=== PATIENT | female | born 1995 | race Caucasian/White ===

== ENCOUNTER 2024-12-02 12:46 | Emergency (ER) | payer OTHER, SELFPAY ==
[2024-12-02 12:47] VITALS: BP 113/76; PULSE 104; RESP 16; TEMP 36.8; O2SAT 100
--- NOTE | 2024-12-02 13:30 | ED.VIS.DYS ---
HPI History of Present Illness Chief Complaint: Cold Sx PFSH [facility] Home Medications ?Medication ?Instructions ?Recorded ?Last Taken ?Type docusate sodium 100 mg capsule 200 mg PO BID PRN PRN Constipation 05/13/17 Unknown Rx (DOK) ##60 lorazepam 0.5 mg tablet 0.5 mg PO Q8H PRN PRN Anxiety #10 05/13/17 Unknown Rx tabs nicotine 21 mg/24 hr daily 21 mg TRANSDERM. DAILY #20 patches 05/13/17 Unknown Rx transdermal patch oxycodone 5 mg tablet 5 - 10 mg (1 - 2 x 5 mg) PO Q4H 05/13/17 Unknown Rx PRN PRN moderate to severe pain #30 tabs sertraline 50 mg tablet 50 mg PO DAILY #30 tabs 05/13/17 Unknown Rx sulfamethoxazole 800 1 tab PO BID 14 days 05/13/17 Unknown Rx mg-trimethoprim 160 mg tablet Allergy/AdvReac Type Severity Reaction Status Date / Time lactose Allergy Abd Verified 12/02/24 12:47 cramps/diarrhea egg AdvReac Hives Verified 12/02/24 12:47 Social History Smoking Status: Former smoker EXAM Physical Exam Const Vital Signs: 12/02/24 12:47 12/02/24 14:16 12/02/24 14:51 Temperature 98.3 F Temperature Source Oral Pulse Rate 104 H 92 Respiratory Rate 16 16 16 Respiratory Pattern Normal Blood Pressure 113/76 Blood Pressure Mean 88 Pulse Ox 100 100 Oxygen Delivery Method Room Air 12/02/24 16:00 Temperature Temperature Source Pulse Rate 68 Respiratory Rate 18 Respiratory Pattern Blood Pressure Blood Pressure Mean Pulse Ox Oxygen Delivery Method [facility] MDM MDM Narrative Medical decision making narrative: HISTORY OF PRESENT ILLNESS: 29-year-old female presents concern for cold symptoms. No she is feeling dizzy. She notes pressure in her abdomen. Denies vaginal bleeding, vaginal discharge, passage of any tissue, leakage of any fluid. REVIEW OF SYSTEMS: Pertinent positives: Cough, cold symptoms Pertinent negatives: Chest pain, shortness of breath PHYSICAL EXAM: Nursing triage notes reviewed, Vital signs reviewed Constitutional: please see mdm HENT: MMM Eyes: Pupils equal round and reactive to light, Extraocular muscles intact Neck: No stridor, no JVD, full neck ROM Lungs: Coarse breath sounds, slight expiratory wheezing noted initially. No increased work of breathing, no conversational dyspnea, no accessory muscle use, no nasal flaring. No respiratory distress noted Heart: Regular rate and rhythm, No murmurs, No rubs and No gallops, 2+ distal pulses (radial, femoral, posterior tibial) in all extremities Abdomen: Soft, there is no tenderness, rigidity, rebound or guarding, no obvious peritoneal signs, no palpable pulsatile abdominal masses, no auscultated abdominal bruit : No CVAT Extremities: No edema Neuro: No new focal neurological deficits, cranial nerves II through XII intact, 5/5 strength in all present extremities. Intact sensation to light touch in all present extremities, 2+ reflexes bilateral patella tendons. Skin: No rash or lesions noted MEDICAL DECISION MAKING: Chief Complaint: Cough, cold symptoms Social determinants of health: Currently MDM Narrative: Patient was initially hemodynamically stable, afebrile and nontoxic-appearing. Exam without focal cardiopulmonary normalities. Abdomen soft. I considered the following differential diagnosis: COVID/flu/RSV, pneumonia ALL IMAGES (IF OBTAINED) HAVE BEEN PERSONALLY REVIEWED AND INTERPRETED BY MYSELF. I have personally reviewed the patient's chest x-ray. Chest x-ray is unremarkable for pulmonary edema, pneumothorax, pneumonia or focal cardiopulmonary abnormality. COVID/flu/RSV test pending Patient abdominal exam is reassuring. heart tones reassuring. On reevaluation wheezing has completely resolved. She has no abdominal pain. Repeat abdominal exam remained benign. Viral swab showed RSV positive. This likely etiology of the patient's complaints. The patient does not display any signs of hypoxia or increased work of breathing or need for submental oxygen or invasive ventilation. She was instructed on Tylenol and ibuprofen. Strict return precautions were discussed. Instructed the patient to call her OB and follow-up (patient notes she has an appointment tomorrow). No indication for emergent OB evaluation at this time. Gave strict return precautions and follow-up instructions. The patient and/or family, caregivers express understanding. The patient and/or family, caregivers agrees with the plan. Shared decision making: I will have a discussion with the patient and or visitors regarding risk/benefits of further testing or admission. They will be made aware of of the risk/benefits inherent in this decision they will be given the opportunity to voice understanding. Total critical care time today provided was at least 0 minutes. This excludes separately billable procedures. Critical care time (if documented) is secondary to the patient having high probability of clinically significant/life threatening deterioration in the patient's condition which required my urgent intervention. Impression: 1. Viral URI 2. RSV Dispo: Discharge home This note was generated with [employer]ok[employer] dictation software. It may contain incorrect words, spelling, and punctuation that were not noted in review of the chart prior to signing. Radiography Diagnostic Testing: Clinical Impression(s) from Imaging Studies Chest X-Ray 12/02/24 14:15 IMPRESSION: NEGATIVE CHEST Reading Location[facility] Discharge Plan Triage Chief Complaint: Cold Sx ED Provider: Cuauhtemoc Molina Dx/Rx/DC Orders Instructions: ED RSV Bronchiolitis Prescriptions: No Action lorazepam 0.5 MG tablet 0.5 mg PO Q8H PRN PRN (Reason: Anxiety) Qty: 10 0RF nicotine 21 MG patch 21 mg TRANSDERM. DAILY Qty: 20 0RF Rx Instructions: May transition to 14 mg and then 7 mg patch as taper for tobacco cessation. Obtain Rx per your primary care physician. docusate sodium [DOK] 100 MG capsule 200 mg PO BID PRN PRN (Reason: Constipation ) Qty: 60 0RF sertraline 50 MG tablet 50 mg PO DAILY Qty: 30 0RF Rx Instructions: Continue 50 mg daily x 1 week and then may increase to 100 mg daily. Following will need further adjustment upward to achieve symptom control which will need performed per your primary care physician. oxycodone 5 MG tablet 5 - 10 mg PO Q4H PRN PRN (Reason: moderate to severe pain) Qty: 30 0RF sulfamethoxazole-trimethoprim 1 TABLET tablet 1 tab PO BID 14 Days 0RF Stand Alone Forms: ED Work / School Excuse Primary Care Provider: Lupe Michelle Referrals: [facility] Doctor,Out of [Non-Staff] - Activity Restrictions/Additional Instructions: Thank you for trusting us with your care today! Your viral swab was positive for RSV. Is likely cause of your symptoms. Please take Tylenol (2 pills, 650 mg), every 6 hours as needed for pain and fever control. Please return to the emergency department if your symptoms change or worsen. Please follow with your primary care physician for further outpatient evaluation and management. Print Language: Nepali Disposition Disposition: Home, Self Care Discharge Date/Time: 12/02/24 16:43
--- NOTE | 2024-12-02 14:15 | RAD_ITS ---
PROCEDURE: CHEST PA AND LATERAL REASON FOR EXAM: Cough TECHNIQUE: Frontal and lateral views of the chest. COMPARISON: None. FINDINGS: The heart size is normal. The mediastinal contour is unremarkable. The lungs are clear. The bones are unremarkable. RAD/Chest PA and Lateral IMPRESSION: NEGATIVE CHEST Reading Location: [facility]
[2024-12-02 14:16] VITALS: PULSE 92; RESP 16
[2024-12-02] MEDS: Ipratropium/Albuterol Sulfate 3 ML AMPUL.NEB INHALATION (14:18)
[2024-12-02 14:51] VITALS: RESP 16; O2SAT 100
[2024-12-02 16:00] VITALS: PULSE 68; RESP 18
== END 2024-12-02 16:43 | disposition home or self-care (01) ==
PROVIDERS: Emergency Provider Emergency Medicine; PCP Family Medicine; Visit Provider Emergency Medicine
DX: O99.519 Diseases of the respiratory system complicating pregnancy, unspecified trimester (principal); B97.4 Respiratory syncytial virus as the cause of diseases classified elsewhere; J06.9 Acute upper respiratory infection, unspecified; Z3A.00 Weeks of gestation of pregnancy not specified; Z87.891 Personal history of nicotine dependence
CPT/HCPCS: 71046; 87631; 94640; 99282

== ENCOUNTER 2024-12-03 06:58 | Outpatient (CLI) | payer OTHER, SELFPAY ==
[2024-12-03] VITALS (13 sets, daily range): BP systolic 115–121; BP diastolic 58; PULSE 85–100; RESP 22; O2SAT 95–98; BMI 34.2
--- NOTE | 2024-12-03 07:39 | OB.TRI.NOTE ---
HPI - General HPI Narrative TRICIA MCNULTY, is a 29 F 33 week gestation who presents to triage with pelvic pressure and possible leaking of fluid. She was seen in ED yesterday and +RSV. PFSH PFSH Home Medications ?Medication ?Instructions ?Recorded ?Last Taken ?Type docusate sodium 100 mg capsule 200 mg PO BID PRN PRN Constipation 05/13/17 Unknown Rx (DOK) ##60 lorazepam 0.5 mg tablet 0.5 mg PO Q8H PRN PRN Anxiety #10 05/13/17 Unknown Rx tabs nicotine 21 mg/24 hr daily 21 mg TRANSDERM. DAILY #20 patches 05/13/17 Unknown Rx transdermal patch oxycodone 5 mg tablet 5 - 10 mg (1 - 2 x 5 mg) PO Q4H 05/13/17 Unknown Rx PRN PRN moderate to severe pain #30 tabs sertraline 50 mg tablet 50 mg PO DAILY #30 tabs 05/13/17 Unknown Rx sulfamethoxazole 800 1 tab PO BID 14 days 05/13/17 Unknown Rx mg-trimethoprim 160 mg tablet Allergy/AdvReac Type Severity Reaction Status Date / Time lactose Allergy Abd Verified 12/02/24 12:47 cramps/diarrhea egg AdvReac Hives Verified 12/02/24 12:47 Social History Smoking Status: Former smoker ROS Eyes Eyes: Denies blurry vision Cardiovascular Cardiovascular: Reports none; Denies chest pain at rest, chest pain with activity or dizziness Respiratory/Chest Respiratory/Chest: Denies cough or dyspnea Gastrointestinal Gastrointestinal: Reports none and other; Denies diarrhea or vomiting Genitourinary Genitourinary: Denies dysuria Musculoskeletal Musculoskeletal: Reports none Integumentary Integumentary: Reports none; Denies rash Neurologic Neurologic: Denies dizziness, headache(s) or other visual disturbances Psychiatric Psychiatric: Reports none Physical Exam Const alert and no apparent distress General Appearance: cooperative Orientation / Consciousness: awake Exam Limitations: no limitations HEENT normocephalic Eyes General Eye: normal appearance of both eyes Neck full ROM Chest inspection of chest normal Resp normal respiratory effort and normal air movement Cardio regular rate GI soft to palpation, non-tender and non-distended Inspection: and other Back/Spine normal ROM Extremity full ROM, normal capillary refill and no calf tenderness Skin no rashes or lesions noted Neuro oriented x3 and CN's II-XII intact bilaterally Psych mental status grossly normal NST FHR Rate Baby A Baseline: 125 Variability:: Moderate Accelerations:: 15 x 15 Decelerations:: None NST Reactive:: Yes FHR Category:: Category I Uterine Activity:: IRRITABILITY Assessment & Plan (1) 33 weeks gestation of : (2) Lower abdominal tenderness: (3) No leakage of amniotic fluid into vagina: (4) RSV (respiratory syncytial virus infection): PLAN: Plan ROM plus - negative Start IV and run fluids per orders Labs collected UA collected Palpated maternal abdomen, mild tenderness in lower right quadrant Dr. Hinton updated and will be assuming managment of patient
[2024-12-03 08:19] LABS: Protein:Creat Ratio 237 mg/g CRE (0-200)
[2024-12-03 08:26] LABS: ROM Internal Control Test YES-OK TO RESULT pt. (Internal QC); ROM Patient Test Negative (Negative); Record Kit Lot#, ROM+ K2871
[2024-12-03 08:58] LABS: Absolute Lymphocyte Count 1.71 X10^3/uL (0.83-4.51); Absolute Neutrophil Count 12.1 X10^3/uL (2.0-7.7); Basophil# 0.07 X10^3/uL; Basophil% 0.5 % (0-1); Eosinophil# 0.21 X10^3/uL; Eosinophils% 1.4 % (0-5); Hematocrit 36.1 % (37-47); Hemoglobin 12.2 g/dL (12.0-15.0); Lymphocyte # 1.71 X10^3/ul (0.83-4.51); Lymphocyte % 11.3 % (19-41); Mean Corp Hgb Conc 33.8 g/dL (32-36); Mean Corpuscular Hgb 29.3 pg (27.0-32.0); Mean Corpuscular Volume 86.6 fL (81-99); Mean Platelet Vol. 9.4 fl (6.2-12.0); Monocyte# 0.92 X10^3/uL; Monocyte% 6.1 % (0-10); NRBC Flagged by Analyzer 0 % (0-5); Neutrophil # 12.06 X10^3/uL (2.7-7.7); Neutrophil % 79.8 % (47-70); Platelet Count 256 K/mm3 (150-450); RBC Distribution Width CV 13.3 % (11.6-14.6); RBC Distribution Width SD 42.2 fl (35.1-43.9); Red Blood Count 4.17 M/mm3 (4.2-5.4); White Blood Count 15.1 K/mm3 (4.4-11.0)
[2024-12-03 09:12] LABS: AST(SGOT) 18 U/L (15-37); Alanine Aminotransfer ALT/SGPT 17 U/L (13-56); Creatinine, Serum 0.38 mg/dL (0.55-1.02); EST Glomerular Filtration Rate 209 mL/min (>60); Est Glom Filt Rate - Afr Amer 253 mL/min (>60)
[2024-12-03 09:21] LABS: Anion Gap 9 (5-15); BUN 6 mg/dL (7-18); Calcium,Total 8.6 mg/dL (8.5-10.1); Chloride 107 mmol/L (98-107); Creatinine, Serum 0.37 mg/dL (0.55-1.02); EST Glomerular Filtration Rate 213 mL/min (>60); Est Glom Filt Rate - Afr Amer 258 mL/min (>60); Estimated Creatinine Clearance 216.09 ml/min; Glucose 99 mg/dL (74-106); Potassium 3.4 mmol/L (3.5-5.1); Sodium Level 138 mmol/L (136-145)
[2024-12-03 09:54] LABS: Syphilis Antibodies Non-reactive
[2024-12-03] MEDS: Ipratropium/Albuterol Sulfate 3 ML AMPUL.NEB INHALATION (12:28)
== END 2024-12-03 13:48 | disposition home or self-care (01) ==
LOC: WPOUT 07:04 → WP 07:04
PROVIDERS: PCP Family Medicine; Referring Provider Advanced Practice Midwife; Visit Provider Advanced Practice Midwife
DX: O99.891 Other specified diseases and conditions complicating pregnancy (principal); R10.31 Right lower quadrant pain; O98.513 Other viral diseases complicating pregnancy, third trimester; B97.4 Respiratory syncytial virus as the cause of diseases classified elsewhere; Z3A.33 33 weeks gestation of pregnancy; Z87.891 Personal history of nicotine dependence
CPT/HCPCS: 36415; 59025; 59050; 80048; 82565; 82570; 84112; 84156; 84450; 84460; 84550; 85025; 86780; 87086; 87088; 94640; 99221; G0378

== ENCOUNTER 2024-12-19 19:05 | Outpatient (CLI) | payer OTHER, SELFPAY ==
[2024-12-19 19:38] VITALS: PULSE 90; O2SAT 98
[2024-12-19 19:41] VITALS: BP 115/68; PULSE 87
[2024-12-19 19:49] VITALS: BMI 35.1
[2024-12-19 19:52] VITALS: RESP 20; TEMP 36.7
[2024-12-19 20:13] LABS: Color, Urine Yellow (Yellow); Glucose, Dipstick Normal (Normal); Ketone-Dipstick Negative (Negative); Leukocyte Esterase-Dipstick Negative /ul (Negative); Nitrite-Dipstick Negative (Negative); Occult Blood-Urine Negative /ul (Negative); Protein-Dipstick 15 mg/dl (Negative); Specific Gravity, Urine 1.015 (1.002-1.030); Urine Bilirubin Dipstick Negative (Negative); Urine Clarity Clear (Clear); Urine Urobilinogen Normal (Normal)
--- NOTE | 2024-12-19 21:22 | OB.TRI.NOTE ---
HPI - General HPI Narrative TRICIA MCNULTY, is a 29 F at 35.4 weeks gestation who presents with lower vaginal pressure. Patient denies any loss of fluid, or vaginal bleeding. She denies any dysuria or hematuria. Maternal Data Information SASCHA Calculator Estimated Delivery Date Method Current WG Current Estimate 01/19/25 Manual 35w 4d PFSH PFSH Home Medications ?Medication ?Instructions ?Recorded ?Last Taken ?Type buspirone PO BID 12/19/24 12/19/24 18:50 History lamotrigine 100 mg tablet 100 mg PO DAILY 12/19/24 12/18/24 20:00 History (Lamictal) nystatin .ROUTE .qid 12/19/24 12/19/24 13:00 History vit no.95-ferrous 1 tab PO DAILY 12/19/24 12/18/24 20:00 History fumarate 28 mg-folic acid 800 mcg tablet () Allergy/AdvReac Type Severity Reaction Status Date / Time bupropion (From Wellbutrin) Allergy Severe Other Verified 12/19/24 19:44 pollen extracts (pollens) Allergy Mild Other Verified 12/19/24 19:44 lactose Allergy Abd Verified 12/19/24 19:44 cramps/diarrhea egg AdvReac Hives Verified 12/19/24 19:44 Social History Smoking Status: Former smoker ROS Eyes Eyes: Denies blurry vision Cardiovascular Cardiovascular: Reports none; Denies chest pain at rest, chest pain with activity or dizziness Respiratory/Chest Respiratory/Chest: Denies cough or dyspnea Gastrointestinal Gastrointestinal: Reports none and other; Denies diarrhea or vomiting Genitourinary Genitourinary: Denies dysuria Musculoskeletal Musculoskeletal: Reports none Integumentary Integumentary: Reports none; Denies rash Neurologic Neurologic: Denies dizziness, headache(s) or other visual disturbances Psychiatric Psychiatric: Reports none Physical Exam Const alert and no apparent distress General Appearance: cooperative Orientation / Consciousness: awake Exam Limitations: no limitations HEENT normocephalic Eyes General Eye: normal appearance of both eyes Neck full ROM Chest inspection of chest normal Resp normal respiratory effort and normal air movement Effort and Inspection: symmetric chest movement Auscultation: clear to auscultation bilaterally Cardio regular rate GI soft to palpation, non-tender and non-distended Inspection: and other Back/Spine normal ROM Extremity full ROM, normal capillary refill and no calf tenderness Skin no rashes or lesions noted Neuro oriented x3 and CN's II-XII intact bilaterally Psych mental status grossly normal NST FHR Rate Baby A Baseline: 120 Variability:: Moderate Accelerations:: 15 x 15 Decelerations:: None NST Reactive:: Yes FHR Category:: Category I Uterine Activity:: Occasional Assessment & Plan (1) 35 weeks gestation of : (2) Pelvic pressure in : (3) Lower abdominal tenderness: PLAN: Plan CE FT/ Thick/ High UA - negative Patient reports feeling no pain since arrival Taking oral PO Requesting discharge home Follow up in office
== END 2024-12-19 21:24 | disposition home or self-care (01) ==
LOC: WPOUT 19:10 → WP 19:10
PROVIDERS: PCP Family Medicine; Referring Provider Advanced Practice Midwife; Visit Provider Advanced Practice Midwife
DX: O99.891 Other specified diseases and conditions complicating pregnancy (principal); R10.2 Pelvic and perineal pain; Z3A.35 35 weeks gestation of pregnancy; Z87.891 Personal history of nicotine dependence
CPT/HCPCS: 59025; 59050; 81002; 99221; G0378

== ENCOUNTER 2024-12-25 17:25 | Outpatient (CLI) | payer OTHER, SELFPAY ==
[2024-12-25 17:38] VITALS: BP 115/76; PULSE 95; RESP 16; TEMP 36.8; O2SAT 97
[2024-12-25 17:41] VITALS: BP 115/76; PULSE 94
[2024-12-25 17:57] VITALS: BP 105/66; PULSE 90; BMI 35.7
[2024-12-25 18:13] VITALS: BP 111/66; PULSE 90
--- NOTE | 2024-12-25 19:53 | OB.TRI.NOTE ---
HPI - General HPI Narrative TRICIA MCNULTY, is a 29 F who presents for evaluation. Per RN she coughed and saw stars for 10 seconds. She denied further concerns to RN. Maternal Data Information SASCHA Calculator Estimated Delivery Date Method Current WG Current Estimate 01/19/25 Manual 36w 3d PFSH PFSH Home Medications ?Medication ?Instructions ?Recorded ?Last Taken ?Type buspirone 10 mg PO BID 12/19/24 12/25/24 10:00 History lamotrigine 100 mg tablet 100 mg PO DAILY 12/19/24 12/25/24 10:00 History (Lamictal) vit no.95-ferrous 1 tab PO DAILY 12/19/24 12/24/24 22:00 History fumarate 28 mg-folic acid 800 mcg tablet () aspirin 81 mg chewable tablet 1 tab PO DAILY 12/25/24 12/24/24 22:00 History (Aspirin Childrens) Allergy/AdvReac Type Severity Reaction Status Date / Time bupropion (From Wellbutrin) Allergy Severe Other Verified 12/25/24 18:01 pollen extracts (pollens) Allergy Mild Other Verified 12/25/24 18:01 lactose Allergy Abd Verified 12/19/24 19:44 cramps/diarrhea egg AdvReac Hives Verified 12/25/24 18:01 Social History Smoking Status: Former smoker NST FHR Rate Baby A Baseline: 125 Variability:: Moderate Accelerations:: 15 x 15 Decelerations:: None Uterine Activity:: rare Assessment & Plan (1) Vision changes: PLAN: Plan Reactive NST
== END 2024-12-25 18:29 | disposition home or self-care (01) ==
LOC: WPOUT 17:30 → WP 17:31
PROVIDERS: PCP Family Medicine; Referring Provider Obstetrics & Gynecology; Visit Provider Obstetrics & Gynecology
DX: O99.891 Other specified diseases and conditions complicating pregnancy (principal); H53.9 Unspecified visual disturbance; Z3A.36 36 weeks gestation of pregnancy; Z87.891 Personal history of nicotine dependence; Z79.82 Long term (current) use of aspirin
CPT/HCPCS: 59025; 59050; 99221; G0378

== ENCOUNTER 2025-01-13 16:12 | Inpatient (IN) | payer OTHER, SELFPAY ==
[2025-01-13] VITALS (9 sets, daily range): BP systolic 118–131; BP diastolic 70–79; PULSE 79–92; RESP 16–18; TEMP 36.3–37.3; O2SAT 93–97; BMI 35.5
[2025-01-13 16:52] LABS: Absolute Lymphocyte Count 2.47 X10^3/uL (0.83-4.51); Absolute Neutrophil Count 9.7 X10^3/uL (2.0-7.7); Basophil# 0.04 X10^3/uL; Basophil% 0.3 % (0-1); Eosinophil# 0.11 X10^3/uL; Eosinophils% 0.8 % (0-5); Hematocrit 36.5 % (37-47); Hemoglobin 12.4 g/dL (12.0-15.0); Lymphocyte # 2.47 X10^3/ul (0.83-4.51); Lymphocyte % 18.6 % (19-41); Mean Corpuscular Hgb 29.5 pg (27.0-32.0); Mean Corpuscular Volume 86.7 fL (81-99); Mean Platelet Vol. 9.3 fl (6.2-12.0); Monocyte# 0.87 X10^3/uL; Monocyte% 6.6 % (0-10); NRBC Flagged by Analyzer 0 % (0-5); Neutrophil % 73.2 % (47-70); Platelet Count 304 K/mm3 (150-450); RBC Distribution Width CV 13.4 % (11.6-14.6); RBC Distribution Width SD 42.1 fl (35.1-43.9); Red Blood Count 4.21 M/mm3 (4.2-5.4); White Blood Count 13.3 K/mm3 (4.4-11.0)
[2025-01-13] MEDS: Lactated Ringers 1,000 ML 50 ML IV (17:05)
--- NOTE | 2025-01-13 17:13 | PCM.HP.OB ---
HPI - General General Date of Admission: 01/13/25 Date of Service: 01/13/25 HPI Narrative TRICIA MCNULTY, is a 29 F who presents for elective IOL. Screen positive for XXY. Accessory love on placenta Maternal Data Information SASCHA Calculator Estimated Delivery Date Method Current WG Current Estimate 01/19/25 Manual 39w 1d Final SASCHA: 01/19/25 Gestational age: 39+1 PFSH PFSH Medical History Right ankle injury depression Psychiatric disorder Home Medications ?Medication ?Instructions ?Recorded ?Last Taken ?Type buspirone 10 mg PO BID Anxiety 12/19/24 01/13/25 History lamotrigine 100 mg tablet 200 mg PO DAILY Bi-Polar 12/19/24 01/13/25 History (Lamictal) vit no.95-ferrous 1 tab PO DAILY 12/19/24 01/13/25 History fumarate 28 mg-folic acid 800 mcg tablet () aspirin 81 mg chewable tablet 1 tab PO DAILY 12/25/24 12/24/24 22:00 History (Aspirin Childrens) nystatin 100,000 unit/mL oral 5 ml PO 4X/DAY Thrush 01/13/25 01/13/25 History suspension Allergy/AdvReac Type Severity Reaction Status Date / Time bupropion (From Wellbutrin) Allergy Severe Other Verified 01/13/25 16:35 pollen extracts (pollens) Allergy Mild Other Verified 01/13/25 16:35 lactose Allergy Abd Verified 01/13/25 16:35 cramps/diarrhea egg AdvReac Hives Verified 01/13/25 16:35 Social History Smoking Status: Current every day smoker tobacco type: e-cigarettes History Elective abortions Hx Para 1 Spontaneous abortions Hx # Term Pregnancies Ectopic pregnancies Hx # Pregnancies Multiple births # of living children NST FHR Rate Baby A Baseline: 140 Variability:: Moderate Accelerations:: 15 x 15 Decelerations:: None NST Reactive:: Yes FHR Category:: Category I ROS Constitutional Constitutional: Denies fatigue, fever(s) or malaise Eyes Eyes: Denies change in vision ENT HEENT: Denies dizziness or headache(s) Cardiovascular Cardiovascular: Denies chest pain, dyspnea or lightheadedness Respiratory/Chest Respiratory/Chest: Denies cough or dyspnea Gastrointestinal Gastrointestinal: Denies change in bowel habits Genitourinary Genitourinary: Denies burning urination or genital lesions Integumentary Integumentary: Denies rash Neurologic Neurologic: Denies confusion, dizziness, headache(s), numbness or weakness Vital Signs Vital Signs Vital Signs: Weight Weight: 88.088 kg Body Mass Index (BMI) 35.5 Physical Exam Const alert and no apparent distress General Appearance: cooperative HEENT normocephalic Resp normal respiratory effort Cardio regular rate GI soft to palpation GI Narrative: gravid, nontender, appropriate for gestational age Extremity no calf tenderness General Extremity: edema Skin no wounds Rashes: No rashes noted Psych activity/motor behavior normal Labs Labs Labs: Blood Type Pending Antibody Screen Pending Hct 36.5 % (37-47) L Hgb 12.4 g/dL (12.0-15.0) Syphilis Total Ab Non-reactive Assessment & Plan (1) 39 weeks gestation of : (2) Elective induction of labor planned: PLAN: Plan resendez, cytotec, pitocin Epidural prn
--- NOTE | 2025-01-13 17:14 | PCM.PN.OB ---
Subjective Subjective Byers placed without difficulty. 1.5/60/-3. medium. Cytotec x 1 then plan Pitocin Objective Data Objective Data Vital Signs: Weight: 88.088 kg Body Mass Index (BMI) 35.5 Lab / Micro Data 01/13/25 16:37 Labs: Laboratory Results - last 24 hr 01/13/25 16:37: WBC 13.3 H, RBC 4.21, Hgb 12.4, Hct 36.5 L, MCV 86.7, MCH 29.5, MCHC 34.0, RDW Std Deviation 42.1, RDW Coeff of Marie 13.4, Plt Count 304, MPV 9.3, Immature Gran % (Auto) 0.500, Neut % (Auto) 73.2 H, Lymph % (Auto) 18.6 L, [place] % (Auto) 6.6, Eos % (Auto) 0.8, Baso % (Auto) 0.3, Absolute Neuts (auto) 9.7 H, Absolute Lymphs (auto) 2.47, Nucleated RBC % 0 Assessment & Plan (1) Elective induction of labor planned: (2) 39 weeks gestation of :
[2025-01-13] MEDS: 0.9% Normal Saline Single 100 ML IV.SOLN. INTRA-UTER (17:25)
[2025-01-13] MEDS: 0.9% Saline Lock 10 ML Syringe IV (17:25)
[2025-01-13 17:34] LABS: Syphilis Antibodies Nonreactive (Nonreactive)
[2025-01-13] MEDS: miSOPROStol 25 MCG TABLET PO (17:39)
[2025-01-13] MEDS: Oxytocin 15 Units/NS 250ml 15 UNITS/250 ML IV.SOLN 2 UNITS IV (21:52)
[2025-01-13] MEDS: Lactated Ringers 1,000 ML 999 ML IV (23:03)
[2025-01-14] VITALS (74 sets, daily range): BP systolic 97–173; BP diastolic 52–122; PULSE 74–130; RESP 16–18; TEMP 36.1–37.2; O2SAT 88–100
[2025-01-14] MEDS: fentaNYL-bupivacaine (epidural) 100 ML BAG EPIDURAL (00:36)
[2025-01-14] MEDS: 0.9% Saline Lock 10 ML Syringe IV ×2 (01:04→09:44)
[2025-01-14] MEDS: Ondansetron 4 MG/2 ML Vial IV (01:04)
--- NOTE | 2025-01-14 02:23 | PCM.PN.OB ---
Subjective Subjective AROM for clear fluid. 3-/-2. Pitocin at 10. Epidural in and working well. CAT I tracing Objective Data Objective Data Vital Signs: Vital Signs Temp Pulse Resp BP Pulse Ox 97.7 F L 85 18 97/52 L 98 01/14/25 01:54 01/14/25 01:55 01/14/25 01:54 01/14/25 01:55 01/14/25 00:57 Weight: 88.088 kg Body Mass Index (BMI) 35.5 Intake & Output: Intake and Output for Last 24 Hours 01/12/25 01/13/25 01/14/25 23:59 23:59 23:59 Intake Total 78.21 / 78.21 1015.37 / 1015.37 Balance 78.21 / 78.21 1015.37 / 1015.37 Lab / Micro Data 01/13/25 16:37 Labs: Laboratory Results - last 24 hr 01/13/25 16:37: WBC 13.3 H, RBC 4.21, Hgb 12.4, Hct 36.5 L, MCV 86.7, MCH 29.5, MCHC 34.0, RDW Std Deviation 42.1, RDW Coeff of Marie 13.4, Plt Count 304, MPV 9.3, Immature Gran % (Auto) 0.500, Neut % (Auto) 73.2 H, Lymph % (Auto) 18.6 L, [place] % (Auto) 6.6, Eos % (Auto) 0.8, Baso % (Auto) 0.3, Absolute Neuts (auto) 9.7 H, Absolute Lymphs (auto) 2.47, Nucleated RBC % 0, Syphilis Total Ab Nonreactive, Blood Type O POSITIVE, Antibody Screen NEGATIVE Assessment & Plan (1) Elective induction of labor planned: (2) 39 weeks gestation of :
[2025-01-14] MEDS: DiphenhydrAMINE 25 MG Capsule PO (02:29)
[2025-01-14] MEDS: Lactated Ringers 1,000 ML 999 ML IV (03:28)
--- NOTE | 2025-01-14 05:56 | PLAC_PTH ---
PATIENT: TRICIA MCNULTY LOC: [facility] U#:[id number] AGE/SX: 29/F ROOM: WP014 RE01/13/[address]: Dr. Rani Parkinson MD : 1995 BED: 1 DIS: 01/15/2025 SPEC #: [id number] RECD: 01/14/25 13:02 STATUS: LAVINIA FREEMAN #: [id number] CHEYANNE: 01/14/25 05:[address]: Rani Parkinson DEPT: SURGICAL PATHOLOGY RECD BY: Ashu Gutierrez ENTERED: 01/14/25 13:02 SP TYPE: PLACENTA OTHR DR: Dr. Lupe Michelle, DO Tissues: A - Placenta, NOS Procedures: Surgery Specimen Level V HEADER OPERATION: Delivery PRE-OP DIAGNOSIS: Abnormal placenta TISSUE SUBMITTED: A- Placenta MICROSCOPIC DIAGNOSIS A. PLACENTA: * Mature third trimester placenta (486 grams, formalin fixed weight) with accessory lobe and focal microcalcifications * Three vessel umbilical cord with velamentous insertion * membranes with pigment laden macrophages and without active inflammation MICROSCOPIC DESCRIPTION Slides are reviewed. GROSS DESCRIPTION SPECIMEN: PLACENTA / CLINICAL INFORMATION: A. Weight: 3.24 g B. Gestational Age: 39weeks and 1 day C. Sex: Male PLACENTAL WEIGHT (POST FIXATION): 486 gm PLACENTAL DIMENSIONS: 23.8 x 17.1 x 2.4 cm PLACENTAL SHAPE: Bi-lobed PLACENTAL WEIGHT FOR GESTATIONAL AGE: Within 10-99th percentile (over/under percentile) MEMBRANES - Present A. Insertion: Marginal B. Site of rupture from edge: 8.0 cm from edge of placental disc C. Color of membrane: Santacruz-carroll D. Abnormalities: None UMBILICAL CORD - Present A. Color: Santacruz-carroll B. Insertion: Velamentous, 0.6 cm from edge of placental disc C. Length: 35.8 cm D. Diameter: 1.8 cm E. Number of vessels: Three F. Abnormalities: Vessels focally filled with minimal clot. Insertion on membranes between two lobes PLACENTAL DISC - Present A. Color of surface: Santacruz-carroll B. surface abnormalities: None C. Maternal cotyledons: Intact with minimal tears D. Attached retro placental clot: No clot E. Cut surface: Dark red and spongy F. Lesions: None- two lobes of disc joined by membranes and possible thin bridge of parenchyma G. Separate clot: Absent SECTIONS SUBMITTED: A1-membane roll and two umbilical cord cross sections A2-section showing two lobes and bridge of membranes and possible parenchyma A3-A4-two sections of larger lobe of disc A5-one section of smaller lobe of disc JK 01/14/2025 CPT: 31172
--- NOTE | 2025-01-14 06:00 | EX.PCM.OBVAG ---
Assessment & Plan (1) (spontaneous vaginal delivery): (2) Depression: (3) Anxiety: Maternal Data Information SASCHA Calculator Estimated Delivery Date Method Current WG Current Estimate 01/19/25 Manual 39w 2d Final SASCHA: 01/19/25 Gestational age: 39+2 Vaginal Delivery Maternal Presentation Maternal Presentation: Elective Induction Maternal Presentation: Elective induction of labor. screen positive for XXY Type of Induction: Pitocin, Byers Bulb, Amniotomy and Cytotec Vaginal Delivery Information Procedure Performed: Spontaneous Vaginal Delivery Surgeon/Practitioner: Rani Parkinson Date of Procedure: 01/14/25 Pre-Procedure Diagnosis: Term Post-Procedure Diagnosis: Type of anesthesia: Epidural Estimated Blood Loss: 150 cc Time of Delivery: 05:42 Findings Description of procedure: Induction of labor with Cytotec, Byers and Pitocin. AROM at 3-4 cm. Rapidly progressed to completed and pushed for 45 minutes over an intact perineum. Delivered CARLOS. The shoulders delivered with gentle traction. The rest of the body delivered without difficulty. The infant was dried and stimulated. The cord was clamped and cut at 60 secs. Cord blood was collected for a karyotype. The placenta delivered with gentle traction. There was a known accessory lobe that was actually a bilobed placenta. Both lobes were present on inspection. There were no lacerations. All sponge, needle and instrument counts were correct. Procedure findings: Bilobed placenta Presentation: Vertex and CARLOS Amniotic Membrane Rupture Type: Artificial Amniotic Fluid Description: Clear and Other (terminal mec) Placental Delivery Description: Spontaneous Placenta Disposition: [facility] Specimen collected: Yes Description of specimen(s) removed: cord blood and placenta Cord Vessel Description: 3 Vessels Cord Entanglement: None A Gender: Male (1 minute): 8 (5 minute): 9 Delayed Cord Clamping: Yes Global Technical Writer termite control representative: No Post Vaginal Deli Medications given after delivery: IV Pitocin Episiotomy Description: None Laceration: None Complication Complications: No
[2025-01-14] MEDS: Oxytocin 15 Units/NS 250ml 15 UNITS/250 ML IV.SOLN 83 UNITS IV (06:25)
[2025-01-14 09:04] LABS: Pathology Specimen OB SEE PATHOLOGY REPORT
[2025-01-14] MEDS: busPIRone 5 MG Tablet 10 MG PO ×2 (09:44→20:45)
[2025-01-14] MEDS: lamoTRIgine 100 MG Tablet 200 MG PO (09:44)
[2025-01-14] MEDS: NYSTATIN 500,000 UNIT/5 ML UDC 500000 UNIT PO ×3 (14:32→20:46)
[2025-01-14] MEDS: Ibuprofen 600 MG Tablet PO ×2 (17:10→23:43)
[2025-01-14] MEDS: Acetaminophen 500 MG Tablet 1000 MG PO (19:42)
--- NOTE | 2025-01-14 21:22 | CASEMGMT ---
Assessment for the [place] Social Work Assessment Labor and Delivery Unit Date of Referral: 01/14/2025 Time of Referral:? 12:54pm Referred By: Finn Date of Intervention: ?01/14/2025 Time of Intervention:? 1:30pm Reason for Referral:? Substance use,? PHQ9 score 11 IMELDA completed chart review and acknowledges social work consult due to substance use and scoring an 11 on PHQ 9.? IMELDA presented to bedside and introduced self to mother of baby (MILO- Navya).? IMELDA completed psychosocial assessment.? History obtained from: medical records, MOB Household composition:? MILO has moved in with a family friend, Ese and Eses and their 11 year old daughter. ?Ese and have also taken in MOB mother and MOB other daughter who is 11.? Patient's parent/guardian status:? ?MILO states that she has broken off the relationship with KERA this past Tuesday night. MILO states that KERA is still acting as if they are together and she is not sure he knows she is serious.? MILO states that she stopped the relationship because KERA has mental health disorders that include anxiety and depression, that he does not take medication or try to work on his issues, and she knows that she cannot focus on herself and her kids if she also has to take care of him.? MILO reports that KERA does work but he does not get paid well, drives a distance to work which takes money for gas, and has two other children he pays child support for.? MILO states that he is not able to help her financially either.?? MILO states she is unsure if he will be involved with baby, she is receptive if he is willing, but she is prepared to be a single mother and states she has support.? MILO reports no concerns with physical or emotional abuse.? Medical History:? MILO is a 29 year old female who is 2, para 1 now 2 following labor and delivery. MILO received routine care through [facility].? MILO presented to the hospital for labor and delivery.? MILO delivered baby on 01/14/2025 at 39 weeks 1 day gestation.? Baby boy, Ayo, was born weighing 7 lbs, 2 oz with Apgars of 8 and 9 at one and five minutes of life respectfully.?? Baby had suspected diagnosis of Klinefelter syndrome.?? Educational Status:? MILO graduated from high school and completed certification for [employer]. Financial Status: MILO states she is able to support herself and plans to take 6 weeks off work with baby.?? Supplies:?? MOB reports to having all necessary baby supplies, including car seat, safe sleep space, clothes, diapers and wipes.? Childcare/Caregiver(s):? MILO will be primary childcare aide for baby.? MOB friend Ese will be helping MILO for first several months.? When MILO returns to work, MOB reports having another friend who is a stay at home mom who has volunteered to provide day care.? Transportation:?? MILO drives and reports to having reliable transportation and just took her car into get serviced.? Programs/Agencies Involved: ???MOB reports to having applied for WIC.?? Children Services/Legal Issues:??? MOB reports to having CSB involved when her daughter was [age], which was 8 years ago. MOB denies any current legal issues.? MOB reports that the father of her 11 year old daughter has legal custody, but she is the primary day care home provider.? Behavioral Health Issues: ??Mental Health History:? MOB reports to diagnosis of depression, anxiety and Bipolar 2, ?is currently prescribed Lamictal and Buspirone. ?MOB follows psych rn and counseling through [facility], however states she would like to change counselors as hers is hard to get appointments with. 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 Patient admits to a self-interrupted suicide attempt after the delivery of her first child, reports to placing a gun in her mouth.? MOB states that this is the only time she attempted suicide. MOB also admits to a history of cutting, stating the last time she cut was over 8 years ago.? MOB scored an 11 on PHQ-9, however when asked about the responses patient stated she misunderstood the time frame and was answering based off her 9 month not the last two weeks. A [place] SSRS was completed.? ?Patient admits to having suicidal ideations periodically, states that thoughts are fleeting, and easy to control.? Patient does state she has thought of a method and location but no plan.? MOB states that the last time she had a suicidal thought was over 3 months ago.? MILO states that when she feels like she is spiraling in her thought process, she calls Crisis, reporting she had done this three times during her .? She reports this being helpful.? MILO was able to contract for safety, agreeing to alert staff if she should have suicidal ideations while at [facility].? ??MOB ?states that she plans to call her psych rn today to discuss medications and ensure she is on an appropriate dose. 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 Maternal and Drug Screens: Not indicated. Family/Social Stressors:? MOB reports to being day care home provider to her mother whose care needs can fluctuate.? Support Systems: ??MOB reports to having numerous friends who are supportive and who have offered to help.? MOB reports her biggest support is her friend Ese and [place] whom MOB, baby, MOB 11 year old daughter, and MOB mother have temporarily moved in with.? Ese was present during last part of assessment and states she is more of a mother figure and plans to ensure patient is safe during her first few months after delivery.? Depression and Anxiety/Shaken Baby/Safe Sleeping:? IMELDA educated MOB on signs and symptoms of baby blues and mood and anxiety disorders to be mindful of during this period.? IMELDA provided literature for MOB to review regarding these topics.? MOB was receptive to information provided.? MOB reports that she is contacting her sales agent pest control service to discuss medications.?? IMELDA educated MOB on shaken baby prevention and ABCs of safe sleep.? ASSESSMENT:? MOB and baby admitted following labor and delivery. Upon entering room, baby was in bassinet next to MOB bed.? MOB attended to baby every time baby made a noise, MOB was smiling and discussing the love she felt for her son.? MOB was insightful of her past struggle with and her mental health, understood her resources and when to contact crisis.? MOB was given additional resources such as [facility] maternal mental health programming, [facility] helpline, and online resources for mood and anxiety disorders.? MOB receptive and grateful for additional support..? PLAN: ??MOB and baby to be discharged when medically ready.? MOB was provided with literature regarding Help me Grow, safe sleep shaken baby prevention, and education regarding mood and anxiety disorders to be aware of.? No other services requested or indicated. Fatemeh Sherman, MANAGER CONSTRUCTION, TRANSITION ASSISTANT
[2025-01-15] MEDS: Acetaminophen 500 MG Tablet 1000 MG PO (04:33)
[2025-01-15 04:35] VITALS: BP 132/85; PULSE 70; RESP 16; TEMP 36.6
[2025-01-15 04:36] VITALS: BP 132/85; PULSE 70
--- NOTE | 2025-01-15 06:28 | PCM.PN.BLA ---
Progress Note pain well controlled, average lochia. Denies JANSEN or visual changes Physical Exam Const alert and no apparent distress Narrative: Fundus firm, below umbilicus. Assessment & Plan Assessment/Plan (1) (spontaneous vaginal delivery): PLAN: Plan PPD#1 routine care ok for d/c later today if ok w/ rest of care team
[2025-01-15 08:56] VITALS: BP 124/76; PULSE 89
[2025-01-15 10:00] VITALS: BP 124/76; PULSE 89; RESP 18; TEMP 36.7
[2025-01-15] MEDS: Ibuprofen 600 MG Tablet PO (10:09)
[2025-01-15] MEDS: lamoTRIgine 100 MG Tablet 200 MG PO (10:09)
[2025-01-15] MEDS: busPIRone 5 MG Tablet 10 MG PO (10:09)
--- NOTE | 2025-01-15 11:30 | CASEMGMT ---
Social work This SW received handoff from [facility] after Fatemeh completed initial assessment on patient/MOB yesterday 01/14/25. MOB reportedly scored an 11 on the PHQ-9 and has significant mental health history. MOB reportedly also has history of a suicide attempt during MOB's last period. Per handoff from Fatemeh, MOB would benefit from being checked on again from prior to being cleared for discharge. This SW spoke with WP telemetry technician Viviana prior to entering MOB's room. Viviana RN stated MOB had been observed doing well overnight and had been observed bonding well with baby, Ayo Quarles. This SW entered MOB's room, introducing self and role at [facility]. MOB was laying in bed and MOB's support person, Ese Pérez (ph: [phone]), was sitting on the couch with Ayo Quarles laying asleep next to Ese. Ese was observed bracing Ray's body appropriately. MOB granted SW permission to speak freely in front of Ese. Ese shared that MOB and Ray would be living with Ese for at least 2 months for safety reasons due to MOB's struggles during MOB's last period. MOB stated knowing MOB would need support and MOB expressed confidence in Ese helping to provide support and hold MOB accountable. MOB stated knowing MOB's warning signs for suicidal thoughts as feeling overwhelmed and like I cannot slow down. MOB stated having Crisis' number and feeling able to call them when MOB needs it. Ese verbalized knowing what to look for and intending to hold MOB accountable with taking care of self and of Ray. Ese stated willingness to help care for MOB and Ray for as long as it takes. MOB stated calling Keisha Tirado, national stormwater leader at [facility], where MOB is active. MOB states Keisha decreased MOB's mood stabilizer during , but reportedly stated being able to increase it again once Ray was born. While SW was present in MOB's room, Keisha called MOB back stating ability to increase MOB's medication now due to MOB bottle feeding Ray and MOB reported having an appointment with Keisha scheduled for February 04. MOB also reported asking [facility] for a new counselor referral as MOB reported the previous counselor to be difficult to get into see when needed. MOB stated multiple times that MOB was feeling good and MOB stated feeling better knowing Keisha increased MOB's medication as previously stated. SW clarified MOB received written resources from Fatemeh [facility] yesterday. Ray sleeping throughout SW time spent in room; Ese changed Ray's clothing at one point during conversation. MOB accepted SW making referrals for both [facility] and [facility] programming. Ese requested to receive a couple of bottles to get MOB through until Ese could stop at a store; this request was passed on to MOB's RN. Plan: MOB and Ray to discharge when medically cleared; MOB reminded to call Crisis if suicidal thoughts increase. Gretta Salgado, SHAKE SAWYER, ANNEALING TORCH OPERATOR
== END 2025-01-15 12:05 | disposition home or self-care (01) | DRG 807 ==
PROVIDERS: Admitting Provider Obstetrics & Gynecology; PCP Family Medicine; Visit Provider Obstetrics & Gynecology
DX: O99.344 Other mental disorders complicating childbirth (principal); Z37.0 Single live birth; F17.290 Nicotine dependence, other tobacco product, uncomplicated; F32.A Depression, unspecified; O43.193 Other malformation of placenta, third trimester; O99.334 Smoking (tobacco) complicating childbirth; Z79.82 Long term (current) use of aspirin; Z3A.39 39 weeks gestation of pregnancy
CPT/HCPCS: 59025; 59050; 85025; 86780; 86850; 86900; 86901; 88307; 99221; A4216; G0378; J2405

== ENCOUNTER 2025-02-12 11:41 | Emergency (ER) | payer OTHER, SELFPAY ==
[2025-02-12 11:47] VITALS: BP 112/78; PULSE 73; RESP 18; TEMP 36.6; O2SAT 99; BMI 33.1
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
[2025-02-12 12:37] LABS: Absolute Lymphocyte Count 3.43 X10^3/uL (0.83-4.51); Absolute Neutrophil Count 5.7 X10^3/uL (2.0-7.7); Eosinophils% 3.9 % (0-5); Hematocrit 42.3 % (37-47); Lymphocyte # 3.43 X10^3/ul (0.83-4.51); Lymphocyte % 33.3 % (19-41); Mean Corp Hgb Conc 33.1 g/dL (32-36); Mean Corpuscular Hgb 28.7 pg (27.0-32.0); Mean Corpuscular Volume 86.9 fL (81-99); Mean Platelet Vol. 8.8 fl (6.2-12.0); Monocyte# 0.69 X10^3/uL; Monocyte% 6.7 % (0-10); NRBC Flagged by Analyzer 0.2 % (0-5); Neutrophil # 5.66 X10^3/uL (2.7-7.7); Neutrophil % 54.8 % (47-70); Platelet Count 376 K/mm3 (150-450); RBC Distribution Width CV 12.4 % (11.6-14.6); RBC Distribution Width SD 39.1 fl (35.1-43.9); Red Blood Count 4.87 M/mm3 (4.2-5.4); White Blood Count 10.3 K/mm3 (4.4-11.0)
[2025-02-12 12:52] LABS: Amphetamine Urine NEGATIVE (<1000 ng/mL); Barbiturate Urine NEGATIVE (< 200 ng/mL); Benzodiazepine Urine NEGATIVE (< 200 ng/mL); Buprenorphine Urine NEGATIVE (< 200 ng/mL); Cocaine Urine NEGATIVE (< 300 ng/mL); Fentanyl, Urine NEGATIVE; Methadone Urine NEGATIVE (< 300 ng/mL); Opiates Urine NEGATIVE (< 300 ng/mL); Oxycodone, Urine NEGATIVE (< 100 ng/mL); PCP Urine NEGATIVE (< 25 ng/mL); THC Urine NEGATIVE (< 50 ng/mL)
[2025-02-12 12:54] VITALS: BP 115/78; PULSE 65; RESP 18; O2SAT 99
[2025-02-12 13:02] LABS: Alcohol, Blood (Medical)-Serum < 10.1 mg/dL (<=10.0)
[2025-02-12 13:03] LABS: Anion Gap 11 (5-15); BUN 13 mg/dL (4-19); BUN/Creat Ratio 17.2 RATIO (10-20); Carbon Dioxide 23.5 mmol/L (21.0-32.0); Chloride 104 mmol/L (98-108); Creatinine, Serum 0.76 mg/dL (0.70-1.20); EST Glomerular Filtration Rate 107 (>60); Estimated Creatinine Clearance 106.53 ml/min (50-250); Glucose 82 mg/dL (70-99); Potassium 4.1 mmol/L (3.3-5.1); Sodium Level 139 mmol/L (133-145)
[2025-02-12 14:53] LABS: Internal QC Validated? YES +Cl - CLEAR BKGD; Pregnancy, Serum, hCG Quali. NEGATIVE Negative
--- NOTE | 2025-02-12 15:04 | PCA ---
CRISIS CALLED AT 1500 SENT REFERRAL TO [facility]. THEY REVIEW ALL HER INFO
--- NOTE | 2025-02-12 15:12 | CM.ED ---
Social work Crisis assessed in the community and sent patient in for medical clearance. 1320: Clemencia from Crisis called (ph: [phone]) and asked this SW to fax medical clearance labs when available, stating the plan was to refer patient first to [facility]. 1400: this SW called Eri at Crisis to state reason for delay in faxing labs was due to still waiting on patient's screening to come back. 1425: faxed over to [facility] (f: ) all labwork while was still pending; ED Stage Rigger John stated patient's lab had gotten mixed in with other patient's in the lab and staff were just now running it. 1510: faxed to Crisis all labwork and called Jeni at Crisis to clarify. No other needs identified at this time. Gretta Salgado, COMPUTER NETWORKING INSTRUCTOR ADJUNCT, [employer]
--- NOTE | 2025-02-12 16:49 | PCA ---
PATIENT ACCEPTED AT [facility].UNIT C- 5020. PHYSICIANS WILL BE HERE @ 6115.
[2025-02-12] MEDS: hydrOXYzine PAM 25 MG Capsule 50 MG PO (17:24)
--- NOTE | 2025-02-12 18:11 | ED.RN ---
Report called to SHAKIR Villagran, given to Daisha THOMAS.
[2025-02-12 19:01] VITALS: BP 115/78; PULSE 65; RESP 18; TEMP 36.6; O2SAT 99
== END 2025-02-12 19:29 ==
PROVIDERS: Emergency Provider Emergency Medicine; PCP Family Medicine; Visit Provider Emergency Medicine
DX: O99.345 Other mental disorders complicating the puerperium (principal); F31.9 Bipolar disorder, unspecified; O99.893 Other specified diseases and conditions complicating puerperium; F53.0 Postpartum depression; R45.851 Suicidal ideations; O99.335 Smoking (tobacco) complicating the puerperium; F17.290 Nicotine dependence, other tobacco product, uncomplicated; Z79.899 Other long term (current) drug therapy
CPT/HCPCS: 80048; 80307; 82077; 84703; 85025; 99284

== ENCOUNTER 2025-08-31 17:38 | Emergency (ER) | payer OTHER, SELFPAY ==
[2025-08-31 17:40] VITALS: BP 120/81; PULSE 80; RESP 18; TEMP 36.6; O2SAT 100
--- NOTE | 2025-08-31 18:36 | EX.ED.VIS.PS ---
HPI HPI - Psych History of Present Illness Chief Complaint: Mental Health Narrative Narrative: Chief complaint and HPI: 30-year-old female with past medical history of bipolar disorder, depression, anxiety presents for evaluation of auditory hallucinations. Patient states for the past 8 years she has been having auditory hallucinations. States she follows with a psychiatrist in which she was placed on Abilify and hallucinations stopped. Patient states she was taken off of Abilify for . States she has been off of it almost 2 years. States shortly after being taken off of the Abilify the auditory hallucinations started. States they are becoming more noticeable and noticed the angry voice is becoming more dominant. She saw her psychiatrist approximately 1-1/2 months ago and did not tell her of the voices at that time. States she did not want to get placed back on Abilify originally as it makes her sleepy and she was worried she would not be able to take care of her infant. She does have a history of depression with her first . She denies any suicidal ideations. Denies any homicidal ideations. Has been eating and drinking well and taking care of herself. Review of systems: See HPI Medications: As listed on the chart Allergies: As listed on the chart PFSH: Per chart Vital signs: As listed on the chart. Reviewed. Physical exam: Gen: A&O x3, NAD Head: Normocephalic, atraumatic Eyes: No sclera icterus, conjunctiva clear, pupils equal bilaterally ENT: Moist mucous membranes CV: RRR, no murmurs Resp: Lungs CTA BL, no w/r/c Musc: Moves all extremities Skin: Warm, dry Psych: Cooperative, appropriate mood and affect, insightful PFS PFS Medical History Right ankle injury depression Psychiatric disorder Home Medications ?Medication ?Instructions ?Recorded ?Last Taken ?Type lamotrigine 100 mg tablet 200 mg PO Q12H Bi-Polar 12/19/24 01/13/25 History (Lamictal) acetaminophen 500 mg tablet 1,000 mg (2 x 500 mg) PO Q6H PRN 01/15/25 Unknown Rx (Acetaminophen Extra Strength) fever or pain 20 days #60 tabs ibuprofen 600 mg tablet 600 mg PO Q6H PRN PRN fever or 01/15/25 Unknown Rx pain 20 days #60 TABLETS benztropine 0.5 mg tablet 0.5 mg PO DAILY 08/31/25 Unknown History lithium carbonate 300 mg capsule 300 mg PO BID 08/31/25 Unknown History lurasidone 40 mg tablet 40 mg PO QPM 08/31/25 Unknown History Allergy/AdvReac Type Severity Reaction Status Date / Time bupropion (From Wellbutrin) Allergy Severe Other Verified 08/31/25 17:42 pollen extracts (pollens) Allergy Mild Other Verified 08/31/25 17:42 lactose Allergy Abd Verified 08/31/25 17:42 cramps/diarrhea egg AdvReac Hives Verified 08/31/25 17:42 Family History no significant family his Social History Smoking Status: Current every day smoker tobacco type: e-cigarettes EXAM Physical Exam Const Vital Signs: 08/31/25 17:40 08/31/25 18:39 08/31/25 19:00 Temperature 97.8 F Temperature Source Temporal Pulse Rate 80 82 Respiratory Rate 18 16 Blood Pressure 120/81 H 144/94 H 144/94 H Blood Pressure Mean 94 110 110 Pulse Ox 100 99 Oxygen Delivery Method Room Air Room Air 08/31/25 20:00 08/31/25 21:53 Temperature Temperature Source Pulse Rate 97 88 Respiratory Rate 16 16 Blood Pressure 96/77 120/77 Blood Pressure Mean 83 91 Pulse Ox 98 98 Oxygen Delivery Method Room Air Room Air MDM MDM MDM Narrative Medical decision making narrative: 30-year-old female with past medical history of bipolar disorder, depression, anxiety presents for evaluation of auditory hallucinations. Patient states for the past 8 years she has been having auditory hallucinations. States she follows with a psychiatrist in which she was placed on Abilify and hallucinations stopped. Patient states she was taken off of Abilify for . States she has been off of it almost 2 years. States shortly after being taken off of the Abilify the auditory hallucinations started. States they are becoming more noticeable and noticed the angry voice is becoming more dominant. She saw her psychiatrist approximately 1-1/2 months ago and did not tell her of the voices at that time. States she did not want to get placed back on Abilify originally as it makes her sleepy and she was worried she would not be able to take care of her . She denies any suicidal ideations. Denies any homicidal ideations. Patient states she did try to contact her psychiatrist over the past week or 2 to be placed back on a medication. She called crisis and was sent to the emergency department. I do not think patient meets pink slip criteria. She does not warrant inpatient psychiatric placement. Social work consulted. Social work evaluated the patient. Concern is for depression given that voices became more prominent after delivery. Recommends inpatient psychiatric placement and pink slip. Patient was updated of the recommendations and confirmed understand the plan. Patient was pink slipped. Laboratory workup ordered for placement. CBC shows mild leukocytosis of 12.1. No anemia. BMP unremarkable. Serum negative. Urine drug screen positive for possible PCP. Patient is on lamotrigine which can cause PCP to be positive in urine. Alcohol level unremarkable. Patient is cleared for inpatient psychiatric placement. Patient will be monitored until placed. Impression: 1. Chronic auditory hallucination 2. History of bipolar 3. Concern for depression Lab Data Labs: Laboratory Results - last 24 hr 08/31/25 08/31/25 20:43 20:56 WBC 12.1 H RBC 5.16 Hgb 14.3 Hct 44.1 MCV 85.5 MCH 27.7 MCHC 32.4 RDW Std Deviation 42.0 RDW Coeff of Marie 13.3 Plt Count 389 MPV 8.4 Immature Gran % (Auto) 0.200 Neut % (Auto) 65.6 Lymph % (Auto) 24.8 [place] % (Auto) 6.9 Eos % (Auto) 1.6 Baso % (Auto) 0.9 Absolute Neuts (auto) 7.9 H Absolute Lymphs (auto) 3.00 Nucleated RBC % 0 Sodium 140 Potassium 4.0 Chloride 102 Carbon Dioxide 28.3 Anion Gap 10 BUN 21 H Creatinine 0.78 Estim Creat Clear Calc 112.89 Est GFR (MDRD) Non-Af 103 BUN/Creatinine Ratio 27.1 H Glucose 91 Calcium 9.6 Serum , Qual NEGATIVE Urine Opiates Screen NEGATIVE U Buprenorphine Qual NEGATIVE Ur Oxycodone Screen NEGATIVE Urine Methadone Screen NEGATIVE Urine Fentanyl Screen NEGATIVE Ur Barbiturates Screen NEGATIVE Ur Phencyclidine Scrn PRESUMPTIVE POSITIVE Ur Amphetamines Screen NEGATIVE U Benzodiazepines Scrn NEGATIVE Urine Cocaine Screen NEGATIVE U Cannabinoids Screen NEGATIVE Ethyl Alcohol < 10.1 Discharge Plan Triage Chief Complaint: Mental Health ED Provider: Rashaun Mcdowell Dx/Rx/DC Orders Prescriptions: No Action lamotrigine [Lamictal] 100 mg tablet 200 mg PO Q12H lithium carbonate 300 mg capsule 300 mg PO BID benztropine 0.5 mg tablet 0.5 mg PO DAILY lurasidone 40 mg tablet 40 mg PO QPM acetaminophen [Acetaminophen Extra Strength] 500 mg tablet 1,000 mg PO Q6H PRN (Reason: fever or pain) 20 Days Qty: 60 0RF ibuprofen 600 mg tablet 600 mg PO Q6H PRN PRN (Reason: fever or pain) 20 Days Qty: 60 1RF Primary Care Provider: Lupe Michelle Referrals: Lupe Michelle DO [Primary Care Provider, Family Practice] Print Language: German
[2025-08-31 18:39] VITALS: BP 144/94; PULSE 82; O2SAT 99
--- OUTSIDE RECORDS SUMMARY | 2025-08-31 18:40 | XMS RPT_ITS | CCD ---
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 Ashu Shore Attending Liliana george Pending, Provider Primary Care Unavailable Lupe Gao DO Primary Care Provider LUPE GAO Primary Care Unavailable JAMARCUS YAO Attending Unavailable Unavailable Primary Care Provider UnavailLupe Perry DO Primary Care Provider Unavailable Primary Care Provider Unavailsierra e Dr. Cuauhtemoc Molina DO Attending Provider Dr. Cuauhtemoc Molina DO Emergency Provider Dr. Lupe Gao DO Primary Care Provider Vandana Edwards CNM Attending Provider Vandana Edwards CNM Referring Provider Dr. Karen Hendrix MD Attending Provider Dr. Karen Hendrix MD Referring Provider Dr. Rani Parkinson MD Admit Provider Dr. Rani Parkinson MD Attending Provider Dr. Markel Albert DO Emergency Provider No, Physician Primary Care Provider Unavailabl e BEL HAYES Consulting Unavailable NO, PHYSICIAN Primary Care Unavailable GEHLOT, UPENDER Attending Unavailable GEHLOT, UPENDER Admitting Unavailable Sheets DOLupe Primary Care Pro vider FRANCINE MORAN Attending Unavailable SHEETS, LUPE SANTOS Primary Care Nataly GURU Castro Attending Unavailable BRISENOSANDRA Referring Unavailable SHEETS, LUPE C Primary Care Unavailable SHEETS, LUPE C Primary Care Unavailable IGYGRANI STERN Attending Unavailable IGGY, RANI Attending Unavailable SHEETS, LUPE C Primary Care Unavailable BRISENOSANDRA Referring Unavailable SHEETS, LUPE C Primary Care Unavailable SHEETS, LUPE C Primary Care Unavailable KIKE BRANNON Attending Unavailable SHEETS, LUPE C Primary Care Unavailable SALUDKIKE Attending Unavailable SHEETS, LUPE C Primary Care Unavailable ALISHA COX Attending Unavail able SHEETS, LUPE C Primary Care Unavailable HAURYGIOVANNI Attending Unavailable WISWELLSARAH Referring Unavailable HAURY, GIOVANNI Attending Unavailable SHEETS, LUPE C Primary Care Unavailable SHEETS, LUPE C Primary Care Unavailable RANI PARKINSON Attending Unavailable SHEETS, LUPE C Primary Care Unavailable ALISHA COX Attending Unavail able ANNITA PRICE Attending Unavailable SHEETS, LUPE C Primary Care Unavailable SHEETS, LUPE C Primary Care Unavailable WISWELLSARAH Attending Unavailable SHEETS, LUPE C Primary Care Unavailable HAURYGIOVANNI Referring Unavailable SHEETS, LUPE C Primary Care Unavailable VANDANA EDWARDS Attending Unavailable IGGY, RANI Referring Unavailable IGGY, RANI Referring Unavailable SHEETS, LUPE C Primary Care Unavailable SHEETS, LUPE C Primary Care Unavailable VANDANA EDWARDS Attending Unavailable SHEETS, LUPE C Primary Care Unavailable IGGY, RANI Referring Unavailable SHEETS, LUPE C Primary Care Unavailable WISWELL, SARAH Attending Unavailable SELF Referring Unavailable SHEETS, LUPE C Primary Care Unavailable PLOTVANDANA SNYDER Attending Unavailable SHEETS, LUPE C Primary Care Unavailable IGGY, RANI Referring Unavailable SHEETS, LUPE C Primary Care Unavailable HAURY, GIOVANNI Attending Unavailable Sheets, Lupe Primary Care Unavailable Plotts, Vandana Referring Unavailable Plotts, Vandana Attending Unavailable Sheets, [place] Primary Care Unavailable Rani Parkinson Attending Unavailable Rani Parkinson Admitting Unavailable Sheets, [place] Primary Care Unavailable Markel Albert Attending Unavailable Sheets, [place] Primary Care Unavailable Cuauhtemoc Molina Attending Unavailable Sheets, [place] Primary Care Unavailable Plotts, Vandana Referring Unavailable Plotts, Vandana Attending Unavailable Sheets, [place] Primary Care Unavailable Karen Hendrix Referring Unavailable Karen Hendrix Attending Unavailable JIN HERNANDES Attending Unavailable SHEETS, [facility] Primary Care Unavailable SHEETS, [place] C Primary Care Unavailable Allergies Allergy Classification Reported Allergen(s) Allergy Type Date of Onset Reaction(s) Facility (20 sources) buPROPion; 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: [BUPROPION HCL] Drug Allergy 9 Intolerance, Other [facility] Work Phone: (20 sources) egg extract; 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: [EGG] Drug Allergy 7 Hives, Swelling [facility] Comment on above: raw eggs only (20 sources) Pollen; 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: [POLLEN] Propensity to adverse reactions 9 [facility] Work Phone: (20 sources) Lactose; 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: [LACTOSE] Drug Allergy 7 Diarrhea, GI Intolerance, Other [facility] (4 sources) buPROPion; 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: [BUPROPION] Drug Allergy 9 GI Intolerance, Other (See Comments) [facility] Comment on above: suicidal ideation (4 sources) Pollen; 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: [POLLEN EXTRACTS] Allergy to substance 9 Other (See Comments) [facility] Comment on above: stuffy and runny no se and groggy and miserable per pt (1 source) buPROPion Drug Allergy 5 [facility] Repository (1 source) egg extract Drug Allergy 5 [facility] Repository (1 source) Lactose Drug Allergy 5 [facility] Repository (1 source) Pollen Drug allergy (disorder) 5 [facility] Repository Medications Current Medications Medication Drug Class(es) Dates Sig (Normalized) Sig (Original) acetaminophen 500 mg oral tablet (2 sources) Start: 01-15-2025 take 2 tablets by mouth every six hours as needed for pain Acetaminophen (Acetaminophen Extra Strength) 500 mg tablet Active 1000 mg PO EVERY 6 HOURS as needed for fever or pain 60 20 January 15, 2025 12:00am amoxicillin 500 mg oral capsule (6 sources) Penicillin-class Antibacterial Start: 12-31-2024 End: 01-10-2025 take 1 capsule by mouth every eight hours amoxicillin (AMOXIL) 500 mg capsule Take 1 capsule by mouth every 8 hours for 10 days. 30 capsule 12/31/2024 01/10/2025 Active azithromycin 250 mg oral tablet (2 sources) Macrolide Antimicrobial Start: 12-07-2024 azithromycin (Zithromax Z-Te) 250 mg tablet Indications: Acute bronchitis, unspecified organism Take 2 tablets by mouth at once on day 1, then 1 tablet once a day on days 2-5. Take with a meal. 6 tablet 12/07/2024 Active busPIRone hydrochloride 10 mg oral tablet (19 sources) Start: 12-19-2024 End: 03-06-2025 take 10 mg by mouth twice daily buspirone Active 10 mg PO TWICE A DAY December 19, 2024 1:00am Start: 11-19-2024 take 1 tablet by mingo th every twelve hours busPIRone (Buspar) 10 mg tablet Take 1 tablet (10 mg) by mouth every 12 hours. 11/19/2024 Active cefuroxime 250 mg oral tablet (1 source) Cephalosporin Antibacterial Start: 01-14-2024 End: 01-21-2024 take 1 tablet by mouth twice daily cefuroxime (Ceftin) 250 mg tablet Indications: Acute cystitis with hematuria Take 1 tablet (250 mg) by mouth 2 times a day for 7 days. 14 tablet 0 01/14/2024 01/21/2024 Active doxycycline monohydrate 100 mg oral capsule (1 source) Tetracycline-class Drug Start: 07-04-2025 End: 07-09-2025 take 1 capsule by mouth twice daily doxycycline monohydrate (MONODOX) 100 mg capsule Indications: Lower respiratory tract infection Take 1 capsule by mouth two times a day for 5 days. 10 capsule 07/04/2025 07/09/2025 Active hydrOXYzine hydrochloride 50 mg oral tablet (16 sources) Antihistamine Start: 02-12-2025 End: 02-15-2025 take 1 tablet by mouth every six hours as needed hydrOXYzine HCl (ATARAX) 50 mg tablet Take 50 mg by mouth every 6 hours as needed. 02/15/2025 Active End: 02-15-2025 take 1 tablet by mouth three times daily as needed for anxiety hydrOXYzine (ATARAX) 50 MG tablet Take 1 (one) tablet (50 mg total) by mouth 3 (three) times a day as needed for anxiety . 02/15/2025 Discontinued (Stop Taking at Discharge) End: 06-27-2024 take 1 tablet by mouth every eight hours as needed hydrOXYzine HCl (ATARAX) 25 mg tablet Take 25 mg by mouth three times daily as needed. 06/27/2024 Discontinued (Course of therapy completed) Comment on above: Take 25 mg by mouth three times daily as needed. Lactase (20 sources) LACTASE (LACTAID ORAL) Take by mouth w MEALS. Active LACTASE (LACTAID ORAL) Take by mouth w MEALS. 0 Active Comment on above: Take by mouth w MEAL S. levonorgestrel 0.859665 mg/hr intrauterine system (7 sources) Progestin, Progestin-containing Intrauterine Device Start: 03-06-2025 End: 03-04-2033 levonorgestrel (MIRENA) 21 mcg/24hr (up to 8 yrs) 52 mg IUD 1 each by INTRAUTERINE route as directed. 1 each 03/06/2025 03/04/2033 Active Start: 03-06-2025 End: 03-06-2025 1 each, INTRAUTERINE, ONCE ( UP TO 30 DAYS AMB), 1 dose, On Tue03/06/25 at 0900, Hazardous Potential Reproductive Risk Drug: Use appropriate PPE. lithium carbonate 300 mg oral capsule (1 source) Start: 07-01-2025 take 1 capsule by mouth every twelve hours lithium carbonate (ESKALITH) 300 mg capsule Take 1 capsule by mouth every 12 hours. 07/01/2025 Active lurasidone hydrochloride 60 mg oral tablet (10 sources) Atypical Antipsychotic Start: 02-15-2025 take 1 tablet by mouth once daily lurasidone (LATUDA) 60 mg tablet Take 60 mg by mouth once daily. 02/15/2025 Active Start: 02-13-2025 End: 02-15-2025 40 mg, Oral, Daily with dinn er, First dose on Tue02/13/25 at 1700, Take with food. Administer with a meal containing at least 350 calories. metroNIDAZOLE 500 mg oral tablet (1 source) Nitroimidazole Antimicrobial Start: 07-28-2023 End: 08-04-2023 take 1 tablet by mouth twice daily metroNIDAZOLE (FLAGYL) 500 mg tablet Indications: BV (bacterial vaginosis) Take 1 tablet by mouth two times a day for 7 days. 14 tablet 0 07/28/2023 08/04/2023 Active Comment on above: Take 1 tablet by mingo th two times a day for 7 days. moxifloxacin 5 mg/ml ophthalmic solution (1 source) Quinolone Antimicrobial Start: 04-02-2025 End: 04-09-2025 take 1 drop(s) into the eye(s) three times daily moxifloxacin (Vigamox) 0.5 % ophthalmic solution Indications: Bacterial conjunctivitis Administer 1 drop into the right eye 3 times a day for 7 days. 3 mL 04/02/2025 04/09/2025 Active 24 hr nicotine 0.875 mg/hr transdermal system (5 sources) Cholinergic Nicotinic Agonist Start: 02-13-2025 End: 03-18-2025 apply 1 dose transdermal route once daily nicotine (NICODERM CQ) 21 mg/[address] 1 (one) patch on the skin daily Start: 02/16/25. 28 patch 02/16/2025 03/18/2025 Active Start: 05-13-2017 End: 12-19-2024 apply 14 mg transdermal route once daily, then apply 7 mg transdermal route once Nicotine 21 MG patch Discontinued 21 mg TRANSDERM. DAILY May 13, 2017 12:00am December 19, 2024 8:48pm May transition to 14 mg and then 7 mg patch as taper for tobacco cessation. Obtain Rx per your primary care physician. nystatin 158656 unt/ml oral suspension (14 sources) Polyene Antifungal Start: 12-31-2024 End: 01-30-2025 take 1 mL by mouth four times daily Nystatin 100,000 unit/mL suspension Active 5 mL PO 4 TIMES DAILY January 13, 2025 12:00am Start: 12-19-2024 End: 12-25-2024 nystatin Discontinued .ROUTE .qid December 19, 2024 1:00am December 25, 2024 7:02pm Start: 12-07-2024 take 4-6 mL by mouth four times daily nystatin (Mycostatin) 100,000 unit/mL suspension Indications: Oral thrush 4-6 milliliter(s) orally 4 times a day (after eating) x7-14 days. swish in the mouth and retain for as long as possible (several minutes) before swallowing. 336 mL 12/07/2024 Active ondansetron 4 mg disintegrating oral tablet (12 sources) Serotonin-3 Receptor Antagonist Start: 06-27-2024 End: 09-25-2024 take 1 tablet by mouth every eight hours as needed ondansetron orally disintegrating (ZOFRAN ODT) 4 mg disintegrating tablet Take 1 tablet by mouth every 8 hours as needed for nausea/vomiting. 30 tablet 2 06/27/2024 09/25/2024 Active OXcarbazepine 300 mg oral tablet (13 sources) Anti-epileptic Agent Start: 02-13-2025 End: 03-17-2025 take 1 tablet by mouth once daily OXcarbazepine (TRILEPTAL) 300 mg tablet Take 300 mg by mouth once daily. 02/15/2025 03/17/2025 Active Start: 09-03-2019 End: 06-27-2024 OXcarbazepine (TRILEPTAL) 15 0 mg tablet Take 900 mg by mouth once daily. 09/03/2019 06/27/2024 Discontinued (Course of therapy completed) take 1 tablet by mingo twice daily OXcarbazepine (Trileptal) 150 mg tablet Take 1 tablet (150 mg) by mouth 2 times a day. Active Comment on above: Take 900 mg by mouth once daily. Pnv Cmb#95-Ferrous Fumarate-Fa () 28 mg iron- 800 mcg tablet (2 sources) Start: 12-19-2024 Pnv Cmb#95-Ferrous Fumarate-Fa () 28 mg iron- 800 mcg tablet Active 1 {tbl} PO DAILY December 19, 2024 1:00am predniSONE 50 mg oral tablet (1 source) Start: 07-04-2025 End: 07-09-2025 take 1 tablet by mouth once daily predniSONE (DELTASONE) 50 mg Indications: Lower respiratory tract infection Take 1 tablet by mouth once daily for 5 days. 5 tablet 07/04/2025 07/09/2025 Active VITAFUSION GUMMY TChS (20 sources) VITAFUSION PRENA NIKKI GUMMY TChS Take 1 Piece by mouth once daily. Active Completed/Discontinued Medications Medication Drug Class(es) Dates Sig (Normalized) Sig (Original) [id number] 200 actuat albuterol 0.09 mg/actuat metered dose inhaler (3 sources) beta2-Adrenergic Agonist Start: 11-11-2023 End: 06-27-2024 take 2 puff(s) by inhalation every four hours as needed for wheezing albuterol HFA (PROVENTIL HFA, VENTOLIN HFA) 90 mcg/actuation inhaler Indications: Mild intermittent asthma without complication , Lower respiratory infection Inhale 2 Puffs as instructed every 4 hours as needed for wheezing/shortness of breath. 1 Each 1 11/11/2023 06/27/2024 Discontinued (Course of therapy completed) aluminum hydroxide 40 mg/ml / magnesium hydroxide 40 mg/ml / simethicone 4 mg/ml oral suspension (1 source) Start: 02-12-2025 End: 02-15-2025 take 30 mL by mouth every four hours as needed 30 mL, Oral, Every 4 hours PRN, indigestion, Starting on Tue02/12/25 at 2200 ARIPiprazole 20 mg oral tablet (6 sources) Atypical Antipsychotic End: 06-27-2024 take 1 tablet by mouth once daily ARIPiprazole (ABILIFY) 20 mg tablet Take 20 mg by mouth once daily. 06/27/2024 Discontinued (Course of therapy completed) Comment on above: Take 20 mg by mouth once daily. aspirin 81 mg chewable tablet (20 sources) Platelet Aggregation Inhibitor, Nonsteroidal Anti-inflammatory Drug Start: 12-25-2024 End: 01-15-2025 take 1 tablet by mouth once daily Aspirin (Aspirin Childrens) 81 mg tablet,chewable Discontinued 1 {tbl} PO DAILY December 25, 2024 1:00am January 15, 2025 6:29am Start: 06-27-2024 take 1 tablet by mingo th once daily aspirin 81 mg EC tablet Take 1 tablet (81 mg) by mouth once daily. 06/27/2024 Active 2 ml benztropine mesylate 1 mg/ml injection (1 source) Anticholinergic, Antihistamine Start: 02-12-2025 End: 02-15-2025 inject 2 mg by intramuscular injection every twenty-four hours as needed cetirizine hydrochloride 10 mg oral capsule (6 sources) Histamine-1 Receptor Antagonist End: 06-27-2024 Cetirizine (ZYRTEC) 10 mg cap Take by mouth. 06/27/2024 Discontinued (Course of therapy completed) Comment on above: Take by mouth. clonazePAM 0.5 mg oral tablet (1 source) Benzodiazepine Start: 02-13-2025 End: 02-13-2025 take 1 mg by mouth once daily 1 mg, Oral, Once, On Tue02/13/25 at 1545, For 1 dose, CATEGORY D HAZARDOUS DRUG use safe handling precautions. Use reference link to view PPE guidelines. Minimize crushing/splitti ng only to situations where clinically necessary. Start: 02-13-2025 End: 02-13-2025 take 1 mg by mouth once daily 1 mg, Oral, Once, On Tue02/13/25 at 1545, For 1 dose, CATEGORY D HAZARDOUS DRUG use safe handling precautions. Use reference link to view PPE guidelines. Minimize crushing/splitting only to situations where clinically necessary. Desogestrel / Ethinyl Estradiol (3 sources) Progestin, Estrogen Start: 2024 End: 06-27-2024 take 1 tablet by mouth once daily, then take 0.15 tablet by mouth once Desogestrel-Ethinyl Estradiol (APRI) 0.15-0.03 mg per tablet Indications: Premenstrual syndrome Take 1 tablet by mouth once daily. 84 tablet 2024 06/27/2024 Discontinued (Course of therapy completed) Start: 2024 End: 07-12-2024 take 1 tablet by mouth once daily, then take 0.15 tablet by mouth once Desogestrel-Ethinyl Estradiol (APRI) 0.15-0.03 mg per tablet Indications: Premenstrual syndrome Take 1 tablet by mouth once daily. 84 tablet 0 2024 07/12/2024 Active diphenhydrAMINE hydrochloride 50 mg oral capsule (20 sources) Histamine-1 Receptor Antagonist End: 01-02-2025 take 1 capsule by mouth once daily at bedtime diphenhydrAMINE (UNISOM SLEEPGELS) 50 mg capsule Take 50 mg by mouth daily at bedtime. 01/02/2025 Discontinued docusate sodium 100 mg oral capsule (2 sources) Start: 05-13-2017 End: 12-19-2024 take 2 capsules by mouth twice daily as needed for constipation Docusate Sodium (Dok) 100 MG capsule Discontinued 200 mg PO TWICE DAILY NEEDED as needed for Constipation 60 May 13, 2017 12:00am December 19, 2024 8:48pm Haloperidol (1 source) Typical Antipsychotic Start: 02-12-2025 End: 02-15-2025 take 1 tablet by mouth every four hours as needed haloperidoL (HALDOL) tablet 5 mg ibuprofen 600 mg oral tablet (3 sources) Nonsteroidal Anti-inflammatory Drug Start: 01-15-2025 End: 02-15-2025 take 1 tablet by mouth every six hours as needed for pain lamoTRIgine 100 mg oral tablet (20 sources) Mood Stabilizer, Anti-epileptic Agent Start: 02-13-2025 End: 02-15-2025 take 200 mg by mouth once daily 200 mg, Oral, Daily, First dose on Tue02/13/25 at 1545 Start: 01-25-2025 take 1 tablet by mnigo twice daily LAMICTAL 200 mg tablet Take 200 mg by mouth two times a day. 01/25/2025 Active Start: 12-19-2024 End: 03-17-2025 take 1 tablet by mouth once daily LAMICTAL 200 mg tablet Take 200 mg by mouth once daily. 01/25/2025 Active Start: 12-19-2024 take 2 tablets by mo [facility] once daily Lamotrigine (Lamictal) 100 mg tablet Active 200 mg PO DAILY December 19, 2024 1:00am Start: 09-03-2024 End: 12-11-2024 take 1 tablet by mouth once daily at bedtime lamoTRIgine (LAMICTAL) 200 mg tablet TAKE 1 & 1/2 (ONE & ONE-HALF) TABLETS BY MOUTH ONCE DAILY AT BEDTIME 09/03/2024 12/11/2024 Discontinued Start: 07-06-2024 take 1 tablet by mingo once daily lamoTRIgine (LaMICtal) 100 mg tablet Take 1 tablet (100 mg) by mouth once daily. 07/06/2024 Active End: 12-11-2024 lamoTRIgine (LAMICTAL) 25 mg tablet Take 300 mg by mouth once daily. 12/11/2024 Discontinued lamoTRIgine (AGUAYO ICTAL) 25 mg tablet Take 200 mg by mouth once daily. Active take 4 tablets by [facility] once daily lamoTRIgine (LAMICTAL) 25 mg tablet Take 100 mg by mouth once daily. Active take 2 tablets by [facility] once daily lamoTRIgine (LAMICTAL) 25 mg tablet Take 50 mg by mouth once daily. Active 1 ml LORazepam 2 mg/ml injection (3 sources) Benzodiazepine Start: 02-12-2025 End: 02-15-2025 inject 2 mg by intramuscular injection every four hours as needed Start: 05-13-2017 End: 12-19-2024 take 1 tablet by mouth every eight hours as needed for anxiety Lorazepam 0.5 MG tablet Discontinued 0.5 mg PO EVERY 8 HOURS NEEDED as needed for Anxiety May 13, 2017 12:00am December 19, 2024 8:48pm magnesium hydroxide 80 mg/ml oral suspension (1 source) Start: 02-12-2025 End: 02-15-2025 Drug Treatment Unknown - unknown (1 source) No information available. oxyCODONE hydrochloride 5 mg oral tablet (2 sources) Opioid Agonist Start: 05-13-2017 End: 12-19-2024 take 5-10 mg by mouth every four hours as needed for pain Oxycodone 5 MG tablet Discontinued 5 - 10 mg PO EVERY 4 HOURS NEEDED as needed for moderate to severe pain May 13, 2017 12:00am December 19, 2024 8:49pm pantoprazole 20 mg delayed release oral tablet (3 sources) Proton Pump Inhibitor Start: 2024 End: 06-27-2024 take 1 tablet by mouth twice daily pantoprazole DR (PROTONIX) 20 mg tablet Indications: Abdominal discomfort , Heartburn Take 1 tablet by mouth two times a day. 60 tablet 1 2024 06/27/2024 Discontinued (Course of therapy completed) QUEtiapine 25 mg oral tablet (1 source) Atypical Antipsychotic Start: 02-13-2025 End: 02-12-2025 take 50 mg by mouth once 50 mg, Oral, Once, On Tue02/13/25 at 0015, For 1 dose, May cause QT interval prolongation. Start: 02-13-2025 End: 02-12-2025 take 50 mg by mouth once 50 mg, Oral, Once, On Tue at 0015, For 1 dose, May cause QT interval prolongation. sertraline 50 mg oral tablet (2 sources) Serotonin Reuptake Inhibitor Start: 05-13-2017 End: 12-19-2024 take 1 tablet by mouth once daily, then take 2 tablets by mouth once daily Sertraline 50 MG tablet Discontinued 50 mg PO DAILY May 13, 2017 12:00am December 19, 2024 8:49pm Continue 50 mg daily x 1 week and then may increase to 100 mg daily. Following will need further adjustment upward to achieve symptom control which will need performed per your primary care physician. sulfamethoxazole 800 mg / trimethoprim 160 mg oral tablet (2 sources) Dihydrofolate Reductase Inhibitor Antibacterial, Sulfonamide Antimicrobial Start: 05-13-2017 End: 12-19-2024 Sulfamethoxazole- Trimethoprim 1 TABLET tablet Discontinued 1 {tbl} PO TWICE A DAY May 13, 2017 12:00am December 19, 2024 8:49pm traZODone hydrochloride 50 mg oral tablet (1 source) Serotonin Reuptake Inhibitor Start: 02-12-2025 End: 02-15-2025 50 mg, Oral, Nightly PRN, sleep, Starting on Tue02/12/25 at 2323, May repeat in 30 minutes once if not sleeping. Problems Active Problems Problem Classification Problem Date Documented Date Episodic/Chronic Alcohol-related disorders (20 sources) Alcohol dependence; 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: [Alcohol dependence, in remission] Onset: 01-17-2018 Resolved: 02-12-2025 05-20-2019 Chronic Anxiety disorders (20 sources) Mixed anxiety and depressive disorder; 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: [Anxiety disorder, unspecified] Onset: 12-22-2011 Resolved: 05-19-2019 06-18-2019 Chronic Asthma (20 sources) Mild intermittent asthma; 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: [Mild intermittent asthma, uncomplicated] Onset: 12-22-2011 Resolved: 05-19-2019 06-18-2019 Chronic Contraceptive and procreative management (15 sources) Patient encounter status; 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: [Encounter for other general counseling and advice on contraception] Onset: 02-28-2025 2024 Episodic Genitourinary symptoms and ill-defined conditions (2 sources) Dysuria; 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: [Dysuria] 07-25-2023 Episodic Headache; including migraine (1 source) Headache; including migraine; 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: [Headache, unspecified] Onset: 10-06-2022 Inflammation; infection of eye (except that caused by tuberculosis or sexually transmitteddisease) (3 sources) Bacterial conjunctivitis; 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: [Unspecified conjunctivitis] Onset: 04-02-2025 04-02-2025 Episodic Inflammatory diseases of female pelvic organs (1 source) Bacterial vaginosis; 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: [Acute vaginitis] 07-28-2023 Episodic Malaise and fatigue (2 sources) Other malaise; 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: [Other malaise] Onset: 10-06-2022 Episodic Menstrual disorders (20 sources) Oligomenorrhea; 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: [Oligomenorrhea, unspecified] Onset: 03-23-2012 Resolved: 03-01-2019 03-01-2019 Chronic Miscellaneous mental health disorders (3 sources) depression; 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: [ depression] Onset: 02-12-2025 02-12-2025 Episodic Mood disorders (20 sources) Bipolar II disorder; 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: [Bipolar II disorder] Onset: 06-27-2024 Resolved: 02-12-2025 06-27-2024 Chronic Nonspecific chest pain (1 source) Chest pain, unspecified; 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: [Chest pain, unspecified type] Onset: 06-08-2023 Episodic Other aftercare (1 source) 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; 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: [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] Onset: 07-18-2025 Episodic Other complications of (2 sources) Placenta succenturiata; 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, second trimester] 10-05-2024 Episodic Other complications of (1 source) Vaginal discharge; 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: [Other specified related conditions, third trimester] 01-09-2025 Episodic Other complications of (4 sources) Pain in female pelvis; 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: [Other specified related conditions, unspecified trimester] 12-19-2024 Episodic Other connective tissue disease (1 source) Myalgia, unspecified site; 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: [Myalgia, unspecified site] Onset: 10-06-2022 Episodic Other connective tissue disease (2 sources) Infection of olecranon bursa of left elbow; 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: [Other infective bursitis, left elbow] 05-12-2017 Episodic Other female genital disorders (2 sources) Premenstrual tension syndrome; 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: [Premenstrual tension syndrome] 2024 Chronic Other female genital disorders (1 source) Vaginal odor; 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: [Other specified noninflammatory disorders of vagina] 07-25-2023 Episodic Other female genital disorders (1 source) Pruritus of vagina; 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: [Other specified noninflammatory disorders of vagina] 07-25-2023 Episodic Other lower respiratory disease (1 source) Wheezing; 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: [Wheezing] Onset: 10-06-2022 Episodic Other lower respiratory disease (1 source) Lower respiratory tract infection; 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: [Unspecified acute lower respiratory infection] 07-04-2025 Episodic Other lower respiratory disease (1 source) Unspecified acute lower respiratory infection; 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: [Lower respiratory tract infection] Onset: 07-04-2025 Episodic Other nervous system disorders (1 source) Anesthesia of skin; 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: [Numbness] Onset: 06-08-2023 Episodic Other nutritional; endocrine; and metabolic disorders (20 sources) Obese class I; 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: [Obesity, unspecified] Onset: 05-28-2019 05-28-2019 Chronic Other screening for suspected conditions (not mental disorders or infectious disease) (7 sources) Cancer cervix screening status; 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: [Encounter for screening for malignant neoplasm of cervix] Onset: 09-07-2024 06-27-2024 Episodic Residual codes; unclassified (2 sources) Gestation period, 12 weeks; 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: [12 weeks gestation of ] 07-11-2024 Episodic Residual codes; unclassified (1 source) Gestation period, 16 weeks; 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: [16 weeks gestation of ] 08-10-2024 Episodic Residual codes; unclassified (2 sources) Gestation period, 20 weeks; 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: [20 weeks gestation of ] 09-07-2024 Episodic Residual codes; unclassified (1 source) Gestation period, 24 weeks; 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: [24 weeks gestation of ] 10-05-2024 Episodic Residual codes; unclassified (1 source) Gestation period, 28 weeks; 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: [28 weeks gestation of ] 11-02-2024 Episodic Residual codes; unclassified (1 source) Gestation period, 31 weeks; 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: [31 weeks gestation of ] 11-19-2024 Episodic Residual codes; unclassified (1 source) Gestation period, 34 weeks; 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: [34 weeks gestation of ] 12-11-2024 Episodic Residual codes; unclassified (1 source) Gestation period, 36 weeks; 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: [36 weeks gestation of ] 12-28-2024 Episodic Residual codes; unclassified (1 source) Gestation period, 37 weeks; 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: [37 weeks gestation of ] 01-02-2025 Episodic Residual codes; unclassified (2 sources) Gestation period, 38 weeks; 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: [38 weeks gestation of ] 01-08-2025 Episodic Residual codes; unclassified (4 sources) Gestation period, 33 weeks; 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: [33 weeks gestation of ] 12-03-2024 Episodic Residual codes; unclassified (4 sources) Gestation period, 35 weeks; 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: [35 weeks gestation of ] 12-19-2024 Episodic Residual codes; unclassified (4 sources) Gestation period, 39 weeks; 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: [39 weeks gestation of ] 01-13-2025 Episodic Substance-related disorders (20 sources) Nicotine dependence, unspecified, uncomplicated; 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: [Smoker] Onset: 12-22-2011 Resolved: 06-27-2024 05-28-2019 Chronic Suicide and intentional self-inflicted injury (2 sources) Planning suicide; 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: [Suicidal ideations] Onset: 07-09-2025 02-12-2025 Episodic Unclassified (1 source) No current problems or disability 05-18-2017 Unclassified (1 source) Contact with and (suspected) exposure to COVID-19; 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: [Contact with and (suspected) exposure to COVID-19] Onset: 10-06-2022 Unclassified (2 sources) Cough, unspecified; 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: [Cough, unspecified] Onset: 10-06-2022 Unclassified (20 sources) [facility] Education - COMMON Onset: 06-27-2024 06-27-2024 Unclassified (20 sources) Education - [place] Onset: 06-27-2024 06-27-2024 Unclassified (4 sources) Planned procedure 01-13-2025 Unclassified (1 source) Other specified diseases and conditions complicating ; 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: [Other specified diseases and conditions complicating ] Onset: 01-01-2025 Urinary tract infections (1 source) Acute cystitis; 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: [Acute cystitis with hematuria] 01-14-2024 Episodic Viral infection (4 sources) Respiratory syncytial virus infection; 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: [Other specified viral diseases] 12-03-2024 Episodic Past or Other Problems Problem Classification Problem Date Documented Da te Episodic/Chronic Abdominal pain (11 sources) Abdominal discomfort; 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: [Unspecified abdominal pain] Onset: 12-20-2024 2024 Episodic Acute bronchitis (3 sources) Acute bronchitis; 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: [Acute bronchitis, unspecified] Onset: 12-07-2024 12-07-2024 Episodic Bacterial infection; unspecified site (20 sources) History of methicillin resistant Staphylococcus aureus infection; 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: [Personal history of Methicillin resistant Staphylococcus aureus infection] Onset: 05-23-2017 05-20-2019 Episodic Blindness and vision defects (5 sources) Eye / vision finding; 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: [Unspecified visual disturbance] Onset: 12-26-2024 12-25-2024 Episodic Disorders of teeth and jaw (4 sources) Dental abscess; 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: [Periapical abscess without sinus] Onset: 12-31-2024 12-31-2024 Episodic Fluid and electrolyte disorders (20 sources) Hyponatremia; 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: [Hypo-osmolality and hyponatremia] Onset: 05-18-2019 Resolved: 05-19-2019 05-19-2019 Episodic Immunizations and screening for infectious disease (2 sources) Vaccination needed; 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: [Encounter for immunization] Onset: 03-06-2025 11-02-2024 Episodic Mood disorders (2 sources) Mood disorders Onset: 02-13-2025 02-13-2025 Mycoses (20 sources) Candidiasis of mouth; 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: [Candidal stomatitis] Onset: 05-18-2019 Resolved: 05-19-2019 05-19-2019 Episodic Other complications of (20 sources) High risk ; 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: [Supervision of other high risk pregnancies, first trimester] Onset: 06-27-2024 06-27-2024 Episodic Other complications of (20 sources) Vomiting of , unspecified; 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: [Unspecified vomiting of , unspecified as to episode of care or not applicable] Onset: 06-27-2024 06-27-2024 Episodic Other complications of (20 sources) Abnormal findings on screening of mother; 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: [Abnormal chromosomal and genetic finding on screening of mother] Onset: 11-19-2024 Resolved: 03-06-2025 11-19-2024 Episodic Other complications of (1 source) Supervision of high risk , unspecified, third trimester; 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: [Supervision of high risk in third trimester] Onset: 11-19-2024 Episodic Other complications of (1 source) Abnormal chromosomal and genetic finding on screening of mother; 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: [Abnormal genetic test during ] Onset: 11-19-2024 Episodic Other complications of (1 source) Supervision of high risk , unspecified, second trimester; 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: [Supervision of high risk in second trimester] Onset: 11-02-2024 Episodic Other complications of (1 source) Other malformation of placenta, second trimester; 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: [Accessory placenta, second trimester] Onset: 10-05-2024 Episodic Other complications of (1 source) Supervision of other high risk pregnancies, first trimester; 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: [Supervision of other high risk pregnancies, first trimester] Onset: 06-27-2024 Episodic Other connective tissue disease (1 source) Muscle pain; 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: [Myalgia, unspecified site] Onset: 10-06-2022 Resolved: 02-12-2025 02-12-2025 Episodic Other endocrine disorders (20 sources) Hyperprolactinemia; 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: [Hyperprolactinemia] Onset: 03-23-2012 Resolved: 05-19-2019 05-19-2019 Chronic Other gastrointestinal disorders (1 source) Heartburn; 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: [Heartburn] 2024 Episodic Other infections; including parasitic (20 sources) Infection by Trichomonas; 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: [Trichomoniasis, unspecified] Onset: 03-06-2019 Resolved: 05-19-2019 05-19-2019 Episodic Other nutritional; endocrine; and metabolic disorders (20 sources) Body mass index 30+ - obesity; 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: [Body mass index (BMI) 33.0-33.9, adult] Onset: 12-04-2021 Resolved: 06-27-2024 12-04-2021 Chronic Other and delivery including normal (11 sources) with uncertain dates; 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: [Encounter for supervision of normal , unspecified, first trimester] Onset: 07-11-2024 06-27-2024 Episodic Other upper respiratory infections (3 sources) Acute upper respiratory infection, unspecified; 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: [Upper respiratory infection] Onset: 10-06-2022 12-31-2024 Episodic Polyhydramnios and other problems of amniotic cavity (20 sources) premature rupture of membranes with onset of labor within 24 hours of rupture; 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: [ premature rupture of membranes, onset of labor within 24 hours of rupture, unspecified trimester] Onset: 05-04-2014 Resolved: 03-01-2019 03-01-2019 Episodic Residual codes; unclassified (20 sources) Postoperative state; 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: [Other specified postprocedural states] Onset: 09-13-2019 Resolved: 06-27-2024 09-13-2019 Episodic Residual codes; unclassified (20 sources) Finding of menstrual bleeding; 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: [Other specified health status] Onset: 06-27-2024 06-27-2024 Episodic Residual codes; unclassified (1 source) 24 weeks gestation of ; 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: [24 weeks gestation of ] Onset: 11-02-2024 Episodic Skin and subcutaneous tissue infections (20 sources) Cellulitis and abscess of toe; 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: [Cellulitis of unspecified toe] Onset: 06-01-2010 Resolved: 05-19-2019 05-19-2019 Episodic Unclassified (20 sources) Labor finding; 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: [Active labor] Onset: 05-04-2014 Resolved: 03-01-2019 03-01-2019 Unclassified (2 sources) Patient encounter status 03-01-2025 Results Test Name Value Interpretation Reference Range Facility Comprehensive metabolic 2000 panelon 07-18-2025 Albumin [Mass/Vol] 4.2 g/dL Normal 3.9-4.9 [facility] Comment on above: Order Comment: Speci men Type: BLOOD SPECIMEN Ordering Facility: [facility] Address: [address] [place] [address] Performed By: #### [facility], 87726-8 #### [facility] CLIA [id number] [address] [place] [address] [place] ALP [Catalytic activity/Vol] 91 U/L Normal 34-123 [facility] Comment on above: Order Comment: Speci men Type: BLOOD SPECIMEN Ordering Facility: [facility] Address: [address] [place] [address] Performed By: #### [facility], 79469-3 #### [facility] CLIA [id number] [address] [facility] [place] [address] [place] ALT With P-5'-P [Catalytic activity/Vol] 11 U/L Normal 7-38 [facility] Comment on above: Order Comment: Speci men Type: BLOOD SPECIMEN Ordering Facility: [facility] Address: [address] [place] [address] Performed By: #### [facility], #### [facility] CLIA [id number] [address] [facility] [place] [address] [place] Anion gap [Moles/Vol] 12 mmol/L Normal 8-15 [facility] Comment on above: Order Comment: Speci men Type: BLOOD SPECIMEN Ordering Facility: [facility] Address: [address] [place] [address] Performed By: #### [facility], 54095-5 #### [facility] CLIA [id number] [address] [facility] [place] [address] [place] AST With P-5'-P [Catalytic activity/Vol] 15 U/L Normal 13-35 [facility] Comment on above: Order Comment: Speci men Type: BLOOD SPECIMEN Ordering Facility: [facility] Address: [address] [place] [address] Performed By: #### [facility], 55178-4 #### [facility] CLIA [id number] [address] [facility] [place] [address] [place] Bilirubin [Mass/Vol] 0.5 mg/dL Normal 0.2-1.3 [facility] Comment on above: Order Comment: Speci men Type: BLOOD SPECIMEN Ordering Facility: [facility] Address: [address] [place] [address] Performed By: #### T RAKEL, 13538-9 #### [facility] CLIA [id number] [address] [facility] [place] [address] [place] Calcium [Mass/Vol] 9.1 mg/dL Normal 8.5-10.2 [facility] Comment on above: Order Comment: Speci men Type: BLOOD SPECIMEN [facility] Facility: [facility] Address: [address] [place] [address] Performed By: #### T RAKEL, 09377-9 #### [facility] CLIA [id number] [address] [facility] [place] [address] [place] Chloride [Moles/Vol] 104 mmol/L Normal 98-107 [facility] Comment on above: Order Comment: Speci men Type: BLOOD SPECIMEN Ordering Facility: [facility] Address: [address] [place] [address] Performed By: #### [facility], 72867-5 #### [facility] CLIA [id number] [address] [facility] [place] [address] [place] CO2 [Moles/Vol] 23 mmol/L Normal 22-30 [facility] Comment on above: Order Comment: Speci men Type: BLOOD SPECIMEN Ordering Facility: [facility] Address: [address] [place] [address] Performed By: #### T RAKEL, 57137-0 #### [facility] CLIA [id number] [address] [facility] [place] [address] [place] Creatinine [Mass/Vol] 0.82 mg/dL Normal 0.58-0.96 [facility] Comment on above: Order Comment: Speci men Type: BLOOD SPECIMEN Ordering Facility: [facility] Address: [address] [place] [address] Performed By: #### T RAKEL, 10085-1 #### [facility] CLIA [id number] [address] [place] [address] [place] eGFRcr SerPlBld CKD-EPI 2020 98 mL/min/1.73m??? Normal >=60 [facility] Comment on above: Order Comment: Kwan rajan Type: BLOOD SPECIMEN Ordering Facility: [facility] Address: [address] [place] [address] Result Comment: Maggie mated Glomerular Filtration Rate (eGFR) is calculated using the 2020 CKD-EPI creatinine equation. This equation utilizes serum creatinine, sex, and age as parameters. The creatinine assay has traceable calibration to isotope dilution-mass spectrometry. Refer to KDIGO guidelines for clinical interpretation. In patients with unstable renal function, e.g. those with acute kidney injury, the eGFR may not accurately reflect actual GFR. Performed By: #### [facility], 76233-2 #### [facility] CLIA [id number] [address] [place] [address] [place] Glucose [Mass/Vol] 94 mg/dL Normal 74-99 [facility] Comment on above: Order Comment: Specmone raajn Type: BLOOD SPECIMEN Ordering Facility: [facility] Address: [address] [place] [address] Result Comment: The [place] Diabetes Association (ADA) provides guidance for cutoff values for fasting glucose and random glucose. The ADA defines fasting as no caloric intake for at least 8 hours. Fasting plasma glucose results between 100 to 125 mg/dL indicate increased risk for diabetes (prediabetes). Fasting plasma glucose results greater than or equal to 126 mg/dL meet the criteria for diagnosis of diabetes. In the absence of unequivocal hyperglycemia, results should be confirmed by repeat testing. In a patient with classic symptoms of hyperglycemia or hyperglycemic crisis, random plasma glucose results greater than or equal to 200 mg/dL meet the criteria for diagnosis of diabetes. Reference: Standards of Medical Care in Diabetes 2016, [place] [employer] Association. Diabetes Care. 2016.39(Suppl 1). Performed By: #### [facility], 19053-7 #### [facility] CLIA [id number] [address] [place] [address] [place] Potassium [Moles/Vol] 4.1 mmol/L Normal 3.7-5.1 [facility] Comment on above: Order Comment: Speci men Type: BLOOD SPECIMEN Ordering Facility: [facility] Address: [address] [place] [address] Performed By: #### T RAKEL, 08529-0 #### [facility] CLIA [id number] [address] [facility] [place] [address] [place] Protein [Mass/Vol] 7.3 g/dL Normal 6.3-8.0 [facility] Comment on above: Order Comment: Speci men Type: BLOOD SPECIMEN Ordering Facility: [facility] Address: [address] [place] [address] Performed By: #### [facility], 08275-5 #### [facility] CLIA [id number] [address] [place] [address] [place] Sodium [Moles/Vol] 139 mmol/L Normal 136-144 [facility] Comment on above: Order Comment: Speci men Type: BLOOD SPECIMEN Ordering Facility: [facility] Address: [address] [place] [address] Performed By: #### [facility], 79837-0 #### [facility] CLIA [id number] [address] [place] [address] [place] Urea nitrogen [Mass/Vol] 15 mg/dL Normal 7-21 [facility] Comment on above: Order Comment: Speci men Type: BLOOD SPECIMEN Ordering Facility: [facility] Address: [address] [place] [address] Performed By: #### [facility], 55623-7 #### [facility] CLIA [id number] [address] [place] [address] [place] Tancred, Bld SerPl-sCncon Tancred [Moles/Vol] 0.3 mmol/L Low 0.6-1.2 [facility] Comment on above: Order Comment: Speci men Type: BLOOD SPECIMEN Ordering Facility: [facility] Address: [address] [place], [place] [id number] Result Comment: Refe rence ranges and high/low indicator flags are provided as general guidelines only. The treating physician must determine appropriate target levels/dosing based on the specific clinical situation. Performed By: #### 1 [id number] #### [facility] CLIA [id number] [address] [place] TSH W/REFLEX FT4on 5 TSH Qn 1.660 m[IU]/L Normal 0.270-4.200 [facility] Comment on above: Order Comment: Speci men Type: BLOOD SPECIMEN Ordering Facility: [facility] Address: [address] [place], [place] [id number] Result Comment: If t he patient is , TSH reference range varies by gestational period: First Trimester (weeks 9-12): 0.180-2.990 mIU/L Second Trimester: 0.110-3.980 mIU/L Third Trimester: 0.480-4.710 mIU/L Selwyn Bradford et al. A Practical Approach for the Verifications and Determination of Site- and Trimester-Specific Reference Intervals for Thyroid Function tests in . Thyroid, 2019:29:3:412-420. Morgan Zheng, et al. 2017 Guidelines of the [place] Thyroid Association for the Diagnosis and Management of Thyroid Disease during and the . Thyroid, 2017:27:3:315-389. Performed By: #### [facility], 49593-5 #### [facility] CLIA [id number] [address] [place], [place] [id number] [place] CNOVon 07-04-2025 CNOV Office Visit ([facility]) NAVYA MCNULTY ([id number]) 1995 F Date Time Provider Department 9/11/25 6:15 PM ANNITA PRICE During your visit today, we recorded the following information about you: Temperature Pulse Respiration Blood pressure 99 degrees 90/minute 18/minute 98/60 Weight Last Period 92.6 kg 06/03/25 Annita Price APRN.CNP 07/04/2025 6:25 PM Signed [facility] Jennifer Mcnulty is a 30 year old female. Patient presents with: Cough: Raspy, productive cough, mucus x 1 week HPI Patient presents today complaining of 1 week of increasing raspy cough with sputum production. Denies any specific fevers but notes symptoms do not seem to be improving. Review of Systems As above Objective BP 98/60 Pulse 90 Temp 37.2 ?C (99 ?F) Resp 18 Wt 92.6 kg (204 lb 2.3 oz) LMP 06/03/2025 SpO2 98% No BMI 36.72 kg/m? Physical Exam Vitals and nursing note reviewed. Constitutional: General: She is not in acute distress. Appearance: Normal appearance. She is not ill-appearing. HENT: Head: Normocephalic. Mouth/Throat: Mouth: Mucous membranes are moist. Eyes: Conjunctiva/sclera: Conjunctivae normal. Cardiovascular: Rate and Rhythm: Normal rate and regular rhythm. Pulmonary: Effort: Pulmonary effort is normal. Breath sounds: Wheezing and rhonchi present. Musculoskeletal: General: Normal range of motion. Cervical back: Normal range of motion. Skin: General: Skin is warm and dry. Neurological: General: No focal deficit present. Mental Status: She is alert. Psychiatric: Mood and Affect: Mood normal. Behavior: Behavior normal. {ASSESSMENT/PLAN: 1. Lower respiratory tract infection - ICD9: 519.8, ICD10: J22 -On evaluation patient had coarse lung sounds throughout. Patient notes worsening of symptoms over the last week. She does have a young infant but states that she is bottlefeeding and denies any chance of . She does have an albuterol inhaler which she can use as needed at home. Patient given prescriptions as noted below as my suspicion for lower respiratory tract infection is high. She will otherwise follow-up with her PCP to ensure resolution of symptoms - DOXYCYCLINE MONOHYDRATE 100 MG CAPSULE - PREDNISONE 50 MG TABLET Annita Price APRN.[employer]ICE FOOD SERVICE ATTENDANT Disposition The patient was discharged. Procedures Allergies As of Date: 07/04/2025 Noted Allergy Reaction EGG 06/01/2019 4 - Hives 7 - Swelling Comments: Raw eggs only LACTOSE 12/02/2024 6 - Diarrhea POLLEN 10/31/2008 WELLBUTRIN (BUPROPION HCL) 06/28/2019 5 - Intolerance Date Reviewed: 07/04/2025 Reviewed by: Annita Price APRN.ROOM SERVICE FOOD SERVICE ATTENDANT - Fully Assessed Reason for Visit: Cough [28] Cmt: Raspy, productive cough, mucus x 1 week Primary Visit Diagnosis:Lower respiratory tract infection [J22] Order(s):doxycycline monohydrate (MONODOX) 100 mg capsuleTake 1 capsule by mouth two times a day for 5 days.Disp: 10 capsuleRfl: 0 predniSONE (DELTASONE) 50 mgTake 1 tablet by mouth once daily for 5 days.Disp: 5 tabletRfl: 0 Prescriptions as of 07/04/2025 - lithium carbonate (ESKALITH) 300 mg capsule Take 1 capsule by mouth every 12 hours. - doxycycline monohydrate (MONODOX) 100 mg capsule Take 1 capsule by mouth two times a day for 5 days. - predniSONE (DELTASONE) 50 mg Take 1 tablet by mouth once daily for 5 days. - levonorgestrel (MIRENA) 21 mcg/24hr (up to 8 yrs) 52 mg IUD 1 each by INTRAUTERINE route as directed. - lurasidone (LATUDA) 60 mg tablet Take 60 mg by mouth once daily. - hydrOXYzine HCl (ATARAX) 50 mg tablet Take 50 mg by mouth every 6 hours as needed. - LAMICTAL 200 mg tablet Take 200 mg by mouth once daily. - LACTASE (LACTAID ORAL) Take by mouth w MEALS. Meds Comments as of 06/13/2013: pt not taking her medication how she is supposed to Problem List As Of Date 07/04/2025 Noted Resolved Cellulitis and abscess of toe, unspecified [L03*06/01/2010 05/19/2019 Smoker [F17.200] 12/22/2011 06/27/2024 Anxiety and depression [F41.9, F32.A] 12/22/2011 Asthma [J45.909] 12/22/2011 05/19/2019 Oligomenorrhea [N91.5] 03/23/2012 03/01/2019 Hyperprolactinemia (HCC) [E22.1] 03/23/2012 05/19/2019 PROM with onset of labor within 24 hour*05/04/2014 03/01/2019 Active labor [SVX8952] 05/04/2014 03/01/2019 Anxiety [F41.9] 05/23/2017 05/19/2019 History of methicillin resistant Staphylococcus*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 Normal [facility] BACTERIAL VAGINOSIS NAATon 0 04-10-2025 Lactobacillus crispatus+gasseri+sundeep enii + Gardnerella vaginalis + Atopobium vaginae rRNA JALEN+probe Ql (Vag fld) Not detected Normal Not detected [facility] Comment on above: Order Comment: Speci men Type: BLOOD SPECIMEN Ordering Facility: [facility] Address: [address] [place] [address] Performed By: #### 3 1201-7, 5195-3, 73599-6 #### [facility] CLIA [id number] [address] [place] [address] [place] [address] [place] MAGGI/TRICHOMONAS NAATon 0 04-10-2025 C. glabrata RNA JALEN+probe Ql (Vag fld) Not detected Normal Not detected [facility] Comment on above: Order Comment: Speci men Type: BLOOD SPECIMEN Ordering Facility: [facility] Address: [address] [place] [address] Performed By: #### 3 1201-7, 5195-3, 62329-2 #### [facility] CLIA [id number] [address] [place] [address] [place] Maggi sp DNA JALEN+probe Ql (Vag fld) Not detected Normal Not detected [facility] Comment on above: Order Comment: Speci men Type: BLOOD SPECIMEN Ordering Facility: [facility] Address: [address] [place] [address] Result Comment: The Maggi species group target includes C. albicans, C. tropicalis, C. parapsilosis, and C. dubliniensis. Performed By: #### 3 1201-7, 5195-3, 76723-9 #### [facility] CLIA [id number] [address] [place] [address] [place] T. vaginalis DNA JALEN+probe Ql (Unsp spec) Not detected Normal Not detected [facility] Comment on above: Order Comment: Speci men Type: BLOOD SPECIMEN Ordering Facility: [facility] Address: [address] [place] [address] Performed By: #### 3 1201-7, 5195-3, 15857-7 #### [facility] CLIA [id number] [address] [place] [address] OF DEE DEE CNOVon 04-10-2025 CNOV Office Visit (OBGYWM ) NAVYA MCNULTY ([id number]) 1995 F Date Time Provider Department 04/10/25 8:15 AM GIOVANNI KHAN During your visit today, we recorded the following information about you: Blood pressure Weight 114/68 88.5 kg Giovanni Khan APRN.ROOM SERVICE FOOD SERVICE ATTENDANT 04/10/2025 8:34 AM Signed Banjo Repair Person offered: Patient declines. Navya Mcnulty is a 29 year old female who presents for IUD follow-up. HPI: Mirena IUD placed 03/06/2025. She has been having spotting since placement. Notes some left sided pelvic pain as well. Partner can feel IUD strings with intercourse. OB History Gravida2 Para2 Term2 Preterm0 AB0 Living2 SAB0 IAB0 Ectopic0 Multiple0 Live Births2 Academic Affairs Assistant History LMP: 05/07/2024, Recent Age at Menarche: Age at First : Age at Menopause: Academic Affairs Assistant History Comments: Sexual Activity: Yes; Male Contraception: Not used PAST MEDICAL HISTORY Diagnosis Date Abnormal genetic test during 11/19/2024 November 30, 2024 Anticipated Elton Complication WS approved by Dr. 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, Meth Hyperprolactinemia (HCC) 03/23/2012 MRSA cellulitis 2016 PMH - PAST MEDICAL HISTORY OF 01/02/2010 normal color vision Trichomoniasis 03/06/2019 Unspecified asthma(493.90) PAST SURGICAL HISTORY Procedure Laterality Date INSERTION OF IUD 03/06/2025 Mirena PAST SURGICAL HISTORY OF Left 04/2017 Elbow Surgery PAST SURGICAL HISTORY OF removal of abcess on right knee FAMILY HISTORY Problem Relation Age of Onset Psychiatry Mother depression other ([place]el [place]unnel) Mother Alcohol abuse Mother Recovering Diabetes Father Heart Father bypass Hypertension Father Heart Attack Father No Known Problems Brother Osteoporosis Maternal Grandmother other (Breast Cancer age 40s) Maternal Grandmother Cancer Maternal Grandfather of liver cancer Diabetes Paternal Grandmother Dementia Paternal Grandmother Diabetes Paternal Grandfather Heart Paternal Grandfather from [place] Social History Tobacco Use Smoking status: Former Current packs/day: 1.00 Average packs/day: 1 pack/day for 10.0 years (10.0 ttl pk-yrs) Types: Cigarettes Smokeless tobacco: Never Vaping Use Vaping status: current everyday user Substances: Nicotine Devices: Disposable Substance Use Topics Alcohol use: Not Currently Comment: [facility] Drug use: Not Currently Comment: 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 lurasidone (LATUDA) 60 mg tablet Take 60 mg by mouth once daily. hydrOXYzine HCl (ATARAX) 50 mg tablet Take 50 mg by mouth every 6 hours as needed. LAMICTAL 200 mg tablet Take 200 mg by mouth once daily. (Patient taking differently: Take 180 mg by mouth two times a day.) LACTASE (LACTAID ORAL) Take by mouth w MEALS. No current facility-administered medications for this visit. 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 As applicable, any other physician, advance practice provider, medical student, or other health professional student that will be observing or involved in the sensitive examination for educational or training purposes was discussed with the Patient or Authorized Dynamometer Tuner. The Patient or Authorized Dynamometer Tuner has agreed to proceed with the sensitive examination. (Sensitive examination includes inspection and/or palpation of the breasts, pelvis, prostate and anorectal regions). EXAM: BP 114/68 Wt 195 lb (88.5kg) LMP 05/07/2024 GENERAL: pleasant, female in no apparent distress CHEST: Normal inspiratory effort PELVIC: external genitalia normal, normal Bartholin's glands, urethra, Moreland's glands, no vulvar lesions, no cervical lesions, good vaginal support, physiologic discharge present, normal appearing perineal body and perianal region, IUD strings visible BIMANUAL: uterus normal size, shape and consistency, no adnexal masses, and non-tender NEURO: alert and oriented x3,exam grossly non-focal EXTR (more content not included)... Normal [facility] C. trachomatis+N. gonorrhoea e DNA JAELN+probe Ql (Unsp spec)on 03-06-2025 C. trachomatis rRNA JALEN+probe Ql (Unsp spec) Not detected Normal Not detected [facility] Comment on above: Order Comment: Speci men Type: SWABOrdering Facility: [facility] Address: [address] [place] [address] Performed By: #### 3 6902-5, TRVAMP ####[facility] [id number] [address] OF DEE DEE N. gonorrhoeae rRNA JALEN+probe Ql (Unsp spec) Not detected Normal Not detected [facility] Comment on above: Order Comment: Speci men Type: SWABOrdering Facility: [facility] Address: [address] [place] [address] Performed By: #### 3 6902-5, TRVAMP ####[facility] [id number] [address] STATES OF DEE DEE CNOVon 03-06-2025 CNOV Office Visit (OBGYWM ) NAVYA MCNULTY ([id number]) 1995 F Date Time Provider Department 03/06/25 8:15 AM GIOVANNI KHAN OBMATHEW During your visit today, we recorded the following information about you: Blood pressure Weight 120/70 84.4 kg Giovanni Khan APRN.ROOM SERVICE FOOD SERVICE ATTENDANT 03/06/2025 8:38 AM Signed Banjo Repair Person offered: Yolanda Mendosa presents today for IUD insertion for contraception. Patient's last menstrual period was 05/07/2024. GC/chlamydia: Collected today test: negative Side effects including irregular bleeding were discussed with the patient. The patient understands that it should be removed in 8 years or sooner if the patient desires a . IUD source: office provided IUD lot #: [id number] Exp date: 03/23/2027 [facility] [id number] UNIVERSAL PROTOCOL / SAFETY CHECKLIST Procedure to be Performed: Intrauterine Device (IUD) insertion Mirena Sign In: A Moment of CARE was completed. Appropriate PPE (Personal Protective Equipment) worn by all providers involved with the procedure. Special equipment not required. Patient/Surrogate Stated/Verified: Patient name, Date of , Relevant allergies, and The intended procedure Time Out: Relevant labs, photos, and/or imaging studies are not applicable. Intended patient and procedure match the source document(s) (e.g. consent, HANDP, associated studies [imaging, pathology]) match the intended patient and procedure. Consent obtained and matches the intended procedure. Yes. Correct side/site has been marked and visible. Medications required for this procedure are not applicable. Fire risk assessed and is not applicable. Implants: are not applicable. Sign Out: Specimens are all correctly labeled and sent. All instruments, equipment, possible retained foreign bodies are accounted for. Yes. The post-procedure plan of care has been communicated to the patient or surrogate. The cervix was prepped with betadine. The uterus sounded to 8 cm and the uterus is Midposition.. Using sterile technique, the Mirena IUD was inserted without difficulty, but immediately expelled. IUD insertion was attempted again with new IUD. Inserted successfully and string was cut to 3 cm from the external os of the cervix. Patient tolerated procedure well. PLAN: Patient was advised to observe for signs and symptoms of infection including but not limited to fever, malodorous vaginal discharge and/or pain. The patient was told to check the string monthly for accurate placement. Bleeding expectations were reviewed. Follow up in one month. Reports mental health has improved with medication adjustments. Following with psych. Giovanni Khan APRN.Silvina Rose MA 03/06/2025 8:09 AM Signed POST IUD INSTRUCTIONS You may have irregular bleeding during the first 3 months of use. You may have mild-severe cramping for the next 48 hours. You may use over the counter medication (Motrin, Tylenol) as needed. Your IUD must be removed or replaced based on the following table: IUD Type Removed or replaced within: Madina 3 years Kyleena 5 years Mirena 8 years Liletta 8 years Paragard 10 years Call the office for signs/symptoms of infection such as severe cramping, fever, or unusual bleeding. Check for string placement as instructed by your doctor. If you have any additional questions, please contact the office. Referring Provider: SARAH HINTON [[id number]] Allergies As of Date: 03/06/2025 Noted Allergy Reaction EGG 06/01/2019 4 - Hives 7 - Swelling Comments: Raw eggs only LACTOSE 12/02/2024 6 - Diarrhea POLLEN 10/31/2008 WELLBUTRIN (BUPROPION HCL) 06/28/2019 5 - Intolerance Date Reviewed: 03/06/2025 Reviewed by: Giovanni Khan APRN.ROOM SERVICE FOOD SERVICE ATTENDANT - Fully Assessed Reason for Visit: Insertion Of IUD [291] Primary Visit Diagnosis:Encounter for IUD insertion [Z30.430] Other Visit Diagnosis:Screen for STD (sexually transmitted disease) [Z11.3] Order(s):INSERT INTRAUTERINE DEVICE [[id number]] Order #: [id number] [] levonorgestrel 21 mcg/24hr (up to 8 yrs) 52 mg 1 each intrauterine device (MIRENA)Disp: Rfl: levonorgestrel (MIRENA) 21 mcg/24hr (up to 8 yrs) 52 mg IUD1 each by INTRAUTERINE route as directed.Disp: 1 eachRfl: 0 UA DIP,URINE HCG (POC) [[id number]] Order #: [id number]. #:[id number] GONORRHEA/CHLAMYDIA NAAT [SQGCCT] Order #: [id number] TRICHOMONAS VAGINALIS NAAT [SQTRVAMP] Order #: [id number] Prescriptions as of 03/06/2025 - levonorgestrel (MIRENA) 21 mcg/24hr (up to 8 yrs) 52 mg IUD 1 each by INTRAUTERINE route as directed. - lurasidone (LATUDA) 60 mg tablet Take 60 mg by mouth once daily. - OXcarbazepine (TRILEPTAL) 300 mg tablet Take 300 mg by mouth once daily. - hydrOXYzine HCl (ATARAX) 50 mg tablet Take 50 mg by mouth every 6 hours as needed. - LAMICTAL 200 mg tablet Take 200 mg by mouth once daily. (more content not included)... Normal [facility] TRICHOMONAS VAGINALIS NAATon 03-06-2025 T. vaginalis DNA JALEN+probe Ql (Unsp spec) Not detected Normal Not detected [facility] Comment on above: Order Comment: Speci men Type: SWABOrdering Facility: [facility] Address: [address] [place] [address] Performed By: #### 3 6902-5, TRVAMP ####[facility] [id number] [place] [address] [place] UA DIP,URINE HCG (POC)on Beta HCG ( test) Ql (U) Negative Negative [facility] Comment on above: Location:[facility], [address] [place], [address] Violin Restorer (POCT) Internal QC [facility] Location:[facility], [address] [place], [address] [facility] POINT OF CARE [facility] CBC Auto Differentialon 01-23 Basophils (Bld) [#/Vol] 0.08 10*3/uL [facility] Basophils/100 WBC (Bld) 1.1 % [facility] Eosinophils (Bld) [#/Vol] 0.52 10*3/uL High [facility] Eosinophils/100 WBC (Bld) 7.3 % [facility] Erythrocyte distribution width (RBC) [Entitic vol] 12.5 % 11.6 - 14.8 % [facility] Hematocrit (Bld) [Volume fraction] 40.9 % 36.0 - 46.0 % [facility] Hemoglobin (Bld) [Mass/Vol] 12.8 g/dL 12.0 - 16.0 g/dL [facility] Immature granulocytes (Bld) [#/Vol] 0.02 10*3/uL [facility] Immature granulocytes/100 WBC (Bld) 0.3 % [facility] Comment on above: The IG parameter is the percentage of metamyelocytes, myelocytes and promyelocytes. An immature granulocyte count (IG) of 1% or more suggests the possibility of infection, an IG count of 3% is very likely related to an infection. Interpretation and review of laboratory results Abnormal [facility] Lymphocytes (Bld) [#/Vol] 2.97 10*3/uL [facility] Lymphocytes/100 WBC (Bld) 41.9 % [facility] MCH (RBC) [Entitic mass] 27.9 pg 26.0 - 34.0 pg [facility] MCHC (RBC) [Mass/Vol] 31.3 g/dL 31.0 - 37.0 g/dL [facility] MCV (RBC) [Entitic vol] 89.3 fL 80.0 - 100.0 fL [facility] Monocytes (Bld) [#/Vol] 0.64 10*3/uL [facility] Monocytes/100 WBC (Bld) 9 % [facility] Neutrophils (Bld) [#/Vol] 2.86 10*3/uL [facility] Neutrophils/100 WBC (Bld) 40.4 % [facility] Nucleated RBC (Bld) [#/Vol] 0 10*3/uL [facility] Nucleated RBC/100 WBC (Bld) [Ratio] 0 % [facility] Platelet mean volume (Bld) [Entitic vol] 8.5 fL Low 9.4 - 12.4 fL [facility] Platelets (Bld) [#/Vol] 332 10*3/uL [facility] RBC (Bld) [#/Vol] 4.58 10*6/uL [facility] WBC (Bld) [#/Vol] 7.09 10*3/uL [facility] CBC WITH AUTO DIFFERENTIALon 02-13-2025 AUTO NRBC 0.0 % Normal [facility] Comment on above: Performed By: #### L [id number] #### [facility] [address] [place], [place] [address] Estuardo Chapin M.D. [id number] AUTO NRBC ABS COUNT 0.00 K/mcL Normal 0.00-0.00 [facility] Comment on above: Performed By: #### L [id number] #### [facility] [address] [place], [place] [address] Estuardo Chapin M.D. [id number] BASOPHILS ABSOLUTE COUNT 0.08 K/mcL Normal 0.00-0.30 [facility] Comment on above: Performed By: #### L [id number] #### LAB [address] [place] [address] Estuardo Chapin M.D. [id number] Basophils/100 WBC (Bld) 1.1 % Normal [facility] Comment on above: Performed By: #### L [id number] #### LAB [address] [place] [address] Estuardo Chapin M.D. [id number] Eosinophils (Bld) [#/Vol] 0.52 10*3/uL High 0.00-0.50 [facility] Comment on above: Performed By: #### L [id number] #### LAB [address] [place] [address] Estuardo Chapin M.D. [id number] Eosinophils/100 WBC (Bld) 7.3 % Normal [facility] Comment on above: Performed By: #### L [id number] #### LAB [address] [place] [address] Estuardo Chapin M.D. [id number] Erythrocyte distribution width (RBC) [Ratio] 12.5 % Normal 11.6-14.8 [facility] Comment on above: Performed By: #### L [id number] #### LAB [address] [place] [address] Estuardo Chapin M.D. [id number] Hematocrit (Bld) [Volume fraction] 40.9 % Normal 36.0-46.0 [facility] Comment on above: Performed By: #### L [id number] #### LAB [address] [place] [address] Estuardo Chapin M.D. [id number] Hemoglobin (Bld) [Mass/Vol] 12.8 g/dL Normal 12.0-16.0 [facility] Comment on above: Performed By: #### L [id number] #### LAB [address] [place] [address] Estuardo Chapin M.D. [id number] IG ABSOLUTE 0.02 K/mcL Normal 0.00-0.30 [facility] Comment on above: Performed By: #### L [id number] #### LAB [address] [place] [address] Estuardo Chapin M.D. [id number] IG PERCENT 0.30 % Normal [facility] Comment on above: Result Comment: The IG parameter is the percentage of metamyelocytes, myelocytes and promyelocytes. An immature granulocyte count (IG) of 1% or more suggests the possibility of infection, an IG count of 3% is very likely related to an infection. Performed By: #### L [id number] #### LAB [address] [place] [address] Estuardo Chapin M.D. [id number] Lymphocytes (Bld) [#/Vol] 2.97 10*3/uL Normal 0.90-4.00 [facility] Comment on above: Performed By: #### L [id number] #### LAB [address] [place] [address] Estuardo Chapin M.D. [id number] Lymphocytes/100 WBC (Bld) 41.9 % Normal [facility] Comment on above: Performed By: #### L [id number] #### LAB [address] [place] [address] Estuardo Chapin M.D. [id number] MCH (RBC) [Entitic mass] 27.9 pg Normal 26.0-34.0 [facility] Comment on above: Performed By: #### L [id number] #### LAB [address] [place] [address] Estuardo Chapin M.D. [id number] MCV (RBC) [Entitic vol] 89.3 fL Normal 80.0-100.0 [facility] Comment on above: Performed By: #### L [id number] #### LAB [address] [place] [address] Estuardo Chapin M.D. [id number] MEAN CORPUSCULAR HEMOGLOBIN CONC 31.3 g/dL Normal 31.0-37.0 [facility] Comment on above: Performed By: #### L [id number] #### LAB [address] [place] [address] Estuardo Chapin M.D. [id number] Monocytes (Bld) [#/Vol] 0.64 10*3/uL Normal 0.30-0.90 [facility] Comment on above: Performed By: #### L [id number] #### LAB [address] [place] [address] Estuardo Chapin M.D. [id number] Monocytes/100 WBC (Bld) 9.0 % Normal [facility] Comment on above: Performed By: #### L [id number] #### [facility] [address] [place] [address] Estuardo Chapin M.D. [id number] NEUTROPHILS ABSOLUTE COUNT 2.86 K/mcL Normal 1.70-7.00 [facility] Comment on above: Performed By: #### L [id number] #### LAB [address] [place] [address] Estuardo Chapin M.D. [id number] Neutrophils/100 WBC (Bld) 40.4 % Normal [facility] Comment on above: Performed By: #### L [id number] #### LAB [address] [place] [address] Estuardo Chapin M.D. [id number] Platelet mean volume (Bld) [Entitic vol] 8.5 fL Low 9.4-12.4 [facility] Comment on above: Performed By: #### L [id number] #### LAB [address] [place] [address] Estuardo Chapin M.D. [id number] Platelets (Bld) [#/Vol] 332 10*3/uL Normal 150-400 [facility] Comment on above: Performed By: #### L [id number] #### LAB [address] [place] [address] Estuardo Chapin M.D. [id number] RBC (Bld) [#/Vol] 4.58 10*6/uL Normal 4.00-5.20 [facility] Comment on above: Performed By: #### L [id number] #### [facility] [address] [place], [place] [address] Estuardo Chapin M.D. [id number] WBC (Bld) [#/Vol] 7.09 10*3/uL Normal 4.50-11.00 [facility] Comment on above: Performed By: #### L [id number] #### LAB [address] [place], [place] [address] Estuardo Chapin M.D. [id number] COMPREHENSIVE METABOLIC PANE Lizandro 02-13-2025 Albumin [Mass/Vol] 3.5 g/dL Normal 3.2-5.2 [facility] Comment on above: Order Comment: [facility] has implemented the eGFR calculation approach that does not have a coefficient for race that conforms to the NKF-ASN Task Force Recommendations. Performed By: #### 4 6126 #### LAB [address] [place] [id number] Estuardo Chapin M.D. [id number] ALP [Catalytic activity/Vol] 95 U/L Normal 40-140 [facility] Comment on above: Order Comment: [facility] has implemented the eGFR calculation approach that does not have a coefficient for race that conforms to the NKF-ASN Task Force Recommendations. Performed By: #### 4 6126 #### LAB [address] [place], [place] [address] Estuardo Chapin M.D. [id number] ALT [Catalytic activity/Vol] 10 U/L Normal 0-35 U/L [facility] Comment on above: Order Comment: [facility] has implemented the eGFR calculation approach that does not have a coefficient for race that conforms to the NKF-ASN Task Force Recommendations. Performed By: #### 4 6126 #### LAB [address] [place] [id number] Estuardo Chapin M.D. [id number] Anion gap [Moles/Vol] 13 mmol/L Normal 10-20 [facility] Comment on above: Order Comment: [facility] has implemented the eGFR calculation approach that does not have a coefficient for race that conforms to the NKF-ASN Task Force Recommendations. Performed By: #### 4 6126 #### LAB [address] [place] [address] Estuardo Chapin M.D. [id number] AST [Catalytic activity/Vol] 16 U/L Normal 0-35 U/L [facility] Comment on above: Order Comment: [facility] has implemented the eGFR calculation approach that does not have a coefficient for race that conforms to the NKF-ASN Task Force Recommendations. Performed By: #### 4 6126 #### LAB [address] [place] [address] Estuardo Chapin M.D. [id number] BILIRUBIN TOTAL < Normal 0.0-1.3 [facility] Comment on above: Order Comment: [facility] has implemented the eGFR calculation approach that does not have a coefficient for race that conforms to the NKF-ASN Task Force Recommendations. Performed By: #### 4 6126 #### LAB [address] [place] [address] Estuardo Chapin M.D. [id number] Calcium [Mass/Vol] 8.8 mg/dL Normal 8.4-10.2 [facility] Comment on above: Order Comment: [facility] has implemented the eGFR calculation approach that does not have a coefficient for race that conforms to the NKF-ASN Task Force Recommendations. Performed By: #### 4 6126 #### LAB [address] [place] [address] Estuardo Chapin M.D. [id number] Chloride [Moles/Vol] 104 mmol/L Normal 98-108 [facility] Comment on above: Order Comment: [facility] has implemented the eGFR calculation approach that does not have a coefficient for race that conforms to the NKF-ASN Task Force Recommendations. Performed By: #### 4 6126 #### LAB [address] [address] Estuardo Chapin M.D. [id number] Creatinine [Mass/Vol] 0.89 mg/dL Normal 0.40-1.10 [facility] Comment on above: Order Comment: [facility] has implemented the eGFR calculation approach that does not have a coefficient for race that conforms to the NKF-ASN Task Force Recommendations. Performed By: #### 4 6126 #### LAB [address] [address] Estuardo Chapin M.D. [id number] EGFR 89 mL/min/1.73 m2 Normal >=60 [facility] Comment on above: Order Comment: [facility] has implemented the eGFR calculation approach that does not have a coefficient for race that conforms to the NKF-ASN Task Force Recommendations. Result Comment: Maggie mated GFR was calculated using the 2020 CKD-EPI creatinine equation. Performed By: #### 4 6141 #### [facility] [address] [address] Estuardo Chapin M.D. [id number] Glucose [Mass/Vol] 92 mg/dL Normal 65-99 [facility] Comment on above: Order Comment: [facility] has implemented the eGFR calculation approach that does not have a coefficient for race that conforms to the NKF-ASN Task Force Recommendations. Performed By: #### 4 6126 #### LAB [address] [address] Estuardo Chapin M.D. [id number] HCO3 (Bld) [Moles/Vol] 26 mmol/L Normal 21-32 [facility] Comment on above: Order Comment: [facility] has implemented the eGFR calculation approach that does not have a coefficient for race that conforms to the NKF-ASN Task Force Recommendations. Performed By: #### 4 6126 #### LAB [address] [address] Estuardo Chapin M.D. [id number] Potassium [Moles/Vol] 4.5 mmol/L Normal 3.5-5.1 [facility] Comment on above: Order Comment: [facility] has implemented the eGFR calculation approach that does not have a coefficient for race that conforms to the NKF-ASN Task Force Recommendations. Performed By: #### 4 6126 #### LAB [address] [place], [place] [address] Estuardo Chapin M.D. [id number] Protein [Mass/Vol] 5.9 g/dL Low 6.0-8.0 [facility] Comment on above: Order Comment: [facility] has implemented the eGFR calculation approach that does not have a coefficient for race that conforms to the NKF-ASN Task Force Recommendations. Performed By: #### 4 6126 #### LAB [address] [address] Estuardo Chapin M.D. [id number] Sodium [Moles/Vol] 138 mmol/L Normal 135-145 [facility] Comment on above: Order Comment: [facility] has implemented the eGFR calculation approach that does not have a coefficient for race that conforms to the NKF-ASN Task Force Recommendations. Performed By: #### 4 6126 #### LAB [address] [address] Estuardo Chapin M.D. [id number] Urea nitrogen [Mass/Vol] 17 mg/dL Normal 8-25 [facility] Comment on above: Order Comment: [facility] has implemented the eGFR calculation approach that does not have a coefficient for race that conforms to the NKF-ASN Task Force Recommendations. Performed By: #### 4 6126 #### LAB [address] [address] Estuardo hCapin M.D. [id number] Urea nitrogen/Creatinine [Mass ratio] 19.1 mg/mg Normal 10.0-20.0 [facility] Comment on above: Order Comment: [facility] has implemented the eGFR calculation approach that does not have a coefficient for race that conforms to the NKF-ASN Task Force Recommendations. Performed By: #### 4 6126 #### LAB [address] [id number] Estuardo Chapin M.D. [id number] Comprehensive metabolic 2000 panelon 02-13-2025 Albumin [Mass/Vol] 3.5 g/dL 3.2 - 5.2 g/dL [facility] ALP [Catalytic activity/Vol] 95 U/L 40 - 140 U/L [facility] ALT [Catalytic activity/Vol] 10 U/L 0 - 35 U/L [facility] Anion gap [Moles/Vol] 13 mmol/L 10 - 20 mmol/L [facility] AST [Catalytic activity/Vol] 16 U/L 0 - 35 U/L [facility] Bilirubin [Mass/Vol] mg/dL 0.0 - 1 .3 mg/dL [facility] Calcium [Mass/Vol] 8.8 mg/dL 8.4 - 10. 2 mg/dL [facility] Chloride [Moles/Vol] 104 mmol/L 98 - 10 8 mmol/L [facility] Creatinine [Mass/Vol] 0.89 mg/dL 0.40 - 1.10 mg/dL [facility] GFR/1.73 sq M.predicted CKD-EPI (S/P/Bld) [Vol rate/Area] 89 - PINF [facility] Comment on above: Estimated GFR was ca lculated using the 2020 CKD-EPI creatinine equation. Glucose [Mass/Vol] 92 mg/dL 65 - 99 mg/dL [facility] HCO3 [Moles/Vol] 26 mmol/L 21 - 32 mmol/L [facility] Interpretation and review of laboratory results Abnormal [facility] Potassium [Moles/Vol] 4.5 mmol/L 3.5 - 5.1 mmol/L [facility] Protein [Mass/Vol] 5.9 g/dL Low 6.0 - 8.0 g/dL [facility] Sodium [Moles/Vol] 138 mmol/L 135 - 145 mmol/L [facility] Urea nitrogen [Mass/Vol] 17 mg/dL 8 - 25 mg/dL [facility] Urea nitrogen/Creatinine [Mass ratio] 19.1 mg/mg 10.0 - 20.[address] [facility] has implemented the eGFR calculation approach that does not have a coefficient for race that conforms to the NKF-ASN Task Force Recommendations. [facility] LIPID PANELon 02-13-2025 Cholesterol [Mass/Vol] 171 mg/dL Normal 100-199 [facility] Comment on above: Performed By: #### 4 6087 #### [facility] [address] [place], [place] [address] Estuardo Chapin M.D. [id number] Cholesterol in HDL [Mass/Vol] 54 mg/dL Normal 40-59 [facility] Comment on above: Performed By: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 Gastrointestinal Gastrointestinal: Denies abdominal pain, diarrhea, nausea or vomiting Genitourinary Genitourinary ED: Denies dysuria, hematuria or urinary frequency Musculoskeletal Musculoskeletal: Denies back pain, extremity pain or neck pain Integumentary Denies rash or wounds Neurologic Neurologic: Denies headache(s), paresthesias or weakness Psychiatric Psychiatric: Reports depression, suicidal ideation and suicidal thoughts EXAM Physical Exam Const Vital Signs: 02/12/25 11:47 02/12/25 12:54 Temperature 97.8 F Temperature Source Oral Pulse Rate 73 65 Respiratory Rate 18 18 Blood Pressure 112/78 115/78 Blood Pressure Mean 89 90 Pulse Ox 99 99 Oxygen Delivery Method Room Air Room Air Positive well nourished and well developed General Appearance ED: well developed and NAD HEENT Reports moist mucous membranes normocephalic and atraumatic Eyes General Eye ED: Yes normal appearance of both eyes Neck full ROM Chest Wall Chest: Negative for tenderness Resp normal respiratory effort and normal air movement Effort and Inspection: symmetric chest movement; Negative for respiratory distress Cardio regular rate, regular rhythm and no murmurs Peripheral Pulses: pulses 2+ throughout GI normal to inspection, nondistended, normoactive bowel sounds and non-tender Palpation: Negative for guarding or rebound tenderness present Extremity normal to inspection General Extremety ED: Negative for edema or tenderness General Extremity: Negative for edema (more content not included)... Normal [facility] Eosinophil percentageOrdered By: Markel Albert on 02-12-2025 Eosinophils/100 WBC (Bld) 3.9 % 0-5 [facility] Erythrocyte distribution wid th (RBC) [Ratio]Ordered By: Markel Albert on 02-12-2025 Erythrocyte distribution width (RBC) [Entitic vol] 39.1 fL 35.1-43.9 [facility] Erythrocyte distribution wid th ratioOrdered By: Markel Albert on 02-12-2025 Erythrocyte distribution width (RBC) [Ratio] 12.4 % 11.6-14.6 [facility] Estimation of creatinine jo aranceOrdered By: Markel Albert on 02-12-2025 Estimated Creatinine Clearance Calc 106.53 ml/min 50-250 [facility] Ethanol [Mass/Vol]Ordered By : Markel Albert on 02-12-2025 Ethyl Alcohol Level < 10.1 mg/dL <10.1 [facility] Comment on above: This test is for med ical purposes only. The legal definition of intoxication varies according to local law. GFR/1.73 sq M.predicted annabel g non-blacks MDRD (S/P/Bld) [Vol rate/Area]Ordered By: Markel Albert on 02-12-2025 Estimated GFR (MDRD) Non-Af Amer 107 >60 [facility] Comment on above: mL/min/1.73m2 CKD-EP I Creatinine Equation (2020) Hematocrit Auto (Bld) [Volum e fraction]Ordered By: Markel Albert on 02-12-2025 Hematocrit (Bld) [Volume fraction] 42.3 % 37-47 [facility] Hemoglobin measurementOrdere d By: Markel Albert on 02-12-2025 Hemoglobin (Bld) [Mass/Vol] 14.0 g/dL 12.0-15.0 [facility] Immature granulocytes/100 WB C Auto (Bld)Ordered By: Markel Albert on 02-12-2025 Immature granulocytes/100 WBC (Bld) 0.300 % 0.0-0.9 [facility] Comment on above: IG% - Immature Granu locytes (promyelocytes, myelocytes and metamyelocytes) > 1% indicates that a LEFT SHIFT is Present. Lymphocytes Auto (Unsp spec) [#/Vol]Ordered By: Markel Albert on 02-12-2025 Lymphocytes (Bld) [#/Vol] 3.43 10*3/uL 0.83-4.51 [facility] Lymphocytes/100 WBC Auto (Un sp spec)Ordered By: Markel Albert on 02-12-2025 Lymphocytes/100 WBC (Bld) 33.3 % 19-41 [facility] MCV (mean corpuscular volume ) determinationOrdered By: Markel Albert on 02-12-2025 MCV (RBC) [Entitic vol] 86.9 fL 81-99 [facility] Mean corpuscular hemoglobin (MCH) determinationOrdered By: Markel Albert on 02-12-2025 MCH (RBC) [Entitic mass] 28.7 pg 27.0-32.0 [facility] Mean corpuscular hemoglobin concentration (MCHC) determinationOrdered By: Markel Albert on 02-12-2025 MCHC (RBC) [Mass/Vol] 33.1 g/dL 32-36 [facility] Mean platelet volume determi nationOrdered By: Markel Albert on 02-12-2025 Platelet mean volume (Bld) [Entitic vol] 8.8 fL 6.2-12.0 [facility] Methadone, urineOrdered By: Markel Albert on 02-12-2025 Urine Methadone Screen Negative < 300 ng/mL [facility] Monocyte percentageOrdered B y: Markel Albert on 02-12-2025 Monocytes/100 WBC (Bld) 6.7 % 0-10 [facility] Neutrophil percentageOrdered By: Markel Albert on 04-22-2025 Neutrophils/100 WBC (Bld) 54.8 % 47-70 [facility] No Panel InformationOrdered By: Markel Albert on 02-12-2025 Urine Buprenorphine Qualitative Negative < 200 ng/mL [facility] Urine Oxycodone Screen Negative < 100 ng/mL [facility] Nucleated red blood cell per centageOrdered By: Markel Albert on 02-12-2025 Nucleated RBC/100 WBC (Bld) [Ratio] 0.2 % 0-5 [facility] Platelet countOrdered By: Deric Albert on 02-12-2025 Platelets (Bld) [#/Vol] 376 10*3/uL 150-450 [facility] Potassium (Unsp spec) [Mass/ Vol]Ordered By: Markel Albert on 02-12-2025 Potassium [Moles/Vol] 4.1 mmol/L 3.3-5.1 [facility] ,Serum,hCG Quali.on 02-12-2025 HCG, SERUM QUAL Negative Normal [facility] Comment on above: Performed By: #### L 501.4100, L501.4405, L501.0900, L501.1105, L501.1400 #### [facility] [address] [place] [address], [address] Quantitative urine opiates m easurementOrdered By: Markel Albert on 02-12-2025 Opiates Ql (U) Negative < 300 ng/mL [facility] RBC Auto (Bld) [#/Vol]Ordere d By: Markel Albert on 02-12-2025 RBC (Bld) [#/Vol] 4.87 10*6/uL 4.2-5.[address] [facility] Serum creatinine measurement (mass/volume)Ordered By: Markel Albert on 02-12-2025 Creatinine [Mass/Vol] 0.76 mg/dL 0.70-1.20 [facility] Serum glucose measurement (m ass/volume)Ordered By: Markel Albert on 02-12-2025 Glucose [Mass/Vol] 82 mg/dL 70-[address] [facility] Serum or plasma calcium cy urement (mass/volume)Ordered By: Markel Albert on 02-12-2025 Calcium [Mass/Vol] 9.0 mg/dL 7.6-11.[address] [facility] Serum or plasma urea nitroge n measurement (mass/volume)Ordered By: Markel Albert on 02-12-2025 Urea nitrogen [Mass/Vol] 13 mg/dL 4-19 [facility] Sodium levelOrdered By: Markel Albert on 02-12-2025 Sodium [Moles/Vol] 139 mmol/L 133-[address] [facility] Urine Drug Screen (VISTA)on 02-12-2025 AMPHETAMINES Negative Normal <1000 ng/mL [facility] Comment on above: Performed By: #### L 501.4100, L501.4405, L501.0900, L501.1105, L501.1400 #### [facility] [address] [place], [place], [facility] BARBITIURATES Negative Normal < 200 ng/mL [facility] Comment on above: Performed By: #### L 501.4100, L501.4405, L501.0900, L501.1105, L501.1400 #### [facility] [address] [place], [place], [facility] BENZODIAZIPINE Negative Normal < 200 ng/mL [facility] Comment on above: Performed By: #### L 501.4100, L501.4405, L501.0900, L501.1105, L501.1400 #### [facility] [address] [place], [place], [facility] BUP Ur Drug Scr Negative Normal < 200 ng/mL [facility] Comment on above: Performed By: #### L 501.4100, L501.4405, L501.0900, L501.1105, L501.1400 #### [facility] [address] [place], [address] COCAINE Negative Normal < 300 ng/mL [facility] Comment on above: Performed By: #### L 501.4100, L501.4405, L501.0900, L501.1105, L501.1400 #### [facility] [address] [place], [address] Fentanyl Negative Normal [facility] Comment on above: Performed By: #### L 501.4100, L501.4405, L501.0900, L501.1105, L501.1400 #### [facility] [address] [place], [address] METHADONE Negative Normal < 300 ng/mL [facility] Comment on above: Performed By: #### L 501.4100, L501.4405, L501.0900, L501.1105, L501.1400 #### [facility] [address] [place], [address] OPIATES Negative Normal < 300 ng/mL [facility] Comment on above: Performed By: #### L 501.4100, L501.4405, L501.0900, L501.1105, L501.1400 #### [facility] [address] [place], [address] OXYCODONE Negative Normal < 100 ng/mL [facility] Comment on above: Performed By: #### L 501.4100, L501.4405, L501.0900, L501.1105, L501.1400 #### [facility] [address] [place], [address] PCP Negative Normal < 25 ng/mL [facility] Comment on above: Performed By: #### L 501.4100, L501.4405, L501.0900, L501.1105, L501.1400 #### [facility] [address] [place], [address] THC Negative Normal < 50 ng/mL [facility] Comment on above: Performed By: #### L 501.4100, L501.4405, L501.0900, L501.1105, L501.1400 #### [facility] [address] [place], [address] Urine benzodiazepine levelOr dered By: Markel Albert on 02-12-2025 Benzodiazepines Ql (U) Negative < 200 ng/mL [facility] Urine cocaine levelOrdered B y: Markel Albert on 02-12-2025 Cocaine Ql (U) Negative < 300 ng/mL [facility] Urine [id number] abinol (THC) measurementOrdered By: Markel Albert on 02-12-2025 Cannabinoids Screen Ql (U) Negative < 50 ng/mL [facility] Urine phencyclidine (PCP) de tectionOrdered By: Markel Albert on 02-12-2025 Phencyclidine Ql (U) Negative < 25 ng/mL [facility] White blood cell (WBC) count Ordered By: Markel Albert on 02-12-2025 WBC (Bld) [#/Vol] 10.3 10*3/uL 4.4-11.[address] [facility] fentaNYL Screen Ql (U)Ordere d By: Markel Albert on 02-12-2025 Urine Fentanyl Screen Negative [facility] MR/OB.VAGDELIon 01-14-2025 MR/OB.VAGDELI [facility] Medical Records Department [address] [place] [address] OB Vaginal Delivery 01/14/25 0600 MR#: [id number] Acct: [id number] Name: NAVYA MCNULTY Rep #: [id number] : 1995 29 From: Rani Parkinson MD PCP: Dr. Lupe Gao, DO Status:ADM IN Location: [id number] Assessment Plan (1) (spontaneous vaginal delivery): (2) Depression: (3) Anxiety: Maternal Data Information SASCHA Calculator Estimated Delivery Date Method Current WG Current Estimate 01/19/25 Manual 39w 2d Final SASCHA: 01/19/25 Gestational age: 39+2 Vaginal Delivery Maternal Presentation Maternal Presentation: Elective Induction Maternal Presentation: Elective induction of labor. screen positive for XXY Type of Induction: Pitocin, Byers Bulb, Amniotomy and Cytotec Vaginal Delivery Information Procedure Performed: Spontaneous Vaginal Delivery Surgeon/Practitioner: Rani Parkinson Date of Procedure: 01/14/25 Pre-Procedure Diagnosis: Term Post-Procedure Diagnosis: Type of anesthesia: Epidural Estimated Blood Loss: 150 cc Time of Delivery: 05:42 Findings Description of procedure: Induction of labor with Cytotec, Byers and Pitocin. AROM at 3-4 cm. Rapidly progressed to completed and pushed for 45 minutes over an intact perineum. Delivered CARLOS. The shoulders delivered with gentle traction. The rest of the body delivered without difficulty. The was dried and stimulated. The cord was clamped and cut at 60 secs. Cord blood was collected for a karyotype. The placenta delivered with gentle traction. There was a known accessory lobe that was actually a bilobed placenta. Both lobes were present on inspection. There were no lacerations. All sponge, needle and instrument counts were correct. 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 Rani Parkinson MD; Dr. Lupe Gao DO Signed Normal [facility] Pathology Specimen OBon 12-23 PATH. Spec OB SEE PATHOLOGY REPORT Normal [facility] Comment on above: Order Comment: Send Specimen For (Specify): Studies @ [facility] Lab:RoutineTime of Procedure: 541Date of Procedure: 01/14/25Reason specimen being sent to pathology (Hx/complications):ABNORMAL PLACENTAType of specimen: PlacentaType of procedure performed: Other Result Comment: Spec imen submitted to Anatomical Pathology Department for testing. Performed By: #### L 501.4100, L501.4405, L501.0900, L501.1105, L501.1400 #### [facility] [place], [address] Surgery Specimen Level Von 0 01-14-2025 Surgery Specimen Level V -------- Patient Age/Sex Location Account Attending Physician -------- NAVYA MCNULTY [id number] Dr. Rani Parkinson MD -------- Specimen: [id number] Received: 01/14/25 Status: LAVINIA Crowe Num: [id number] Spec Type: PLACENTA Subm Dr: Dr. Rani Parkinson MD HEADER OPERATION: Delivery PRE-OP DIAGNOSIS: Abnormal placenta TISSUE SUBMITTED: A- Placenta -------- MICROSCOPIC DIAGNOSIS A. PLACENTA: * Mature third trimester placenta (486 grams, formalin fixed weight) with accessory lobe and focal microcalcifications * Three vessel umbilical cord with velamentous insertion * membranes with pigment laden macrophages and without active inflammation MICROSCOPIC DESCRIPTION Slides are reviewed. GROSS DESCRIPTION SPECIMEN: PLACENTA / CLINICAL INFORMATION: A. Weight: 3.24 g B. Gestational Age: 39weeks and 1 day C. Sex: Male PLACENTAL WEIGHT (POST FIXATION): 486 gm PLACENTAL DIMENSIONS: 23.8 x 17.1 x 2.4 cm PLACENTAL SHAPE: Bi-lobed PLACENTAL WEIGHT FOR GESTATIONAL AGE: Within 10-99th percentile (over/under percentile) MEMBRANES - Present A. Insertion: Marginal B. Site of rupture from edge: 8.0 cm from edge of placental disc C. Color of membrane: Santacruz-carroll D. Abnormalities: None UMBILICAL CORD - Present A. Color: Santacruz-carroll B. Insertion: Velamentous, 0.6 cm from edge of placental disc C. Length: 35.8 cm D. Diameter: 1.8 cm E. Number of vessels: Three F. Abnormalities: Vessels focally filled with minimal clot. Insertion on membranes between two lobes -------- Patient Age/Sex Location Account Attending Physician -------- NAVYA MCNULTY 29/ WP [id number] Dr. Rani Parkinson MD -------- PLACENTAL DISC - Present A. Color of surface: Santacruz-carroll B. surface abnormalities: None C. Maternal cotyledons: Intact with minimal tears D. Attached retro placental clot: No clot E. Cut surface: Dark red and spongy F. Lesions: None- two lobes of disc joined by membranes and possible thin bridge of parenchyma G. Separate clot: Absent SECTIONS SUBMITTED: A1-membane roll and two umbilical cord cross sections A2-section showing two lobes and bridge of membranes and possible parenchyma A3-A4-two sections of larger lobe of disc A5-one section of smaller lobe of disc Emiliano 01/14/2025 CPT: 25260 -------- Patient Age/Sex Location Account Attending Physician -------- NAVYA MCNULTY [id number] Dr. Rani Parkinson MD -------- Signed (signature on file) Dr. Carly Vick, 02/01/25 1555 -------- Normal [facility] Comment on above: Performed By: #### L 501.4100, L501.4405, L501.0900, L501.1105, L501.1400 #### [facility] [address] [place], [address] Absolute neutrophil countOrd ered By: Rani Parkinson on 01-13-2025 Neutrophils (Bld) [#/Vol] 9.7 10*3/uL High 2.0-7.7 [facility] Basophil percentageOrdered B y: Rani Parkinson on 01-13-2025 Basophils/100 WBC (Bld) 0.3 % 0-1 [facility] CBC W/Diff, Automatedon 12-23 Absolute Lymph 2.47 X10 3/uL Normal 0.83-4.51 [facility] Comment on above: Performed By: #### L 501.4100, L501.4405, L501.0900, L501.1105, L501.1400 #### [facility] [address] [place], [address] Absolute Neut 9.7 X10 3/uL High 2.0-7.7 [facility] Comment on above: Performed By: #### L 501.4100, L501.4405, L501.0900, L501.1105, L501.1400 #### [facility] [address] [place], [address] Basophils/100 WBC (Bld) 0.3 % Normal 0-1 [facility] Comment on above: Performed By: #### L 501.4100, L501.4405, L501.0900, L501.1105, L501.1400 #### [facility] [address] [place], [address] Eosinophils/100 WBC (Bld) 0.8 % Normal 0-5 [facility] Comment on above: Performed By: #### L 501.4100, L501.4405, L501.0900, L501.1105, L501.1400 #### [facility] [address] [place], [address] Erythrocyte distribution width (RBC) [Ratio] 13.4 % Normal 11.6-14.6 [facility] Comment on above: Performed By: #### L 501.4100, L501.4405, L501.0900, L501.1105, L501.1400 #### [facility] [address] [place], [address] Hematocrit (Bld) [Volume fraction] 36.5 % Low 37-47 [facility] Comment on above: Performed By: #### L 501.4100, L501.4405, L501.0900, L501.1105, L501.1400 #### [facility] [address] [place], [address] Hemoglobin (Bld) [Mass/Vol] 12.4 g/dL Normal 12.0-15.0 [facility] Comment on above: Performed By: #### L 501.4100, L501.4405, L501.0900, L501.1105, L501.1400 #### [facility] [address] [place], [address] IG% 0.500 Normal 0.0-0.9 [facility] Comment on above: Result Comment: IG% - Immature Granulocytes (promyelocytes, myelocytes and metamyelocytes) > 1% indicates that a LEFT SHIFT is Present. Performed By: #### L 501.4100, L501.4405, L501.0900, L501.1105, L501.1400 #### [facility] [address] [place], [address] Lymphocytes/100 WBC (Bld) 18.6 % Low 19-41 [facility] Comment on above: Performed By: #### L 501.4100, L501.4405, L501.0900, L501.1105, L501.1400 #### [facility] [address] [place], [address] MCH (RBC) [Entitic mass] 29.5 pg Normal 27.0-32.0 [facility] Comment on above: Performed By: #### L 501.4100, L501.4405, L501.0900, L501.1105, L501.1400 #### [facility] [address] [place], [address] MCHC (RBC) [Mass/Vol] 34.0 g/dL Normal 32-36 [facility] Comment on above: Performed By: #### L 501.4100, L501.4405, L501.0900, L501.1105, L501.1400 #### [facility] [address] [place], [address] MCV (RBC) [Entitic vol] 86.7 fL Normal 81-99 [facility] Comment on above: Performed By: #### L 501.4100, L501.4405, L501.0900, L501.1105, L501.1400 #### [facility] [address] [place], [address] Monocytes/100 WBC (Bld) 6.6 % Normal 0-10 [facility] Comment on above: Performed By: #### L 501.4100, L501.4405, L501.0900, L501.1105, L501.1400 #### [facility] [address] [place], [address] Neutrophils/100 WBC (Bld) 73.2 % High 47-70 [facility] Comment on above: Performed By: #### L 501.4100, L501.4405, L501.0900, L501.1105, L501.1400 #### [facility] [address] [place], [address] Nucleated RBC (Bld) [#/Vol] 0 10*3/uL Normal 0-5 [facility] Comment on above: Performed By: #### L 501.4100, L501.4405, L501.0900, L501.1105, L501.1400 #### [facility] [address] [place], [address] Platelet mean volume (Bld) [Entitic vol] 9.3 fL Normal 6.2-12.0 [facility] Comment on above: Performed By: #### L 501.4100, L501.4405, L501.0900, L501.1105, L501.1400 #### [facility] [address] [place], [address] Platelets (Bld) [#/Vol] 304 10*3/uL Normal 150-450 [facility] Comment on above: Performed By: #### L 501.4100, L501.4405, L501.0900, L501.1105, L501.1400 #### [facility] [address] [place], [address] RBC (Bld) [#/Vol] 4.21 10*6/uL Normal 4.2-5.[address] [facility] Comment on above: Performed By: #### L 501.4100, L501.4405, L501.0900, L501.1105, L501.1400 #### [facility] [address] [place], [address] RDW SD 42.1 fl Normal 35.1-43.9 [facility] Comment on above: Performed By: #### L 501.4100, L501.4405, L501.0900, L501.1105, L501.1400 #### [facility] [address] [place], [address] WBC (Bld) [#/Vol] 13.3 10*3/uL High 4.4-11.[address] [facility] Comment on above: Performed By: #### L 501.4100, L501.4405, L501.0900, L501.1105, L501.1400 #### [facility] [address] [place], [address] Eosinophil percentageOrdered By: Rani Parkinson on 01-13-2025 Eosinophils/100 WBC (Bld) 0.8 % 0-5 [facility] Erythrocyte distribution wid th ratioOrdered By: Rani Parkinson on 01-13-2025 Erythrocyte distribution width (RBC) [Ratio] 13.4 % 11.6-14.6 [facility] Erythrocyte distribution wid th standard deviationOrdered By: Raniprashant Parkinson on 01-13-2025 Erythrocyte distribution width (RBC) [Entitic vol] 42.1 fL 35.1-43.9 [facility] H AND P Exam - OB/GYNon 12-23 H&P Exam - DIRECTOR OF DANCE [facility] Medical Records Department [address] [place] [address] H P Exam - DIRECTOR OF DANCE 01/13/25 1713 MR#: [id number] Acct: [id number] Name: JOSE CARLOS MCNULTYAN BURKE Rep #: [id number] : 1995 29 From: Rani Parkinson MD PCP: Dr. Lupe Gao, DO Status:ADM IN Location: [id number] HPI - General General Date of Admission: 01/13/25 Date of Service: 01/13/25 HPI Narrative NAVYA MCNULTY, is a 29 F who presents for elective IOL. Screen positive for XXY. Accessory love on placenta Maternal Data Information SASCHA Calculator Estimated Delivery Date Method Current WG Current Estimate 01/19/25 Manual 39w 1d Final SASCHA: 01/19/25 Gestational age: 39+1 PFSH PFSH Medical History Right ankle injury depression Psychiatric disorder Home Medications ???Medication ???Instructions ???Recorded ???Last Taken ???Type buspirone 10 mg PO BID Anxiety 12/19/24/01/15 History lamotrigine 100 mg tablet 200 mg PO DAILY Bi-Polar 12/19/24 01/13/25 History (Lamictal) vit no.95-ferrous 1 tab PO DAILY 12/19/24 01/13/25 History fumarate 28 mg-folic acid 800 mcg tablet () aspirin 81 mg chewable tablet 1 tab PO DAILY 12/25/24 12/24/24 22:00 History (Aspirin Childrens) nystatin 100,000 unit/mL oral 5 ml PO 4X/DAY Thrush 01/13/25 History suspension Allergy/AdvReac Type Severity Reaction Status Date / Time bupropion (From Wellbutrin) Allergy Severe Other Verified 01/13/25 16:35 pollen extracts (pollens) Allergy Mild Other Verified 01/13/25 16:35 lactose Allergy Abd Verified 01/13/25 16:35 cramps/diarrhea egg AdvReac Hives Verified 01/13/25 16:35 Social History Smoking Status: Current every day smoker tobacco type: e-cigarettes History Elective abortions Hx Para 1 Spontaneous abortions Hx # Term Pregnancies Ectopic pregnancies Hx # Pregnancies Multiple births # of living children NST FHR Rate Baby A Baseline: 140 Variability:: Moderate Accelerations:: 15 x 15 Decelerations:: None NST Reactive:: Yes FHR Category:: Category I ROS Constitutional Constitutional: Denies fatigue, fever(s) or malaise Eyes Eyes: Denies change in vision ENT HEENT: Denies dizziness or headache(s) Cardiovascular Cardiovascular: Denies chest pain, dyspnea or lightheadedness Respiratory/Chest Respiratory/Chest: Denies cough or dyspnea Gastrointestinal Gastrointestinal: Denies change in bowel habits Genitourinary Genitourinary: Denies burning urination or genital lesions Integumentary Integumentary: Denies rash Neurologic Neurologic: Denies confusion, dizziness, headache(s), numbness or weakness Vital Signs Vital Signs Vital Signs: Weight Weight: 88.088 kg Body Mass Index (BMI) 35.5 Physical Exam Const alert and no apparent distress General Appearance: cooperative HEENT normocephalic Resp normal respiratory effort Cardio regular rate GI soft to palpation GI Narrative: gravid, nontender, appropriate for gestational age Extremity no calf tenderness General Extremity: edema Skin no wounds Rashes: No rashes noted Psych activity/motor behavior normal Labs Labs Labs: Blood Type Pending Antibody Screen Pending Hct 36.5 % (37-47) L Hgb 12.4 g/dL (12.0-15.0) Syphilis Total Ab Non-reactive Assessment Plan (1) 39 weeks gestation of : (2) Elective induction of labor planned: PLAN: Plan byers, cytotec, pitocin Epidural prn 01/13/25 1726 Cosigner Signature (if applicable): CC: Dr. Rani Parkinson MD; Dr. Lupe Gao DO Signed Normal [facility] Hematocrit Auto (Bld) [Volum e fraction]Ordered By: Rani Parkinson on 01-13-2025 Hematocrit (Bld) [Volume fraction] 36.5 % Low 37-47 [facility] Hemoglobin measurementOrdere d By: Rani Parkinson on 01-13-2025 Hemoglobin (Bld) [Mass/Vol] 12.4 g/dL 12.0-15.0 [facility] Immature granulocytes/100 WB C Auto (Bld)Ordered By: Rani Parkinson on 01-13-2025 Immature granulocytes/100 WBC (Bld) 0.500 % 0.0-0.9 [facility] Comment on above: IG% - Immature Granu locytes (promyelocytes, myelocytes and metamyelocytes) > 1% indicates that a LEFT SHIFT is Present. [id number] 01-13-2025 Syphilis Abs Non-Reactive Normal Nonreactive [facility] Comment on above: Performed By: #### L 501.4100, L501.4405, L501.0900, L501.1105, L501.1400 #### [facility] [place], [address] Lymphocytes Auto (Unsp spec) [#/Vol]Ordered By: Rani Parkinson on 01-13-2025 Lymphocytes (Bld) [#/Vol] 2.47 10*3/uL 0.83-4.51 [facility] Lymphocytes/100 WBC Auto (Un sp spec)Ordered By: Rani Parkinson on 01-13-2025 Lymphocytes/100 WBC (Bld) 18.6 % Low 19-41 [facility] MCV (mean corpuscular volume ) determinationOrdered By: Rani Parkinson on 01-13-2025 MCV (RBC) [Entitic vol] 86.7 fL 81-99 [facility] Mean corpuscular hemoglobin (MCH) determinationOrdered By: Rani Parkinson on 01-13-2025 MCH (RBC) [Entitic mass] 29.5 pg 27.0-32.0 [facility] Mean corpuscular hemoglobin concentration (MCHC) determinationOrdered By: Rani Parkinson on 01-13-2025 MCHC (RBC) [Mass/Vol] 34.0 g/dL 32-36 [facility] Mean platelet volume determi nationOrdered By: Rani Parkinson on 01-13-2025 Platelet mean volume (Bld) [Entitic vol] 9.3 fL 6.2-12.0 [facility] Monocyte percentageOrdered B y: Rani Parkinson on 01-13-2025 Monocytes/100 WBC (Bld) 6.6 % 0-10 [facility] Neutrophil percentageOrdered By: Rani Parkinson on 01-13-2025 Neutrophils/100 WBC (Bld) 73.2 % High 47-70 [facility] Nucleated red blood cell per centageOrdered By: Rani Parkinson on 01-13-2025 Nucleated RBC/100 WBC (Bld) [Ratio] 0 % 0-5 [facility] Platelet countOrdered By: Raman Parkinson on 03-23-2025 Platelets (Bld) [#/Vol] 304 10*3/uL 150-450 [facility] RBC Auto (Bld) [#/Vol]Ordere d By: Raniprashant Parkinson on 01-13-2025 RBC (Bld) [#/Vol] 4.21 10*6/uL 4.2-5.[address] [facility] T. pallidum abOrdered By: Ramna salomecarmela Childerswin on 01-13-2025 Syphilis Total Antibody Non-Reactive Nonreactive [facility] Type AND Screenon 01-13-2025 Ab SCREEN GEL Negative Normal [facility] Comment on above: Order Comment: Labor Performed By: #### L 501.4100, L501.4405, L501.0900, L501.1105, L501.1400 #### [facility] [address] [place], [place], [id number] ABO and Rh group Nom (Bld) Blood group O Rh(D) positive Normal [facility] Comment on above: Order Comment: Labor Performed By: #### L 501.4100, L501.4405, L501.0900, L501.1105, L501.1400 #### [facility] [address] [place], [place], [id number] White blood cell (WBC) count Ordered By: Rani Parkinson on 01-13-2025 WBC (Bld) [#/Vol] 13.3 10*3/uL High 4.4-11.[address] [facility] CNPNon 01-09-2025 CNPN Telephone (OBGYWM) NAVYA MCNULTY ([id number]) 1995 F Date Time Provider Department 01/09/25 KIKE BRANNON OBMATHEW During your visit today, we recorded the following information about you: Concepcóin Beavers RN 01/09/2025 1:48 PM Signed 38w4d Seen in office. 1cm dilated. Stripped membranes. Lost mucous plug around 5am this morning. States ever since left office has had bloody discharge. Pt states she's not currently wearing underwear, wearing scrub pants, c/o intermittent contractions. Pt states she feels intermittent trickling of fluid. Advised Pt that it is hard to tell without her being assessed in office. Appt made with RR at 2:30pm. Concepción Beavers RN Allergies As of Date: 01/09/2025 Noted Allergy Reaction EGG 06/01/2019 4 - Hives 7 - Swelling Comments: Raw eggs only LACTOSE 12/02/2024 6 - Diarrhea POLLEN 10/31/2008 WELLBUTRIN (BUPROPION HCL) 06/28/2019 5 - Intolerance Date Reviewed: 01/08/2025 Reviewed by: Kike Brannon MD - Fully Assessed Prescriptions as of 01/09/2025 - nystatin (MYCOSTATIN) 100,000 unit/mL suspension Take 5 mL by mouth four times daily. Swish and swallow. - amoxicillin (AMOXIL) 500 mg capsule Take 1 capsule by mouth every 8 hours for 10 days. - busPIRone (BUSPAR) 10 mg tablet Take 10 mg by mouth two times a day as needed. - lamoTRIgine (LAMICTAL) 100 mg tablet Take 1 tablet by mouth every afternoon. - aspirin, enteric coated (ECOTRIN LOW STRENGTH) 81 mg EC tablet Take 1 tablet by mouth once daily. - VITAFUSION GUMMY TChS Take 1 Piece by mouth once daily. - LACTASE (LACTAID ORAL) Take by mouth w MEALS. Meds Comments as of 06/13/2013: pt not taking her medication how she is supposed to Problem List As Of Date 01/09/2025 Noted Resolved Cellulitis and abscess of toe, unspecified [L03*06/01/2010 05/19/2019 Smoker [F17.200] 12/22/2011 06/27/2024 Anxiety and depression [F41.9, F32.A] 12/22/2011 Asthma [J45.909] 12/22/2011 05/19/2019 Oligomenorrhea [N91.5] 03/23/2012 03/01/2019 Hyperprolactinemia (HCC) [E22.1] 03/23/2012 05/19/2019 PROM with onset of labor within 24 hour*05/04/2014 03/01/2019 Active labor [AOR5003] 05/04/2014 03/01/2019 Anxiety [F41.9] 05/23/2017 05/19/2019 History of methicillin resistant Staphylococcus*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] 01/17/2018 Trichomoniasis [A59.9] 03/06/2019 05/19/2019 Cellulitis of right knee [L03.115] 05/18/2019 05/19/2019 Oral thrush [B37.0] 05/18/2019 05/19/2019 Hyponatremia [E87.1] 05/18/2019 05/19/2019 Obesity, Class I, BMI 30-34.9 [E66.811] 05/28/2019 Mild intermittent asthma without complication [*06/18/2019 History of abuse of recreational drug (HCC) [F1*06/18/2019 Post-operative state [Z98.890] 09/13/2019 06/27/2024 BMI 33.0-33.9,adult [Z68.33] 12/04/2021 06/27/2024 Supervision of high risk in third tri*06/27/2024 Date of last menstrual period (LMP) unknown [Z7*06/27/2024 Vaping nicotine dependence, tobacco product [F1*06/27/2024 Bipolar 2 disorder (HCC) [F31.81] 06/27/2024 Nausea and vomiting during [O21.9] 06/27/2024 Abnormal genetic test during [O28.5] 11/19/2024 Encounter Status:Closed by CONCEPCIÓN BEAVERS on 01/09/25 Normal [facility] URINE OB DIP B/Oon 5 Glucose Ql (U) Negative Neg mg/dL [facility] Interpretation and review of laboratory results Normal [facility] Protein.monoclonal (U) [Mass/Vol] Negative Neg mg/dL [facility] URINE OB DIP B/Oon 5 Glucose Ql (U) Negative Neg mg/dL [facility] Interpretation and review of laboratory results Normal [facility] Protein.monoclonal (U) [Mass/Vol] Negative Neg mg/dL [facility] COVID & INFLUENZA A/B & RSV PCR, ROUTINEon 01-01-2025 FLUAV RNA JALEN+probe Ql (Unsp spec) Not detected Not Detected [facility] FLUBV RNA JALEN+probe Ql (Unsp spec) Not detected Not Detected [facility] Interpretation and review of laboratory results Normal [facility] RSV A RNA JALEN+probe Ql (Unsp spec) Not detected Not Detected [facility] SARS-CoV-2 (COVID-19) RNA JALEN+probe Ql (Unsp spec) Not detected See comment [facility] Reference Range (the expected result in uninfected individuals): Not detected [facility] CNOVon 12-31-2024 CNOV Office Visit (AGFAMPLE) NAVYA MCNULTY ([id number]) 1995 F Date Time Provider Department 12/31/24 10:00 AM JIN HERNANDES During your visit today, we recorded the following information about you: Temperature Pulse Blood pressure Weight 98.1 degrees 76/minute 110/72 87.1 kg Height 1.588 m Jin Hernandes, [employer] 01/06/2025 11:00 PM Signed Subjective Navya Prince Pricila is a 29 year old female here today for sick visit. I reviewed past medical, surgical, social, and family histories today and updated chart. Allergies, chronic medications, and supplements were also reviewed. HPI Broken tooth left back molar, abscessed tooth - very painful No drainage from the gums The gums are swollen Sinus symptoms - thought it was allergies, started about 2 days ago Runny nose, nasal congestion Cough - feels dry No chills, body aches, or fever Sore throat Had flu/pneumonia 1.5 months ago She is currently - Due date is 01/19/25 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, Meth Hyperprolactinemia (HCC) 03/23/2012 MRSA cellulitis 2016 PMH - PAST MEDICAL HISTORY OF 01/02/10 normal color vision Trichomoniasis 03/06/2019 Unspecified asthma(493.90) PAST SURGICAL HISTORY Procedure Laterality Date PAST SURGICAL HISTORY OF Left 04/2017 Elbow Surgery PAST SURGICAL HISTORY OF removal of abcess on right knee ALLERGIES Egg, Pollen, and Wellbutrin [Bupropion Hcl] MEDICATIONS busPIRone (BUSPAR) 10 mg tablet Take 10 mg by mouth two times a day as needed. lamoTRIgine (LAMICTAL) 100 mg tablet Take 1 tablet by mouth every afternoon. aspirin, enteric coated (ECOTRIN LOW STRENGTH) 81 mg EC tablet Take 1 tablet by mouth once daily. VITAFUSION GUMMY TChS Take 1 Piece by mouth once daily. LACTASE (LACTAID ORAL) Take by mouth w MEALS. diphenhydrAMINE (UNISOM SLEEPGELS) 50 mg capsule Take 50 mg by mouth daily at bedtime. (Patient not taking: Reported on 12/31/2024) FAMILY HISTORY Problem Relation Age of Onset Psychiatry Mother depression other ([place]) Mother Alcohol abuse Mother Recovering Diabetes Father Heart Father bypass Hypertension Father Heart Attack Father No Known Problems Brother Osteoporosis Maternal Grandmother other (Breast Cancer age 40s) Maternal Grandmother Cancer Maternal Grandfather of liver cancer Diabetes Paternal Grandmother Dementia Paternal Grandmother Diabetes Paternal Grandfather Heart Paternal Grandfather from [place] Social History Tobacco Use Smoking status: Former Current packs/day: 1.00 Average packs/day: 1 pack/day for 10.0 years (10.0 ttl pk-yrs) Types: Cigarettes Smokeless tobacco: Never Vaping Use Vaping status: current everyday user Substances: Nicotine Devices: Disposable Substance Use Topics Alcohol use: Not Currently Comment: occ Drug use: Not Currently Comment: 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 Negative for appetite change, chills, fever and unexpected weight change. HENT: Positive for congestion, ear pain (on and off - left ear), rhinorrhea, sinus pressure, sinus pain and sore throat. Eyes: Positive for pain. Negative for discharge, itching and visual disturbance. Respiratory: Positive for cough. Negative for shortness of breath and wheezing. Cardiovascular: Negative for chest pain, palpitations and leg swelling. Gastrointestinal: Negative for abdominal pain, constipation, diarrhea, nausea and vomiting. Genitourinary: Negative for difficulty urinating. Skin: Negative for rash. Neurological: Positive for headaches. Negative for dizziness, tremors and weakness. Psychiatric/Behaviora l: Negative for dysphoric mood and sleep disturbance. The patient is not nervous/anxious. Objective BP 110/72 Pulse 76 Temp 98.1 Ht 5' 2.52 (1.59m) Wt 192 lb (87.1kg) SpO2 99% LMP 05/07/2024 BMI 34.54 kg/(m2). Physical Exam Constitutional: General: She is not in acute distress. Appearance: She is well-developed. She is ill-appearing. She is not toxic-appearing. HENT: Head: Normocephalic and atraumatic. Right Ear: Hearing, tympanic membrane, ear canal and external ear normal. No drainage. Tympanic membrane is not injected or bulging. Left Ear: Hearing, tympanic membrane, ear canal and external ear normal. No drainage. Tympanic membrane is not injected or bulging. Nose: Nose normal. No mucosal edema or rhinorrhea. Mouth/Throat: Lips: [place]. Mouth: Mucous membranes are moist. Oral lesions present. Dentition: Abnormal dentition. Gingival swelling present. Pharynx: Oropharynx is clear. Uvula midline. No oropharyngeal exud (more content not included)... Normal [facility] NAVYA MCNULTY ([id number]) 1995 F Date Time Provider Department 12/31/24 ALISHA COX [employer] During your visit today, we recorded the following information about you: Ashu Summers MA 12/31/2024 9:17 AM Signed FMLA paperwork received. LESVIA Parham [place], [place] 01/02/2025 4:28 PM Signed FMLA paperwork on providers desk for signature. LESVIA Parham [place], [place] 01/03/2025 2:58 PM Signed FMLA paperwork completed and faxed back to employer. Patient notified via [employer]. Ashu Summers MA Allergies As of Date: 12/31/2024 Noted Allergy Reaction EGG 06/01/2019 4 - Hives 7 - Swelling Comments: Raw eggs only POLLEN 10/31/2008 WELLBUTRIN (BUPROPION HCL) 06/28/2019 5 - Intolerance Date Reviewed: 12/31/2024 Reviewed by: Blair Noel MA - Fully Assessed Prescriptions as of 01/03/2025 - nystatin (MYCOSTATIN) 100,000 unit/mL suspension Take 5 mL by mouth four times daily. Swish and swallow. - amoxicillin (AMOXIL) 500 mg capsule Take 1 capsule by mouth every 8 hours for 10 days. - busPIRone (BUSPAR) 10 mg tablet Take 10 mg by mouth two times a day as needed. - lamoTRIgine (LAMICTAL) 100 mg tablet Take 1 tablet by mouth every afternoon. - aspirin, enteric coated (ECOTRIN LOW STRENGTH) 81 mg EC tablet Take 1 tablet by mouth once daily. - VITAFUSION GUMMY TChS Take 1 Piece by mouth once daily. - LACTASE (LACTAID ORAL) Take by mouth w MEALS. Meds Comments as of 06/13/2013: pt not taking her medication how she is supposed to Problem List As Of Date 12/31/2024 Noted Resolved Cellulitis and abscess of toe, unspecified [L03*06/01/2010 05/19/2019 Smoker [F17.200] 12/22/2011 06/27/2024 Anxiety and depression [F41.9, F32.A] 12/22/2011 Asthma [J45.909] 12/22/2011 05/19/2019 Oligomenorrhea [N91.5] 03/23/2012 03/01/2019 Hyperprolactinemia (HCC) [E22.1] 03/23/2012 05/19/2019 PROM with onset of labor within 24 hour*05/04/2014 03/01/2019 Active labor [FDH2109] 05/04/2014 03/01/2019 Anxiety [F41.9] 05/23/2017 05/19/2019 History of methicillin resistant Staphylococcus*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] 01/17/2018 Trichomoniasis [A59.9] 03/06/2019 05/19/2019 Cellulitis of right knee [L03.115] 05/18/2019 05/19/2019 Oral thrush [B37.0] 05/18/2019 05/19/2019 Hyponatremia [E87.1] 05/18/2019 05/19/2019 Obesity, Class I, BMI 30-34.9 [E66.811] 05/28/2019 Mild intermittent asthma without complication [*06/18/2019 History of abuse of recreational drug (HCC) [F1*06/18/2019 Post-operative state [Z98.890] 09/13/2019 06/27/2024 BMI 33.0-33.9,adult [Z68.33] 12/04/2021 06/27/2024 Supervision of high risk in third tri*06/27/2024 Date of last menstrual period (LMP) unknown [Z7*06/27/2024 Vaping nicotine dependence, tobacco product [F1*06/27/2024 Bipolar 2 disorder (HCC) [F31.81] 06/27/2024 Nausea and vomiting during [O21.9] 06/27/2024 Abnormal genetic test during [O28.5] 11/19/2024 Encounter Status:Closed by ASHU SUMMERS on 01/03/25 Normal [facility] GROUP B STREPTOCOCCUS BY PCR , ROUTINE SCREENINGon 12-28-2024 GROUP B STREPTOCOCCUS BY PCR, ROUTINE SCREENING GROUP B STREP PCR: Negative for Group B Streptococcus by PCR. Normal [facility] Comment on above: Performed By: #### 3 1201-7, 5195-3, 16792-0 #### [facility] CLIA [id number] [address] [place] [address] [place] URINE OB DIP B/Oon Glucose Ql (U) Negative Neg mg/dL [facility] Protein.monoclonal (U) [Mass/Vol] Negative Neg mg/dL [facility] CNPNon 12-25-2024 CNPN Telephone (OBGYWM) NAVYA MCNULTY ([id number]) 1995 F Date Time Provider Department 12/25/24 KAREN HENDRIX OBMATHEW During your visit today, we recorded the following information about you: Karin Flanagan RN 12/25/2024 4:48 PM Signed 36w3d Called into office c/o intermittent spots in her vision. No RUQ pain or headache. Having irregular contractions. Advised to LANDD to be evaluated. LANDD notified. Karin Flanagan RN Allergies As of Date: 12/25/2024 Noted Allergy Reaction EGG 06/01/2019 4 - Hives 7 - Swelling Comments: Raw eggs only POLLEN 10/31/2008 WELLBUTRIN (BUPROPION HCL) 06/28/2019 5 - Intolerance Date Reviewed: 12/11/2024 Reviewed by: Rani Parkinson MD - Fully Assessed Reason for Visit: Patient Update [1234] Prescriptions as of 12/25/2024 - lamoTRIgine (LAMICTAL) 100 mg tablet Take 1 tablet by mouth every afternoon. - aspirin, enteric coated (ECOTRIN LOW STRENGTH) 81 mg EC tablet Take 1 tablet by mouth once daily. - VITAFUSION GUMMY TChS Take 1 Piece by mouth once daily. - diphenhydrAMINE (UNISOM SLEEPGELS) 50 mg capsule Take 50 mg by mouth daily at bedtime. - LACTASE (LACTAID ORAL) Take by mouth w MEALS. Meds Comments as of 06/13/2013: pt not taking her medication how she is supposed to Problem List As Of Date 12/25/2024 Noted Resolved Cellulitis and abscess of toe, unspecified [L03*06/01/2010 05/19/2019 Smoker [F17.200] 12/22/2011 06/27/2024 Anxiety and depression [F41.9, F32.A] 12/22/2011 Asthma [J45.909] 12/22/2011 05/19/2019 Oligomenorrhea [N91.5] 03/23/2012 03/01/2019 Hyperprolactinemia (HCC) [E22.1] 03/23/2012 05/19/2019 PROM with onset of labor within 24 hour*05/04/2014 03/01/2019 Active labor [SGH7777] 05/04/2014 03/01/2019 Anxiety [F41.9] 05/23/2017 05/19/2019 History of methicillin resistant Staphylococcus*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] 01/17/2018 Trichomoniasis [A59.9] 03/06/2019 05/19/2019 Cellulitis of right knee [L03.115] 05/18/2019 05/19/2019 Oral thrush [B37.0] 05/18/2019 05/19/2019 Hyponatremia [E87.1] 05/18/2019 05/19/2019 Obesity, Class I, BMI 30-34.9 [E66.811] 05/28/2019 Mild intermittent asthma without complication [*06/18/2019 History of abuse of recreational drug (HCC) [F1*06/18/2019 Post-operative state [Z98.890] 09/13/2019 06/27/2024 BMI 33.0-33.9,adult [Z68.33] 12/04/2021 06/27/2024 Supervision of high risk in third tri*06/27/2024 Date of last menstrual period (LMP) unknown [Z7*06/27/2024 Vaping nicotine dependence, tobacco product [F1*06/27/2024 Bipolar 2 disorder (HCC) [F31.81] 06/27/2024 Nausea and vomiting during [O21.9] 06/27/2024 Abnormal genetic test during [O28.5] 11/19/2024 Encounter Status:Closed by KARIN FLANAGAN on 12/25/24 Normal [facility] OB Triage Physician Noteon 0 12-25-2024 OB Triage Physician Note [facility] [address] [place] [address] OB Triage Physician Note 12/25/241952 MR#: [id number] Acct: [id number] Name: NAVYA MCNULTY Rep #: [id number] : 1995 29 From: Karen Hendrix MD PCP: Dr. Lupe Gao, DO Status:DEP CLI Y Location: [facility] HPI - General HPI Narrative NAVYA MCNULTY, is a 29 F who presents for evaluation. Per RN she coughed and saw stars for 10 seconds. She denied further concerns to RN. Maternal Data Information SASCHA Calculator Estimated Delivery Date Method Current WG Current Estimate 01/19/25 Manual 36w 3d PFSH PFSH Home Medications ???Medication ???Instructions ???Recorded ???Last Taken ???Type buspirone 10 mg PO BID 12/19/24 12/25/24 10: 00 History lamotrigine 100 mg tablet 100 mg PO DAILY 12/19/24 12/25/24 10:00 History (Lamictal) vit no.95-ferrous 1 tab PO DAILY 12/19/24 12/24/24 22:00 History fumarate 28 mg-folic acid 800 mcg tablet () aspirin 81 mg chewable tablet 1 tab PO DAILY 12/25/24 12/24/24 2 2:00 History (Aspirin Childrens) Allergy/AdvReac Type Severity Reaction Status Date / Time bupropion (From Wellbutrin) Allergy Severe Other Verified 12/25/24 18:01 pollen extracts (pollens) Allergy Mild Other Verified 12/25/24 18:01 lactose Allergy Abd Verified 12/19/24 19:44 cramps/diarrhea egg AdvReac Hives Verified 12/25/24 18:01 Social History Smoking Status: Former smoker NST FHR Rate Baby A Baseline: 125 Variability:: Moderate Accelerations:: 15 x 15 Decelerations:: None Uterine Activity:: rare Assessment Plan (1) Vision changes: PLAN: Plan Reactive NST 12/25/241953 Date Karen Hendrix MD Cosigner Signature (if applicable): Date CC: Dr. Karen Hendrix MD; Dr. Lupe Gao DO Signed Normal [facility] 12-24-2024 CNPN Telephone (OBGYWM) NAVYA MCNULTY ([id number]) 1995 F Date Time Provider Department 12/24/24 SANDRA BRISENO During your visit today, we recorded the following information about you: Rani Scott RN 12/24/2024 10:53 AM Signed 36w2d Patient was having some rodger collins today, but have since subsided. Asking if it's normal to feel like the inside of her vagina in swollen. Labia are not swollen. No recent intercourse. Denies LOF, VB, abnormal discharge or odor. Good FM. Next OB visit is Tuesday. MARTHA Fuentes Jessica, APRN.CNM 12/24/2024 1:06 PM Signed This can be normal. As long as no regular contractions every 10 minutes or less, vaginal bleeding, or fluid leakage ok to monitor. DEEPTHI Ko Trisha, RN 12/24/2024 1:47 PM Signed Patient notified. Karin Flanagan RN Allergies As of Date: 12/24/2024 Noted Allergy Reaction EGG 06/01/2019 4 - Hives 7 - Swelling Comments: Raw eggs only POLLEN 10/31/2008 WELLBUTRIN (BUPROPION HCL) 06/28/2019 5 - Intolerance Date Reviewed: 12/11/2024 Reviewed by: Rani Parkinson MD - Fully Assessed Reason for Visit: Question (OB Question) [3122] Prescriptions as of 12/24/2024 - lamoTRIgine (LAMICTAL) 100 mg tablet Take 1 tablet by mouth every afternoon. - aspirin, enteric coated (ECOTRIN LOW STRENGTH) 81 mg EC tablet Take 1 tablet by mouth once daily. - VITAFUSION GUMMY TChS Take 1 Piece by mouth once daily. - diphenhydrAMINE (UNISOM SLEEPGELS) 50 mg capsule Take 50 mg by mouth daily at bedtime. - LACTASE (LACTAID ORAL) Take by mouth w MEALS. Meds Comments as of 06/13/2013: pt not taking her medication how she is supposed to Problem List As Of Date 12/24/2024 Noted Resolved Cellulitis and abscess of toe, unspecified [L03*06/01/2010 05/19/2019 Smoker [F17.200] 12/22/2011 06/27/2024 Anxiety and depression [F41.9, F32.A] 12/22/2011 Asthma [J45.909] 12/22/2011 05/19/2019 Oligomenorrhea [N91.5] 03/23/2012 03/01/2019 Hyperprolactinemia (HCC) [E22.1] 03/23/2012 05/19/2019 PROM with onset of labor within 24 hour*05/04/2014 03/01/2019 Active labor [CJD1295] 05/04/2014 03/01/2019 Anxiety [F41.9] 05/23/2017 05/19/2019 History of methicillin resistant Staphylococcus*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] 01/17/2018 Trichomoniasis [A59.9] 03/06/2019 05/19/2019 Cellulitis of right knee [L03.115] 05/18/2019 05/19/2019 Oral thrush [B37.0] 05/18/2019 05/19/2019 Hyponatremia [E87.1] 05/18/2019 05/19/2019 Obesity, Class I, BMI 30-34.9 [E66.811] 05/28/2019 Mild intermittent asthma without complication [*06/18/2019 History of abuse of recreational drug (HCC) [F1*06/18/2019 Post-operative state [Z98.890] 09/13/2019 06/27/2024 BMI 33.0-33.9,adult [Z68.33] 12/04/2021 06/27/2024 Supervision of high risk in third tri*06/27/2024 Date of last menstrual period (LMP) unknown [Z7*06/27/2024 Vaping nicotine dependence, tobacco product [F1*06/27/2024 Bipolar 2 disorder (HCC) [F31.81] 06/27/2024 Nausea and vomiting during [O21.9] 06/27/2024 Abnormal genetic test during [O28.5] 11/19/2024 Encounter Status:Closed by KARIN FLANAGAN on 12/24/24 Normal [facility] Bilirubin Test strip Ql (U)O rdered By: Vandana Edwards on 12-19-2024 Bilirubin Ql (U) Negative Negative [facility] Glucose Ql (U)Ordered By: Murphy Edwards on 12-19-2024 Urine Glucose (UA) Normal mg/dl Normal [facility] Ketones Test strip Ql (U)Ord ered By: Vandana Edwards on 12-19-2024 Ketones Ql (U) Negative Negative [facility] Nitrite Test strip Ql (U)Ord ered By: Vandana Edwards on 12-19-2024 Nitrite Ql (U) Negative Negative [facility] OB Triage Physician Noteon 0 12-19-2024 OB Triage Physician Note [facility] [address] [place] [address] OB Triage Physician Note 12/19/242121 MR#: [id number] Acct: [id number] Name: NAVYA MCNULTY Rep #: [id number] : 1995 29 From: Vandana Edwards CNM PCP: Dr. Lupe Gao, DO Status:DEP CLI Y Location: [facility] HPI - General HPI Narrative NAVYA MCNULTY, is a 29 F at 35.4 weeks gestation who presents with lower vaginal pressure. Patient denies any loss of fluid, or vaginal bleeding. She denies any dysuria or hematuria. Maternal Data Information SASCHA Calculator Estimated Delivery Date Method Current WG Current Estimate 01/19/25 Manual 35w 4d PFSH PFSH Home Medications ???Medication ???Instructions ???Recorded ???Last Taken ???Type buspirone PO BID 12/19/24 12/19/24 18:50 His tory lamotrigine 100 mg tablet 100 mg PO DAILY 12/19/24 12/18/24 20:00 History (Lamictal) nystatin .ROUTE .qid 12/19/24 12/19/24 13:0 0 History vit no.95-ferrous 1 tab PO DAILY 12/19/24 12/18/24 20:00 History fumarate 28 mg-folic acid 800 mcg tablet () Allergy/AdvReac Type Severity Reaction Status Date / Time bupropion (From Wellbutrin) Allergy Severe Other Verified 12/19/24 19:44 pollen extracts (pollens) Allergy Mild Other Verified 12/19/24 19:44 lactose Allergy Abd Verified 12/19/24 19:44 cramps/diarrhea egg AdvReac Hives Verified 12/19/24 19:44 Social History Smoking Status: Former smoker ROS Eyes Eyes: Denies blurry vision Cardiovascular Cardiovascular: Reports none; Denies chest pain at rest, chest pain with activity or dizziness Respiratory/Chest Respiratory/Chest: Denies cough or dyspnea Gastrointestinal Gastrointestinal: Reports none and other; Denies diarrhea or vomiting Genitourinary Genitourinary: Denies dysuria Musculoskeletal Musculoskeletal: Reports none Integumentary Integumentary: Reports none; Denies rash Neurologic Neurologic: Denies dizziness, headache(s) or other visual disturbances Psychiatric Psychiatric: Reports none Physical Exam Const alert and no apparent distress General Appearance: cooperative Orientation / Consciousness: awake Exam Limitations: no limitations HEENT normocephalic Eyes General Eye: normal appearance of both eyes Neck full ROM Chest inspection of chest normal Resp normal respiratory effort and normal air movement Effort and Inspection: symmetric chest movement Auscultation: clear to auscultation bilaterally Cardio regular rate GI soft to palpation, non-tender and non-distended Inspection: and other Back/Spine normal ROM Extremity full ROM, normal capillary refill and no calf tenderness Skin no rashes or lesions noted Neuro oriented x3 and CN's II-XII intact bilaterally Psych mental status grossly normal NST FHR Rate Baby A Baseline: 120 Variability:: Moderate Accelerations:: 15 x 15 Decelerations:: None NST Reactive:: Yes FHR Category:: Category I Uterine Activity:: Occasional Assessment Plan (1) 35 weeks gestation of : (2) Pelvic pressure in : (3) Lower abdominal tenderness: PLAN: Plan CE FT/ Thick/ High UA - negative Patient reports feeling no pain since arrival Taking oral PO Requesting discharge home Follow up in office 12/19/242201 Date Vandana Edwards CN Cosigner Signature (if applicable): CC: TAHIR Edwards; Dr. Lupe Gao, DO Signed Normal [facility] Protein Test strip Ql (U)Ord ered By: Vandana Edwards on 12-19-2024 Protein Ql (U) 15 mg/dl High Negative [facility] Urinalysis, Routine (Dipstic k)on 12-19-2024 BILIRUBIN URINE Negative Normal Negative [facility] Comment on above: Order Comment: CLEAN CATCH Performed By: #### L 400.2010 #### [facility] [address] [place], [place], [id number] Clarity (U) Clear Normal Clear [facility] Comment on above: Order Comment: CLEAN CATCH Performed By: #### L 400.2010 #### [facility] [address] [place], [place], [id number] Color (U) Yellow Normal Yellow [facility] Comment on above: Order Comment: CLEAN CATCH Performed By: #### L 400.2010 #### [facility] [address] [place], [place], [address] [phone] GLUCOSE, UR Normal Normal Normal [facility] Comment on above: Order Comment: CLEAN CATCH Performed By: #### L 400.2010 #### [facility] [address] [place], [address] KETONE UR Negative Normal Negative [facility] Comment on above: Order Comment: CLEAN CATCH Performed By: #### L 400.2010 #### [facility] [address] [place], [address] LEUK ESTERASE Negative Normal Negative [facility] Comment on above: Order Comment: CLEAN CATCH Performed By: #### L 400.2010 #### [facility] [address] [place], [address] Nitrite Ql (U) Negative Normal Negative [facility] Comment on above: Order Comment: CLEAN CATCH Performed By: #### L 400 #### [facility] [address] [place], [address] OCCULT BLOOD-UR Negative Normal Negative [facility] Comment on above: Order Comment: CLEAN CATCH Performed By: #### L 400.2010 #### [facility] [address] [place], [address] pH UR 7.0 Normal 5.0 - 8.0 [facility] Comment on above: Order Comment: CLEAN CATCH Performed By: #### L 400 #### [facility] [address] [place], [address] PROT DIPSTX 15 mg/dl Abnormal Negative [facility] Comment on above: Order Comment: CLEAN CATCH Performed By: #### L 400 #### [facility] [address] [place], [address] SP.GR. DIPSTX 1.015 Normal 1.002-1.030 [facility] Comment on above: Order Comment: CLEAN CATCH Performed By: #### L 400 #### [facility] [address] [place], [address] UROBILI Normal Normal Normal [facility] Comment on above: Order Comment: CLEAN CATCH Performed By: #### L 400.2010 #### [facility] [address] [place], [address] Urine blood detectionOrdered By: Vandana Edwards on 12-19-2024 Urine Occult Blood Negative Negative [facility] Urine clarityOrdered By: Steven Edwards on 12-19-2024 Clarity (U) Clear Clear [facility] Urine color determinationOrd ered By: Vandana Edwards on 12-19-2024 Color (U) Yellow Yellow [facility] Urine leukocyte esterase det ection by dipstickOrdered By: Vandana Edwards on 12-19-2024 Leukocyte esterase Test strip Ql (U) Negative Negative [facility] Urine pHOrdered By: Vandana Edwards on 12-19-2024 pH (U) 7.0 [pH] 5.0 - 8.0 [facility] Urine specific gravity measu rementOrdered By: Vandana Edwards on 12-19-2024 Specific gravity (U) [Rel density] 1.015 1.002-1.030 [facility] Urobilinogen Ql (U)Ordered B y: Vandana Edwards on 12-19-2024 Urine Urobilinogen Normal mg/dl Normal [facility] URINE OB DIP B/Oon Glucose Ql (U) Negative Neg mg/dL [facility] Interpretation and review of laboratory results Normal [facility] Protein.monoclonal (U) [Mass/Vol] Negative Neg mg/dL [facility] Urine Cultureon 12-05-2024 URC Mixed Gram Positive Organisms [place] Count 11,000-25,000 MIXC Mixed contaminants. Submit a new specimen if indicated. Normal [facility] Comment on above: Performed By: #### L 501.4100, L501.4405, L501.0900, L501.1105, L501.1400 #### [facility] [address] [place], [address] (ROM) Rupture Of Membraneson 12-03-2024 ROM Negative Normal Negative [facility] Comment on above: Result Comment: Amni otic fluid not present indicates No Rupture of Membranes at time of specimen collection. Performed By: #### L 205.1000 #### [facility] [address] [place], [address] AST(SGOT)on 12-03-2024 AST [Catalytic activity/Vol] 18 U/L Normal 15-37 [facility] Comment on above: Performed By: #### L 501.4100, L501.4405, L501.0900, L501.1105, L501.1400 #### [facility] [address] [place], [address] Absolute neutrophil countOrd ered By: Vandana Edwards on 12-03-2024 Neutrophils (Bld) [#/Vol] 12.1 10*3/uL High 2.0-7.7 [facility] Alanine Aminotransferas (SGP T)on 12-03-2024 ALT [Catalytic activity/Vol] 17 U/L Normal 13-56 [facility] Comment on above: Performed By: #### L 501.4100, L501.4405, L501.0900, L501.1105, L501.1400 #### [facility] [address] [place], [address] Basic Metabolic Profile (BMP )on 12-03-2024 BUN/CRE 16.0 RATIO Normal 10-20 [facility] Comment on above: Performed By: #### L 500.2500 #### [facility] [address] [place], [address] CA,Total 8.6 mg/dL Normal 8.5-10.1 [facility] Comment on above: Performed By: #### L 500.2500 #### [facility] [address] [place], [address] Chloride [Moles/Vol] 107 mmol/L Normal 98-107 [facility] Comment on above: Performed By: #### L 500.2500 #### [facility] [address] [place], [address] CO2 [Moles/Vol] 22.0 mmol/L Normal 21.0-32.0 [facility] Comment on above: Performed By: #### L 500.2500 #### [facility] [address] [place], [address] Creatinine [Mass/Vol] 0.37 mg/dL Low 0.55-1.02 [facility] Comment on above: Result Comment: The validity of the calculated GFR GFRAA in patients over 70 years has not been determined. Clinical correlation is essential. Performed By: #### L 500.2500 #### [facility] [address] [place], [address] ECRCL 216.09 ml/min Normal [facility] Comment on above: Performed By: #### L 500.2500 #### [facility] [address] [place], [address] EST GFR - AA 258 mL/min Normal >60 [facility] Comment on above: Result Comment: Afri can [place] GFR Calc Performed By: #### L 500.2500 #### [facility] [address] [place], [address] GAP 9 Normal 5-15 [facility] Comment on above: Performed By: #### L 500.2500 #### [facility] [address] [place], [address] GFR/1.73 sq M.predicted among non-blacks MDRD (S/P/Bld) [Vol rate/Area] 213 mL/min/{1.73_m2} Normal >60 [facility] Comment on above: Result Comment: Non- GFR Calc Performed By: #### L 500.2500 #### [facility] [address] [place], [address] Glucose [Mass/Vol] 99 mg/dL Normal 74-[address] [facility] Comment on above: Performed By: #### L 500.2500 #### [facility] [address] [place], [address] Potassium [Moles/Vol] 3.4 mmol/L Low 3.5-5.1 [facility] Comment on above: Performed By: #### L 500.2500 #### [facility] [address] [place], [address] Sodium [Moles/Vol] 138 mmol/L Normal 136-[address] [facility] Comment on above: Performed By: #### L 500.2500 #### [facility] [address] [place], [address] Urea nitrogen [Mass/Vol] 6 mg/dL Low 7-18 [facility] Comment on above: Performed By: #### L 500.2500 #### [facility] [address] [place], [address] Basophil percentageOrdered B y: Vandana Edwards on 12-03-2024 Basophils/100 WBC (Bld) 0.5 % 0-1 [facility] Blood urea nitrogen (BUN)/cr eatinine ratioOrdered By: Vandana Edwards on 12-03-2024 Urea nitrogen/Creatinine [Mass ratio] 16.0 mg/mg 10-20 [facility] CBC W/Diff, Automatedon 11-24 Absolute Lymph 1.71 X10 3/uL Normal 0.83-4.51 [facility] Comment on above: Performed By: #### L 501.4100, L501.4405, L501.0900, L501.1105, L501.1400 #### [facility] [address] [place], [address] Absolute Neut 12.1 X10 3/uL High 2.0-7.7 [facility] Comment on above: Performed By: #### L 501.4100, L501.4405, L501.0900, L501.1105, L501.1400 #### [facility] [address] [place], [address] Basophils/100 WBC (Bld) 0.5 % Normal 0-1 [facility] Comment on above: Performed By: #### L 501.4100, L501.4405, L501.0900, L501.1105, L501.1400 #### [facility] [address] [place], [address] Eosinophils/100 WBC (Bld) 1.4 % Normal 0-5 [facility] Comment on above: Performed By: #### L 501.4100, L501.4405, L501.0900, L501.1105, L501.1400 #### [facility] [address] [place], [address] Erythrocyte distribution width (RBC) [Ratio] 13.3 % Normal 11.6-14.6 [facility] Comment on above: Performed By: #### L 501.4100, L501.4405, L501.0900, L501.1105, L501.1400 #### [facility] [address] [place], [address] Hematocrit (Bld) [Volume fraction] 36.1 % Low 37-47 [facility] Comment on above: Performed By: #### L 501.4100, L501.4405, L501.0900, L501.1105, L501.1400 #### [facility] [address] [place], [address] Hemoglobin (Bld) [Mass/Vol] 12.2 g/dL Normal 12.0-15.0 [facility] Comment on above: Performed By: #### L 501.4100, L501.4405, L501.0900, L501.1105, L501.1400 #### [facility] [address] [place], [address] IG% 0.900 Normal 0.0-0.9 [facility] Comment on above: Result Comment: IG% - Immature Granulocytes (promyelocytes, myelocytes and metamyelocytes) > 1% indicates that a LEFT SHIFT is Present. Performed By: #### L 501.4100, L501.4405, L501.0900, L501.1105, L501.1400 #### [facility] [address] [place], [address] Lymphocytes/100 WBC (Bld) 11.3 % Low 19-41 [facility] Comment on above: Performed By: #### L 501.4100, L501.4405, L501.0900, L501.1105, L501.1400 #### [facility] [address] [place], [address] MCH (RBC) [Entitic mass] 29.3 pg Normal 27.0-32.0 [facility] Comment on above: Performed By: #### L 501.4100, L501.4405, L501.0900, L501.1105, L501.1400 #### [facility] [address] [place], [address] MCHC (RBC) [Mass/Vol] 33.8 g/dL Normal 32-36 [facility] Comment on above: Performed By: #### L 501.4100, L501.4405, L501.0900, L501.1105, L501.1400 #### [facility] [address] [place], [address] MCV (RBC) [Entitic vol] 86.6 fL Normal 81-99 [facility] Comment on above: Performed By: #### L 501.4100, L501.4405, L501.0900, L501.1105, L501.1400 #### [facility] [address] [place], [address] Monocytes/100 WBC (Bld) 6.1 % Normal 0-10 [facility] Comment on above: Performed By: #### L 501.4100, L501.4405, L501.0900, L501.1105, L501.1400 #### [facility] [address] [place], [address] Neutrophils/100 WBC (Bld) 79.8 % High 47-70 [facility] Comment on above: Performed By: #### L 501.4100, L501.4405, L501.0900, L501.1105, L501.1400 #### [facility] [address] [place], [address] Nucleated RBC (Bld) [#/Vol] 0 10*3/uL Normal 0-5 [facility] Comment on above: Performed By: #### L 501.4100, L501.4405, L501.0900, L501.1105, L501.1400 #### [facility] [address] [place], [address] Platelet mean volume (Bld) [Entitic vol] 9.4 fL Normal 6.2-12.0 [facility] Comment on above: Performed By: #### L 501.4100, L501.4405, L501.0900, L501.1105, L501.1400 #### [facility] [address] [place], [address] Platelets (Bld) [#/Vol] 256 10*3/uL Normal 150-450 [facility] Comment on above: Performed By: #### L 501.4100, L501.4405, L501.0900, L501.1105, L501.1400 #### [facility] [address] [place], [address] RBC (Bld) [#/Vol] 4.17 10*6/uL Low 4.2-5.[address] [facility] Comment on above: Performed By: #### L 501.4100, L501.4405, L501.0900, L501.1105, L501.1400 #### [facility] [address] [place], [address] RDW SD 42.2 fl Normal 35.1-43.9 [facility] Comment on above: Performed By: #### L 501.4100, L501.4405, L501.0900, L501.1105, L501.1400 #### [facility] [address] [place], [address] WBC (Bld) [#/Vol] 15.1 10*3/uL High 4.4-11.[address] [facility] Comment on above: Performed By: #### L 501.4100, L501.4405, L501.0900, L501.1105, L501.1400 #### [facility] [address] [place], [address] [facility] CNPN Telephone (OBGYWM) NAVYA MCNULTY ([id number]) 1995 F Date Time Provider Department 12/03/24 SARAH HINTON During your visit today, we recorded the following information about you: Rani Scott RN 12/03/2024 2:25 PM Signed 33w2d Patient called the office from the hospital parking lot after being discharged asking when does she need to f/u in the office. +RSV. Patient was on the schedule today originally. MARTHA Fuentes Sara, MD 12/03/2024 4:32 PM Signed This week or next. Recommend waiting to come in until fever free for 24 hours and symptoms improving. If she comes in this week recommend wearing a mask and having visit at end of day if possible Rani Scott RN 12/03/2024 4:40 PM Signed Patient notified. Appointment given. Rani Scott RN Allergies As of Date: 12/03/2024 Noted Allergy Reaction EGG 06/01/2019 4 - Hives 7 - Swelling Comments: Raw eggs only POLLEN 10/31/2008 WELLBUTRIN (BUPROPION HCL) 06/28/2019 5 - Intolerance Date Reviewed: 11/19/2024 Reviewed by: Giovanni Khan APRN.ROOM SERVICE FOOD SERVICE ATTENDANT - Fully Assessed Reason for Visit: Question (OB Question) [2042] Prescriptions as of 12/03/2024 - lamoTRIgine (LAMICTAL) 100 mg tablet Take 1 tablet by mouth every afternoon. - lamoTRIgine (LAMICTAL) 200 mg tablet TAKE 1 AND 1/2 (ONE AND ONE-HALF) TABLETS BY MOUTH ONCE DAILY AT BEDTIME - aspirin, enteric coated (ECOTRIN LOW STRENGTH) 81 mg EC tablet Take 1 tablet by mouth once daily. - VITAFUSION GUMMY TChS Take 1 Piece by mouth once daily. - lamoTRIgine (LAMICTAL) 25 mg tablet Take 300 mg by mouth once daily. - diphenhydrAMINE (UNISOM SLEEPGELS) 50 mg capsule Take 50 mg by mouth daily at bedtime. - LACTASE (LACTAID ORAL) Take by mouth w MEALS. Meds Comments as of 06/13/2013: pt not taking her medication how she is supposed to Problem List As Of Date 12/03/2024 Noted Resolved Cellulitis and abscess of toe, unspecified [L03*06/01/2010 05/19/2019 Smoker [F17.200] 12/22/2011 06/27/2024 Anxiety and depression [F41.9, F32.A] 12/22/2011 Asthma [J45.909] 12/22/2011 05/19/2019 Oligomenorrhea [N91.5] 03/23/2012 03/01/2019 Hyperprolactinemia (HCC) [E22.1] 03/23/2012 05/19/2019 PROM with onset of labor within 24 hour*05/04/2014 03/01/2019 Active labor [PZA8276] 05/04/2014 03/01/2019 Anxiety [F41.9] 05/23/2017 05/19/2019 History of methicillin resistant Staphylococcus*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] 01/17/2018 Trichomoniasis [A59.9] 03/06/2019 05/19/2019 Cellulitis of right knee [L03.115] 05/18/2019 05/19/2019 Oral thrush [B37.0] 05/18/2019 05/19/2019 Hyponatremia [E87.1] 05/18/2019 05/19/2019 Obesity, Class I, BMI 30-34.9 [E66.811] 05/28/2019 Mild intermittent asthma without complication [*06/18/2019 History of abuse of recreational drug (HCC) [F1*06/18/2019 Post-operative state [Z98.890] 09/13/2019 06/27/2024 BMI 33.0-33.9,adult [Z68.33] 12/04/2021 06/27/2024 Supervision of high risk in third tri*06/27/2024 Date of last menstrual period (LMP) unknown [Z7*06/27/2024 Vaping nicotine dependence, tobacco product [F1*06/27/2024 Bipolar 2 disorder (HCC) [F31.81] 06/27/2024 Nausea and vomiting during [O21.9] 06/27/2024 Abnormal genetic test during [O28.5] 11/19/2024 Encounter Status:Closed by RANI SCOTT on 12/03/24 [facility] Carbon dioxide measurementOr dered By: Vandana Edwards on 12-03-2024 CO2 [Moles/Vol] 22.0 mmol/L 21.0-32.0 [facility] Chloride measurementOrdered By: Vandana Edwards on 12-03-2024 Chloride [Moles/Vol] 107 mmol/L 98-107 [facility] Eosinophil percentageOrdered By: Vandana Edwards on 12-03-2024 Eosinophils/100 WBC (Bld) 1.4 % 0-5 [facility] Erythrocyte distribution wid th ratioOrdered By: Vandana Edwards on 12-03-2024 Erythrocyte distribution width (RBC) [Ratio] 13.3 % 11.6-14.6 [facility] Erythrocyte distribution wid th standard deviationOrdered By: Vandana Edwards on 12-03-2024 Erythrocyte distribution width (RBC) [Entitic vol] 42.2 fL 35.1-43.9 [facility] Estimated glomerular filtrat ion rate (GFR) AmericanOrdered By: Vandana Edwards on 12-03-2024 Estimated GFR (MDRD) Amer 258 mL/min >60 [facility] Comment on above: GFR Calc Estimation of creatinine jo aranceOrdered By: Vandana Edwards on 12-03-2024 Estimated Creatinine Clearance Calc 216.09 ml/min [facility] Glomerular filtration rate ( GFR) estimationOrdered By: Vandana Edwards on 12-03-2024 Estimated GFR (MDRD) Non-Af Amer 213 mL/min >60 [facility] Comment on above: Non- GFR Calc Glucose measurementOrdered B y: Vandana Edwards on 12-03-2024 Glucose [Mass/Vol] 99 mg/dL 74-[address] [facility] Hematocrit Auto (Bld) [Volum e fraction]Ordered By: Vandana Edwards on 12-03-2024 Hematocrit (Bld) [Volume fraction] 36.1 % Low 37-47 [facility] Hemoglobin measurementOrdere d By: Vandana Edwards on 12-03-2024 Hemoglobin (Bld) [Mass/Vol] 12.2 g/dL 12.0-15.0 [facility] Immature granulocytes/100 WB C Auto (Bld)Ordered By: Vandana Edwards on 12-03-2024 Immature granulocytes/100 WBC (Bld) 0.900 % 0.0-0.9 [facility] Comment on above: IG% - Immature Granu locytes (promyelocytes, myelocytes and metamyelocytes) > 1% indicates that a LEFT SHIFT is Present. L509.8000on 12-03-2024 Syphilis Abs Non-Reactive Normal [facility] Comment on above: Performed By: #### L 509.8000 #### [facility] [address] [place], [place], [id number] Laboratory - Chemistry and C hemistry - challengeOrdered By: Vandana Edwards on 12-03-2024 AST [Catalytic activity/Vol] 18 U/L 15-37 [facility] Lymphocytes Auto (Unsp spec) [#/Vol]Ordered By: Vandana Edwards on 12-03-2024 Lymphocytes (Bld) [#/Vol] 1.71 10*3/uL 0.83-4.51 [facility] Lymphocytes/100 WBC Auto (Un sp spec)Ordered By: Vandana Edwards on 12-03-2024 Lymphocytes/100 WBC (Bld) 11.3 % Low 19-41 [facility] MCV (mean corpuscular volume ) determinationOrdered By: Vandana Edwards on 12-03-2024 MCV (RBC) [Entitic vol] 86.6 fL 81-99 [facility] Mean corpuscular hemoglobin (MCH) determinationOrdered By: Vandana Edwards on 12-03-2024 MCH (RBC) [Entitic mass] 29.3 pg 27.0-32.0 [facility] Mean corpuscular hemoglobin concentration (MCHC) determinationOrdered By: Vandana Edwards on 12-03-2024 MCHC (RBC) [Mass/Vol] 33.8 g/dL 32-36 [facility] Mean platelet volume determi nationOrdered By: Vandana Edwards on 12-03-2024 Platelet mean volume (Bld) [Entitic vol] 9.4 fL 6.2-12.0 [facility] Monocyte percentageOrdered B y: Vandana Edwards on 12-03-2024 Monocytes/100 WBC (Bld) 6.1 % 0-10 [facility] Neutrophil percentageOrdered By: Vandana Edwards on 12-03-2024 Neutrophils/100 WBC (Bld) 79.8 % High 47-70 [facility] Nucleated red blood cell per centageOrdered By: Vandana Edwards on 12-03-2024 Nucleated RBC/100 WBC (Bld) [Ratio] 0 % 0-5 [facility] OB Triage Physician Noteon 0 12-03-2024 OB Triage Physician Note [facility] [address] [place] [address] OB Triage Physician Note 12/03/24 0739 MR#: [id number] Acct: [id number] Name: PRICILANAVYA TURK Rep #: [id number] : 1995 29 From: Vandana Edwards CNM PCP: Dr. Lupe Gao, DO Status:DEP CLI Y Location: [facility] HPI - General HPI Narrative NAVYA MCNULTY, is a 29 F 33 week gestation who presents to triage with pelvic pressure and possible leaking of fluid. She was seen in ED yesterday and +RSV. PFSH PFSH Home Medications ???Medication ???Instructions ???Recorded ???Last Taken ???Type docusate sodium 100 mg capsule 200 mg PO BID PRN PRN Constipation 05/13/17 Unknown Rx (DOK) ##60 lorazepam 0.5 mg tablet 0.5 mg PO Q8H PRN PRN Anxiety #10 05/13/17 Unknown Rx tabs nicotine 21 mg/24 hr daily 21 mg TRANSDERM. DAILY #20 patches 05/13/17 Unknown Rx transdermal patch oxycodone 5 mg tablet 5 - 10 mg (1 - 2 x 5 mg) PO Q4H Unknown Rx PRN PRN moderate to severe pain #30 tabs sertraline 50 mg tablet 50 mg PO DAILY #30 tabs 05/13/17 U nknown Rx sulfamethoxazole 800 1 tab PO BID 14 days 05/13/17 Unkn own Rx mg-trimethoprim 160 mg tablet Allergy/AdvReac Type Severity Reaction Status Date / Time lactose Allergy Abd Verified 12/02/24 12:47 cramps/diarrhea egg AdvReac Hives Verified 12/02/24 12:47 Social History Smoking Status: Former smoker ROS Eyes Eyes: Denies blurry vision Cardiovascular Cardiovascular: Reports none; Denies chest pain at rest, chest pain with activity or dizziness Respiratory/Chest Respiratory/Chest: Denies cough or dyspnea Gastrointestinal Gastrointestinal: Reports none and other; Denies diarrhea or vomiting Genitourinary Genitourinary: Denies dysuria Musculoskeletal Musculoskeletal: Reports none Integumentary Integumentary: Reports none; Denies rash Neurologic Neurologic: Denies dizziness, headache(s) or other visual disturbances Psychiatric Psychiatric: Reports none Physical Exam Const alert and no apparent distress General Appearance: cooperative Orientation / Consciousness: awake Exam Limitations: no limitations HEENT normocephalic Eyes General Eye: normal appearance of both eyes Neck full ROM Chest inspection of chest normal Resp normal respiratory effort and normal air movement Cardio regular rate GI soft to palpation, non-tender and non-distended Inspection: and other Back/Spine normal ROM Extremity full ROM, normal capillary refill and no calf tenderness Skin no rashes or lesions noted Neuro oriented x3 and CN's II-XII intact bilaterally Psych mental status grossly normal NST FHR Rate Baby A Baseline: 125 Variability:: Moderate Accelerations:: 15 x 15 Decelerations:: None NST Reactive:: Yes FHR Category:: Category I Uterine Activity:: IRRITABILITY Assessment Plan (1) 33 weeks gestation of : (2) Lower abdominal tenderness: (3) No leakage of amniotic fluid into vagina: (4) RSV (respiratory syncytial virus infection): PLAN: Plan ROM plus - negative Start IV and run fluids per orders Labs collected UA collected Palpated maternal abdomen, mild tenderness in lower right quadrant Dr. Hinton updated and will be assuming managment of patient 12/12/24 0744 Date Vandana Edwards CNM Cosigner Signature (if applicable): Date CC: TAHIR Edwards; Dr. Lupe Gao, DO Signed Normal [facility] Platelet countOrdered By: Murphy Edwards on 12-03-2024 Platelets (Bld) [#/Vol] 256 10*3/uL 150-450 [facility] Potassium measurementOrdered By: Vandana Edwards on 12-03-2024 Potassium [Moles/Vol] 3.4 mmol/L Low 3.5-5.1 [facility] Protein+Creatinine Ratio,Uri neon 12-03-2024 PROT:CRE RATIO 237 mg/g CRE High 0-200 [facility] Comment on above: Performed By: #### L 501.0900 #### [facility] [address] [place] [address] [place], [address] Protein (U) [Mass/Vol] 22.0 mg/dL High <11.9 [facility] Comment on above: Performed By: #### L 501.0900 #### [facility] [address] [place], [address] UR CREAT 93.00 mg/dL Normal NO RANGE EST. [facility] Comment on above: Performed By: #### L 501.0900 #### [facility] [address] [place], [address] PROT:CRE RATIO Normal 0-200 [facility] Comment on above: Result Comment: [place] [address]/03/24 Performed By: #### L 501.4100, L501.4405, L501.0900, L501.1105, L501.1400 #### [facility] [address] [place], [address] PROTEIN,UR.RAN. Normal <11.9 [facility] Comment on above: Result Comment: [place] [address]/03/24 Performed By: #### L 501.4100, L501.4405, L501.0900, L501.1105, L501.1400 #### [facility] [address] [place], [address] UR CREAT Normal NO RANGE EST. [facility] Comment on above: Result Comment: [place] [address]/03/24 Performed By: #### L 501.4100, L501.4405, L501.0900, L501.1105, L501.1400 #### [facility] [address] [place], [address] Protein/Creatinine (U) [Mass ratio]Ordered By: Vandana Edwards on 12-03-2024 Urine Protein/Creatinine Ratio 237 mg/g CRE High 0-200 [facility] RBC Auto (Bld) [#/Vol]Ordere d By: Vandana Edwards on 12-03-2024 RBC (Bld) [#/Vol] 4.17 10*6/uL Low 4.2-5.[address] [facility] Random urine protein measure mentOrdered By: Vandana Edwards on 12-03-2024 Protein (U) [Mass/Vol] 22.0 mg/dL High 0.0-11.8 [facility] Serum Creatinine AND GFRon 0 12-03-2024 Creatinine [Mass/Vol] 0.38 mg/dL Low 0.55-1.02 [facility] Comment on above: Result Comment: The validity of the calculated GFR GFRAA in patients over 70 years has not been determined. Clinical correlation is essential. Performed By: #### L 501.4100, L501.4405, L501.0900, L501.1105, L501.1400 #### [facility] [address] [place], [address] ECRCL 210.40 ml/min Normal [facility] Comment on above: Performed By: #### L 501.4100, L501.4405, L501.0900, L501.1105, L501.1400 #### [facility] [address] [place], [address] EST GFR - AA 253 mL/min Normal >60 [facility] Comment on above: Result Comment: Afri can Bruneian GFR Calc Performed By: #### L 501.4100, L501.4405, L501.0900, L501.1105, L501.1400 #### [facility] [address] [place], [address] GFR/1.73 sq M.predicted among non-blacks MDRD (S/P/Bld) [Vol rate/Area] 209 mL/min/{1.73_m2} Normal >60 [facility] Comment on above: Result Comment: Non- GFR Calc Performed By: #### L 501.4100, L501.4405, L501.0900, L501.1105, L501.1400 #### [facility] [address] [place], [address] Serum anion gap measurementO rdered By: Vandana Edwards on 12-03-2024 Anion gap [Moles/Vol] 9 mmol/L 5-15 [facility] Serum or plasma alanine su otransferase (ALT) measurementOrdered By: Vandana Edwards on 12-03-2024 ALT [Catalytic activity/Vol] 17 U/L 13-56 [facility] Serum or plasma calcium cy urement (mass/volume)Ordered By: Vandana Edwards on 12-03-2024 Calcium [Mass/Vol] 8.6 mg/dL 8.5-10.[address] [facility] Serum or plasma creatinine m easurement (mass/volume)Ordered By: Vandana Edwards on 12-03-2024 Creatinine [Mass/Vol] 0.37 mg/dL Low 0.55-1.02 [facility] Comment on above: The validity of the calculated GFR & GFRAA in patients over 70 years has not been determined. Clinical correlation is essential. Serum or plasma urea nitroge n measurement (mass/volume)Ordered By: Vandana Edwards on 12-03-2024 Urea nitrogen [Mass/Vol] 6 mg/dL Low 7-18 [facility] Serum or plasma uric acid me asurement (mass/volume)Ordered By: Vandana Edwards on 12-03-2024 Urate [Mass/Vol] 3.0 mg/dL 2.6-6.0 [facility] Comment on above: The drugs N-Acetylcy steine and Metamizole may falsely depress this assay. Sodium levelOrdered By: David Edwards on 12-03-2024 Sodium [Moles/Vol] 138 mmol/L 136-[address] [facility] Testing for ruptured membran esOrdered By: Vandana Edwards on 12-03-2024 Vaginal Amniotic Fluid Detection Negative Negative [facility] Comment on above: Amniotic fluid not p resent indicates No Rupture of FetalMembranes at time of specimen collection. Treponema sp Ab Ql (S)Ordere d By: Vandana Edwards on 12-03-2024 Syphilis Total Antibody Non-Reactive [facility] Uric Acidon 12-03-2024 URIC 3.0 mg/dL Normal 2.6-6.0 [facility] Comment on above: Result Comment: The drugs N-Acetylcysteine and Metamizole may falsely depress this assay. Performed By: #### L 501.4100, L501.4405, L501.0900, L501.1105, L501.1400 #### [facility] [address] [place], [place], [address] Urine creatinine measurement (mass/volume)Ordered By: Vandana Edwards on 12-03-2024 Creatinine (U) [Mass/Vol] 93.00 mg/dL NO RANGE EST. [facility] Urine cultureOrdered By: Steven Edwards on 12-03-2024 Bacteria identified Cx Nom (U) Positive Abnormal [facility] White blood cell (WBC) count Ordered By: Vandana Burtfadia on 12-03-2024 WBC (Bld) [#/Vol] 15.1 10*3/uL High 4.4-11.[address] [facility] Chest PA and Lateralon 12-02 Chest PA and Lateral [facility] [address] [place], [place] [address] Chest PA and Lateral MR#: [id number] Acct: [id number] Name: NAVYA MCNULTY Rep #: [id number] : 1995 F 29 From: Florin Casanova MD PCP: Dr. Lupe Gao DO Status: [facility] ER Study: Chest PA and Lateral Date of Exam: 12/02/24 Exam# [id number] Ordering Dr: Cuauhtemoc Molina DO PROCEDURE: CHEST PA AND LATERAL REASON FOR EXAM: Cough TECHNIQUE: Frontal and lateral views of the chest. COMPARISON: None. FINDINGS: The heart size is normal. The mediastinal contour is unremarkable. The lungs are clear. The bones are unremarkable. RAD/Chest PA and Lateral IMPRESSION: NEGATIVE CHEST [facility] CC: Dr. Lupe Gao DO; Dr. Cuauhtemoc Molina DO Development Representative: Signed Normal [facility] Emergency Department Summary on 12-02-2024 Emergency Department Summary [facility] Medical Records Department [address] [place] [address] Emergency Department Summary 12/02/24 MR#: [id number] Acct: [id number] Name: NAVYA MCNULTY Rep #: [id number] : 1995 29 From: Cuauhtmeoc Molina DO PCP: Dr. Lupe Gao, DO Status:DEP ER Location: ED HPI History of Present Illness Chief Complaint: Cold Sx PFSH PFSH Home Medications ???Medication ???Instructions ???Recorded ???Last Taken ???Type docusate sodium 100 mg capsule 200 mg PO BID PRN PRN Constipation 05/13/17 Unknown Rx (DOK) ##60 lorazepam 0.5 mg tablet 0.5 mg PO Q8H PRN PRN Anxiety #10 05/13/17 Unknown Rx tabs nicotine 21 mg/24 hr daily 21 mg TRANSDERM. DAILY #20 patches 05/13/17 Unknown Rx transdermal patch oxycodone 5 mg tablet 5 - 10 mg (1 - 2 x 5 mg) PO Q4H Unknown Rx PRN PRN moderate to severe pain #30 tabs sertraline 50 mg tablet 50 mg PO DAILY #30 tabs 05/13/17 U nknown Rx sulfamethoxazole 800 1 tab PO BID 14 days 05/13/17 Unkn own Rx mg-trimethoprim 160 mg tablet Allergy/AdvReac Type Severity Reaction Status Date / Time lactose Allergy Abd Verified 12/02/24 12:47 cramps/diarrhea egg AdvReac Hives Verified 12/02/24 12:47 Social History Smoking Status: Former smoker EXAM Physical Exam Const Vital Signs: 12/02/24 12:47 12/02/24 14:16 12/02/24 14:51 Temperature 98.3 F Temperature Source Oral Pulse Rate 104 H 92 Respiratory Rate 16 16 16 Respiratory Pattern Normal Blood Pressure 113/76 Blood Pressure Mean 88 Pulse Ox 100 100 Oxygen Delivery Method Room Air 12/02/24 16:00 Temperature Temperature Source Pulse Rate 68 Respiratory Rate 18 Respiratory Pattern Blood Pressure Blood Pressure Mean Pulse Ox Oxygen Delivery Method MDM MDM MDM Narrative Medical decision making narrative: HISTORY OF PRESENT ILLNESS: 29-year-old female presents concern for cold symptoms. No she is feeling dizzy. She notes pressure in her abdomen. Denies vaginal bleeding, vaginal discharge, passage of any tissue, leakage of any fluid. REVIEW OF SYSTEMS: Pertinent positives: Cough, cold symptoms Pertinent negatives: Chest pain, shortness of breath PHYSICAL EXAM: Nursing triage notes reviewed, Vital signs reviewed Constitutional: please see mdm HENT: MMM Eyes: Pupils equal round and reactive to light, Extraocular muscles intact Neck: No stridor, no JVD, full neck ROM Lungs: Coarse breath sounds, slight expiratory wheezing noted initially. No increased work of breathing, no conversational dyspnea, no accessory muscle use, no nasal flaring. No respiratory distress noted Heart: Regular rate and rhythm, No murmurs, No rubs and No gallops, 2+ distal pulses (radial, femoral, posterior tibial) in all extremities Abdomen: Soft, there is no tenderness, rigidity, rebound or guarding, no obvious peritoneal signs, no palpable pulsatile abdominal masses, no auscultated abdominal bruit : No CVAT Extremities: No edema Neuro: No new focal neurological deficits, cranial nerves II through XII intact, 5/5 strength in all present extremities. Intact sensation to light touch in all present extremities, 2+ reflexes bilateral patella tendons. Skin: No rash or lesions noted MEDICAL DECISION MAKING: Chief Complaint: Cough, cold symptoms Social determinants of health: Currently [facility] Narrative: Patient was initially hemodynamically stable, afebrile and nontoxic-appearing. Exam without focal cardiopulmonary normalities. Abdomen soft. I considered the following differential diagnosis: COVID/flu/RSV, pneumonia ALL IMAGES (IF OBTAINED) HAVE BEEN PERSONALLY REVIEWED AND INTERPRETED BY MYSELF. I have personally reviewed the patient's chest x-ray. Chest x-ray is unremarkable for pulmonary edema, pneumothorax, pneumonia or focal cardiopulmonary abnormality. COVID/flu/RSV test pending Patient abdominal exam is reassuring. heart tones reassuring. On reevaluation wheezing has completely resolved. She has no abdominal pain. Repeat abdominal exam remained benign. Viral swab showed RSV positive. This likely etiology of the patient's complaints. The patient does not display any signs of hypoxia or increased work of breathing or need for submental oxygen or invasive ventilation. She was instructed on Tylenol and ibuprofen. Strict return precautions were discussed. Instructed the patient to call her OB and follow-up (patient notes she has an appointment tomorrow). No indication for emergent OB evaluation at this time. Gave strict return precautions and follow- up instructions. The patient and/or family, caregivers express understanding. The patient and/or family, caregivers agrees with the plan. Shared decis (more content not included)... Normal [facility] Influenza virus A and B and SARS-CoV-2 (COVID-19) and Respiratory syncytial virus RNAOrdered By: Cuauhtemoc Molina on 12-02-2024 SARS-CoV-2 (COVID-19) RNA JALEN+probe Ql (Unsp spec) RSV Abnormal [facility] M100.678on 12-02-2024 M100.678 SARS-CoV-2 (COVID 19 ) Negative INFLUENZA A Negative INFLUENZA B Negative RSV PCR A Positive A RSV Normal [facility] Comment on above: Performed By: #### L 501.4100, L501.4405, L501.0900, L501.1105, L501.1400 #### [facility] [address] [place], [address] [facility] 11-12-2024 [facility] NAVYA MCNULTY ([id number]) 1995 F Date Time Provider Department 11/12/24 SARAH HINTON OBMATHEW During your visit today, we recorded the following information about you: Rani Scott RN 11/12/2024 8:26 AM Signed ----- Message from Rani Parkinson MD sent at 11/09/2024 5:21 PM EST ----- Abnormal [id number]. I'm not sure how this was ordered and collected at 29 weeks but patient has no scheduled appointments. She needs to be seen to discuss theses results Rani Scott RN 11/12/2024 8:28 AM Signed Please review. Would you like patient seen in office today to discuss or would you like to call her? RaniMARTHA Peck Trisha, RN 11/12/2024 11:25 AM Signed Patient called into office tearful on the phone because she saw NIPT result on mychart. Advised genetic counselor will be in contact with her regarding results. Were you planning to contact her too? I'm not sure how long it takes genetics to reach out typically. MARTHA Fofana Sara, MD 11/12/2024 2:36 PM Signed Sorry I am just seeing this and it looks like genetics talked to patient on phone already about results and plan of care thanks Allergies As of Date: 11/12/2024 Noted Allergy Reaction EGG 06/01/2019 4 - Hives 7 - Swelling Comments: Raw eggs only POLLEN 10/31/2008 WELLBUTRIN (BUPROPION HCL) 06/28/2019 5 - Intolerance Date Reviewed: 11/02/2024 Reviewed by: Linda Varner MA - Fully Assessed Prescriptions as of 11/12/2024 - lamoTRIgine (LAMICTAL) 100 mg tablet Take 1 tablet by mouth every afternoon. - lamoTRIgine (LAMICTAL) 200 mg tablet TAKE 1 AND 1/2 (ONE AND ONE-HALF) TABLETS BY MOUTH ONCE DAILY AT BEDTIME - aspirin, enteric coated (ECOTRIN LOW STRENGTH) 81 mg EC tablet Take 1 tablet by mouth once daily. - VITAFUSION GUMMY TChS Take 1 Piece by mouth once daily. - lamoTRIgine (LAMICTAL) 25 mg tablet Take 300 mg by mouth once daily. - diphenhydrAMINE (UNISOM SLEEPGELS) 50 mg capsule Take 50 mg by mouth daily at bedtime. - LACTASE (LACTAID ORAL) Take by mouth w MEALS. Meds Comments as of 06/13/2013: pt not taking her medication how she is supposed to Problem List As Of Date 11/12/2024 Noted Resolved Cellulitis and abscess of toe, unspecified [L03*06/01/2010 05/19/2019 Smoker [F17.200] 12/22/2011 06/27/2024 Anxiety and depression [F41.9, F32.A] 12/22/2011 Asthma [J45.909] 12/22/2011 05/19/2019 Oligomenorrhea [N91.5] 03/23/2012 03/01/2019 Hyperprolactinemia (HCC) [E22.1] 03/23/2012 05/19/2019 PROM with onset of labor within 24 hour*05/04/2014 03/01/2019 Active labor [ZRX1697] 05/04/2014 03/01/2019 Anxiety [F41.9] 05/23/2017 05/19/2019 History of methicillin resistant Staphylococcus*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] 01/17/2018 Trichomoniasis [A59.9] 03/06/2019 05/19/2019 Cellulitis of right knee [L03.115] 05/18/2019 05/19/2019 Oral thrush [B37.0] 05/18/2019 05/19/2019 Hyponatremia [E87.1] 05/18/2019 05/19/2019 Obesity, Class I, BMI 30-34.9 [E66.811] 05/28/2019 Mild intermittent asthma without complication [*06/18/2019 History of abuse of recreational drug (HCC) [F1*06/18/2019 Post-operative state [Z98.890] 09/13/2019 06/27/2024 BMI 33.0-33.9,adult [Z68.33] 12/04/2021 06/27/2024 Supervision of other high risk pregnancies, fir*06/27/2024 Date of last menstrual period (LMP) unknown [Z7*06/27/2024 Vaping nicotine dependence, tobacco product [F1*06/27/2024 Bipolar 2 disorder (HCC) [F31.81] 06/27/2024 Nausea and vomiting during [O21.9] 06/27/2024 Encounter Status:Closed by CONCEPCIÓN BEAVERS on 11/12/[address] [facility] Telephone ([facility]) NAVYA MCNULTY ([id number]) 1995 F Date Time Provider Department 11/12/24 JESSICA AZAEL Maty [facility] During your visit today, we recorded the following information about you: Jessica AzaelSIERRA Elmore 11/12/2024 1:11 PM Signed Called Navya Mcnulty and we reviewed her SCREEN POSITIVE CFDNA SCREEN FOR KLINEFELTER SYNDROME XXY. Reviewed the clinical features of this condition and the screening nature of cfDNA. Reviewed that the remainder of her cfDNA screen is low risk. Ms. Mcnulty was quite upset when we were talking. She calmed down as we discussed. Offered diagnosis via amniocentesis versus cord blood karyotype. Reviewed recommendation for diagnostic testing. She wishes for the latter after discussion of risks, benefits, limitations and timing. Also recommended a genetic counseling consultation. Ms. Mcnulty wishes to hold off on this for now. Offered to send her some follow-up information via [employer]. She will respond to my [employer] message if she wishes to schedule. Plan agreed upon. Azael Rutledge SIERRA Lopez Allergies As of Date: 11/12/2024 Noted Allergy Reaction EGG 06/01/2019 4 - Hives 7 - Swelling Comments: Raw eggs only POLLEN 10/31/2008 WELLBUTRIN (BUPROPION HCL) 06/28/2019 5 - Intolerance Date Reviewed: 11/02/2024 Reviewed by: Linda Varner MA - Fully Assessed Reason for Visit: NIPT results: Abnormal [Other] Prescriptions as of 11/12/2024 - lamoTRIgine (LAMICTAL) 100 mg tablet Take 1 tablet by mouth every afternoon. - lamoTRIgine (LAMICTAL) 200 mg tablet TAKE 1 AND 1/2 (ONE AND ONE-HALF) TABLETS BY MOUTH ONCE DAILY AT BEDTIME - aspirin, enteric coated (ECOTRIN LOW STRENGTH) 81 mg EC tablet Take 1 tablet by mouth once daily. - VITAFUSION GUMMY TChS Take 1 Piece by mouth once daily. - lamoTRIgine (LAMICTAL) 25 mg tablet Take 300 mg by mouth once daily. - diphenhydrAMINE (UNISOM SLEEPGELS) 50 mg capsule Take 50 mg by mouth daily at bedtime. - LACTASE (LACTAID ORAL) Take by mouth w MEALS. Meds Comments as of 06/13/2013: pt not taking her medication how she is supposed to Problem List As Of Date 11/12/2024 Noted Resolved Cellulitis and abscess of toe, unspecified [L03*06/01/2010 05/19/2019 Smoker [F17.200] 12/22/2011 06/27/2024 Anxiety and depression [F41.9, F32.A] 12/22/2011 Asthma [J45.909] 12/22/2011 05/19/2019 Oligomenorrhea [N91.5] 03/23/2012 03/01/2019 Hyperprolactinemia (HCC) [E22.1] 03/23/2012 05/19/2019 PROM with onset of labor within 24 hour*05/04/2014 03/01/2019 Active labor [BBF5046] 05/04/2014 03/01/2019 Anxiety [F41.9] 05/23/2017 05/19/2019 History of methicillin resistant Staphylococcus*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] 01/17/2018 Trichomoniasis [A59.9] 03/06/2019 05/19/2019 Cellulitis of right knee [L03.115] 05/18/2019 05/19/2019 Oral thrush [B37.0] 05/18/2019 05/19/2019 Hyponatremia [E87.1] 05/18/2019 05/19/2019 Obesity, Class I, BMI 30-34.9 [E66.811] 05/28/2019 Mild intermittent asthma without complication [*06/18/2019 History of abuse of recreational drug (HCC) [F1*06/18/2019 Post-operative state [Z98.890] 09/13/2019 06/27/2024 BMI 33.0-33.9,adult [Z68.33] 12/04/2021 06/27/2024 Supervision of other high risk pregnancies, fir*06/27/2024 Date of last menstrual period (LMP) unknown [Z7*06/27/2024 Vaping nicotine dependence, tobacco product [F1*06/27/2024 Bipolar 2 disorder (HCC) [F31.81] 06/27/2024 Nausea and vomiting during [O21.9] 06/27/2024 Encounter Status:Closed by AZAEL LOPEZ on 11/12/24 Normal [facility] CBC W Auto Differential pane l (Bld)on 11-02-2024 Basophils (Bld) [#/Vol] 0.06 10*3/uL Normal <0.11 [facility] Comment on above: Order Comment: Speci men Type: BLOOD SPECIMEN Ordering Facility: [facility] Address: [address] [place] [address] Performed By: #### 3 1201-7, 5195-3, 77999-3 #### [facility] CLIA [id number] [address] [place] [address] [place] Basophils/100 WBC (Bld) 0.5 % Normal [facility] Comment on above: Order Comment: Speci men Type: BLOOD SPECIMEN Ordering Facility: [facility] Address: [address] [place] [address] Performed By: #### 3 1201-7, 5195-3, 15157-9 #### [facility] CLIA [id number] [address] [place] [address] [place] Differential cell count method Nom (Bld) Auto Normal [facility] Comment on above: Order Comment: Speci men Type: BLOOD SPECIMEN Ordering Facility: [facility] Address: [address] [place] [address] Performed By: #### 3 1201-7, 5195-3, 74618-9 #### [facility] CLIA [id number] [address] [place] [address] [place] Eosinophils (Bld) [#/Vol] 0.16 10*3/uL Normal <0.46 [facility] Comment on above: Order Comment: Speci men Type: BLOOD SPECIMEN Ordering Facility: [facility] Address: [address] [place] [address] Performed By: #### 3 1201-7, 5195-3, 09065-3 #### [facility] CLIA [id number] [address] [place] [address] [place] Eosinophils/100 WBC (Bld) 1.3 % Normal [facility] Comment on above: Order Comment: Speci men Type: BLOOD SPECIMEN Ordering Facility: [facility] Address: [address] [place] [address] Performed By: #### 3 1201-7, 5195-3, 63115-9 #### [facility] CLIA [id number] [address] [place] [address] [place] Erythrocyte distribution width (RBC) [Ratio] 13.4 % Normal 11.5-15.0 [facility] Comment on above: Order Comment: Speci men Type: BLOOD SPECIMEN Ordering Facility: [facility] Address: [address] [place] [address] Performed By: #### 3 1201-7, 5195-3, 83576-4 #### [facility] CLIA [id number] [address] [place] [address] [place] Hematocrit (Bld) [Volume fraction] 37.8 % Normal 36.0-46.0 [facility] Comment on above: Order Comment: Speci men Type: BLOOD SPECIMEN Ordering Facility: [facility] Address: [address] [place] [address] Performed By: #### 3 1201-7, 5195-3, 04093-7 #### [facility] CLIA [id number] [address] [place] [address] [place] Hemoglobin (Bld) [Mass/Vol] 12.8 g/dL Normal 11.5-15.5 [facility] Comment on above: Order Comment: Speci men Type: BLOOD SPECIMEN Ordering Facility: [facility] Address: [address] [place] [address] Performed By: #### 3 1201-7, 5195-3, 81993-3 #### [facility] CLIA [id number] [address] [id number] [address] [place] Immature granulocytes (Bld) [#/Vol] 0.16 10*3/uL High <0.10 [facility] Comment on above: Order Comment: Speci men Type: BLOOD SPECIMEN Ordering Facility: [facility] Address: [address] [place] [address] Performed By: #### 3 1201-7, 5195-3, 12856-8 #### [facility] CLIA [id number] [address] [place] [address] [place] Immature granulocytes/100 WBC (Bld) 1.3 % Normal [facility] Comment on above: Order Comment: Speci men Type: BLOOD SPECIMEN Ordering Facility: [facility] Address: [address] [place] [address] Performed By: #### 3 1201-7, 5195-3, 51892-0 #### [facility] CLIA [id number] [address] [place] [address] [place] Lymphocytes (Bld) [#/Vol] 2.34 10*3/uL Normal 1.00-4.00 [facility] Comment on above: Order Comment: Speci men Type: BLOOD SPECIMEN Ordering Facility: [facility] Address: [address] [place] [address] Performed By: #### 3 1201-7, 5195-3, 06004-5 #### [facility] CLIA [id number] [address] [place] [address] [place] Lymphocytes/100 WBC (Bld) 18.8 % Normal [facility] Comment on above: Order Comment: Speci men Type: BLOOD SPECIMEN Ordering Facility: [facility] Address: [address] [place] [address] Performed By: #### 3 1201-7, 5195-3, 94411-0 #### [facility] CLIA [id number] [address] [place] [address] [place] MCH (RBC) [Entitic mass] 29.2 pg Normal 26.0-34.0 [facility] Comment on above: Order Comment: Speci men Type: BLOOD SPECIMEN Ordering Facility: [facility] Address: [address] [place] [address] Performed By: #### 3 1201-7, 5195-3, 71210-8 #### [facility] CLIA [id number] [address] [place] [address] [place] MCHC (RBC) [Mass/Vol] 33.9 g/dL Normal 30.5-36.0 [facility] Comment on above: Order Comment: Speci men Type: BLOOD SPECIMEN Ordering Facility: [facility] Address: [address] [place] [address] Performed By: #### 3 1201-7, 5195-3, 00670-6 #### [facility] CLIA [id number] [address] [place] [address] [place] MCV (RBC) [Entitic vol] 86.3 fL Normal 80.0-100.0 [facility] Comment on above: Order Comment: Speci men Type: BLOOD SPECIMEN Ordering Facility: [facility] Address: [address] [place] [address] Performed By: #### 3 1201-7, 5195-3, 60167-9 #### [facility] CLIA [id number] [address] [place] [address] [place] Monocytes (Bld) [#/Vol] 0.52 10*3/uL Normal <0.87 [facility] Comment on above: Order Comment: Speci men Type: BLOOD SPECIMEN Ordering Facility: [facility] Address: [address] [place] [address] Performed By: #### 3 1201-7, 5195-3, 22881-2 #### [facility] CLIA [id number] [address] [place] [address] [place] Monocytes/100 WBC (Bld) 4.2 % Normal [facility] Comment on above: Order Comment: Speci men Type: BLOOD SPECIMEN Ordering Facility: [facility] Address: [address] [place] [address] Performed By: #### 3 1201-7, 5195-3, 73627-1 #### [facility] CLIA [id number] [address] [place] [address] [place] Neutrophils (Bld) [#/Vol] 9.24 10*3/uL High 1.45-7.50 [facility] Comment on above: Order Comment: Speci men Type: BLOOD SPECIMEN Ordering Facility: [facility] Address: [address] [place] [address] Performed By: #### 3 1201-7, 5195-3, 86173-7 #### [facility] CLIA [id number] [address] [place] [address] [place] Neutrophils/100 WBC (Bld) 73.9 % Normal [facility] Comment on above: Order Comment: Speci men Type: BLOOD SPECIMEN Ordering Facility: [facility] Address: [address] [place] [address] Performed By: #### 3 1201-7, 5195-3, 80086-9 #### [facility] CLIA [id number] [address] [place] [address] [place] Nucleated RBC (Bld) [#/Vol] 10*3/uL Normal <0.01 [facility] Comment on above: Order Comment: Speci men Type: BLOOD SPECIMEN Ordering Facility: [facility] Address: [address] [place] [address] Performed By: #### 3 1201-7, 5195-3, 96555-0 #### [facility] CLIA [id number] [address] [place] [address] [place] Nucleated RBC/100 WBC (Bld) [Ratio] 0.0 /100 WBC Normal [facility] Comment on above: Order Comment: Speci men Type: BLOOD SPECIMEN Ordering Facility: [facility] Address: [address] [place] [address] Performed By: #### 3 1201-7, 5195-3, 11340-9 #### [facility] CLIA [id number] [address] [place] [address] [place] Platelet mean volume (Bld) [Entitic vol] 8.8 fL Low 9.0-12.7 [facility] Comment on above: Order Comment: Speci men Type: BLOOD SPECIMEN Ordering Facility: [facility] Address: [address] [place] [address] Performed By: #### 3 1201-7, 5195-3, 29560-2 #### [facility] CLIA [id number] [address] [place] [address] [place] Platelets (Bld) [#/Vol] 293 10*3/uL Normal 150-400 [facility] Comment on above: Order Comment: Speci men Type: BLOOD SPECIMEN Ordering Facility: [facility] Address: [address] [place] [address] Performed By: #### 3 1201-7, 5195-3, 92317-3 #### [facility] CLIA [id number] [address] [place] [address] [place] RBC (Bld) [#/Vol] 4.38 10*6/uL Normal 3.90-5.20 [facility] Comment on above: Order Comment: Speci men Type: BLOOD SPECIMEN Ordering Facility: [facility] Address: [address] [place] [address] Performed By: #### 3 1201-7, 5195-3, 64790-3 #### [facility] CLIA [id number] [address] [place] [address] [place] WBC (Bld) [#/Vol] 12.48 10*3/uL High 3.70-11.00 [facility] Comment on above: Order Comment: Speci men Type: BLOOD SPECIMEN Ordering Facility: [facility] Address: [address] [place] [address] Performed By: #### 3 1201-7, 5195-3, 87248-6 #### [facility] CLIA [id number] [address] [place] [address] [place] GESTATIONAL GLUCOSE SCREEN, 1-HOUR, 50 GRAM, NON-FASTINGon 11-02-2024 Glucose [Mass/Vol] 126 mg/dL Normal 74-134 [facility] Comment on above: Order Comment: Speci men Type: BLOOD SPECIMEN Ordering Facility: [facility] Address: [address] [place] [address] Result Comment: [facility] Congress of Obstetricians and Gynecologists (Marilia/Rashida) guidelines state a gestational diabetes mellitus positive screen is made, in women not previously diagnosed with overt diabetes, when the 1 hr plasma glucose level is equal to or above 140 mg/dL. The [facility] [employer] [facility] [place] recommends a 135 mg/dL cutoff. Performed By: #### 3 1201-7, 5195-3, 38772-9 #### [facility] CLIA [id number] [address] [place] [address] [place] [id number] PLUSon 11-02-2024 Cell-free DNA./Cell-free DNA.total Dosage of chromosome-specific cfDNA (cfDNA) [Molar fraction] 22% Normal [facility] Comment on above: Order Comment: Speci men Type: BLOOD SPECIMEN Ordering Facility: [facility] Address: [address] [place] [address] Performed By: #### 3 1201-7, 5195-3, 08425-2 #### [facility] CLIA [id number] [address] [place] [address] [place] Chr 13+18+21+X+Y aneuploidy Dosage of chromosome-specific cfDNA Ql (cfDNA) See below: Abnormal [facility] Comment on above: Order Comment: Speci men Type: BLOOD SPECIMEN Ordering Facility: [facility] Address: [address] [place] [address] Result Comment: Luis Manuel tional Finding Detected XXY Performed By: #### 3 1201-7, 5195-3, 87084-7 #### [facility] CLIA [id number] [address] [place] [address] [place] Chr 21 trisomy Dosage of chromosome-specific cfDNA Ql (cfDNA) Negative Normal [facility] Comment on above: Order Comment: Speci men Type: BLOOD SPECIMEN Ordering Facility: [facility] Address: [address] [place] [address] Performed By: #### 3 1201-7, 5195-3, 10521-4 #### [facility] CLIA [id number] [address] [place] [address] [place] Chr X and Y aneuploidy risk Sequencing Ql (cfDNA) [Interp] Not detected Normal [facility] Comment on above: Order Comment: Speci men Type: BLOOD SPECIMEN Ordering Facility: [facility] Address: [address] [place] [address] Result Comment: Dete cted Not Detected Performed By: #### 3 1201-7, 5195-3, 45690-2 #### [facility] CLIA [id number] [address] [place] [address] [place] Citation José (Reference lab test) Comment Normal [facility] Comment on above: Order Comment: Speci men Type: BLOOD SPECIMEN Ordering Facility: [facility] Address: [address] [place] [address] Result Comment: 1. P ellen OROURKE, et al. Carie Med. 2012;14(3):296-305. 2. Lester GANT et al. Prenat Diag. 2013;33(6):591-597. 3. Weston Ladd et al. Clin Chem. 2015 Apr;61(4):608-616. 4. Sunday OROURKE, et al. Carie Med. 2011;13(11):913-920. 5. ACOG/SMFM Practice Bulletin No. 226, Jul 2020. Performed By: #### 3 1201-7, 5-3, 56917-6 #### [facility] CLIA [id number] [address] [place] [address] [place] Gestational age Estimated from conception date Banegas Normal [facility] Comment on above: Order Comment: Speci men Type: BLOOD SPECIMEN Ordering Facility: [facility] Address: [address] [place] [address] Performed By: #### 3 1201-7, 5-3, 62323-4 #### [facility] CLIA [id number] [address] [place] [address] [place] GESTATIONALAGE AGE > OR = 9W Yes Normal [facility] Comment on above: Order Comment: Speci men Type: BLOOD SPECIMEN Ordering Facility: [facility] Address: [address] [place] [address] Performed By: #### 3 1201-7, 5-3, 86567-2 #### [facility] CLIA [id number] [address] [place] [address] [place] Laboratory comment José (Report) Comment Normal [facility] Comment on above: Order Comment: Speci men Type: BLOOD SPECIMEN Ordering Facility: [facility] Address: [address] [place] [address] Result Comment: The MaterniT(R) 21 PLUS laboratory-developed test (LDT) analyzes circulating cell-free DNA from a maternal blood sample. This test is used for screening purposes and not diagnostic. Clinical correlation is recommended. Validation data on twin pregnancies is limited and the ability of this test to detect aneuploidy in higher multiple gestations has not yet been validated. 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 Genetic counseling, diagnostic confirmatory testing, and clinical correlation are recommended. Comment Alicia Guzman MD, Director, [employer] Performed By: #### 3 1201-7, 5195-3, 96099-7 #### [facility] CLIA [id number] [address] [place] [address] OF [facility] LIMITATIONS OF THE TEST Comment Normal [facility] Comment on above: Order Comment: Kwan rajan Type: BLOOD SPECIMEN Ordering Facility: [facility] Address: [address] [place] [address] Result Comment: Whnicholas zheng the results of these tests are highly reliable, discordant results, including inaccurate sex prediction, may occur due to placental, maternal, or mosaicism or neoplasm; vanishing twin; prior maternal organ transplant; or other causes. These tests are screening tests and not diagnostic; they do not replace the accuracy and precision of diagnosis with CVS or amniocentesis. A patient with a positive test result should be referred for genetic counseling and offered invasive diagnosis for confirmation of test results.[5] The results of this testing, including the benefits and limitations, should be discussed with a qualified healthcare provider. management decisions, including termination of the , should not be based on the results of these tests alone. The healthcare provider is responsible for the use of this information in the management of their patient. Sex chromosomal aneuploidies are not reportable for known multiple gestations. A negative result does not ensure an unaffected nor does it exclude the possibility of other chromosomal abnormalities or defects which are not a part of these tests. An uninformative result may be reported, the causes of which may include, but are not limited to, insufficient sequencing coverage, noise or artifacts in the region, amplification or sequencing bias, or insufficient fraction. These tests are not intended to identify pregnancies at risk for neural tube defects or ventral wall defects. Testing for whole chromosome abnormalities (including sex chromosomes) and for subchromosomal abnormalities could lead to the potential discovery of both and maternal genomic abnormalities that could have major, minor, or no, clinical significance. Evaluating the significance of a positive or a non-reportable result may involve both invasive testing and additional studies on the mother. Such investigations may lead to a diagnosis of maternal chromosomal or subchromosomal abnormalities, which on occasion may be associated with benign or malignant maternal neoplasms. These tests may not accurately identify triploidy, balanced rearrangements, or the precise location of subchromosomal duplications or deletions; these may be detected by diagnosis with CVS or amniocentesis. The ability to report results may be impacted by maternal BMI, maternal weight, maternal systemic lupus erythematosus (SLE) and/or by certain pharmaceutical agents such as low molecular weight heparin (for example: Lovenox(R), Xaparin(R), Clexane(R) and Fragmin(R)). Performed By: #### 3 1201-7, 5195-3, 14438-7 #### [facility] CLIA [id number] [address] [place] [address] [place] Monosomy X risk Dosage of chromosome-specific cfDNA Ql (Plasma cell-free+WBC DNA) [Interp] Not detected Normal [facility] Comment on above: Order Comment: Speci men Type: BLOOD SPECIMEN Ordering Facility: [facility] Address: [address] [place] [address] Performed By: #### 3 1201-7, 5195-3, 19812-8 #### [facility] CLIA [id number] [address] [place] [address] [place] NEGATIVE PREDICTIVE VALUE Note Normal [facility] Comment on above: Order Comment: Speci men Type: BLOOD SPECIMEN Ordering Facility: [facility] Address: [address] [place] [address] Result Comment: The Negative Predictive Value (NPV) for trisomy 21, 18, and 13 is greater than 99%. The NPV for SCA and ESS cannot be calculated as SCA and ESS are only reported when an abnormality is detected. Performed By: #### 3 1201-7, 5195-3, 45715-9 #### [facility] CLIA [id number] [address] [place] [address] NOTE Comment Normal [facility] Comment on above: Order Comment: Kwan rajan Type: BLOOD SPECIMEN Ordering Facility: [facility] Address: [address] [place] [address] Result Comment: See Notes [employer] is a subsidiary of [employer] using the brand [employer]. This test was developed and its performance characteristics determined by [employer]. It has not been cleared or approved by the Food and Drug Administration. This laboratory is certified under the Clinical Laboratory Improvement Amendments (CLIA) as qualified to perform high complexity clinical laboratory testing and accredited by the [employer] (CAP). Performed By: #### 3 1201-7, 5195-3, 90831-9 #### [facility] CLIA [id number] [address] [place] [address] PERFORMANCE CHARACTERISTICS Note Normal [facility] Comment on above: Order Comment: Kwan rajan Type: BLOOD SPECIMEN Ordering Facility: [facility] Address: [address] [place] [address] [place] [address] Result Comment: ! Sex ! Accuracy: 99.4% ! ! ! ! Region (associated syndrome) ! Est. Sens# ! Est. Spec ! ! ! ! Trisomy 21 (Down Syndrome) ! 99.1% ! 99.9% ! ! ! ! Trisomy 18 (Kline Syndrome) ! >99.9% ! 99.6% ! ! ! ! Trisomy 13 (Patau Syndrome) ! 91.7% ! 99.7% ! ! ! ! Sex Chromosome Aneuploidies## ! 96.2% ! 99.7% ! ! ! * As reported in [facility] database nstd37 [https://www.ncbi.nlm.nih.gov/dbvar/studies/nstd37/ ] # Estimated Sensitivity. Sensitivity estimated across the observed size distribution of each syndrome [per ISC[employer] database nstd37] and across the range of fractions observed in routine clinical NIPT. Actual sensitivity can also be influenced by other factors such as the size of the event, total sequence counts, amplification bias, or sequence bias. ## Banegas gestation only. Performed By: #### 3 1201-7, 5195-3, 48186-6 #### [facility] CLIA [id number] [address] [place] [address] [place] POSITIVE PREDICTIVE VALUE N/A Normal [facility] Comment on above: Order Comment: Speci men Type: BLOOD SPECIMEN Ordering Facility: [facility] Address: [address] [place] [address] Performed By: #### 3 1201-7, 5195-3, 78566-6 #### [facility] CLIA [id number] [address] [place] [address] [place] Reference Lab Test Method Comment Normal [facility] Comment on above: Order Comment: Speci men Type: BLOOD SPECIMEN Ordering Facility: [facility] Address: [address] [place] [address] Result Comment: See Notes Circulating cell-free DNA was purified from the plasma component of maternal blood. The extracted DNA was then converted into a genomic DNA library for aneuploidy analysis of chromosomes 21, 18, and 13 via next generation sequencing.[1] Optional findings based on the test order include sex chromosome aneuploidy (SCA)[2], and enhanced sequencing series (ESS)[3], which will only be reported on as an additional finding when an abnormality is detected. SCA testing includes information on X and Y representation, while ESS testing includes deletions in selected regions (22q, 15q, 11q, 8q, 5p, 4p, 1p) and trisomy of chromosomes 16 and 22. Performed By: #### 3 1201-7, 5195-3, 87147-9 #### [facility] CLIA [id number] [address] [place] [address] [place] Sex Dosage of chromosome-specific cfDNA Nom (cfDNA) Comment Normal [facility] Comment on above: Order Comment: Speci men Type: BLOOD SPECIMEN Ordering Facility: [facility] Address: [address] [place] [address] Result Comment: Cons istent with Male Performed By: #### 3 1201-7, 5195-3, 79872-9 #### [facility] CLIA [id number] [address] [place] [address] [place] Test performance information José (Unsp spec) Comment Normal [facility] Comment on above: Order Comment: Speci men Type: BLOOD SPECIMEN Ordering Facility: [facility] Address: [address] [place] [address] Result Comment: The performance characteristics of the MaterniT(R) 21 PLUS laboratory-developed test (LDT) have been determined in a clinical validation study with women at increased risk for chromosomal aneuploidy.[1-4] Performed By: #### 3 1201-7, 5195-3, 06259-0 #### [facility] CLIA [id number] [address] [place] [address] [place] Trisomy 13 risk Dosage of chromosome-specific cfDNA Ql (cfDNA) [Interp] Negative Normal [facility] Comment on above: Order Comment: Speci men Type: BLOOD SPECIMEN Ordering Facility: [facility] Address: [address] [place] [address] Performed By: #### 3 1201-7, 5195-3, 59855-0 #### [facility] CLIA [id number] [address] [place] [address] [place] Trisomy 18 risk Dosage of chromosome-specific cfDNA Ql (Plasma cell-free+WBC DNA) [Interp] Negative Normal [facility] Comment on above: Order Comment: Speci satinder Type: BLOOD SPECIMEN Ordering Facility: [facility] Address: [address] [place] [address] Performed By: #### 3 1201-7, 5195-3, 22553-9 #### [facility] CLIA [id number] [address] [place] [address] [place] Reagin and Treponema pallidu m IgG and IgM [Interp]on 11-02-2024 T. pallidum IgG+IgM IA Ql (S) Non-Reactive Normal Nonreactive [facility] Comment on above: Order Comment: Speci men Type: BLOOD SPECIMENOrdering Facility: [facility] Address: [address] [place] [address] Performed By: #### 7 3752-8 ####[facility] [id number] [place] [address] [place] Reagin+T pallidum IgG+IgM Se rPl-Impon 11-02-2024 Reagin and Treponema pallidum IgG and IgM [Interp] Cannot exclude recent Treponemal infection if specimen collected within 7-10 days after appearance of suspect lesions or 2-3 weeks after an exposure. Clinical correlation is required. Normal [facility] Comment on above: Order Comment: Speci men Type: BLOOD SPECIMENOrdering Facility: [facility] Address: [address] [place] [address] Performed By: #### 7 3752-8 ####[facility] [id number] [facility] [id number] [id number] [place] Examination level ultrasound on 10-05-2024 [facility] Radiology Study observation (narrative) [facility] [place] 09-10-2024 CNPN Telephone (OBGYWM) NAVYA MCNULTY ([id number]) 1995 F Date Time Provider Department 09/10/24 SARAH HINTON OBMATHEW During your visit today, we recorded the following information about you: Anabel Diaz RN 09/10/2024 10:11 AM Signed Patient 21w2d calling with concerns in regards to her recent anatomy scan results. Patient was told there was an additional lobe on her placenta. She is to see [facility] and repeat her ultrasound in 2-4 weeks. Patient is tearful on the phone and wants to know what causes this and what it could mean for her . MARTHA Carnes Sara, MD 09/10/2024 11:07 AM Signed Unlikely to cause any complication during . Important to know for delivery purposes so we can ensure all placental tissue out of uterus after delivery Karin Flanagan RN 09/10/2024 11:38 AM Signed Patient notified. Karin Flanagan RN Allergies As of Date: 09/10/2024 Noted Allergy Reaction EGG 06/01/2019 4 - Hives 7 - Swelling Comments: Raw eggs only POLLEN 10/31/2008 WELLBUTRIN (BUPROPION HCL) 06/28/2019 5 - Intolerance Date Reviewed: 09/07/2024 Reviewed by: Echo Rivera LPN - Fully Assessed Reason for Visit: Patient Question [1477] Prescriptions as of 09/10/2024 - aspirin, enteric coated (ECOTRIN LOW STRENGTH) 81 mg EC tablet Take 1 tablet by mouth once daily. - VITAFUSION GUMMY TChS Take 1 Piece by mouth once daily. - lamoTRIgine (LAMICTAL) 25 mg tablet Take 300 mg by mouth once daily. - diphenhydrAMINE (UNISOM SLEEPGELS) 50 mg capsule Take 50 mg by mouth daily at bedtime. - ondansetron orally disintegrating (ZOFRAN ODT) 4 mg disintegrating tablet Take 1 tablet by mouth every 8 hours as needed for nausea/vomiting. - LACTASE (LACTAID ORAL) Take by mouth w MEALS. Meds Comments as of 06/13/2013: pt not taking her medication how she is supposed to Problem List As Of Date 09/10/2024 Noted Resolved Cellulitis and abscess of toe, unspecified [L03*06/01/2010 05/19/2019 Smoker [F17.200] 12/22/2011 06/27/2024 Anxiety and depression [F41.9, F32.A] 12/22/2011 Asthma [J45.909] 12/22/2011 05/19/2019 Oligomenorrhea [N91.5] 03/23/2012 03/01/2019 Hyperprolactinemia (HCC) [E22.1] 03/23/2012 05/19/2019 PROM with onset of labor within 24 hour*05/04/2014 03/01/2019 Active labor [RVD8640] 05/04/2014 03/01/2019 Anxiety [F41.9] 05/23/2017 05/19/2019 History of methicillin resistant Staphylococcus*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] 01/17/2018 Trichomoniasis [A59.9] 03/06/2019 05/19/2019 Cellulitis of right knee [L03.115] 05/18/2019 05/19/2019 Oral thrush [B37.0] 05/18/2019 05/19/2019 Hyponatremia [E87.1] 05/18/2019 05/19/2019 Obesity, Class I, BMI 30-34.9 [E66.811] 05/28/2019 Mild intermittent asthma without complication [*06/18/2019 History of abuse of recreational drug (HCC) [F1*06/18/2019 Post-operative state [Z98.890] 09/13/2019 06/27/2024 BMI 33.0-33.9,adult [Z68.33] 12/04/2021 06/27/2024 Supervision of other high risk pregnancies, fir*06/27/2024 Date of last menstrual period (LMP) unknown [Z7*06/27/2024 Vaping nicotine dependence, tobacco product [F1*06/27/2024 Bipolar 2 disorder (HCC) [F31.81] 06/27/2024 Nausea and vomiting during [O21.9] 06/27/2024 Encounter Status:Closed by KARIN FLANAGAN on 09/10/24 Normal [facility] Examination level ultrasound on 09-07-2024 Indication Standard anatomic survey Impression REMOTE READ The patient is referred for a standard anatomic survey. - Single, live, intrauterine . - biometry is consistent with the established gestational age. - No malformations were visualized on a complete standard anatomic survey. - The amniotic fluid volume is normal amount. - The placenta is posterior, fundal. The placenta appears to have accessory lobe. - The Transabdominal cervical length measures 34.1 mm with no evidence of funneling or other dynamic changes. - Not all structural malformations can be detected by ultrasound examination. Recommendations Return in 2-4 weeks for transvaginal ultrasound due to accessory placental lobe Maternal Assessment Height 157 cm Height (ft) 5 ft Height (in) 2 in Physical Exam Initial weight (lb) 176 lb Initial BMI 32.19 kg/m Maternal assessment other: 2 Para 1 Method Transabdominal ultrasound examination. View: Adequate visualization Banegas . Number of fetuses: 1 Dating LMP on: 05/07/2024 GA by LMP 17 w + 4 d SASCHA by LMP: 02/11/2025 GA by prior assessment 20 w + 6 d SASCHA by prior assessment: 01/19/2025 Ultrasound examination on: 09/07/2024 GA by U/S based upon: AC, BPD, Femur, HC GA by U/S 20 w + 3 d SASCHA by U/S: 01/22/2025 Assigned: based on stated SASCHA, selected on 07/11/2024 Assigned GA 20 w + 6 d Assigned SASCHA: 01/19/2025 General Evaluation Cardiac activity present. FHR 145 bpm. movements: present. Presentation: breech Placenta: Placental site: posterior, fundal. Accessory lobe, anterior fundal Umbilical cord: Cord vessels: 3 vessel cord Amniotic fluid: Amount of AF: normal amount. MVP 5.2 cm Growth Overview Exam date GA BPD (mm) HC (mm) AC (mm) FL (mm) HL (mm) EFW (g) 09/07/2024 20w 6d 43.5 3% 174.8 25% 170.6 80% 32.5 36% 32 41% 392 52% Biometry Standard BPD 43.5 mm 19w 1d 3% Hadlock OFD 65.1 mm 20w 4d 64% Nicolaides HC 174.8 mm 20w 0d 25% Lopez Cerebellum tr 21.1 mm 20w 0d 34% Hill Nuchal fold 4.6 mm AC 170.6 mm 22w 0d 80% Hadlock Femur 32.5 mm 20w 2d 36% Lopez Humerus 32.0 mm 20w 5d 41% Lopez EFW 392 g 20w 6d 52% Hadlock EFW (lb) 0 lb EFW (oz) 14 oz EFW by: Hadlock (HC-AC-FL) Extended [place] 5.5 mm CM 4.5 mm 26% Nicolaides Extremities / Bony Struc FL / HC 0.19 45% Hadlock Other Structures FHR 145 bpm Anatomy Cranium: normal Lateral ventricles: normal Choroid plexus: normal Midline falx: normal Cavum septi pellucidi: normal Cerebellum: normal Cisterna magna: normal Head / Neck Vermis: Normal but not required for a standard anatomy exam Neck: Normal but not required for a standard anatomy exam Nuchal fold: Normal but not required for a standard anatomy exam Lips: normal Profile: Normal but not required for a standard anatomy exam Nose: Normal but not required for a standard anatomy exam Face Maxilla: Normal but not required for a standard anatomy exam Mandible: Normal but not required for a standard anatomy exam Orbits: Normal but not required for a standard anatomy exam Lens: Normal but not required for a standard anatomy exam 4-chamber view: normal RVOT view: normal LVOT view: normal 3-vessel view: normal 6-bfuqrc-wwgoriw view: normal Heart / Thorax Situs: situs solitus (normal) Aortic arch view: Normal but not required for a standard anatomy exam SVC: Normal but not required for a standard anatomy exam IVC: Normal but not required for a standard anatomy exam Cardiac axis: normal Rt lung: Normal but not required for a standard anatomy exam Lt lung: Normal but not required for a standard anatomy exam Diaphragm: Normal but not required for a standard anatomy exam Cord insertion: normal Stomach: normal Kidneys: normal Bladder: normal Genitals: normal Abdomen Abdom. wall: normal Cervical spine: normal Thoracic spine: normal Lumbar spine: normal Sacral spine: normal Arms: normal Legs: normal Rt upper arm: normal Rt forearm: normal Rt hand: normal Rt fingers: normal Lt upper arm: normal Lt forearm: normal Lt hand: normal Lt fingers: normal Rt upper leg: normal Rt lower leg: normal Rt foot: normal Lt upper leg: normal Lt lower leg: normal Lt foot: normal Gender: Unspecified Wants to know sex: no Maternal Structures Uterus / Cervix Uterus: Visualized Cervix: Visualized Approach: Transabdominal Cervical length 34.1 mm Other: Patient declined transvaginal ultrasound for cervical length. Ovaries / Tubes / Adnexa Rt ovary: Not visualized Lt ovary: Visualized Performed By: Anabel Frazier RDMS, RVT Read By: Marilyn Randall M.D. MATERNAL MEDICINE [facility] Radiology Study observation (narrative) [facility] [place] [facility] NAVYA MCNULTY ([id number]) 1995 F Date Time Provider Department 09/06/24 RANI PARKINSON During your visit today, we recorded the following information about you: Highman, Rani, RN 09/06/2024 4:43 PM Signed Patient is scheduled for anatomy ultrasound on Tuesday. Please file order. Thank you. 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 - VITAFUSION GUMMY TChS Take 1 Piece by mouth once daily. - lamoTRIgine (LAMICTAL) 25 mg tablet Take 300 mg by mouth once daily. - diphenhydrAMINE (UNISOM SLEEPGELS) 50 mg capsule Take 50 mg by mouth daily at bedtime. - ondansetron orally disintegrating (ZOFRAN ODT) 4 mg disintegrating tablet Take 1 tablet by mouth every 8 hours as needed for nausea/vomiting. - LACTASE (LACTAID ORAL) Take by mouth w MEALS. Meds Comments as of 06/13/2013: pt not taking her medication how she is supposed to Problem List As Of Date 09/06/2024 Noted Resolved Cellulitis and abscess of toe, unspecified [L03*06/01/2010 05/19/2019 Smoker [F17.200] 12/22/2011 06/27/2024 Anxiety and depression [F41.9, F32.A] 12/22/2011 Asthma [J45.909] 12/22/2011 05/19/2019 Oligomenorrhea [N91.5] 03/23/2012 03/01/2019 Hyperprolactinemia (HCC) [E22.1] 03/23/2012 05/19/2019 PROM with onset of labor within 24 hour*05/04/2014 03/01/2019 Active labor [MIJ0811] 05/04/2014 03/01/2019 Anxiety [F41.9] 05/23/2017 05/19/2019 History of methicillin resistant Staphylococcus*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] 01/17/2018 Trichomoniasis [A59.9] 03/06/2019 05/19/2019 Cellulitis of right knee [L03.115] 05/18/2019 05/19/2019 Oral thrush [B37.0] 05/18/2019 05/19/2019 Hyponatremia [E87.1] 05/18/2019 05/19/2019 Obesity, Class I, BMI 30-34.9 [E66.811] 05/28/2019 Mild intermittent asthma without complication [*06/18/2019 History of abuse of recreational drug (HCC) [F1*06/18/2019 Post-operative state [Z98.890] 09/13/2019 06/27/2024 BMI 33.0-33.9,adult [Z68.33] 12/04/2021 06/27/2024 Supervision of other high risk pregnancies, fir*06/27/2024 Date of last menstrual period (LMP) unknown [Z7*06/27/2024 Vaping nicotine dependence, tobacco product [F1*06/27/2024 Bipolar 2 disorder (HCC) [F31.81] 06/27/2024 Nausea and vomiting during [O21.9] 06/27/2024 Encounter Status:Closed by RANI PARKINSON on 09/07/24 [facility] [place] 08-20-2024 [facility] Telephone ([facility]) NAVYA MCNULTY ([id number]) 1995 F Date Time Provider Department 08/20/24 AZAEL LOPEZ [facility] During your visit today, we recorded the following information about you: Azael Lopez, [facility] 08/20/2024 11:53 AM Signed Called Navya Mcnulty and left VM that her cfDNA screen ('[id number]') is NONREPORTABLE' due to technical issues. Per lab, they are unable to confidently evaluate the cfDNA sex chromosomes and request a new sample. New order placed. Encouraged Ms. Mcnulty to call back with questions, concerns, etc. Let her know to go to any [facility] lab for repeat blood draw. SIERRA Davison Allergies As of Date: 08/20/2024 Noted Allergy Reaction EGG 06/01/2019 4 - Hives 7 - Swelling Comments: Raw eggs only POLLEN 10/31/2008 WELLBUTRIN (BUPROPION HCL) 06/28/2019 5 - Intolerance Date Reviewed: 08/10/2024 Reviewed by: Rani Parkinson MD - Fully Assessed Reason for Visit: NIPT: Nonreportable [Other] Primary Visit Diagnosis:Encounter for supervision of normal first in second trimester [Z34.02] Order(s):[id number] PLUS [SQMAT21] Order #: [id number] FUTURE Prescriptions as of 08/20/2024 - aspirin, enteric coated (ECOTRIN LOW STRENGTH) 81 mg EC tablet Take 1 tablet by mouth once daily. - VITAFUSION GUMMY TChS Take 1 Piece by mouth once daily. - lamoTRIgine (LAMICTAL) 25 mg tablet Take 200 mg by mouth once daily. - diphenhydrAMINE (UNISOM SLEEPGELS) 50 mg capsule Take 50 mg by mouth daily at bedtime. - ondansetron orally disintegrating (ZOFRAN ODT) 4 mg disintegrating tablet Take 1 tablet by mouth every 8 hours as needed for nausea/vomiting. - LACTASE (LACTAID ORAL) Take by mouth w MEALS. 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] 01/17/2018 Trichomoniasis [A59.9] 03/06/2019 05/19/2019 Cellulitis of right knee [L03.115] 05/18/2019 05/19/2019 Oral thrush [B37.0] 05/18/2019 05/19/2019 Hyponatremia [E87.1] 05/18/2019 05/19/2019 Obesity, Class I, BMI 30-34.9 [E66.811] 05/28/2019 Mild intermittent asthma without complication [*06/18/2019 History of abuse of recreational drug (HCC) [F1*06/18/2019 Post-operative state [Z98.890] 09/13/2019 06/27/2024 BMI 33.0-33.9,adult [Z68.33] 12/04/2021 06/27/2024 Supervision of other high risk pregnancies, fir*06/27/2024 Date of last menstrual period (LMP) unknown [Z7*06/27/2024 Vaping nicotine dependence, tobacco product [F1*06/27/2024 Bipolar 2 disorder (HCC) [F31.81] 06/27/2024 Nausea and vomiting during [O21.9] 06/27/2024 Encounter Status:Closed by AZAEL LOPEZ on 08/20/24 Normal [facility] CBC Pnl Bld Autoon Hemoglobin (Bld) [Mass/Vol] 12.5 g/dL Normal 11.5-15.5 [facility] Comment on above: Order Comment: Speci men Type: BLOOD SPECIMEN Ordering Facility: [facility] Address: [address] [place] [address] Performed By: #### 5 8410-2 #### [facility] CLIA [id number] [address] [place] [address] OF DEE DEE Performed By: #### 3 1201-7, 5195-3, 79751-3 #### [facility] CLIA [id number] [address] [place] [address] [place] CBC panel Auto (Bld)on 08-10 Erythrocyte distribution width (RBC) [Ratio] 13.5 % Normal 11.5-15.0 [facility] Comment on above: Order Comment: Speci men Type: BLOOD SPECIMEN Ordering Facility: [facility] Address: [address] [place] [address] Performed By: #### 5 8410-2 #### [facility] CLIA [id number] [address] [place] [address] [place] Hematocrit (Bld) [Volume fraction] 38.3 % Normal 36.0-46.0 [facility] Comment on above: Order Comment: Speci men Type: BLOOD SPECIMEN Ordering Facility: [facility] Address: [address] [place] [address] Performed By: #### 5 8410-2 #### [facility] CLIA [id number] [address] [place] [address] [place] MCH (RBC) [Entitic mass] 28.0 pg Normal 26.0-34.0 [facility] Comment on above: Order Comment: Speci men Type: BLOOD SPECIMEN Ordering Facility: [facility] Address: [facility] [place], [place] [address] Performed By: #### 5 8410-2 #### [facility] CLIA [id number] [address] [place] [address] [place] D[place] DEE MCHC (RBC) [Mass/Vol] 32.6 g/dL Normal 30.5-36.0 [facility] Comment on above: Order Comment: Speci men Type: BLOOD SPECIMEN Ordering Facility: [facility] Address: [address] [place] [address] Performed By: #### 5 8410-2 #### [facility] CLIA [id number] [address] [place] [address] [place] MCV (RBC) [Entitic vol] 85.9 fL Normal 80.0-100.0 [facility] Comment on above: Order Comment: Speci men Type: BLOOD SPECIMEN Ordering Facility: [facility] Address: [address] [place] [address] Performed By: #### 5 8410-2 #### [facility] CLIA [id number] [address] [place] [address] [place] Nucleated RBC (Bld) [#/Vol] 10*3/uL Normal <0.01 [facility] Comment on above: Order Comment: Speci men Type: BLOOD SPECIMEN Ordering Facility: [facility] Address: [address] [place] [address] Performed By: #### 5 8410-2 #### [facility] CLIA [id number] [address] [place] [address] [place] Platelet mean volume (Bld) [Entitic vol] 8.5 fL Low 9.0-12.7 [facility] Comment on above: Order Comment: Speci men Type: BLOOD SPECIMEN Ordering Facility: [facility] Address: [address] [place] [address] Performed By: #### 5 8410-2 #### [facility] CLIA [id number] [address] [place] [address] [place] Platelets (Bld) [#/Vol] 290 10*3/uL Normal 150-400 [facility] Comment on above: Order Comment: Speci men Type: BLOOD SPECIMEN Ordering Facility: [facility] Address: [address] [place] [address] Performed By: #### 5 8410-2 #### [facility] CLIA [id number] [address] [place] [address] [place] RBC (Bld) [#/Vol] 4.46 10*6/uL Normal 3.90-5.20 [facility] Comment on above: Order Comment: Speci men Type: BLOOD SPECIMEN Ordering Facility: [facility] Address: [address] [place] [address] Performed By: #### 5 8410-2 #### [facility] CLIA [id number] [address] [place] [address] [place] WBC (Bld) [#/Vol] 11.69 10*3/uL High 3.70-11.00 [facility] Comment on above: Order Comment: Speci men Type: BLOOD SPECIMEN Ordering Facility: [facility] Address: [address] [place] [address] Performed By: #### 5 8410-2 #### [facility] CLIA [id number] [address] [place] [address] [place] HBV surface Ag Ser Qlon 07-24 HBV surface Ag Ql (S) Negative Normal Negative [facility] Comment on above: Order Comment: Speci men Type: BLOOD SPECIMEN Ordering Facility: [facility] Address: [address] [place] [address] Performed By: #### 3 1201-7, 5195-3, 13067-8 #### [facility] CLIA [id number] [address] [place] [address] [place] HCV Ab Ser Qlon 08-10-2024 HCV Ab Ql (S) Negative Normal Negative [facility] Comment on above: Order Comment: Kwan rajan Type: BLOOD SPECIMEN Ordering Facility: [facility] Address: [address] [place] [address] Result Comment: The result suggests no evidence of active infection with Hepatitis C virus. Should recent infection be suspected, repeat testing may be considered 4-6 weeks after this draw. Performed By: #### 3 1201-7, 5195-3, 23918-5 #### [facility] CLIA [id number] [address] [place] [address] [place] HGB ELECTROPHORESIS FOR EVAL (LAB ORDER)on 08-10-2024 Hemoglobin A (Bld) [Mass fraction] 97.5 % Normal 96.2-98.0 [facility] Comment on above: Order Comment: Kwan rajan Type: BLOOD SPECIMEN Ordering Facility: [facility] Address: [address] [place] [address] Performed By: #### 3 1201-7, 5195-3, 92494-1 #### [facility] CLIA [id number] [address] [place] [address] [place] Hemoglobin A2 (Bld) [Mass fraction] 2.5 % Normal 2.0-3.1 [facility] Comment on above: Order Comment: Kwan rajan Type: BLOOD SPECIMEN Ordering Facility: [facility] Address: [address] [place] [address] Performed By: #### 3 1201-7, 5195-3, 67008-3 #### [facility] CLIA [id number] [address] [place] [address] [place] Hemoglobin Unsp Elph (Bld) [Mass fraction] No abnormal hemoglobin identified. Normal No abnormal hemoglobin identified. [facility] Comment on above: Order Comment: Kwan rajan Type: BLOOD SPECIMEN Ordering Facility: [facility] Address: [address] [place] [address] Performed By: #### 3 1201-7, 5195-3, 96990-5 #### [facility] CLIA [id number] [address] [place] [address] [place] HIV 1+2 Ab IA Qlon 4 HIV 1 and 2 Ab IA.rapid Nom (S/P/Bld) Normal [facility] Comment on above: Order Comment: Speci men Type: BLOOD SPECIMEN Ordering Facility: [facility] Address: [address] [place] [address] Result Comment: Test not indicated. Performed By: #### 3 1201-7, 5195-3, 90523-6 #### [facility] CLIA [id number] [address] [place] [address] [place] HIV 1+2 Ab+HIV1 p24 Ag IA Ql Non-Reactive Normal Nonreactive [facility] Comment on above: Order Comment: Speci men Type: BLOOD SPECIMEN Ordering Facility: [facility] Address: [address] [place] [address] Performed By: #### 3 1201-7, 5195-3, 13643-3 #### [facility] CLIA [id number] [address] [place] [address] [place] HIV immunoassay testing algorithm interpretation (S/P/Bld) [Interp] Normal [facility] Comment on above: Order Comment: Speci men Type: BLOOD SPECIMEN Ordering Facility: [facility] Address: [address] [place] [address] Result Comment: No e vidence of HIV-1 or HIV-2 infection. Should recent infection be suspected, repeat testing may be considered 2-3 weeks after this draw. [place] Rev. Code 3701.243(E): This information has been disclosed to you from confidential records protected from disclosure by state law. ???You shall make no further disclosure of this information without the specific, written, and informed release of the individual to whom it pertains or as otherwise permitted by state law. A general authorization for the release of medical or other information is not sufficient for the purpose of the release of HIV test results or diagnoses. Performed By: #### 3 1201-7, 5195-3, 81980-5 #### [facility] CLIA [id number] [address] [place] [address] [place] HbA1c (Bld)on 08-10-2024 Average glucose Estimated from glycated hemoglobin (Bld) [Mass/Vol] 97 mg/dL Normal [facility] Comment on above: Order Comment: Speci men Type: BLOOD SPECIMENOrdering Facility: [facility] Address: [address] [place] [address] Result Comment: eAG: (Estimated average glucose) is a calculated value from HgbA1c and is shipping services sales representative of the average blood glucose level in the last 2-3 month period. Performed By: #### 5 5454-3 ####[facility] [id number] [address] [place] [facility] HbA1c (Bld) [Mass fraction] 5.0 % Normal 4.3-5.6 [facility] Comment on above: Order Comment: Speci men Type: BLOOD SPECIMENOrdering Facility: [facility] Address: [address] [place] [address] Result Comment: Amer [place] Diabetes Association guidelines indicate that patients with HgbA1c in the range 5.7-6.4% are at increased risk for development of diabetes, and intervention by lifestyle modification may be beneficial. HgbA1c greater or equal to 6.5% is considered diagnostic of diabetes. Performed By: #### 5 5454-3 ####[facility] [id number] [place] [address] [place] [id number] PLUSon 08-10-2024 Cell-free DNA./Cell-free DNA.total Dosage of chromosome-specific cfDNA (cfDNA) [Molar fraction] Normal [facility] Comment on above: Order Comment: Speci men Type: BLOOD SPECIMENOrdering Facility: [facility] Address: [address] [place] [address] Performed By: #### M AT21 ####[facility] LABCLIA [id number] [place] [address] Chr 13+18+21+X+Y aneuploidy Dosage of chromosome-specific cfDNA Ql (cfDNA) Abnormal [facility] Comment on above: Order Comment: Speci men Type: BLOOD SPECIMENOrdering Facility: [facility] Address: [address] [place] [address] Result Comment: Test ing for this sample was performed. Due to technical or sample-related issues, data failed to meet quality standards for interpretation. Performed By: #### M AT21 ####[facility] LABCLIA [id number] [place] [address] Citation José (Reference lab test) Comment Normal [facility] Comment on above: Order Comment: Speci men Type: BLOOD SPECIMENOrdering Facility: [facility] Address: [address] [place] [address] Result Comment: 2. M alana GANT et al. Prenat Diag. 2013;33(6):591-597. 3. Weston C, et al. Clin Chem. 2015 Apr;61(4):608-616. 4. Sunday GE, et al. Carie Med. 2011;13(11):913-920. 5. ACOG/SMFM Practice Bulletin No. 226, Jul 2020. Performed By: #### M AT21 ####[facility] LABCLIA [id number] [place] [address] Gestational age Estimated from conception date Banegas Normal [facility] Comment on above: Order Comment: Speci men Type: BLOOD SPECIMENOrdering Facility: [facility] Address: [address] [place] [address] Performed By: #### M AT21 ####[facility] LABCLIA [id number] [place] [address] GESTATIONALAGE AGE > OR = 9W Yes Normal [facility] Comment on above: Order Comment: Speci men Type: BLOOD SPECIMENOrdering Facility: [facility] Address: [address] [place] [address] Performed By: #### M AT21 ####[facility] LABCLIA [id number] [place] [address] Laboratory comment José (Report) Comment Normal [facility] Comment on above: Order Comment: Kwan rajan Type: BLOOD SPECIMENOrdering Facility: [facility] Address: [address] [place] [address] Result Comment: anal yzes circulating cell-free DNA from a maternal blood sample. This test is used for screening purposes and not diagnostic. Clinical correlation is recommended. Validation data on twin pregnancies is limited and the ability of this test to detect aneuploidy in higher multiple gestations has not yet been validated. Performed By: #### M AT21 ####[facility] LABCLIA [id number] [place] [id number] executive director of nursing name Nom (Provider) Comment Normal [facility] Comment on above: Order Comment: Kwan rajan Type: BLOOD SPECIMENOrdering Facility: [facility] Address: [address] [place] [address] Result Comment: [facility] le-related issues, data failed to meet quality standards for interpretation. Please submit another specimen for testing. Comment Performed By: #### M AT21 ####[facility] LABCLIA [id number] [place] [id number] LIMITATIONS OF THE TEST Comment Normal [facility] Comment on above: Order Comment: Kwan rajan Type: BLOOD SPECIMENOrdering Facility: [facility] Address: [address] [place] [address] Result Comment: disc ordant results, including inaccurate sex prediction, may occur due to placental, maternal, or mosaicism or neoplasm; vanishing twin; prior maternal organ transplant; or other causes. These tests are screening tests and not diagnostic; they do not replace the accuracy and precision of diagnosis with CVS or amniocentesis. A patient with a positive test result should be referred for genetic counseling and offered invasive diagnosis for confirmation of test results.[5] The results of this testing, including the benefits and limitations, should be discussed with a qualified healthcare provider. management decisions, including termination of the , should not be based on the results of these tests alone. The healthcare provider is responsible for the use of this information in the management of their patient. Sex chromosomal aneuploidies are not reportable for known multiple gestations. A negative result does not ensure an unaffected nor does it exclude the possibility of other chromosomal abnormalities or defects which are not a part of these tests. An uninformative result may be reported, the causes of which may include, but are not limited to, insufficient sequencing coverage, noise or artifacts in the region, amplification or sequencing bias, or insufficient fraction. These tests are not intended to identify pregnancies at risk for neural tube defects or ventral wall defects. Testing for whole chromosome abnormalities (including sex chromosomes) and for subchromosomal abnormalities could lead to the potential discovery of both and maternal genomic abnormalities that could have major, minor, or no, clinical significance. Evaluating the significance of a positive or a non-reportable result may involve both invasive testing and additional studies on the mother. Such investigations may lead to a diagnosis of maternal chromosomal or subchromosomal abnormalities, which on occasion may be associated with benign or malignant maternal neoplasms. These tests may not accurately identify triploidy, balanced rearrangements, or the precise location of subchromosomal duplications or deletions; these may be detected by diagnosis with CVS or amniocentesis. The ability to report results may be impacted by maternal BMI, maternal weight, maternal systemic lupus erythematosus (SLE) and/or by certain pharmaceutical agents such as low molecular weight heparin (for example: Lovenox(R), Xaparin(R), Clexane(R) and Fragmin(R)). Performed By: #### M AT21 ####[facility] LABCLIA [id number] [place] [address] NEGATIVE PREDICTIVE VALUE Comment Normal [facility] Comment on above: Order Comment: Speci men Type: BLOOD SPECIMENOrdering Facility: [facility] Address: [address] [place] [address] Result Comment: The Negative Predictive Value (NPV) for trisomy 21, 18, and 13 is greater than 99%. The NPV for SCA and ESS cannot be calculated as SCA and ESS are only reported when an abnormality is detected. Performed By: #### M AT21 ####[facility] LABCLIA [id number] [place] [address] NOTE Comment Normal [facility] Comment on above: Order Comment: Kwan rajan Type: BLOOD SPECIMENOrdering Facility: [facility] Address: [address] [place] [address] Result Comment: [employer] is a subsidiary of [employer] using the brand [facility]. This test was developed and its performance characteristics determined by [facility]. It has not been cleared or approved by the Food and Drug Administration. This laboratory is certified under the Clinical Laboratory Improvement Amendments (CLIA) as qualified to perform high complexity clinical laboratory testing and accredited by the [employer] (CAP). Performed By: #### M AT21 ####[facility] LABIA [id number] [place] [address] PERFORMANCE CHARACTERISTICS Comment Normal [facility] Comment on above: Order Comment: Kwan rajan Type: BLOOD SPECIMENOrdering Facility: [facility] Address: [address] [place] [address] Result Comment: ! Sex ! Accuracy: 99.4% ! ! ! ! Region (associated syndrome) ! Est. Sens# ! Est. Spec ! ! ! ! Trisomy 21 (Down Syndrome) ! 99.1% ! 99.9% ! ! ! ! Trisomy 18 (Kline Syndrome) ! >99.9% ! 99.6% ! ! ! ! Trisomy 13 (Patau Syndrome) ! 91.7% ! 99.7% ! ! ! ! Sex Chromosome Aneuploidies## ! 96.2% ! 99.7% ! ! ! * As reported in ISCA database nstd37 [https://www.ncbi.nlm.nih.gov/dbvar/studies/nstd37/ ] # Estimated Sensitivity. Sensitivity estimated across the observed size distribution of each syndrome [per ISCA database nstd37] and across the range of fractions observed in routine clinical NIPT. Actual sensitivity can also be influenced by other factors such as the size of the event, total sequence counts, amplification bias, or sequence bias. ## Banegas gestation only. Performed By: #### M AT21 ####[facility] [id number] [place] [address] Reference Lab Test Method Comment Normal [facility] Comment on above: Order Comment: Speci men Type: BLOOD SPECIMENOrdering Facility: [facility] Address: [address] [place] [address] Result Comment: Circ ulating cell-free DNA was purified from the plasma component of maternal blood. The extracted DNA was then converted into a genomic DNA library for aneuploidy analysis of chromosomes 21, 18, and 13 via next generation sequencing.[1] Optional findings based on the test order include sex chromosome aneuploidy (SCA)[2], and enhanced sequencing series (ESS)[3], which will only be reported on as an additional finding when an abnormality is detected. SCA testing includes information on X and Y representation, while ESS testing includes deletions in selected regions (22q, 15q, 11q, 8q, 5p, 4p, 1p) and trisomy of chromosomes 16 and 22. Performed By: #### M AT21 ####[facility]CLIA [id number] [place] [address] Test performance information José (Unsp spec) Comment Normal [facility] Comment on above: Order Comment: Speci men Type: BLOOD SPECIMENOrdering Facility: [facility] Address: [address] [place] [address] Result Comment: juan mayfield-developed test (LDT) have been determined in a clinical validation study with women at increased risk for chromosomal aneuploidy.[1-4] Performed By: #### M AT21 ####[facility] LABCLIA [id number] [place] [address] RBC PARAMETERS FOR HB IDon 1 - Erythrocyte distribution width (RBC) [Ratio] 13.3 % Normal 11.5-15.0 [facility] Comment on above: Order Comment: Speci men Type: BLOOD SPECIMEN Ordering Facility: [facility] Address: [address] [place] [address] Performed By: #### 3 1201-7, 5195-3, 49735-2 #### [facility] CLIA [id number] [address] [place] [address] [place] Hematocrit (Bld) [Volume fraction] 38.6 % Normal 36.0-46.0 [facility] Comment on above: Order Comment: Speci men Type: BLOOD SPECIMEN Ordering Facility: [facility] Address: [address] [place] [address] Performed By: #### 3 1201-7, 5195-3, 61030-5 #### [facility] CLIA [id number] [address] [place] [address] [place] MCH (RBC) [Entitic mass] 28.3 pg Normal 26.0-34.0 [facility] Comment on above: Order Comment: Speci men Type: BLOOD SPECIMEN Ordering Facility: [facility] Address: [address] [place] [address] Performed By: #### 3 1201-7, 5195-3, 80548-5 #### [facility] CLIA [id number] [address] [place] [address] [place] MCHC (RBC) [Mass/Vol] 32.4 g/dL Normal 30.5-36.0 [facility] Comment on above: Order Comment: Speci men Type: BLOOD SPECIMEN Ordering Facility: [facility] Address: [address] [place] [address] Performed By: #### 3 1201-7, 5195-3, 93042-7 #### [facility] CLIA [id number] [address] [place] [address] [place] MCV (RBC) [Entitic vol] 87.3 fL Normal 80.0-100.0 [facility] Comment on above: Order Comment: Speci men Type: BLOOD SPECIMEN Ordering Facility: [facility] Address: [address] [place] [address] Performed By: #### 3 1201-7, 5195-3, 38579-2 #### [facility] CLIA [id number] [address] [place] [address] [place] RBC (Bld) [#/Vol] 4.42 10*6/uL Normal 3.90-5.20 [facility] Comment on above: Order Comment: Speci men Type: BLOOD SPECIMEN Ordering Facility: [facility] Address: [address] [place] [address] Performed By: #### 3 1201-7, 5195-3, 94804-0 #### [facility] CLIA [id number] [address] [place] [address] [place] RUBELLA IGG ANTIBODYon 08-10 RUBELLA IGG AB, QUAL Positive Normal Positive [facility] Comment on above: Order Comment: Kwan rajan Type: BLOOD SPECIMEN Ordering Facility: [facility] Address: [address] [place] [address] Result Comment: The result suggests recent or past exposure to Rubella virus or history of Rubella vaccination. Positive result may also be seen due to presence of passively-transferred antibodies. Please correlate with patient's history. Performed By: #### 3 1201-7, 5195-3, 98757-1 #### [facility] CLIA [id number] [address] [place] [address] [place] Reagin and Treponema pallidu m IgG and IgM [Interp]on 08-10-2024 T. pallidum IgG+IgM IA Ql (S) Non-Reactive Normal Nonreactive [facility] Comment on above: Order Comment: Kwan rajan Type: BLOOD SPECIMEN Ordering Facility: [facility] Address: [address] [place] [address] Performed By: #### 3 1201-7, 5195-3, 18362-9 #### [facility] CLIA [id number] [address] [place] [address] [place] Reagin+T pallidum IgG+IgM Se rPl-Impon 08-10-2024 Reagin and Treponema pallidum IgG and IgM [Interp] Cannot exclude recent Treponemal infection if specimen collected within 7-10 days after appearance of suspect lesions or 2-3 weeks after an exposure. Clinical correlation is required. Normal [facility] Comment on above: Order Comment: Kwan rajan Type: BLOOD SPECIMEN Ordering Facility: [facility] Address: [address] [place] [address] Performed By: #### 3 1201-7, 5195-3, 35903-9 #### [facility] CLIA [id number] [address] [place] [address] [place] TYPE + SCREEN PRENATALon ABO O Normal [facility] Comment on above: Order Comment: Speci men Type: BLOOD SPECIMEN Ordering Facility: [facility] Address: [address] [place] [address] Performed By: #### 3 1201-7, 5195-3, 56305-2 #### [facility] CLIA [id number] [address] [place] [address] [place] Rh Nom (Bld) Positive Normal [facility] Comment on above: Order Comment: Speci men Type: BLOOD SPECIMEN Ordering Facility: [facility] Address: [address] [place] [address] Performed By: #### 3 1201-7, 5195-3, 02926-4 #### [facility] CLIA [id number] [address] [place] [address] [place] TYPE AND SCREEN EXPIRATION 08/13/2024 23:59 Normal [facility] Comment on above: Order Comment: Speci men Type: BLOOD SPECIMEN Ordering Facility: [facility] Address: [address] [place] [address] Performed By: #### 3 1201-7, 5195-3, 98657-9 #### [facility] CLIA [id number] [address] [place] [address] [place] CNPNon 07-17-2024 CHANTALN Telephone (EVER) NAVYA MCNULTY ([id number]) 1995 F Date Time Provider Department 07/17/24 RANI PARKINSON During your visit today, we recorded the following information about you: Dominga Kelly RN 07/17/2024 10:38 AM Signed Left message for patient to return phone call. Patient had TluqsasU95 ordered at her last visit 07/13 and did not go to the lab to have it drawn. I was just calling her to remind her the test has been ordered and she can do it at her next appointment or can come to the lab before then if she still wants to get it done. Allergies As of Date: 07/17/2024 Noted Allergy Reaction EGG 06/01/2019 4 - Hives 7 - Swelling Comments: Raw eggs only POLLEN 10/31/2008 WELLBUTRIN (BUPROPION HCL) 06/28/2019 5 - Intolerance Date Reviewed: 07/13/2024 Reviewed by: Rani Parkinson MD - Fully Assessed Reason for Visit: Outside Testing [1202] Prescriptions as of 07/23/2024 - aspirin, enteric coated (ECOTRIN LOW STRENGTH) 81 mg EC tablet Take 1 tablet by mouth once daily. - VITAFUSION GUMMY TChS Take 1 Piece by mouth once daily. - lamoTRIgine (LAMICTAL) 25 mg tablet Take 100 mg by mouth once daily. - diphenhydrAMINE (UNISOM SLEEPGELS) 50 mg capsule Take 50 mg by mouth daily at bedtime. - ondansetron orally disintegrating (ZOFRAN ODT) 4 mg disintegrating tablet Take 1 tablet by mouth every 8 hours as needed for nausea/vomiting. - LACTASE (LACTAID ORAL) Take by mouth w MEALS. Meds Comments as of 06/13/2013: pt not taking her medication how she is supposed to Problem List As Of Date 07/17/2024 Noted Resolved Cellulitis and abscess of toe, unspecified [L03*06/01/2010 05/19/2019 Smoker [F17.200] 12/22/2011 06/27/2024 Anxiety and depression [F41.9, F32.A] 12/22/2011 Asthma [J45.909] 12/22/2011 05/19/2019 Oligomenorrhea [N91.5] 03/23/2012 03/01/2019 Hyperprolactinemia (HCC) [E22.1] 03/23/2012 05/19/2019 PROM with onset of labor within 24 hour*05/04/2014 03/01/2019 Active labor [BJU7018] 05/04/2014 03/01/2019 Anxiety [F41.9] 05/23/2017 05/19/2019 History of methicillin resistant Staphylococcus*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] 01/17/2018 Trichomoniasis [A59.9] 03/06/2019 05/19/2019 Cellulitis of right knee [L03.115] 05/18/2019 05/19/2019 Oral thrush [B37.0] 05/18/2019 05/19/2019 Hyponatremia [E87.1] 05/18/2019 05/19/2019 Obesity, Class I, BMI 30-34.9 [E66.9] 05/28/2019 Mild intermittent asthma without complication [*06/18/2019 History of abuse of recreational drug (HCC) [F1*06/18/2019 Post-operative state [Z98.890] 09/13/2019 06/27/2024 BMI 33.0-33.9,adult [Z68.33] 12/04/2021 06/27/2024 Supervision of other high risk pregnancies, fir*06/27/2024 Date of last menstrual period (LMP) unknown [Z7*06/27/2024 Vaping nicotine dependence, tobacco product [F1*06/27/2024 Bipolar 2 disorder (HCC) [F31.81] 06/27/2024 Nausea and vomiting during [O21.9] 06/27/2024 Encounter Status:Closed by KARIN FLANAGAN on 07/23/24 Normal [facility] nuchal translucency me asured by USon 07-11-2024 Indication First trimester anatomic survey Maternal obesity, BMI >30 Impression REMOTE READ The patient is referred for a first trimester anatomy scan including nuchal translucency measurement as clinically indicated. - Single, live, intrauterine . - Ciales rump length measurement is consistent with the established gestational age. - No malformations visualized on first trimester anatomic assessment. - The nuchal translucency measurement is 1.5 mm. - Not all structural malformations can be detected by ultrasound examination. Maternal Structures: Right Ovary: Size 26 mm x 19 mm x 23 mm Left Ovary: Size 34 mm x 25 mm x 11 mm Recommendations - A standard anatomic survey at 16 weeks can be offered and a detailed exam at 20 weeks is recommended for increased risk. Maternal Assessment Height 157 cm Height (ft) 5 ft Height (in) 2 in Physical Exam Initial weight (lb) 176 lb Initial BMI 32.19 kg/m Maternal assessment other: 2 Para 1 Method Transabdominal ultrasound examination Banegas . Number of fetuses: 1 Dating LMP on: 05/07/2024 GA by LMP 9 w + 2 d SASCHA by LMP: 02/11/2025 GA by prior assessment 12 w + 4 d SASCHA by prior assessment: 01/19/2025 Ultrasound examination on: 07/11/2024 GA by U/S based upon: CRL GA by U/S 12 w + 6 d SASCHA by U/S: 01/17/2025 Assigned: based on stated SASCHA, selected on 07/11/2024 Assigned GA 12 w + 4 d Assigned SASCHA: 01/19/2025 General Evaluation Cardiac activity present Placenta: anterior Cord vessels: 3 vessel cord Amniotic fluid: normal amount Biometry Standard FHR 154 bpm CRL 64.4 mm 12w 6d 57% Hadlock NT 1.50 mm First Trimester Anatomy Calvarium: normal Falx cerebri: normal Choroid plexus: normal Profile: normal Nasal bone: normal Retronasal triangle: normal Maxilla: normal Mandible: normal Nuchal translucency: Unremarkable Situs: normal Cardiac position: normal Cardiac axis: normal 4-chamber view: normal 4-chamber view with color: normal 3-spcojl-mdtepzr view: normal Abdominal cord insertion: normal Stomach: normal Kidneys: normal Bladder: normal Color doppler of perivesical umbilical arteries: normal Vertebral alignment: normal Arms: normal Hands: normal Legs: normal Feet: normal Maternal Structures Uterus / Cervix Uterus: Visualized Uterus length 120 mm Uterus width 85 mm Uterus height 82 mm Uterus Vol 439.3 cm Ovaries / Tubes / Adnexa Rt ovary: Visualized Rt ovary D1 26 mm Rt ovary D2 19 mm Rt ovary D3 23 mm Rt ovary Vol 5.7 cm Lt ovary: Visualized Lt ovary D1 34 mm Lt ovary D2 25 mm Lt ovary D3 11 mm Lt ovary Vol 4.8 cm Performed By: Anabel Frazier RDMS, RVT Read By: Marilyn Randall M.D. MATERNAL MEDICINE [facility] Radiology Study observation (narrative) [facility] POC SOFTWARE DEVELOPER MID LEVEL ULTRASOUNDon 06-27-20 24 Indication Viability; confirm cardiac activity. Impression Single intrauterine gestational sac, CRL indicates discrepancy from clinical dates, SASCHA 01/19/25 based on today's ultrasound, FHR 167 bpm Recommendations Follow up for NT scan if desired Method Transabdominal and transvaginal ultrasound examination Banegas . Number of fetuses: 1 Dating LMP on: 05/07/2024 GA by LMP 7 w + 2 d SASCHA by LMP: 02/11/2025 Ultrasound examination on: 06/27/2024 GA by U/S based upon: CRL GA by U/S 10 w + 4 d SASCHA by U/S: 01/19/2025 Assigned: based on ultrasound (CRL), selected on 06/27/2024 Assigned GA 10 w + 4 d Assigned SASCHA: 01/19/2025 Biometry Standard FHR 167 bpm 40% Nicolaides CRL 36.6 mm 10w 4d 27% Hadlock Assessment Gestational sac: visualized Location: intrauterine Yolk sac: visualized Embryo: visualized CRL 36.6 mm 10w 4d 27% Hadlock Cardiac activity: present FHR 167 bpm 40% Nicolaides General Evaluation Cardiac activity present. FHR 167 bpm Performed By: Sandra Briseno CNM Read By: Sandra Briseno CNM MATERNAL MEDICINE [facility] Radiology Study observation (narrative) [facility] UA DIP,URINE HCG (POC)on Beta HCG ( test) Ql (U) Negative Negative [facility] Comment on above: Location:[facility], [address] [place] [address], [id number] [employer] (POCT) Internal QC [place] [facility] Location:[facility], [address] [place] [address], [address] [facility] POINT OF CARE [facility] POCT UA (nonautomated w/o mi croscopy) manually resultedon 01-14-2024 Appearance (U) Clear Clear [facility] Work Phone: Glucose Test strip (U) [Mass/Vol] 100 (1+) Abnormal NEGATIVE mg/dl [facility] Work Phone: Hemoglobin Ql (U) TRACE-Intact Abnormal NEGATIVE [facility]: Interpretation and review of laboratory results Abnormal [facility] Work Phone: [phone] Leukocyte esterase Test strip Ql (U) Negative NEGATIVE [facility] Work Phone: [phone] Nitrite Ql (U) Positive Abnormal NEGATIVE [facility] Work Phone: [phone] pH (U) 7.5 [pH] No Reference Range Established [facility] Work Phone: [phone] POC Bilirubin, Urine Negative NEGATIVE [facility] Work Phone: [phone] POC Color, Urine Yellow Straw, [place] ow, Light-Yellow [facility] Work Phone: [phone] POC Ketones, Urine Negative NEGATIVE mg/dl Un [facility] Work Phone: [phone] POC Protein, Urine Negative NEGATIVE, 30 (1+) mg/dl [facility] Work Phone: [phone] POC Specific [place], Urine 1.015 1.005 - 1.035 [facility] Work Phone: [phone] POC Urobilinogen, Urine 1.0 0.2, 1.0 EU/DL [facility] Work Phone: [phone] [facility] Work Phone: [phone] BACTERIAL VAGINOSIS NAATon 1 Lactobacillus crispatus+gasseri+sundeep enii + Gardnerella vaginalis + Atopobium vaginae rRNA JALEN+probe Ql (Vag fld) Positive Abnormal Negative for bacterial vaginosis [facility] C. trachomatis+N. gonorrhoea e DNA JALEN+probe Ql (Unsp spec)on 07-26-2023 C. trachomatis rRNA JALEN+probe Ql (Unsp spec) Negative Negative for Chlamydia trachomatis by amplificaton [facility] N. gonorrhoeae rRNA JALEN+probe Ql (Unsp spec) Negative Negative for Neisseria gonorrhoeae by amplification [facility] MAGGI/TRICHOMONAS NAATon 1 C. glabrata RNA JALEN+probe Ql (Vag fld) Negative Negative for Maggi glabrata [facility] Maggi sp DNA JALEN+probe Ql (Vag fld) Negative Negative for Maggi species [facility] T. vaginalis DNA JALEN+probe Ql (Unsp spec) Negative Negative for Trichomonas vaginalis by amplification [facility] URINE CULTUREon 07-26-2023 Bacteria identified Cx Nom (U) <10,000 CFU/ml Normal urogenital chase [facility] HCG QUAL UR B/Oon 07-25-2023 status Negative neg - pos [facility] Quality Check Yes [facility] UA DIP, URINE (POC)on 2022 BILIRUBIN UA (POCT) Negative Negative [facility] CLARITY UA (POCT) Cloudy [facility] COLOR UA (POCT) Dark yellow [facility] GLUCOSE UA (POCT) Negative Negative mg/dL [facility] Hemoglobin Ql (U) Negative Negative [facility] KETONE UA (POCT) Negative Negative mg/dL [facility] LEUKOCYTES UA (POCT) Small Abnormal Negative [facility] NITRITE UA (POCT) Negative Negative [facility] PH UA (POCT) 7.5 4.5 - 8.0 [facility] Protein Ql (U) Trace Abnormal Negative mg/dL [facility] SPECIFIC GRAVITY UA (POCT) 1.020 1.005 - 1.030 [facility] UROBILINOGEN UA (POCT) 1.0 E.U./dL Normal E.U./ dL [facility] ALLIED HEALTHon 06-09-2023 ALLIED HEALTH HNO ID: [id number] Author: Iman Frazier CT Service: ? Author Type: Technologist Type: Allied Health Filed: 06/08/2023 11:56 PM Note Text: Radiology Service Progress Note PATIENT NAME: Navya Mcnulty DATE OF SERVICE: June 08, 2023 TIME: 11:56 PM PATIENT IDENTITY VERIFICATION COMPLETED USING TWO (2) IDENTIFIERS: Name and Date of confirmed by patient verbally. FALL SCREENING: Has the patient had 2 falls in the last year or 1 fall with injury or currently using an Ambulatory Assistive Device (Walker, Cane, Wheelchair, Crutches, etc.)? Emergency Room Patient: Screened in ED PATIENT GENDER DATA: Female. status: : No status: N/A PATIENT RELEVANT IMPLANT DATA REVIEWED: Not Applicable RADIOLOGY DEPARTMENT: General X-ray: Exam(s) Completed: Chest X-Ray PERIPHERAL IV DATA: Not applicable SIGNED BY: Iman Frazier, ANGELIKA June 08, 2023 11:56 PM Normal [facility] BETA HCG, QUANTITATIVE FOR Norm Best 06-09-2023 HCG.beta subunit Qn m[IU]/mL Normal <5.0 [facility] Comment on above: Order Comment: Speci men Type: BLOOD SPECIMEN Ordering Facility: [facility] Address: [address] [place] [address] Result Comment: Negedgar tive Performed By: #### H CGED, [id number], 68779-7 #### [facility] CLIA [id number] [address] [place] [address] [place] Basic metabolic 2000 panelon 06-09-2023 Anion gap [Moles/Vol] 10 mmol/L Normal 9-18 [facility] Comment on above: Order Comment: Speci men Type: BLOOD SPECIMEN Ordering Facility: [facility] Address: [address] [place] [address] Performed By: #### H CGED, [id number], 90073-8 #### [facility] CLIA [id number] [address] [place] [address] [place] Calcium [Mass/Vol] 9.2 mg/dL Normal 8.5-10.2 [facility] Comment on above: Order Comment: Speci men Type: BLOOD SPECIMEN Ordering Facility: [facility] Address: [address] [place] [address] Performed By: #### H CGED, [id number], 80506-4 #### [facility] CLIA [id number] [address] [place] [address] [place] Chloride [Moles/Vol] 100 mmol/L Normal 97-105 [facility] Comment on above: Order Comment: Speci men Type: BLOOD SPECIMEN Ordering Facility: [facility] Address: [address] [address] Performed By: #### H CGED, [id number], 55501-1 #### [facility] CLIA [id number] [address] [place] [address] [place] CO2 [Moles/Vol] 28 mmol/L Normal 22-30 [facility] Comment on above: Order Comment: Speci men Type: BLOOD SPECIMEN Ordering Facility: [facility] Address: [address] [address] Performed By: #### H CGED, [id number], 56599-9 #### [facility] CLIA [id number] [address] Creatinine [Mass/Vol] 0.74 mg/dL Normal 0.58-0.96 [facility] Comment on above: Order Comment: Kwan rajan Type: BLOOD SPECIMEN Ordering Facility: [facility] Address: [address] [address] Performed By: #### H CGED, [id number], 81188-9 #### [facility] CLIA [id number] [address] Creatinine and Glomerular filtration rate.predicted panel (S/P/Bld) 112 mL/min/1.73m??? Normal >=60 [facility] Comment on above: Order Comment: Kwan rajan Type: BLOOD SPECIMEN Ordering Facility: [facility] Address: [address] [address] Result Comment: Maggie mated Glomerular Filtration Rate (eGFR) is calculated using the 2020 CKD-EPI creatinine equation. This equation utilizes serum creatinine, sex, and age as parameters. The creatinine assay has traceable calibration to isotope dilution-mass spectrometry. Refer to KDIGO guidelines for clinical interpretation. In patients with unstable renal function, e.g. those with acute kidney injury, the eGFR may not accurately reflect actual GFR. Performed By: #### H CGED, [id number], 13550-4 #### [facility] CLIA [id number] [address] Glucose [Mass/Vol] 87 mg/dL Normal 74-99 [facility] Comment on above: Order Comment: Kwan rajan Type: BLOOD SPECIMEN Ordering Facility: [facility] Address: [address] [address] Result Comment: The [place] Diabetes Association (ADA) provides guidance for cutoff values for fasting glucose and random glucose. The ADA defines fasting as no caloric intake for at least 8 hours. Fasting plasma glucose results between 100 to 125 mg/dL indicate increased risk for diabetes (prediabetes). Fasting plasma glucose results greater than or equal to 126 mg/dL meet the criteria for diagnosis of diabetes. In the absence of unequivocal hyperglycemia, results should be confirmed by repeat testing. In a patient with classic symptoms of hyperglycemia or hyperglycemic crisis, random plasma glucose results greater than or equal to 200 mg/dL meet the criteria for diagnosis of diabetes. Reference: Standards of Medical Care in Diabetes 2016, [place] Diabetes Association. Diabetes Care. 2016.39(Suppl 1). Performed By: #### H CGED, [id number], 71980-6 #### [facility] CLIA [id number] [address] [place] [address] [place] Potassium [Moles/Vol] 4.1 mmol/L Normal 3.7-5.1 [facility] Comment on above: Order Comment: Kwan rajan Type: BLOOD SPECIMEN Ordering Facility: [facility] Address: [address] [place] [address] Performed By: #### H CGED, [id number], 51894-3 #### [facility] CLIA [id number] [address] STATES OF [facility] Sodium [Moles/Vol] 138 mmol/L Normal 136-144 [facility] Comment on above: Order Comment: Kwan rajan Type: BLOOD SPECIMEN Ordering Facility: [facility] Address: [address] [address] Performed By: #### H CGED, [id number], 70352-1 #### [facility] CLIA [id number] [address] STATES [place] Urea nitrogen [Mass/Vol] 14 mg/dL Normal 7-21 [facility] Comment on above: Order Comment: Kwan rajan Type: BLOOD SPECIMEN Ordering Facility: [facility] Address: [address] [address] Performed By: #### H CGED, [id number], 99678-5 #### [facility] CLIA [id number] [address] [place] [address] [place] CBC W Auto Differential pane l (Bld)on 06-09-2023 Basophils (Bld) [#/Vol] 0.11 10*3/uL High <0.11 [facility] Comment on above: Order Comment: Speci men Type: BLOOD SPECIMEN Ordering Facility: [facility] Address: [address] [place] [address] Performed By: #### 5 7021-8 #### [facility] CLIA [id number] [address] Basophils/100 WBC (Bld) 0.9 % Normal [facility] Comment on above: Order Comment: Speci men Type: BLOOD SPECIMEN Ordering Facility: [facility] Address: [address] [address] Performed By: #### 5 7021-8 #### [facility] CLIA [id number] [address] Differential cell count method Nom (Bld) Auto Normal [facility] Comment on above: Order Comment: Speci men Type: BLOOD SPECIMEN Ordering Facility: [facility] Address: [address] [place] [address] Performed By: #### 5 7021-8 #### [facility] CLIA [id number] [address] [place] [address] [place] Eosinophils (Bld) [#/Vol] 0.26 10*3/uL Normal <0.46 [facility] Comment on above: Order Comment: Speci men Type: BLOOD SPECIMEN Ordering Facility: [facility] Address: [address] [place] [address] Performed By: #### 5 7021-8 #### [facility] CLIA [id number] [address] Eosinophils/100 WBC (Bld) 2.0 % Normal [facility] Comment on above: Order Comment: Speci men Type: BLOOD SPECIMEN Ordering Facility: [facility] Address: [address] [place] [address] Performed By: #### 5 7021-8 #### [facility] CLIA [id number] [address] OF [place] Erythrocyte distribution width (RBC) [Ratio] 12.1 % Normal 11.5-15.0 [facility] Comment on above: Order Comment: Speci men Type: BLOOD SPECIMEN Ordering Facility: [facility] Address: [address] [address] Performed By: #### 5 7021-8 #### [facility] CLIA [id number] [address] OF [place] Hematocrit (Bld) [Volume fraction] 43.5 % Normal 36.0-46.0 [facility] Comment on above: Order Comment: Speci men Type: BLOOD SPECIMEN Ordering Facility: [facility] Address: [address] [address] Performed By: #### 5 7021-8 #### [facility] CLIA [id number] [address] OF [place] Hemoglobin (Bld) [Mass/Vol] 14.3 g/dL Normal 11.5-15.5 [facility] Comment on above: Order Comment: Speci men Type: BLOOD SPECIMEN [facility] [facility] Address: [address] [address] Performed By: #### 5 7021-8 #### [facility] CLIA [id number] [address] [place] Immature granulocytes (Bld) [#/Vol] 0.07 10*3/uL Normal <0.10 [facility] Comment on above: Order Comment: Speci men Type: BLOOD SPECIMEN Ordering Facility: [facility] Address: [address] [place] [address] Performed By: #### 5 7021-8 #### [facility] CLIA [id number] [address] [place] Immature granulocytes/100 WBC (Bld) 0.5 % Normal [facility] Comment on above: Order Comment: Speci men Type: BLOOD SPECIMEN Ordering Facility: [facility] Address: [address] [place] [address] Performed By: #### 5 7021-8 #### [facility] CLIA [id number] [address] [place] Lymphocytes (Bld) [#/Vol] 3.57 10*3/uL Normal 1.00-4.00 [facility] Comment on above: Order Comment: Speci men Type: BLOOD SPECIMEN Ordering Facility: [facility] Address: [address] [place] [address] Performed By: #### 5 7021-8 #### [facility] CLIA [id number] [address] Lymphocytes/100 WBC (Bld) 27.6 % Normal [facility] Comment on above: Order Comment: Speci men Type: BLOOD SPECIMEN Ordering Facility: [facility] Address: [address] [place] [address] Performed By: #### 5 7021-8 #### [facility] CLIA [id number] [address] MCH (RBC) [Entitic mass] 29.0 pg Normal 26.0-34.0 [facility] Comment on above: Order Comment: Speci men Type: BLOOD SPECIMEN Ordering Facility: [facility] Address: [address] [place] [address] Performed By: #### 5 7021-8 #### [facility] CLIA [id number] [address] MCHC (RBC) [Mass/Vol] 32.9 g/dL Normal 30.5-36.0 [facility] Comment on above: Order Comment: Speci men Type: BLOOD SPECIMEN Ordering Facility: [facility] Address: [address] [place] [address] Performed By: #### 5 7021-8 #### [facility] CLIA [id number] [address] MCV (RBC) [Entitic vol] 88.2 fL Normal 80.0-100.0 [facility] Comment on above: Order Comment: Speci men Type: BLOOD SPECIMEN Ordering Facility: [facility] Address: [address] [place] [address] Performed By: #### 5 7021-8 #### [facility] CLIA [id number] [address] Monocytes (Bld) [#/Vol] 0.82 10*3/uL Normal <0.87 [facility] Comment on above: Order Comment: Speci men Type: BLOOD SPECIMEN Ordering Facility: [facility] Address: [address] [place] [address] Performed By: #### 5 7021-8 #### [facility] CLIA [id number] [address] [place] Monocytes/100 WBC (Bld) 6.3 % Normal [facility] Comment on above: Order Comment: Speci men Type: BLOOD SPECIMEN Ordering Facility: [facility] Address: [address] [address] Performed By: #### 5 7021-8 #### [facility] CLIA [id number] [address] [place] Neutrophils (Bld) [#/Vol] 8.10 10*3/uL High 1.45-7.50 [facility] Comment on above: Order Comment: Speci men Type: BLOOD SPECIMEN Ordering Facility: [facility] Address: [address] [place] [address] Performed By: #### 5 7021-8 #### [facility] CLIA [id number] [address] Neutrophils/100 WBC (Bld) 62.7 % Normal [facility] Comment on above: Order Comment: Speci men Type: BLOOD SPECIMEN Ordering Facility: [facility] Address: [address] [place] [address] Performed By: #### 5 7021-8 #### [facility] CLIA [id number] [address] [place] Nucleated RBC (Bld) [#/Vol] 10*3/uL Normal <0.01 [facility] Comment on above: Order Comment: Speci men Type: BLOOD SPECIMEN Ordering Facility: [facility] Address: [address] [place] [address] Performed By: #### 5 7021-8 #### [facility] CLIA [id number] [address] [place] Nucleated RBC/100 WBC (Bld) [Ratio] 0.0 /100 WBC Normal [facility] Comment on above: Order Comment: Speci men Type: BLOOD SPECIMEN Ordering Facility: [facility] Address: [address] [place] [address] Performed By: #### 5 7021-8 #### [facility] CLIA [id number] [address] [place] [address] [place] Platelet mean volume (Bld) [Entitic vol] 8.3 fL Low 9.0-12.7 [facility] Comment on above: Order Comment: Speci men Type: BLOOD SPECIMEN Ordering Facility: [facility] Address: [address] [address] Performed By: #### 5 7021-8 #### [facility] CLIA [id number] [address] [place] [address] [place] Platelets (Bld) [#/Vol] 327 10*3/uL Normal 150-400 [facility] Comment on above: Order Comment: Speci men Type: BLOOD SPECIMEN Ordering Facility: [facility] Address: [address] [address] Performed By: #### 5 7021-8 #### [facility] CLIA [id number] [address] [place] [address] [place] RBC (Bld) [#/Vol] 4.93 10*6/uL Normal 3.90-5.20 [facility] Comment on above: Order Comment: Speci men Type: BLOOD SPECIMEN Ordering Facility: [facility] Address: [address] Performed By: #### 5 7021-8 #### [facility] CLIA [id number] [address] [place] [address] [place] WBC (Bld) [#/Vol] 12.93 10*3/uL High 3.70-11.00 [facility] Comment on above: Order Comment: Speci men Type: BLOOD SPECIMEN Ordering Facility: [facility] Address: [address] [address] Performed By: #### 5 7021-8 #### [facility] CLIA [id number] [address] [place] [address] [facility] D dimer FEU PPP-mCncon 06-09 Fibrin D-dimer FEU (PPP) [Mass/Vol] <190 Normal <500 [facility] Comment on above: Order Comment: Speci men Type: BLOOD SPECIMEN Ordering Facility: [facility] Address: [address] [place] [address] [address] [id number] Performed By: #### 4 8065-7 #### [facility] CLIA [id number] [address] [place] [address] [facility] ED NOTEon 06-09-2023 ED NOTE HNO ID: [id number] Author: Balaji Taveras, MARTHA Service: Nursing Author Type: Registered Nurse Type: ED Notes Filed: 06/09/2023 12:43 AM Note Text: D/C instructions and f/u reviewed with pt. [facility] ED NOTE HNO ID: [id number] Author: Alonso Noriega, MARTHA Service: ? Author Type: Registered Nurse Type: ED Notes Filed: 06/08/2023 10:17 PM Note Text: Pt presents to ED with chest pain and left arm numbness starting at 1930. Pt reports that she feels fuzzy at this time. Vitals stable, aANDOx3. [facility] ED PROV NOTEon 06-09-2023 ED PROV NOTE HNO ID: [id number] Author: Jamarcus Yao MD Service: Emergency Medicine Author Type: Physician Type: ED Provider Notes Filed: 06/09/2023 2:32 AM Note Text: ED Provider Note Patient Name: Navya Mcnulty : 1995 SERVICE DATE: 06/08/23 History Patient presents with: Numbness: Left arm N/T Chest Pain Blurred Vision 28-year-old female. Coming in today for chest pain. Reports that when she was walking to work this evening she began to feel some chest tightness and pain and some left arm numbness and tingling in her face as well. The numbness in her arm was specifically to the left side apparently had bilateral facial numbness. This appears to be room return to baseline at this time. Patient has no previous medical history except for a history of psychiatric concerns for which she currently sees a psychiatrist and is on medications. No other medications. No hormonal control. No recent travels or surgeries. No leg swelling or pain. No previous history of DVT or PE. Did have a first-degree relative who had a heart attack in their 40s. 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, Meth Hyperprolactinemia (HCC) 03/23/2012 MRSA cellulitis 2016 PMH - PAST MEDICAL HISTORY OF 01/02/10 normal color vision Trichomoniasis 03/06/2019 Unspecified asthma(493.90) PAST SURGICAL HISTORY Procedure Laterality Date PAST SURGICAL HISTORY OF Left 04/2017 Elbow Surgery PAST SURGICAL HISTORY OF removal of abcess on right knee FAMILY HISTORY Problem Relation Age of Onset Psychiatry Mother depression other (Carpel Tunnel) Mother Diabetes Father Heart Father bypass Hypertension Father Osteoporosis Maternal Grandmother other (Breast Cancer age 40s) Maternal Grandmother Diabetes Paternal Grandmother other (Demenia) Paternal Grandmother Diabetes Paternal Grandfather Heart Paternal Grandfather from [place] Cancer Maternal Grandfather of liver cancer Social History Tobacco Use Smoking status: Every Day Packs/day: 1.00 Years: 10.00 Additional pack years: 0.00 Total pack years: 10.00 Types: Cigarettes Smokeless tobacco: Never Tobacco comments: trying to quit Vaping Use Vaping Use: Never used Substance and Sexual Activity Alcohol use: Yes Comment: occ Drug use: No Comment: 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 HENT: Negative for congestion, ear pain, sinus pain and sore throat. Eyes: Negative for photophobia, pain, redness and visual disturbance. Respiratory: Negative for cough, chest tightness and shortness of breath. Cardiovascular: Positive for chest pain. Negative for palpitations and leg swelling. Gastrointestinal: Negative for abdominal distention, abdominal pain, constipation, diarrhea, nausea and vomiting. Genitourinary: Negative for difficulty urinating, dysuria, flank pain, frequency and urgency. Musculoskeletal: Negative for back pain, neck pain and neck stiffness. Skin: Negative for color change, rash and wound. Neurological: Negative for dizziness, syncope, light-headedness and headaches. Psychiatric/Behaviora l: Negative for agitation, behavioral problems and confusion. Physical Exam Vitals [06/08/23 2100] BP Pulse Temp Temp src Resp SpO2 Weight Height 118/74 (!) 107 36.7 ?C (98 ?F) Oral 18 100 % 90.7 kg (200 lb) -- Physical Exam Vitals and nursing note reviewed. Constitutional: Appearance: She is well-developed. She is not diaphoretic. HENT: Head: Normocephalic and atraumatic. Right Ear: External ear normal. Left Ear: External ear normal. Eyes: General: No scleral icterus. Right eye: No discharge. Left eye: No discharge. Conjunctiva/sclera: Conjunctivae normal. Pupils: Pupils are equal, round, and reactive to light. Neck: Vascular: No JVD. Trachea: No tracheal deviation. Cardiovascular: Rate and Rhythm: Normal rate and regular rhythm. Pulses: Radial pulses are 2+ on the right side and 2+ on the left side. Heart sounds: Normal heart sounds. No murmur heard. No friction rub. No gallop. Comments: Regular rate and rhythm. No murmurs appreciated. Pulmonary: Effort: Pulmonary effort is normal. No respiratory distress. Breath sounds: Normal breath sounds. No stridor. No wheezing or rales. Comments: Lungs clear to auscultation bilaterally. Chest: Chest wall: No tenderness. Abdominal: General: Bowel sounds are normal. There is no distension. Palpations: Abdomen is soft. There is no mass. Tenderness: There (more content not included)... Normal [facility] HIGH SENSITIVITY TROPONIN T (INITIAL)on 06-09-2023 Troponin T.cardiac High sensitivity method [Mass/Vol] <6 Normal <12 [facility] Comment on above: Order Comment: Speci men Type: BLOOD SPECIMEN Ordering Facility: [facility] Address: [place] [address] Result Comment: When assessing risk for acute coronary syndromes: In patients undergoing blood draw greater than or equal to 2 hours from symptom onset, with history of very low to moderate risk and non-ischemic ECG, an initial hs-Troponin T less than 12 ng/L AND a 1 hour delta hs-Troponin T less than 3 ng/L should be considered very low risk for 30 day MACE. Performed By: #### H CGED, [id number], 18112-2 #### [facility] CLIA [id number] [address] [place] [address] [facility] [place] HIGH SENSITIVITY TROPONIN T (SECOND)on 06-09-2023 Troponin T.cardiac High sensitivity method [Mass/Vol] <6 Normal <12 [facility] Comment on above: Order Comment: Speci men Type: BLOOD SPECIMEN Ordering Facility: [facility] Address: [address] [place], [place] [id number] Result Comment: When assessing risk for acute coronary syndromes: In patients undergoing blood draw greater than or equal to 2 hours from symptom onset, with history of very low to moderate risk and non-ischemic ECG, an initial hs-Troponin T less than 12 ng/L AND a 1 hour delta hs-Troponin T less than 3 ng/L should be considered very low risk for 30 day MACE. Performed By: #### L [id number] #### [facility] CLIA [id number] [address] [place] XR CHEST 1V FRONTAL PORTon 0 06-09-2023 XR CHEST 1V FRONTAL PORT * * *Final Report* * * DATE OF EXAM: Jun 08 2023 11:41PM MDX [id number] - XR CHEST 1V FRONTAL PORT / PROCEDURE REASON: Chest pain, nonspecific * * * * Physician Interpretation * * * * EXAMINATION: CHEST RADIOGRAPH (PORTABLE SINGLE VIEW AP) Exam Date/Time: 06/08/2023 11:41 PM CLINICAL HISTORY: Chest pain, nonspecific MQ: XCPR_5 Comparison: 01/02/2018 RESULT: Lines, tubes, and devices: None. Lungs and pleura: Engorged central pulmonary vasculature. No focal airspace consolidation, pleural effusion, or pneumothorax. Cardiomediastinal silhouette: Normal Other: No acute osseous findings. IMPRESSION: Enlarged appearance of the central pulmonary vasculature which may indicate pulmonary vascular congestion or mild pulmonary edema. No other acute findings. Development Representative: DARRIUS Transcribe Date/Time: Jun 09 2023 12:18A Dictated by : HUBERT SUAZO MD This examination was interpreted and the report reviewed and electronically signed by: HUBERT SUAZO MD on Jun 09 2023 12:19AM EST [id number] N [facility] ED NOTEon 06-08-2023 ED NOTE HNO ID: [id number] Author: Juan Jose Carranza RN Service: Nursing Author Type: Registered Nurse Type: ED Notes Filed: 06/08/2023 9:03 PM Note Text: Pt presents to ER for CC left side chest pain and left arm numbness and tingling that began around 1930 this evening. [facility] EKGon 06-08-2023 Electrocardiogram Ventricular Rate : 102 BPM Atrial Rate : 102 BPM P-R Interval : 172 ms QRS Duration : 88 ms Q-T Interval : 344 ms QTC Calculation(Bazett) : 448 ms Calculated P [place] : 70 degrees Calculated R [place] : 105 degrees Calculated T [place] : 43 degrees SINUS TACHYCARDIA POSSIBLE LEFT ATRIAL ENLARGEMENT RIGHTWARD AXIS BORDERLINE ECG 2108 Confirmed by JAMARCUS YAO MD ([id number]), restaurant expeditor BENTLEY EMMANUEL ([id number]) on 06/09/2023 11:29:21 AM NAME : NAVYA MCNULTY PID : [id number] : 1995 Gender : Female Race : ORD : Procedure Date : Jun 08 2023 21:07:20 Edit Date : Jun 09 2023 11:29:26 Diagnosis: SINUS TACHYCARDIA POSSIBLE LEFT ATRIAL ENLARGEMENT RIGHTWARD AXIS BORDERLINE ECG 2108 Confirmed by JAMARCUS YAO MD ([id number]), restaurant expeditor BENTLEY EMMANUEL ([id number]) on 06/09/2023 11:29:21 AM Test Reason : Location : 1 : ER ED Overread By : JAMARCUS YAO MD Edited By : BENTLEY EMMANUEL Referred By : , Acquired by : silas mendoza [facility] Covid 19 Resultson 2 SARS-CoV-2 (COVID-19) RNA JALEN+probe Ql (Unsp spec) NEGATIVE COVID-19 Test Coronaviruses are common world-wide and are the cause of many common colds. SARS-COV2 is a new coronavirus that began circulating worldwide in 2019 so we are calling it COVID-19. It has been estimated that four out of five patients with COVID-19 will recover at home without the need for medical attention. Symptoms of COVID-19 may include cough, fever, shortness of breath, loss of taste or smell and other flu-like symptoms including chills, sore muscles, sore throat, and headache. Severe illness is more common in older people and people with other health problems such as high blood pressure, obesity, and immune system problems. If the test is positive, you have COVID-19. You will be contacted by the ordering physicians office and instructed to remain on home isolation, in accordance with CDC guidelines. You may also be contacted by the [facility] to see if any of your close contacts may have been exposed to the virus and need to quarantine. If the test is negative, you likely do not have COVID-19 at this time, but you still may have a different illness that can spread to other people (like Influenza, or the Flu) and could still be at risk for getting COVID-19. We recommend that you stay away from other people to limit the spread of illness until your symptoms are improving and you are fever-free for 24 hours without the use of fever lowering medications such as acetaminophen or ibuprofen. No test is 100% accurate so if you are still concerned you may have COVID-19, talk to your doctor about the need to continue to stay away from others. Medicines Unless your provider told you not to use the following: Acetaminophen (Tylenol and others) is generally safe. Anti-inflammatory medications, such as Ibuprofen (Advil or Motrin) or Naproxen (Aleve) can also be used. Yhlz-uzb-dquzmrf cough and cold medicines can be used according to the instructions on the package. Some keqy-gzo-zbylzrq medicines also contain acetaminophen. Make sure you are not taking more than your recommended dose. For those not hospitalized, there is no specific treatment available for this illness. Antibiotics do not treat Coronaviruses. Follow-Up Follow up with your doctor by scheduling a virtual visit or consider follow-up at one of our urgent care fever clinics. If you are having difficulty breathing, or are very weak and having difficulty standing, this is a medical emergency. Call 911 or have someone take you to the nearest emergency room immediately. If possible, wear a facemask. Additional guidance from the CDC for patients who tested POSITIVE for COVID-19 How to isolate: Isolate yourself in a specific room at home and limit your contact with others. Use a separate bathroom from other members of the household, when possible. Leave home only to get essential medical care. Do not go to work, school or public areas. Avoid using public transportation, ride-sharing, or taxis. Restrict contact with pets and other animals. If you must care for your pet or be around animals while you are sick, wash your hands before and after your interaction and wear a facemask. Make sure that shared spaces in the home have good airflow, such as by an air conditioner or an opened window, weather permitting. Personal Hygiene Procedures: Wear a face mask when in the same room as other people or pets. If a face mask interferes with your breathing, others should wear a mask when sharing space with you. Frequent hand-washing: wash your hands with soap and water for at least 20 seconds. If soap and water are not available, use alcohol-based hand vp delivery. Avoid touching your eyes, nose, and mouth with unwashed hands. Household Hygiene Procedures: Avoid sharing personal household items such as dishes, glassware, cups, eating utensils, towels or bedding with other people or pets in your home. After use, these items should be washed with soap and hot water. Disinfect all high-touch surfaces every day with antibacterial cleaning solutions such as Lysol wipes, bleach, cleansers, etc. High-touch surfaces include tabletops, doorknobs, bathroom fixtures, toilets, phones, keyboards, tablets and bedside tables. Immediately clean any surfaces that may have blood, poop or body fluids on them, using antibacterial cleaning solutions such as Lysol wipes, bleach, cleansers, etc. If clothing or bedding come into contact with blood, poop or body fluids, they should be washed immediately. Follow the directions on the laundry detergent and clothing labels but hot water is recommended when possible. Stopping home isolation precautions: If possible, consult your doctor before stopping home isolation precautions. According to the CDC, you can discontinue home isolation precautions when you have met both of these criteria: Your fever and respiratory symptoms have been gone for 24 gabby (more content not included)... Normal [facility] INFLUENZA A/B, COVID 2019 PC R,SYMPTOMATICon 10-07-2022 INFLUENZA A, PCR Not detected Normal Not Detected [facility] Comment on above: Result Comment: Resp iratory virus testing is performed routinely by PCR for Influenza A/B and RSV. If Influenza and RSV PCR are negative, testing for parainfluenza 1,2,3 viruses and adenovirus is routinely performed for oncology inpatients and intensive care unit patients at [facility] and is available on request on other patients by calling Laboratory Client Services at [phone]. Not Detected results do not preclude Influenza A/B or RSV infections since the adequacy of sample collection or low viral burden may impact the clinical sensitivity of this test method. Performed By: #### C OINP #### [facility] [address] [place] [address] INFLUENZA B, PCR Not detected Normal Not Detected [facility] Comment on above: Result Comment: Resp iratory virus testing is performed routinely by PCR for Influenza A/B and RSV. If Influenza and RSV PCR are negative, testing for parainfluenza 1,2,3 viruses and adenovirus is routinely performed for oncology inpatients and intensive care unit patients at [facility] and is available on request on other patients by calling Laboratory Client Services at [phone] Not Detected results do not preclude Influenza A/B or RSV infections since the adequacy of sample collection or low viral burden may impact the clinical sensitivity of this test method. Performed By: #### C OINP #### [facility] [address] [place] [address] SARS-CoV-2 (COVID-19) RNA JALEN+probe Ql (Unsp spec) Not detected Normal Not Detected [facility] Comment on above: Result Comment: . This assay is designed to detect the ORF1a/b and E genes of SARS-CoV-2 via nucleic acid amplification. A Not Detected result does not preclude 2019-nCoV infection since the adequacy of sample collection and/or low viral burden may result in presence of viral nucleic acids below the clinical sensitivity of this test method. Fact sheet for providers: https://www.fda.gov/media/385348/download Fact sheet for patients: https://www.fda.gov/media/407825/download This test has received FDA Emergency Use Authorization (EUA) and has been verified for use by [facility] ([facility]). This test is only authorized for the duration of time that circumstances exist to justify the authorization of the emergency use of in vitro diagnostic tests for the detection of SARS-CoV-2 virus and/or diagnosis of COVID-19 infection under section 564(b)(1) of the Act, 21 U.S.C. 360bbb-3(b)(1), unless the authorization is terminated or revoked sooner. [facility] is certified under CLIA-88 as qualified to perform high complexity testing. Testing is performed in the [facility] laboratories located at [address] [place] [address]. Performed By: #### C OINP #### [address] [place] [address] INFLUENZA A/B, COVID 2019 PC R,SYMPTOMATICon 10-06-2022 Lab Specimen Source Nasal, Nasopharyngeal Normal [facility] Comment on above: Performed By: #### C OINP #### [address] [place] [address] Provider Note - ED v3on 09-23 Provider Note - ED v3 Provider Note: Chart Review: ED NOTES ED NOTES: Presents for evaluation of URI. Symptoms including cough, congestion, body aches, malaise, and headache have been present for several days and refractory to OTC meds. No fever, chills, loss of taste/smell, nausea, vomiting, abdominal pain, CP, or SOB. No exacerbating factors. No known COVID 19/flu exposure. Current smoker. HISTORY OF PRESENTING ILLNESS NAVYA is a 27 year old Female and was seen by me at 06-Oct-2022 12:50. Triage Information: Most recent Vital Sign Value Date PAST MEDICAL HISTORY ALLERGIES/INTOLERANCE S: Allergy Allergen: NKDA Type: Reaction: Allergen: Eggs Type: Food Reaction: Unknown HEALTH HISTORY: No documented data. OUTPATIENT MEDICATIONS: Home Medications Review Status for Reconciliation: Complete Med Status: Patient Currently Takes Medications Drug Name: azithromycin 250 mg oral tablet Instructions: Take 2 tabs (500mg) x 1 days, then 1 tab (250mg) once daily x 4 days Drug Name: Medrol Dosepak 4 mg oral tablet Instructions: Take as directed. Drug Name: albuterol 90 mcg/inh inhalation aerosol Instructions: 2 puff(s) inhaled 2 times a day as needed for cough SIGNIFICANT EVENTS: No documented data. DIRECTOR OF DANCE: Is : no Is : no REVIEW OF SYSTEMS All other systems reviewed and are negative REVIEW OF SYSTEMS: Comments See HPI PHYSICAL EXAM CONSTITUTIONAL: Well appearing, well nourished, awake, alert, oriented to person, place, time/situation and in no apparent distress. HENMT: Airway patent, ears with clear tympanic membranes bilaterally. Nasal mucosa clear. Mouth with normal mucosa. Throat has no vesicles, no oropharyngeal exudates and uvula is midline. Face with no lymph node enlargement. EYES: Clear bilaterally, pupils equal, round and reactive to light. CARDIOVASCULAR: Normal rate, regular rhythm. Heart sounds S1, S2. No murmurs, rubs or gallops. PMI non-displaced. RESPIRATORY: Scattered wheezing throughout bilaterally, no rales, rhonchi. NEUROLOGICAL: Alert and oriented, no focal deficits, no motor or sensory deficits. SKIN: Skin normal color for race, warm, dry and intact. No evidence of trauma. PSYCHIATRIC: Alert and oriented to person, place, time/situation. normal mood and affect. No apparent risk to self or others. CRITICAL CARE VITAL SIGNS: T PRBP SpO2O2(LPM) %FiO2 Method 06-Oct-2022 12:54:[id number]/ 71 96 MDM MDM/ED COURSE: Discussed Findings with: patient Data Reviewed: vital signs Treatment Plan: Rx Zpak, medrol dose te and albuterol inhaler. Patient's clinical presentation is otherwise unremarkable at this time. Patient is discharged with instructions to follow-up with primary care or seek emergency medical attention for worsening symptoms or any new concerns. DISPOSITION Diagnosis/Annotation: ED Dx Name:Acute upper respiratory infection Code:J06.9 Name:Wheezing on auscultation Code:R06.2 Disposition: discharged Type: home CONSULT CRITICAL CARE TIME Is this a critically ill patient: no Electronic Signatures: Ashu Shore ([employer] SUPERVISOR-ROOM SERVICE FOOD SERVICE ATTENDANT) (Signed 06-Oct-2022 13:32) Authored: ED Notes, HPI, PMH, ROS, PE, Results/Vital Signs, MDM/ED Course, Clinical Impression, Attestation, Chart Review, Scores Last Updated: 06-Oct-2022 13:32 by Ashu Shore ([employer] SUPERVISOR-ROOM SERVICE FOOD SERVICE ATTENDANT) [facility] CBC and Differentialon 11-28 Abs Baso 0.13 k/uL High <0.11 [facility] Comment on above: Performed By: #### C BCDIF, CMP, VITD, CARBAM #### [facility] Routine Lab [address] [place] [phone] Abs [place] 0.65 k/uL Normal <0.87 [facility] Comment on above: Performed By: #### C BCDIF, CMP, VITD, CARBAM #### [facility] Routine Lab [address] [place] [phone] Abs Neut 6.67 k/uL Normal 1.45-7.50 [facility] Comment on above: Performed By: #### C BCDIF, CMP, VITD, CARBAM #### [facility] Routine Lab [address] [place] [phone] Absolute nRBC <0.01 Normal <0.01 [facility] Comment on above: Performed By: #### C BCDIF, CMP, VITD, CARBAM #### [facility] Routine Lab [address] [place] [phone] Basophils/100 WBC (Bld) 1.3 % Normal [facility] Comment on above: Performed By: #### C BCDIF, CMP, VITD, CARBAM #### [facility] Routine Lab [address] [place] [phone] DTYPE ADIFF Normal [facility] Comment on above: Performed By: #### C BCDIF, CMP, VITD, CARBAM #### [facility] Routine Lab [address] [place] [phone] Eosinophils (Bld) [#/Vol] 0.33 10*3/uL Normal <0.46 [facility] Comment on above: Performed By: #### C BCDIF, CMP, VITD, CARBAM #### [facility] Routine Lab [address] [place], [place] [address] Eosinophils/100 WBC (Bld) 3.2 % Normal [facility] Comment on above: Performed By: #### C BCDIF, CMP, VITD, CARBAM #### [facility] Routine Lab [address] [place] [address] Erythrocyte distribution width (RBC) [Ratio] 12.5 % Normal 11.5-15.0 [facility] Comment on above: Performed By: #### C BCDIF, CMP, VITD, CARBAM #### [facility] Routine Lab [address] [place] [address] Hematocrit (Bld) [Volume fraction] 49.5 % High 36.0-46.0 [facility] Comment on above: Performed By: #### C BCDIF, CMP, VITD, CARBAM #### [facility] Routine Lab [address] [place] [address] Hemoglobin (Bld) [Mass/Vol] 15.7 g/dL High 11.5-15.5 [facility] Comment on above: Performed By: #### C BCDIF, CMP, VITD, CARBAM #### [facility]ine Lab [address] [place] [address] Lymphocytes (Bld) [#/Vol] 2.48 10*3/uL Normal 1.00-4.00 [facility] Comment on above: Performed By: #### C BCDIF, CMP, VITD, CARBAM #### [facility] Routine Lab [address] [place] [address] Lymphocytes/100 WBC (Bld) 24.2 % Normal [facility] Comment on above: Performed By: #### C BCDIF, CMP, VITD, CARBAM #### [facility] Routine Lab [address] [place] [address] MCH (RBC) [Entitic mass] 29.2 pG Normal 26.0-34.0 [facility] Comment on above: Performed By: #### C BCDIF, CMP, VITD, CARBAM #### [facility] Routine Lab [address] [place], [place] [address] MCHC (RBC) [Mass/Vol] 31.7 g/dL Normal 30.5-36.0 [facility] Reference Lab Comment on above: Performed By: #### C BCDIF, CMP, VITD, CARBAM #### [facility] Routine Lab [address] [place] [address] MCV (RBC) [Entitic vol] 92.0 fL Normal 80.0-100.0 [facility] Comment on above: Performed By: #### C BCDIF, CMP, VITD, CARBAM #### [facility] Routine Lab [address] [place] [address] Monocytes/100 WBC (Bld) 6.3 % Normal [facility] Comment on above: Performed By: #### C BCDIF, CMP, VITD, CARBAM #### [facility] Routine Lab [address] [place], [place] [address] Neutrophils/100 WBC (Bld) 65.0 % Normal [facility] Comment on above: Performed By: #### C BCDIF, CMP, VITD, CARBAM #### [facility] Routine Lab [address] [place], [place] [address] NRBCs 0.0 /100 WBC Normal 0 [facility] Comment on above: Performed By: #### C BCDIF, CMP, VITD, CARBAM #### [facility] Routine Lab [address] [place], [place] [address] Platelet mean volume (Bld) [Entitic vol] 9.6 fL Normal 9.0-12.7 [facility] Comment on above: Performed By: #### C BCDIF, CMP, VITD, CARBAM #### [facility] Routine Lab [address] [place], [place] [address] Platelets (Bld) [#/Vol] 315 10*3/uL Normal 150-400 [facility] Comment on above: Performed By: #### C BCDIF, CMP, VITD, CARBAM #### [facility] Routine Lab [address] [place], [place] [address] RBC (Bld) [#/Vol] 5.38 10*6/uL High 3.90-5.20 [facility] Lab Comment on above: Performed By: #### C BCDIF, CMP, VITD, CARBAM #### [facility] Routine Lab [address] [place], [place] [address] WBC (Bld) [#/Vol] 10.26 10*3/uL Normal 3.70-11.00 [facility] Comment on above: Performed By: #### C BCDIF, CMP, VITD, CARBAM #### [facility] Routine Lab [address] [place] [address] Carbamazepineon 11-28-2020 Carbamazepine <2.0 Low 4.0-12.0 [facility] Comment on above: Performed By: #### C BCDIF, CMP, VITD, CARBAM #### [facility] Routine Lab [address] [place] [address] Comp Metabolic Panelon 11-28 Albumin [Mass/Vol] 4.7 g/dL Normal 3.9-4.9 [facility] Comment on above: Performed By: #### C BCDIF, CMP, VITD, CARBAM #### [facility] Routine Lab [address] [place], [place] [address] ALP [Catalytic activity/Vol] 82 U/L Normal 34-123 [facility] Comment on above: Performed By: #### C BCDIF, CMP, VITD, CARBAM #### [facility] Routine Lab [address] [place], [place] [address] ALT [Catalytic activity/Vol] 22 U/L Normal 7-38 [facility] Reference Lab Comment on above: Performed By: #### C BCDIF, CMP, VITD, CARBAM #### [facility] Routine Lab [address] [place], [place] [address] Anion gap [Moles/Vol] 12 mmol/L Normal 9-18 [facility] Lab Comment on above: Performed By: #### C BCDIF, CMP, VITD, CARBAM #### [facility] Routine Lab [address] [place] [address] AST [Catalytic activity/Vol] 30 U/L Normal 13-35 [facility] Comment on above: Performed By: #### C BCDIF, CMP, VITD, CARBAM #### [facility] Routine Lab [address] [place] [address] Bilirubin Ql (U) 0.3 mg/dL Normal 0.2-1.3 [facility] Lab Comment on above: Performed By: #### C BCDIF, CMP, VITD, CARBAM #### [facility] Routine Lab [address] [place] [address] Calcium [Mass/Vol] 9.4 mg/dL Normal 8.5-10.2 [facility] Comment on above: Performed By: #### C BCDIF, CMP, VITD, CARBAM #### [facility] Routine Lab [address] [place], [place] [address] Chloride [Moles/Vol] 102 mmol/L Normal 97-105 [facility] Comment on above: Performed By: #### C BCDIF, CMP, VITD, CARBAM #### [facility] Routine Lab [address] [place] [address] CO2 [Moles/Vol] 26 mmol/L Normal 22-30 [facility] Comment on above: Performed By: #### C BCDIF, CMP, VITD, CARBAM #### [facility] Routine Lab [address] [place] [phone] Creatinine [Mass/Vol] 0.80 mg/dL Normal 0.58-0.96 [facility] Reference Lab Comment on above: Performed By: #### C BCDIF, CMP, VITD, CARBAM #### [facility] Routine Lab [address] [place], [place] [address] eGFR- Amer. >60 Normal [facility] Lab Comment on above: Performed By: #### C BCDIF, CMP, VITD, CARBAM #### [facility] Routine Lab [address] [place], [place] [address] GFR/1.73 sq M predicted among non-blacks MDRD (S/P/Bld) [Vol rate/Area] mL/min/{1.73_m2} Normal [facility] Comment on above: Performed By: #### C BCDIF, CMP, VITD, CARBAM #### [facility] Routine Lab [address] [place], [place] [address] Glucose [Mass/Vol] 84 mg/dL Normal 74-99 [facility] Comment on above: Performed By: #### C BCDIF, CMP, VITD, CARBAM #### [facility] Routine Lab [address] [place], [place] [address] Potassium [Moles/Vol] 3.9 mmol/L Normal 3.7-5.1 [facility] Lab Comment on above: Performed By: #### C BCDIF, CMP, VITD, CARBAM #### [facility] Routine Lab [address] [place], [place] [address] Protein [Mass/Vol] 7.4 g/dL Normal 6.3-8.0 [facility] Comment on above: Performed By: #### C BCDIF, CMP, VITD, CARBAM #### [facility] Routine Lab [address] [place], [place] [address] Sodium [Moles/Vol] 140 mmol/L Normal 136-144 [facility] Comment on above: Performed By: #### C BCDIF, CMP, VITD, CARBAM #### [facility] Routine Lab [address] [place], [place] [address] Urea nitrogen [Mass/Vol] 19 mg/dL Normal 7-21 [facility] Comment on above: Performed By: #### C BCDIF, CMP, VITD, CARBAM #### [facility] Routine Lab [address] [place], [place] [address] Vitamin D 25 Hydroxyon 11-28 Vitamin D 25 Hydroxy 33.3 ng/mL Normal 31.0-80.0 [facility] Comment on above: Performed By: #### C BCDIF, CMP, VITD, CARBAM #### [facility] Routine Lab [address] [place] [address] NOVEL CORONAVIRUS NASOPHARYN GEAL - [facility] SPECIMEN ONLYon 10-09-2020 SARS-COV-2 NOT DETECTED Normal NOT DETECTED [facility] Comment on above: Order Comment: Submi tter Name: [facility] Agent Suspected: SARS-COV-2 This test was performed using real time PCR and has been approved for the qualitative detection of SARS-CoV-2 nucleic acid. The test has been authorized by the FDA under an emergency use authorization for use by authorized laboratories. Result Comment: Nega tive results do not preclude SARS-CoV-2 infection and should not be used as the sole basis for treatment or other patient management decisions. Optimum specimen types and timing for peak viral levels during infections caused by SARS-CoV-2 has not been determined. The possibility of a false negative result should especially be considered if the patient's recent exposures or clinical presentation suggest that SARS-CoV-2 infection is probable, and diagnostic tests for other causes of illness (e.g., other respiratory illness) are negative. Collection of a new specimen and re-testing may be necessary if the patient is critically ill or clinically deteriorating. Performed By: #### L [id number] #### [facility] ([facility]) [address] [place] [address] NOVEL CORONAVIRUS NASOPHARYN GEAL - [facility] SPECIMEN ONLYon 09-25-2020 SARS-COV-2 NOT DETECTED Normal NOT DETECTED [facility] Comment on above: Order Comment: Submi tter Name: [facility] Agent Suspected: SARS-COV-2 This test was performed using real time PCR and has been approved for the qualitative detection of SARS-CoV-2 nucleic acid. The test has been authorized by the FDA under an emergency use authorization for use by authorized laboratories. Result Comment: Nega tive results do not preclude SARS-CoV-2 infection and should not be used as the sole basis for treatment or other patient management decisions. Optimum specimen types and timing for peak viral levels during infections caused by SARS-CoV-2 has not been determined. The possibility of a false negative result should especially be considered if the patient's recent exposures or clinical presentation suggest that SARS-CoV-2 infection is probable, and diagnostic tests for other causes of illness (e.g., other respiratory illness) are negative. Collection of a new specimen and re-testing may be necessary if the patient is critically ill or clinically deteriorating. Performed By: #### L [id number] #### [facility] (DEFAULT) [address] [place] [address] NOVEL CORONAVIRUS NASOPHARYN GEAL - [facility] SPECIMEN ONLYon 09-11-2020 SARS-COV-2 NOT DETECTED Normal NOT DETECTED [facility] Comment on above: Order Comment: Submi tter Name: [facility] Agent Suspected: SARS-COV-2 This test was performed using real time PCR and has been approved for the qualitative detection of SARS-CoV-2 nucleic acid. The test has been authorized by the FDA under an emergency use authorization for use by authorized laboratories. Result Comment: Nega tive results do not preclude SARS-CoV-2 infection and should not be used as the sole basis for treatment or other patient management decisions. Optimum specimen types and timing for peak viral levels during infections caused by SARS-CoV-2 has not been determined. The possibility of a false negative result should especially be considered if the patient's recent exposures or clinical presentation suggest that SARS-CoV-2 infection is probable, and diagnostic tests for other causes of illness (e.g., other respiratory illness) are negative. Collection of a new specimen and re-testing may be necessary if the patient is critically ill or clinically deteriorating. Performed By: #### L [id number] #### [facility] (DEFAULT) [address] [address] NOVEL CORONAVIRUS NASOPHARYN GEAL - [facility] SPECIMEN ONLYon 08-28-2020 SARS-COV-2 NOT DETECTED Normal NOT DETECTED [facility] Comment on above: Order Comment: Submi tter Name: [facility] Agent Suspected: SARS-COV-2 This test was performed using real time PCR and has been approved for the qualitative detection of SARS-CoV-2 nucleic acid. The test has been authorized by the FDA under an emergency use authorization for use by authorized laboratories. Result Comment: Nega tive results do not preclude SARS-CoV-2 infection and should not be used as the sole basis for treatment or other patient management decisions. Optimum specimen types and timing for peak viral levels during infections caused by SARS-CoV-2 has not been determined. The possibility of a false negative result should especially be considered if the patient's recent exposures or clinical presentation suggest that SARS-CoV-2 infection is probable, and diagnostic tests for other causes of illness (e.g., other respiratory illness) are negative. Collection of a new specimen and re-testing may be necessary if the patient is critically ill or clinically deteriorating. Performed By: #### L [id number] #### [facility] (DEFAULT) [address] [place] [address] NOVEL CORONAVIRUS NASOPHARYN GEAL - [facility] SPECIMEN ONLYon 08-14-2020 SARS-COV-2 NOT DETECTED Normal NOT DETECTED [facility] Comment on above: Order Comment: Viral transport media - Collection must be done while wearing N-95 mask, eye protection, gown and gloves. Please label ALL specimens as 2019-nCoV rule out and deliver by hand. This test was performed using real time PCR and has been approved for the qualitative detection of SARS-CoV-2 nucleic acid. The test has been authorized by the FDA under an emergency use authorization for use by authorized laboratories. Result Comment: Nega tive results do not preclude SARS-CoV-2 infection and should not be used as the sole basis for treatment or other patient management decisions. Optimum specimen types and timing for peak viral levels during infections caused by SARS-CoV-2 has not been determined. The possibility of a false negative result should especially be considered if the patient's recent exposures or clinical presentation suggest that SARS-CoV-2 infection is probable, and diagnostic tests for other causes of illness (e.g., other respiratory illness) are negative. Collection of a new specimen and re-testing may be necessary if the patient is critically ill or clinically deteriorating. Performed By: #### L [id number] #### [facility] (DEFAULT) [address] [address] NOVEL CORONAVIRUS NASOPHARYN GEAL - [facility] SPECIMEN ONLYon 07-08-2020 SARS-COV-2 NOT DETECTED Normal NOT DETECTED [facility] Comment on above: Order Comment: Viral transport media - Collection must be done while wearing N-95 mask, eye protection, gown and gloves. Please label ALL specimens as 2019-nCoV rule out and deliver by hand. This test was performed using real time PCR and has been approved for the qualitative detection of SARS-CoV-2 nucleic acid. The test has been authorized by the FDA under an emergency use authorization for use by authorized laboratories. Result Comment: Nega tive results do not preclude SARS-CoV-2 infection and should not be used as the sole basis for treatment or other patient management decisions. Optimum specimen types and timing for peak viral levels during infections caused by SARS-CoV-2 has not been determined. The possibility of a false negative result should especially be considered if the patient's recent exposures or clinical presentation suggest that SARS-CoV-2 infection is probable, and diagnostic tests for other causes of illness (e.g., other respiratory illness) are negative. Collection of a new specimen and re-testing may be necessary if the patient is critically ill or clinically deteriorating. Performed By: #### L [id number] #### [facility] (DEFAULT) [address] [address] NOVEL CORONAVIRUS NASOPHARYN GEAL - [facility] SPECIMEN ONLYon 06-05-2020 SARS-COV-2 NOT DETECTED Normal NOT DETECTED [facility] Comment on above: Order Comment: Submi tter Name: [facility] Agent Suspected: SARS-COV-2 This test was performed using real time PCR and has been approved for the qualitative detection of SARS-CoV-2 nucleic acid. The test has been authorized by the FDA under an emergency use authorization for use by authorized laboratories. Result Comment: Nega tive results do not preclude SARS-CoV-2 infection and should not be used as the sole basis for treatment or other patient management decisions. Optimum specimen types and timing for peak viral levels during infections caused by SARS-CoV-2 has not been determined. The possibility of a false negative result should especially be considered if the patient's recent exposures or clinical presentation suggest that SARS-CoV-2 infection is probable, and diagnostic tests for other causes of illness (e.g., other respiratory illness) are negative. Collection of a new specimen and re-testing may be necessary if the patient is critically ill or clinically deteriorating. Performed By: #### L [id number] #### [facility] ([place] [address] NOVEL CORONAVIRUS (COVID-19) on 04-15-2020 SARS-COV-2 Not Detected Normal Not Detected [facility] Comment on above: Order Comment: This assay was performed by [employer] ([employer]AL[employer]) on the [employer]??? [employer]??? System ([employer] [place], [place]) using Manufacturing Technology Professor Mediated Amplification (TMA) technology. This test was developed, and its performance characteristics determined by [employer]. The Aptima??? SARS-CoV-2 assay is for use only under Emergency Use Authorization (EUA) in the [place] laboratories certified under the Clinical Laboratory Improvement Amendments of 1988 (CLIA), 42 U.S.C. ???263a, to perform high complexity tests. Performed By: #### C [id number] #### [facility] [address] [place], [address] ANES Chance 06-19-2019 ANES POST HNO ID: [id number] Author: Emory Darby Service: Anesthesiology Author Type: Anesthesiologist Type: Anesthesia PostOp Filed: 06/19/2019 2:24 PM Note Text: POST ANESTHESIA EVALUATION NOTE SERVICE DATE: 06/19/2019 : 1995 Vitals: 06/19/19 1001 06/19/19 1302 Temp: 36.2 ?C (97.2 ?F) 36 ?C (96.8 ?F) 06/19/19 1330 06/19/19 1345 06/19/19 1400 06/19/19 1415 BP: 90/55 88/50 104/64 100/70 06/19/19 1330 06/19/19 1345 06/19/19 1400 06/19/19 1415 Pulse: 65 67 85 63 06/19/19 1330 06/19/19 1345 06/19/19 1400 06/19/19 1415 Resp: 20 20 16 16 06/19/19 1330 06/19/19 1345 06/19/19 1400 06/19/19 1415 SpO2: 94% 96% 98% 97% Validated Vital Signs: Yes No apparent anesthetic complications. The patient is appropriately hydrated with stable respiratory and cardiovascular status. Patient has safe and adequate airway control. The patient has appropriate pain relief and no significant post operative nausea or vomiting. The patient has achieved baseline mental status. Further assessment by Anesthesia Service: None Other Remarks: SIGNATURE: Emory Darby MD PATIENT NAME: Navya Mcnulty DATE: June 19, 2019 TIME: 2:24 PM [facility] ANES PREOPon 06-19-2019 ANES PREOP HNO ID: [id number] Author: Kristian Carranza Service: Anesthesiology Author Type: Anesthesiologist Type: Anesthesia PreOp Filed: 06/19/2019 10:40 AM Note Text: REGIONAL ANESTHESIOLOGY PREOPERATIVE ASSESSMENT Surgeon(s): Maykel Judge Procedure(s) (LRB): ARTHROSCOPY ANKLE W/ DEBRIDEMENT LIMITED (Right) ARTHROSCOPY ANKLE (TIBIOTALAR AND FIBULOTALAR JOINTS) W/ REMOVAL LOOSE BODY OR FOREIGN BODY (Right) Vitals: 06/19/19 1001 BP: 108/67 Pulse: 78 Resp: 16 Temp: 36.2 ?C (97.2 ?F) TempSrc: Temporal Artery SpO2: 98% ACTIVE PROBLEM LIST Smoker Anxiety and Depression 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) Closed Fracture of Right Ankle Abscess Esophageal Candidiasis (Hcc) Cellulitis of Right Knee Obesity, Class I, Bmi 30-34.9 Closed Displaced Fracture of Right Talus Mild Intermittent Asthma Without Complication History of Abuse of Recreational Drug (Hcc) PAST MEDICAL HISTORY Diagnosis Date - Anxiety 05/23/2017 - Asthma - Cellulitis and abscess of toe, unspecified 06/01/2010 - Cellulitis of right knee 05/18/2019 - Depression 12/22/2011 - History of illicit drug use Quit 06/2017, Meth - Hyperprolactinemia (HCC) 03/23/2012 - MRSA cellulitis 2017 - PMH - PAST MEDICAL HISTORY OF 01/02/10 normal color vision - Trichomoniasis 03/06/2019 - Unspecified asthma(493.90) PAST SURGICAL HISTORY Procedure Laterality Date - PAST SURGICAL HISTORY OF Left 04/2017 Elbow Surgery - PAST SURGICAL HISTORY OF removal of abcess on right knee FAMILY HISTORY Problem Relation Age of Onset - Psychiatry Mother depression - other (Carpel Tunnel) Mother - Diabetes Father - Heart Father bypass - Hypertension Father - Osteoporosis Maternal Grandmother - other (Breast Cancer age 40s) Maternal Grandmother - Diabetes Paternal Grandmother - other (Demenia) Paternal Grandmother - Diabetes Paternal Grandfather - Heart Paternal Grandfather from [place] - Cancer Maternal Grandfather of liver cancer Social History: Social History Tobacco Use - Smoking status: Current Every Day Smoker Packs/day: 1.00 Years: 10.00 Pack years: 10.00 Types: Cigarettes - Smokeless tobacco: Never Used Substance Use Topics - Alcohol use: Yes Comment: occ - Drug use: No Comment: 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 No current facility-administered medications on file prior to encounter. Current Outpatient Medications on File Prior to Encounter: acetaminophen (TYLENOL) 325 mg tablet Take 2 tablets by mouth every 6 hours as needed. Cetirizine (ZYRTEC) 10 mg cap Take by mouth. LACTASE (LACTAID ORAL) Take by mouth w MEALS. norgestimate 0.25 mg-ethinyl estradiol 35 mcg (SPRINTEC) 0.25-35 mg-mcg per tablet Take 1 tablet by mouth once daily. fluticasone propionate (FLONASE ALLERGY RELIEF NASAL) Use in the nose. albuterol HFA (PROAIR HFA) 90 mcg/actuation inhaler Inhale 2 Puffs as instructed every 4 hours as needed. Current Facility-Administered Medications Medication Dose Route Frequency Provider Last Rate Last Dose - lidocaine 10 mg/mL (1 %) 1-2 mg injection (XYLOCAINE) 0.1-0.2 mL INTRADERMAL PRN Maykel W Alfie - lactated ringers infusion 5-30 mL/hr INTRAVENOUS CONTINUOUS Maykel W Alfie 30 mL/hr at 06/19/19 1013 30 mL/hr at 06/19/19 1013 - ceFAZolin iv piggyback 2 g in D5W (iso-osmotic) 100 mL (ANCEF) 2 g INTRAVENOUS Pre-Op Once Maykel Rosales Alfie - acetaminophen 1,000 mg tab(s) (TYLENOL) 1,000 mg ORAL Pre-Op Once Kristian Carranza - promethazine 12.5 mg tab(s) (PHENERGAN) 12.5 mg ORAL Pre-Op Once Kristian Carranza - lactated ringers infusion 30 mL/hr INTRAVENOUS CONTINUOUS Kirstian Carranza Allergies: ALLERGIES Allergen Reactions - Egg Hives, Swelling Raw eggs only - Pollen REVIEW OF SYSTEMS: As stated in Active Problem List/ Past Medical History HGB 13.5 05/20/2019 Hematocrit 41.3 05/20/2019 Sodium 137 05/20/2019 Glucose 104 05/20/2019 Potassium 4.4 05/20/2019 Platelet Count 339 05/20/2019 Creatinine 0.63 05/20/2019 HCG, Qualitative NEGATIVE 09/12/2009 HCG Qualitative, Urine Negative 05/18/2019 EKG RESULTS: unchanged from previous tracings ANESTHESIOLOGY REVIEW: Airway Assessment: MP 1; Neck ROM: Full ROM without neurologic symptoms; Airway Evaluation: No significant abnormalities Symptoms of Sleep Apnea: N/A Intubation History: No previous history of difficult intubation Dentition: Teeth intact Chipped, loose and/or missing ADVERSE ANESTHESIA EVENT: No history of adverse event FAMILY HIISTORY OF ANESTHESIA: No known issues Blood Products: Not anticipated for this procedure Other Medical Problems: None Additional Physical Exam: Lungs: Lungs clear to auscultation. Good diaphragmatic excursion. Cardiac: normal S1 and S2; no rubs, no murmurs, and no gallops Additional pertinent findings: N/A I have interviewed and examined the patient. I have reviewed the medical record and/or the pre-anesthesia evaluation, pertinent labs, and test results. Significant changes in the patient's condition since the History and Physical, not otherwise documented in primary service progress notes: No Anesthetic risks, benefits, alternatives, personnel and consent discussed. Yes ASA 2 NPO 12 hrs PLAN: LMA This contains updated information obtained within 48 hours of Surgery/Procedure. SIGNATURE: Kristian Carranza MD PATIENT NAME: Navya Mcnulty DATE: June 19, 2019 TIME: 10:39 AM PAGER/CONTACT #: [facility] NURSING PROGon 06-19-2019 NURSING PROG HNO ID: [id number] Author: Neva VogelRn) MARTHA Sykes Service: Nursing Author Type: Registered Nurse Type: Nursing Progress Note Filed: 06/19/2019 5:00 PM Note Text: Nursing Progress Note Patient Name: Navya Mcnulty Patient Location: [facility] OR POOL/[facility] OR POOL Daily Note: Pt has been ready for discharge from phase 2 since 16:20. She is waiting for her ride. This note was completed by: Neva Sykes RN [facility] NURSING PROG HNO ID: [id number] Author: Shagufta VogelRn) MARTHA Sharif Service: ? Author Type: Registered Nurse Type: Nursing Progress Note Filed: 06/19/2019 3:24 PM Note Text: Nursing Progress Note Patient Name: Navya Mcnulty Patient Location: [facility] OR POOL/[facility] OR POOL Daily Note:PATIENT EDUCATION TOPIC: PROCEDURE / SURGERY: Procedure/Surgery: PATIENT NAME: Navya Mcnulty PATIENT LOCATION: [facility] OR POOL/[facility] OR POOL READINESS TO LEARN COGNITIVE ABILITY: Alert and oriented MOTIVATION TO LEARN: Eager FAMILY SUPPORT: None - Unavailable/disintere sted INSTRUCTION PROVIDED TO: Patient PATIENT LEARNS BEST BY: Individual Instruction FACTORS AFFECTING LEARNING: None PHYSICAL LIMITATIONS AFFECTING LEARNING: None LEARNING RESPONSE DIAGNOSIS: ADULT: PATIENT/FAMILY RESPONSE: Does not verbalize understanding: METHOD OF INSTRUCTION: Individual instruction FOLLOW-UP PLAN: Complete - No need for follow-up INSTRUCTIONAL AIDS USED: NA SUPPLEMENTAL MATERIAL PROVIDED TO PATIENT: None REFERRAL (RECOMMENDATION): None Electronically Signed By: Shagufta Sharif RN This note was completed by: Shagufta Sharif RN [facility] OPERATIVE NOon 06-19-2019 OPERATIVE NO HNO ID: [id number] Author: Maykel Judge Service: Orthopaedic Surgery Author Type: Physician Type: Operative Report Filed: 06/19/2019 1:48 PM Note Text: OPERATIVE REPORT LOG ID: [id number] Surgery Date: 06/19/2019 Incision/Procedure Start Time: 12:18 PM Incision Close/Procedure End Time: 12:45 PM Procedure Performed: Procedure(s) (LRB): ARTHROSCOPY ANKLE W/ DEBRIDEMENT LIMITED (Right) ARTHROSCOPY ANKLE (TIBIOTALAR AND FIBULOTALAR JOINTS) W/ REMOVAL LOOSE BODY OR FOREIGN BODY (Right) Debridement of talus osteochondral defect, microfracture talus, stress examination under anesthesia, surgeon monitored fluoroscopy Surgeon(s)/Procedural ist(s) and Bearingizer(s): Surgeon(s) and Role: * Maykel Judge - Primary Physician Bearingizer: Maritza Mckeon Anesthesia: General Pre-Operative Diagnosis: Closed displaced fracture of right talus, unspecified fracture morphology, initial encounter [S92.101A], unstable osteochondral defect of talus Post-Operative Diagnosis: As above Estimated Blood Loss: 0 ml Drains: None Specimen: Talus debridement sent to lab Complications: None Operative Procedure: In the preoperative holding area the appropriate limb and site(s) were marked. Sign in was performed with the operative team. Prophylactic IV antibiotics were administered. The patient was brought to the operating room, placed upon the operating table and given an anesthetic. Following successful levels of anesthesia, she was appropriately padded, positioned and secured to the table. The surgical leg was then prepped and draped in the usual sterile fashion. An Esmarch bandage was utilized to exsanguinate the limb and tourniquet raised on the thigh to 300 mmHg. Noninvasive distraction was utilized to 1 cm of ankle distraction. Anteromedial and anterolateral ankle portals were created with a small nathan incision and spreading with a hemostat bluntly through the capsule. The medial central portion of the talus and tibia were within normal limits. There is synovitis was debrided. There was a loose fragmented portion of the mid lateral talus approximately 1 cm from posterior to anterior in 5-6 mm from lateral to medial this piece was lifted off it had a very small bony fragment to it but the entire piece was multiply fragmented. We piecemeal removed it without difficulty within thoroughly irrigated out the ankle we curetted out the sclerotic tissue from the base of the OCD lesion. We then microfracture of the OCD lesion we reinspected the ankle did not find any other abnormalities. The ankle was thoroughly irrigated and drained and the portals closed with 4-0 nylon. We then performed a stress examination of the ankle and the patient did not have excessive anterior drawer talar tilt was equal to the other side. Xeroform and a sterile bulky bandage along with a posterior splint were applied and the patient was then transported to the recovery room in good condition The PA helped with all aspects of the case. There was no qualified resident to assist SIGNATURE: Maykel Judge MD PATIENT NAME: Navya Mcnulty DATE: June 19, 2019 TIME: 1:44 PM PHONE: [phone] [facility] PT EDon 06-19-2019 PT ED HNO ID: [id number] Author: Damaris (Rn) MARTHA Jean Service: ? Author Type: Registered Nurse Type: Patient Education Filed: 06/19/2019 9:52 AM Note Text: PATIENT EDUCATION TOPIC: PROCEDURE / SURGERY: Pre-op Teaching: Logistics PATIENT NAME: Navya Mcnulty PATIENT LOCATION: [facility] OR POOL/[facility] OR POOL READINESS TO LEARN COGNITIVE ABILITY: Alert and oriented MOTIVATION TO LEARN: Eager FAMILY SUPPORT: None - Unavailable/disintere sted INSTRUCTION PROVIDED TO: Patient PATIENT LEARNS BEST BY: Individual Instruction FACTORS AFFECTING LEARNING: None PHYSICAL LIMITATIONS AFFECTING LEARNING: None LEARNING RESPONSE DIAGNOSIS: ADULT: Well Adult PATIENT/FAMILY RESPONSE: Verbalizes understanding of: PRE-OPERATIVE INSTRUCTIONS-Correct action to take to follow pre-operative instructions METHOD OF INSTRUCTION: Individual instruction FOLLOW-UP PLAN: Complete - No need for follow-up INSTRUCTIONAL AIDS USED: NA SUPPLEMENTAL MATERIAL PROVIDED TO PATIENT: None REFERRAL (RECOMMENDATION): None Electronically Signed By: Damaris Jean RN [facility] SURGICAL PATHOLOGYon 019 SURGICAL PATHOLOGY Specimen originated from [facility] Specimen #: [id number] Submitting Physician: Maykel Judge M.D. FINAL DIAGNOSIS Talus (OCD) and right ankle shavings - Fragments of articular cartilage and subchondral bone with granulation tissue and organizing hemorrhage. - Separate fragments of synovium with papillary hyperplasia and mild chronic inflammation. JDR/rw 06/21/2019 Emory Hackett M.D. (Electronic Signature) ____ SPECIMEN SUBMITTED A: OCD TALUS AND RIGHT ANKLE SHAVINGS CLINICAL DATA CLOSED DISPLACED FRACTURE OF RIGHT TALUS, UNSPECIFIED FRACTURE MORPHOLOGY, INITIAL ENCOUNTER; RIGHT ANKLE DIAGNOSTIC ARTHROSCOPY WITH DEBRIDEMENT AND MICROFRACTURE GROSS DESCRIPTION A. Received in formalin are multiple santacruz-white to pink-santacruz hemorrhagic fragments of rubbery tissue that aggregate to 1.5 x 1.5 x 0.2 cm. The specimen is entirely filtered in one cassette. MYA/lola 06/19/2019 Gross examination performed at [facility], [address] [place] [address] Date of Report: 06/21/2019 Date of Procedure: 06/19/2019 Date of Receipt: 06/19/2019 Submitted by: Maykel Judge M.D. Location: [facility] Diagnostic interpretation performed at [facility] [place] [id number]. CLIA Number: [id number] [facility] HOSPon 06-18-2019 HOSP Patient:Jose Carlos Mcnulty MRN: Height:5' 2(1.575 m) Weight:179 lb (81.194 kg) Outpatient Medications as of 06/19/19: acetaminophen (TYLENOL) 325 mg tablet ketorolac (TORADOL) 10 mg tablet cephALEXin (KEFLEX) 500 mg capsule oxyCODONE ir (OXYIR) 5 mg capsule norgestimate 0.25 mg-ethinyl estradiol 35 mcg (SPRINTEC) 0.25-35 mg-mcg per tablet acetaminophen (TYLENOL) 325 mg tablet fluticasone propionate (FLONASE ALLERGY RELIEF NASAL) Cetirizine (ZYRTEC) 10 mg cap albuterol HFA (PROAIR HFA) 90 mcg/actuation inhaler LACTASE (LACTAID ORAL) Admission/Clinic Administered Medications as of 06/19/19: lidocaine 10 mg/mL (1 %) 1-2 mg injection (XYLOCAINE) lactated ringers infusion ceFAZolin iv piggyback 2 g in D5W (iso-osmotic) 100 mL (ANCEF) lactated ringers infusion Problem List: Smoker [F17.200] Anxiety and depression [F41.9, F32.9] History of methicillin resistant Staphylococcus aureus infection [Z86.14] 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] Closed fracture of right ankle [S82.891A] Abscess [L02.91] Esophageal candidiasis ([facility]) [B37.81] Cellulitis of right knee [L03.115] Obesity, Class I, BMI 30-34.9 [E66.9] Closed displaced fracture of right talus [S92.101A] Mild intermittent asthma without complication [J45.20] History of abuse of recreational drug ([facility]) [F19.11] Allergies: Egg Pollen Date Verified: 06/19/19 Lab Values Lab Value Units Date High Low POTA* 4.4 mmol/L 05/20/2019 5.1 3.7 LAUREN* 41.3 % 05/20/2019 46.0 36.0 Progress Notes ([facility]): RT Belgica, Tech 06/15/2019 2:33 PM Signed Radiology Service Progress Note PATIENT NAME: Navya Mcnulty DATE OF SERVICE: June 15, 2019 TIME: 2:33 PM PATIENT IDENTITY VERIFICATION COMPLETED USING TWO (2) METHODS: Name and Date of confirmed by patient verbally. PATIENT GENDER DATA: Female. status: : No status: NO. PATIENT RELEVANT IMPLANT DATA REVIEWED: Not Applicable RADIOLOGY DEPARTMENT: General X-ray: Exam(s) Completed: Lower Extremity X-Ray(s): Ankle, Right: PERIPHERAL IV DATA: Not applicable SIGNED BY: RT Belgica June 15, 2019 2:33 PM Progress Notes ([facility]): Maykel Judge MD 06/18/2019 7:35 AM Signed New Patient Referring Physician: Lupe Gao DO Navya Mcnulty is a 24 year old female referred by Lupe Gao DO for an office consultation for problems related to Patient presents with: Consult: rt ankle injury .Reports she broke her ankle on May 02. Do you have a metal allergy?: No Current Outpatient Medications Medication Sig Dispense Refill - norgestimate 0.25 mg-ethinyl estradiol 35 mcg (SPRINTEC) 0.25-35 mg-mcg per tablet Take 1 tablet by mouth once daily. 1 Package 11 - acetaminophen (TYLENOL) 325 mg tablet Take 2 tablets by mouth every 6 hours as needed. - fluticasone propionate (FLONASE ALLERGY RELIEF NASAL) Use in the nose. - Cetirizine (ZYRTEC) 10 mg cap Take by mouth. - albuterol HFA (PROAIR HFA) 90 mcg/actuation inhaler Inhale 2 Puffs as instructed every 4 hours as needed. 1 Inhaler 0 - ibuprofen 600 mg tablet Take 1 tablet by mouth every 6 hours as needed for Pain. 40 tablet 0 - LACTASE (LACTAID ORAL) Take by mouth w MEALS. No current facility-administered medications for this visit. Allergies As of Date: 06/15/2019 Allergen Noted Reaction EGG 06/01/2019 Hives and Swelling POLLEN 10/31/2008 Fully Assessed 06/15/2019 PAST MEDICAL HISTORY Diagnosis Date - Anxiety 05/23/2017 - Asthma - Cellulitis and abscess of toe, unspecified 06/01/2010 - Cellulitis of right knee 05/18/2019 - Depression 12/22/2011 - History of illicit drug use Quit 06/2017, Meth - Hyperprolactinemia (HCC) 03/23/2012 - MRSA cellulitis 2016 - PMH - PAST MEDICAL HISTORY OF 01/02/10 normal color vision - Trichomoniasis 03/06/2019 - Unspecified asthma(493.90) PAST SURGICAL HISTORY Procedure Laterality Date - PAST SURGICAL HISTORY OF Left 04/2017 Elbow Surgery 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 No 0 on a scale of 0 to 10 Pain Onset:sudden Does the pain radiate? No Associated Factors: swelling Precipitating Factors: Standing and Walking Relieving Factors: ice, resting and medications - NSAIDs Progression: Improving Previous Treatment as follows: Bracing and crutches ROS: Have you had any problems or treatment of the following? If yes please describe. Head:No Eyes:No Ears, nose or throat: No Lungs: No Heart or blood pressure: No Stomach or Bowels: No Kidney or Bladder: No Female organs: No Nerve or mental illness:yes ptsd anxiety depression DM: No Peripheral Vascular Disease: No Inflammatory Arthritis: No Other: none Bleeding Disorders: No FAMILY HISTORY: Has any member of your immediate family (parents or siblings) had this same problem? If so , who? and what? No SOCIAL HISTORY Marital Status: Tobacco: Smoker, 1 ppd x since childhood years Alcohol: Social drinker WORK[employer] COMPENSATION CLAIM Have you missed work for this problem? Yes: short term disability If yes, what dates have you missed? 05/02/19- 07/24/19 Pending Litigation? No What tests have been done for this problem? X-Rays and MRI Scan The patient's pertinent medical history from [facility] has been reviewed. PFOMIS forms have been reviewed. The patient's history of present illness has been confirmed. PHYSICAL EXAM: right foot and ankle Physical examination reveals an alert and oriented patient who is in no acute distress while sitting and is of normal mood and affect. There were no vitals taken for this visit. Gait Cycle: Normal No, Limp: boot and crutches. Inspection: Alignment: neutral Symmetry: Swelling: yes. minimal Redness: no. Ecchymosis: no Effusion: 0 Palpation: Warmth: no, Tenderness:Yes: Ankle: lateral ROM: Ankle- Normal. Strength: 5 Stability: Ligamentous instability: no Specialized Tests: negative Neurologic Status: normal. Vascular Status: normal Skin: Normal Right Upper Extremities:No gross abnormalities Left Upper Extremities:No gross abnormalities Xrays: Done today. See below MRI: 05/18/2019 Dx: (S92.101A) Closed displaced fracture of right talus, unspecified fracture morphology, initial encounter (primary encounter diagnosis) Plan: On Xray, there is a 6 mm chip in the lateral talus that is not completely healed. Therefore, she will remain NWB in the boot and will continue to use the crutches. Conservative management at this time includes rest and remaining NWB until a future Xray. A surgical approach may be considered. This would entail an arthroscopy to remove the fragment. Discussed post-operative recovery and rehabilitation. Return to clinic with her decision regarding conservative management or surgery. I have discussed surgical and non-surgical methods of treatment with the patient. The natural history and course were discussed in relation to the options. Surgical risks, benefits, algorythm, post-operative course, and all possible outcomes were discussed in great detail. The patient will decide how they want to proceed. Maykel Judge M.D. HPI explored in detail with patient and edited as necessary. This note was partially generated using Huayi voice recognition system, and there may be some incorrect words, spellings, and punctuation that were not noted in checking the note before saving. Scribe Attestation: By signing my name below, I, Billy Clements, attest that this documentation has been prepared under the direction and in the presence of Maykel Judge M.D. Electronically Signed:rodo Mcgee, June 15, 2019 2:02 PM Provider Attestation: IMaykel M.D., personally performed the services described in this documentation. All medical record entries made by the scribe were at my direction and in my presence. I have reviewed the chart and discharge instructions (if applicable) and agree that the record reflects my personal performance and is accurate and complete. Maykel Judge MD June 15, 2019 2:02 PM Previous Version Normal [facility] Basic Panelon 05-18-2019 Anion gap [Moles/Vol] 11 mmol/L Normal 8-20 [facility] Comment on above: Performed By: #### L P8 #### [facility] [address] [place], [place] [address] Calcium [Mass/Vol] 9.6 mg/dL Normal 8.5-10.1 [facility] Comment on above: Performed By: #### L P8 #### [facility] [address] [place], [place] [address] CO2 Blood 30 mEq/L Normal 21-32 [facility] Comment on above: Performed By: #### L P8 #### [facility] [address] [place], [place] [address] Creatinine [Mass/Vol] 0.81 mg/dL Normal 0.51-0.95 [facility] Comment on above: Performed By: #### L P8 #### [address] [address] Glucose [Mass/Vol] 91 mg/dL Normal 70-99 [facility] Comment on above: Performed By: #### L P8 #### [facility] [address] [place], [place] [address] Urea nitrogen [Mass/Vol] 14 mg/dL Normal 7-18 [facility] Comment on above: Performed By: #### L P8 #### [address] [address] Urea nitrogen/Creatinine [Mass ratio] 17 mg/mg Normal 10-20 [facility] Comment on above: Performed By: #### L P8 #### [address] [address] Chloride [Moles/Vol] 98 mmol/L Normal 98-109 [facility] Comment on above: Result Comment: Test ing performed on an Nava i-STAT. Performed By: #### L P8 #### [address] [address] Potassium [Moles/Vol] 4.2 mmol/L Normal 3.5-4.9 [facility] Comment on above: Result Comment: Test ing performed on an Nava i-STAT. Performed By: #### L P8 #### [place] [address] Sodium [Moles/Vol] 135 mmol/L Low 138-146 [facility] Comment on above: Result Comment: Test ing performed on an Nava i-STAT. Performed By: #### L P8 #### [place] [address] Cult Bloodon 05-18-2019 Cult Blood Test performed at [facility] No growth The blood cultures are under-filled. Adding volumes lower or higher than the recording engineer?s recommended volume* may adversely affect recovery and/or detection of organisms. (*refer to individual bottle labels for correct volumes). Normal [facility] Comment on above: Performed By: #### C _BLO #### [place] [address] Cult and Smr Aerobicon 05-18 Cult and Smr Aerobic Test performed at [facility] Rare Gram positive cocci No WBC seen ORGANISM: *Methicillin Resist S.aureus (ID: 1) Few Oxacillin-resistant staphylococci are resistant to all beta-lactam antibiotics (except new cephalosporins with anti-MRSA activity) This isolate does not demonstrate inducible Clindamycin resistance in vitro. Normal [facility] Comment on above: Performed By: #### C _AER #### [place] [address] Hemogram/Manual Diffon 05-18 Abs. Baso 0.00 thou/cmm Normal 0.00-0.08 [facility] Comment on above: Performed By: #### L MCBD #### [place] [address] Abs. Eosin 0.43 thou/cmm High 0.00-0.41 [facility] Comment on above: Performed By: #### L MCBD #### [place] [address] Abs. Lymph 1.85 thou/cmm Normal 1.50-3.65 [facility] Comment on above: Performed By: #### L MCBD #### [facility] [address] [place] [address] Abs. [place] 0.71 thou/cmm Normal 0.20-1.00 [facility] Comment on above: Performed By: #### L MCBD #### [facility] [address] [place] [address] Abs. Neut (ANC) 11.21 thou/cmm High 3.00-5.67 [facility] Comment on above: Performed By: #### L MCBD #### [facility] [address] [place] [address] Basophil 0.0 % Normal [facility] Comment on above: Performed By: #### L MCBD #### [facility] [address] [place] [address] Eosinophil 3.0 % Normal [facility] Comment on above: Performed By: #### L MCBD #### [place] [address] Lymphocyte 13.0 % Normal [facility] Comment on above: Performed By: #### L MCBD #### [facility] [address] [place] [address] Monocyte 5.0 % Normal [facility] Comment on above: Performed By: #### L MCBD #### [facility] [address] [place] [address] Platelets (Bld) [#/Vol] Normal Normal [facility] Comment on above: Performed By: #### L MCBD #### [place] [address] RBC morphology finding Nom (Bld) Normal Normal [facility] Comment on above: Performed By: #### L MCBD #### [facility] [address] [place] [address] Seg Neutrophil 78.0 % Normal [facility] Comment on above: Performed By: #### L MCBD #### [place] [address] Diff Type Manual Diff Normal [facility] Comment on above: Performed By: #### L MCBD #### [place] [address] Erythrocyte distribution width (RBC) [Ratio] 12.8 % Normal 11.5-15.9 [facility] Comment on above: Performed By: #### L MCBD #### [facility] [address] [place] [address] Hematocrit (Bld) [Volume fraction] 46.9 % Normal 37.0-47.0 [facility] Comment on above: Performed By: #### L MCBD #### [facility] [address] [place] [address] Hemoglobin (Bld) [Mass/Vol] 15.4 g/dL Normal 12.0-16.0 [facility] Comment on above: Performed By: #### L MCBD #### [place] [address] MCH (RBC) [Entitic mass] 28.1 pg Normal 27.0-31.0 [facility] Comment on above: Performed By: #### L MCBD #### [place] [address] MCHC (RBC) [Mass/Vol] 32.8 % Normal 32.0-36.0 [facility] Comment on above: Performed By: #### L MCBD #### [place] [address] MCV (RBC) [Entitic vol] 85.4 fl Normal 81.0-99.0 [facility] Comment on above: Performed By: #### L MCBD #### [place] [address] Platelet mean volume (Bld) [Entitic vol] 8.9 fl Normal 7.1-10.5 [facility] Comment on above: Performed By: #### L MCBD #### [facility] [address] [place] [address] Platelets (Bld) [#/Vol] 376 thou/cmm Normal 150-400 [facility] Comment on above: Performed By: #### L MCBD #### [place] [address] RBC (Bld) [#/Vol] 5.49 mil/cmm High 4.20-5.40 [facility] Comment on above: Performed By: #### L MCBD #### [place] [address] WBC (Bld) [#/Vol] 14.2 thou/cmm High 4.8-10.5 [facility] Comment on above: Performed By: #### L MCBD #### [place] [address] Lactic acidon 05-18-2019 Lactate [Moles/Vol] 0.7 mmol/L Normal 0.4-2.0 [facility] Comment on above: Performed By: #### L LA #### [place] [address] MDRD eGFRon 05-18-2019 GFR/1.73 sq M predicted among non-blacks MDRD (S/P/Bld) [Vol rate/Area] mL/min/{1.73_m2} Normal >60mL/min/1.73 m2 [facility] Comment on above: Result Comment: If t he patient is , multiply the result by 1.210. Performed By: #### L GFR #### [place] [address] Urine HCG, Qual.on 9 Beta HCG ( test) Ql (U) Negative Normal Negative [facility] Comment on above: Performed By: #### L HCG2 #### [place] [address] Specific [place], Ur 1.025 Normal 1.005-1.030 [facility] Comment on above: Performed By: #### L HCG2 #### [address] Emergency Room Note on 03-20-2018 [place] [facility] Note Normal [facility] [place] Pat Eduon 03-20-2018 Pat Edu Normal [facility] [place] Patient Summary Documentson 03-20-2018 Patient Summary Documents Normal [facility] [place] Microbiology: Culture, Deep Woundon 05-16-2017 GE use only - for Link[employer]ic import when terms are not otherwise specified Cult, AnaerobicNo anaerobic bacteria isolated. Invalid Interpretation Code [facility] Work Phone: [phone] Vital Signs Date Time Vital Sign Value Performing Clinician Facility 07-04-2025 18:15-0400 Body mass index (BMI) [Ratio] 36.72 kg/m2 Annita Moomaw [employer] SUPERVISOR.ROOM SERVICE FOOD SERVICE ATTENDANT Work Phone: [facility] 07-04-2025 18:15-0400 Body temperature 99 [degF] Annita Moomaw [employer]ENSION [employer] SUPERVISOR.ROOM SERVICE FOOD SERVICE ATTENDANT Work Phone: [facility] 07-04-2025 18:15-0400 Body weight 92.6 kg Annita Moomaw D[employer]ENSION [employer] SUPERVISOR.ROOM SERVICE FOOD SERVICE ATTENDANT Work Phone: [facility] 07-04-2025 18:15-0400 Diastolic blood pressure 60 mm[Hg] Annita Moomaw D[employer]ENSION [employer]Y SUPERVISOR.ROOM SERVICE FOOD SERVICE ATTENDANT Work Phone: [facility] 07-04-2025 18:15-0400 Heart rate 90 /min Annita Moomaw D[employer]ENSION QUARRY SUPERVISOR.ROOM SERVICE FOOD SERVICE ATTENDANT Work Phone: [facility] 07-04-2025 18:15-0400 Respiratory rate 18 /min Annita Moomaw D[employer]ENSION [employer]Y SUPERVISOR.ROOM SERVICE FOOD SERVICE ATTENDANT Work Phone: [facility] 07-04-2025 18:15-0400 SaO2% (BldA) [Mass fraction] 98 % Annita Moomaw [employer] SUPERVISOR.ROOM SERVICE FOOD SERVICE ATTENDANT Work Phone: [facility] 07-04-2025 18:15-0400 Systolic blood pressure 98 mm[Hg] Annita Moomaw [employer]ENSION [employer] SUPERVISOR.ROOM SERVICE FOOD SERVICE ATTENDANT Work Phone: [facility] 04-10-2025 08:14-0400 Body mass index (BMI) [Ratio] 35.08 kg/m2 Giovanni Khan [employer] SUPERVISOR.ROOM SERVICE FOOD SERVICE ATTENDANT Work Phone: [facility] 04-10-2025 08:14-0400 Body weight 88.45 kg Giovanni Khan D[employer]ENSION [employer]Y SUPERVISOR.ROOM SERVICE FOOD SERVICE ATTENDANT Work Phone: [facility] 04-10-2025 08:14-0400 Diastolic blood pressure 68 mm[Hg] Giovanni Khan D[employer]ENSION [employer] SUPERVISOR.ROOM SERVICE FOOD SERVICE ATTENDANT Work Phone: [facility] 04-10-2025 08:14-0400 Systolic blood pressure 114 mm[Hg] Giovanni Khan D[employer]ENSION [employer] SUPERVISOR.ROOM SERVICE FOOD SERVICE ATTENDANT Work Phone: [facility] 04-02-2025 18:12-0400 Body height 156.2 cm Francineervin Moran [employer] SUPERVISOR-ROOM SERVICE FOOD SERVICE ATTENDANT Work Phone: [facility] 04-02-2025 18:12-0400 Body mass index (BMI) [Ratio] 35.32 kg/m2 Francine Moran [employer] SUPERVISOR-ROOM SERVICE FOOD SERVICE ATTENDANT Work Phone: 3(760)634-906992 [address] 04-02-2025 18:12-0400 Body temperature 97.2 [degF] Francine Moran [employer] SUPERVISOR-ROOM SERVICE FOOD SERVICE ATTENDANT Work Phone: 0(378)819-148270 [place] [address] 04-02-2025 18:12-0400 Body weight 86.18 kg Francine Moran [employer] SUPERVISOR-ROOM SERVICE FOOD SERVICE ATTENDANT Work Phone: [facility] 04-02-2025 18:12-0400 Diastolic blood pressure 74 mm[Hg] Francine Moran [employer] SUPERVISOR-ROOM SERVICE FOOD SERVICE ATTENDANT Work Phone: 7(715)627-583770 [place] [address] 04-02-2025 18:12-0400 Heart rate 84 /min Francine Moran [employer] SUPERVISOR-ROOM SERVICE FOOD SERVICE ATTENDANT Work Phone: 8(578)291-595333 [place] [address] 04-02-2025 18:12-0400 SaO2% (BldA) [Mass fraction] 98 % Francine Moran [employer] SUPERVISOR-ROOM SERVICE FOOD SERVICE ATTENDANT Work Phone: 5(091)998-860233 [place] [address] 04-02-2025 18:12-0400 Systolic blood pressure 109 mm[Hg] Francine Luisa [employer] SUPERVISOR-ROOM SERVICE FOOD SERVICE ATTENDANT Work Phone: 2(134)564-066633 [place] [address] 03-06-2025 08:39-0400 Diastolic blood pressure 70 mm[Hg] Giovanni Khan [employer] SUPERVISOR.ROOM SERVICE FOOD SERVICE ATTENDANT Work Phone: [facility] 03-06-2025 08:39-0400 Systolic blood pressure 120 mm[Hg] Giovanni Khan [employer]ION [employer]Y SUPERVISOR.ROOM SERVICE FOOD SERVICE ATTENDANT Work Phone: [facility] 03-06-2025 08:16-0400 Body mass index (BMI) [Ratio] 33.46 kg/m2 Giovanni Knappnoemi SWARTZ.ROOM SERVICE FOOD SERVICE ATTENDANT Work Phone: [facility] 03-06-2025 08:16-0400 Body weight 84.37 kg Giovanni Khan SHERIDAN.ROOM SERVICE FOOD SERVICE ATTENDANT Work Phone: [facility] 02-28-2025 09:59-0400 Body mass index (BMI) [Ratio] 33.1 kg/m2 Sarah Hinton MD Work Phone: [facility] 02-28-2025 09:59-0400 Body weight 83.46 kg Sarah Hinton MD Work Phone: [facility] 02-28-2025 09:59-0400 Diastolic blood pressure 60 mm[Hg] Sarah Hinton MD Work Phone: [facility] 02-28-2025 09:59-0400 Systolic blood pressure 100 mm[Hg] Sarah Hinton MD Work Phone: [facility] 02-15-2025 07:26-0400 Body temperature 97.59 [degF] Adan Jolly MD Work Phone: [facility] 02-15-2025 07:26-0400 Diastolic blood pressure 64 mm[Hg] Adan Jolly MD Work Phone: [facility] 02-15-2025 07:26-0400 Heart rate 86 /min Adan Jolly MD Work Phone: [facility] 02-15-2025 07:26-0400 Respiratory rate 14 /min Adan Jolly MD Work Phone: [facility] 02-15-2025 07:26-0400 SaO2% (BldA) [Mass fraction] 96 % Adan Jolly MD Work Phone: [facility] 02-15-2025 07:26-0400 Systolic blood pressure 91 mm[Hg] Adan Jolly MD Work Phone: [facility] 02-12-2025 21:57-0400 Body height 157.5 cm Adan Jolly MD Work Phone: [facility] 02-12-2025 21:57-0400 Body mass index (BMI) [Ratio] 33.11 kg/m2 Adan Jolly MD Work Phone: [facility] 02-12-2025 21:57-0400 Body weight 82.1 kg Adan Jolly MD Work Phone: [facility] 02-12-2025 19:01-0400 Body temperature 97.8 [degF] Dr. Cuauhtemoc Molina DO Work Phone: [facility] 02-12-2025 19:01-0400 Diastolic blood pressure 78 mm[Hg] Dr. Cuauhtemoc Molina DO Work Phone: [facility] 02-12-2025 19:01-0400 Heart rate 65 /min Dr. Cuauhtemoc Molina DO Work Phone: [facility] 02-12-2025 19:01-0400 Respiratory rate 18 /min Dr. Cuauhtemoc Molina DO Work Phone: [facility] 02-12-2025 19:01-0400 SaO2% (BldA) [Mass fraction] 99 % Dr. Cuauhtemoc Molina DO Work Phone: [facility] 02-12-2025 19:01-0400 Systolic blood pressure 115 mm[Hg] Dr. Cuauhtemoc Molina DO Work Phone: [facility] 02-12-2025 11:47-0400 Body height 157.[address] Cuauhtemoc Molina DO Work Phone: [facility] 02-12-2025 11:47-0400 Body mass index (BMI) [Ratio] 33.1 kg/m2 Dr. Cuauhtemoc Molina DO Work Phone: [facility] 02-12-2025 11:47-0400 Body weight 82.[address] Cuauhtemoc Molina DO Work Phone: [facility] 01-15-2025 10:00-0400 Body temperature 98.1 [degF] Dr. Cuauhtemoc Molina DO Work Phone: 3(374)500-783870 [place] [address] 01-15-2025 10:00-0400 Diastolic blood pressure 76 mm[Hg] Dr. Cuauhtemoc Molina DO Work Phone: 4(056)756-624970 [place] [address] 01-15-2025 10:00-0400 Heart rate 89 /min Dr. Cuauhtemoc Molina DO Work Phone: 4(727)834-127170 [place] [address] 01-15-2025 10:00-0400 Respiratory rate 18 /min Dr. Cuauhtemoc Molina DO Work Phone: 3(764)534-173970 [place] [address] 01-15-2025 10:00-0400 Systolic blood pressure 124 mm[Hg] Dr. Cuauhtemoc Molina DO Work Phone: 1(021)265-096270 [place] [address] 01-14-2025 16:06-0400 SaO2% (BldA) [Mass fraction] 99 % Dr. Cuauhtemoc Molina DO Work Phone: 5(948)366-648570 [place] [address] 01-13-2025 16:29-0400 Body height 157.[address] Cuauhtemoc Molina DO Work Phone: 8(421)981-926470 [place] [address] 01-13-2025 16:29-0400 Body mass index (BMI) [Ratio] 35.5 kg/m2 Dr. Cuauhtemoc Molina DO Work Phone: 2(378)907-058770 [place] [address] 01-13-2025 16:29-0400 Body weight 88.[address] Cuauhtemoc Molina DO Work Phone: 2(277)506-570770 [place] [address] 01-09-2025 14:21-0400 Body mass index (BMI) [Ratio] 35.15 kg/m2 Kike Brannon MD Work Phone: [facility] 01-09-2025 14:21-0400 Body weight 88.63 kg Kike Brannon MD Work Phone: [facility] 01-09-2025 14:21-0400 Diastolic blood pressure 70 mm[Hg] Kike Brannon MD Work Phone: [facility] 01-09-2025 14:21-0400 Systolic blood pressure 110 mm[Hg] Kike Brannon MD Work Phone: [facility] 01-08-2025 10:04-0400 Body mass index (BMI) [Ratio] 34.72 kg/m2 Kike Brannon MD Work Phone: [facility] 01-08-2025 10:04-0400 Body weight 87.54 kg Kike Brannno MD Work Phone: [facility] 01-08-2025 10:04-0400 Diastolic blood pressure 70 mm[Hg] Kike Brannon MD Work Phone: [facility] 01-08-2025 10:04-0400 Systolic blood pressure 112 mm[Hg] Kike Brannon MD Work Phone: [facility] 01-02-2025 10:33-0400 Body mass index (BMI) [Ratio] 34.72 kg/m2 Alisha Sterling MD Work Phone: [facility] 01-02-2025 10:33-0400 Body weight 87.54 kg Alisha Sterling MD Work Phone: [facility] 01-02-2025 10:33-0400 Diastolic blood pressure 62 mm[Hg] Alisha Sterling MD Work Phone: [facility] 01-02-2025 10:33-0400 Systolic blood pressure 104 mm[Hg] Alisha Sterling MD Work Phone: [facility] 12-31-2024 10:03-0400 Body height 158.8 cm Jin Hernandes APRN.CNP Work Phone: [facility] 12-31-2024 10:03-0400 Body mass index (BMI) [Ratio] 34.54 kg/m2 Jin Hernandes APRN.ROOM SERVICE FOOD SERVICE ATTENDANT Work Phone: [facility] 12-31-2024 10:03-0400 Body temperature 98.1 [degF] Jin Hernandes D[employer] SUPERVISOR.ROOM SERVICE FOOD SERVICE ATTENDANT Work Phone: [facility] 12-31-2024 10:03-0400 Body weight 87.09 kg Jin Hernandes D[employer]Y SUPERVISOR.ROOM SERVICE FOOD SERVICE ATTENDANT Work Phone: [facility] 12-31-2024 10:03-0400 Diastolic blood pressure 72 mm[Hg] Jin Hernandes D[employer] SUPERVISOR.ROOM SERVICE FOOD SERVICE ATTENDANT Work Phone: [facility] 12-31-2024 10:03-0400 Heart rate 76 /min Jin Hernandes D[employer]Y SUPERVISOR.ROOM SERVICE FOOD SERVICE ATTENDANT Work Phone: [facility] 12-31-2024 10:03-0400 SaO2% (BldA) [Mass fraction] 99 % Jin Hernandes [employer]Y SUPERVISOR.ROOM SERVICE FOOD SERVICE ATTENDANT Work Phone: [facility] 12-31-2024 10:03-0400 Systolic blood pressure 110 mm[Hg] Jin Hernandes D[employer]Y SUPERVISOR.ROOM SERVICE FOOD SERVICE ATTENDANT Work Phone: [facility] 12-28-2024 11:21-0500 Body mass index (BMI) [Ratio] 34.29 kg/m2 Alisha Sterling MD Work Phone: [facility] 12-28-2024 11:21-0500 Body weight 85.73 kg Alisha Sterling MD Work Phone: [facility] 12-28-2024 11:21-0500 Diastolic blood pressure 60 mm[Hg] Alisha Sterling MD Work Phone: [facility] 12-28-2024 11:21-0500 Systolic blood pressure 120 mm[Hg] Ailsha Sterling MD Work Phone: [facility] 12-25-2024 18:13-0500 Diastolic blood pressure 66 mm[Hg] Dr. Cuauhtemoc Molina DO Work Phone: [facility] 12-25-2024 18:13-0500 Heart rate 90 /min Dr. Cuauhtemoc Molina DO Work Phone: 6(141)987-948070 [place] [address] 12-25-2024 18:13-0500 Systolic blood pressure 111 mm[Hg] Dr. Cuauhtemoc Molina DO Work Phone: 9(447)603-207770 [place] [address] 12-25-2024 17:57-0500 Body mass index (BMI) [Ratio] 35.7 kg/m2 Dr. Cuauhtemoc Molina DO Work Phone: 3(485)210-919770 [place] [address] 12-25-2024 17:57-0500 Body weight 85.[address] Cuauhtemoc Molina DO Work Phone: 8(103)067-932070 [place] [address] 12-25-2024 17:38-0500 Body temperature 98.2 [degF] Dr. Cuauhtemoc Molina DO Work Phone: 4(757)637-570770 [place] [address] 12-25-2024 17:38-0500 Respiratory rate 16 /min Dr. Cuauhtemoc Molina DO Work Phone: 2(659)835-196270 [place] [address] 12-25-2024 17:38-0500 SaO2% (BldA) [Mass fraction] 97 % Dr. Cuauhtemoc Molina DO Work Phone: 4(037)912-371770 [place] [address] 12-19-2024 19:52-0500 Body temperature 98.1 [degF] Dr. Cuauhtemoc Molina DO Work Phone: 1(459)980-454470 [place] [address] 12-19-2024 19:52-0500 Respiratory rate 20 /min Dr. Cuauhtemoc Molina DO Work Phone: 3(674)976-479070 [place] [address] 12-19-2024 19:49-0500 Body mass index (BMI) [Ratio] 35.1 kg/m2 Dr. Cuauhtemoc Molina DO Work Phone: 9(078)345-787170 [place] [address] 12-19-2024 19:49-0500 Body weight 84.[address] Cuauhtemoc Molina DO Work Phone: 9(995)772-774870 [place] [address] 12-19-2024 19:41-0500 Diastolic blood pressure 68 mm[Hg] Dr. Cuauhtemoc Molina DO Work Phone: [facility] 12-19-2024 19:41-0500 Heart rate 87 /min Dr. Cuauhtemoc Molina DO Work Phone: [facility] 12-19-2024 19:41-0500 Systolic blood pressure 115 mm[Hg] Dr. Cuauhtemoc Molina DO Work Phone: [facility] 12-19-2024 19:38-0500 SaO2% (BldA) [Mass fraction] 98 % Dr. Cuauhtemoc Molina DO Work Phone: [facility] 12-11-2024 14:42-0500 Body mass index (BMI) [Ratio] 33.24 kg/m2 Rani Parkinson MD Work Phone: [facility] 12-11-2024 14:42-0500 Body weight 83.1 kg Rani Parkinson MD Work Phone: [facility] 12-11-2024 14:42-0500 Diastolic blood pressure 68 mm[Hg] Rani Parkinson MD Work Phone: [facility] 12-11-2024 14:42-0500 Systolic blood pressure 112 mm[Hg] Rani Parkinson MD Work Phone: [facility] 12-07-2024 15:54-0500 Body height 156.2 cm Guru Graham [employer] SUPERVISOR-ROOM SERVICE FOOD SERVICE ATTENDANT Work Phone: [facility] 12-07-2024 15:54-0500 Body mass index (BMI) [Ratio] 34.39 kg/m2 Guru Graham [employer] SUPERVISOR-ROOM SERVICE FOOD SERVICE ATTENDANT Work Phone: [facility] 12-07-2024 15:54-0500 Body temperature 98.1 [degF] Guru Dumontta [employer] SUPERVISOR-ROOM SERVICE FOOD SERVICE ATTENDANT Work Phone: [facility] 12-07-2024 15:54-0500 Body weight 83.92 kg Guru Graham [employer] SUPERVISOR-ROOM SERVICE FOOD SERVICE ATTENDANT Work Phone: [facility] 12-07-2024 15:54-0500 Diastolic blood pressure 73 mm[Hg] Guru Marky [employer] SUPERVISOR-ROOM SERVICE FOOD SERVICE ATTENDANT Work Phone: [facility] 12-07-2024 15:54-0500 Heart rate 101 /min Guru Marky D[employer]Y SUPERVISOR-ROOM SERVICE FOOD SERVICE ATTENDANT Work Phone: [facility] 12-07-2024 15:54-0500 Respiratory rate 18 /min Guru Marky [employer] SUPERVISOR-ROOM SERVICE FOOD SERVICE ATTENDANT Work Phone: [facility] 12-07-2024 15:54-0500 SaO2% (BldA) [Mass fraction] 96 % Guru Marky [employer] SUPERVISOR-ROOM SERVICE FOOD SERVICE ATTENDANT Work Phone: [facility] 12-07-2024 15:54-0500 Systolic blood pressure 114 mm[Hg] Guru Marky D[employer]Y SUPERVISOR-ROOM SERVICE FOOD SERVICE ATTENDANT Work Phone: [facility] 12-03-2024 12:30-0500 Heart rate 92 /min Dr. Cuauhtemoc Molina DO Work Phone: [facility] 12-03-2024 12:30-0500 Respiratory rate 22 /min Dr. Cuauhtemoc Molina DO Work Phone: [facility] 12-03-2024 12:29-0500 SaO2% (BldA) [Mass fraction] 98 % Dr. Cuauhtemoc Molina DO Work Phone: [facility] 12-03-2024 12:25-0500 Diastolic blood pressure 58 mm[Hg] Dr. Cuauhtemoc Molina DO Work Phone: [facility] 12-03-2024 12:25-0500 Systolic blood pressure 115 mm[Hg] Dr. Cuauhtemoc Molina DO Work Phone: [facility] 12-03-2024 07:36-0500 Body mass index (BMI) [Ratio] 34.2 kg/m2 Dr. Cuauhtemoc Molina DO Work Phone: [facility] 12-03-2024 07:36-0500 Body weight 83.[address] Cuauhtemoc Molina DO Work Phone: [facility] 12-02-2024 16:00-0500 Heart rate 68 /min Dr. Cuauhtemoc Molina DO Work Phone: [facility] 12-02-2024 16:00-0500 Respiratory rate 18 /min Dr. Cuauhtemoc Molina DO Work Phone: [facility] 12-02-2024 14:51-0500 SaO2% (BldA) [Mass fraction] 100 % Dr. Cuauhtemoc Molina DO Work Phone: [facility] 12-02-2024 12:47-0500 Body temperature 98.3 [degF] Dr. Cuauhtemoc Molina DO Work Phone: [facility] 12-02-2024 12:47-0500 Diastolic blood pressure 76 mm[Hg] Dr. Cuauhtemoc Molina DO Work Phone: [facility] 12-02-2024 12:47-0500 Systolic blood pressure 113 mm[Hg] Dr. Cuauhtemoc Molina DO Work Phone: [facility] 11-19-2024 08:41-0500 Body mass index (BMI) [Ratio] 32.84 kg/m2 Giovanni Khan APRN.ROOM SERVICE FOOD SERVICE ATTENDANT Work Phone: [facility] 11-19-2024 08:41-0500 Body weight 82.1 kg Giovanni Khan APRN.ROOM SERVICE FOOD SERVICE ATTENDANT Work Phone: [facility] 11-19-2024 08:41-0500 Diastolic blood pressure 62 mm[Hg] Giovanni Haury [employer] SUPERVISOR.ROOM SERVICE FOOD SERVICE ATTENDANT Work Phone: [facility] 11-19-2024 08:41-0500 Systolic blood pressure 100 mm[Hg] Giovanni Haury D[employer]ENSION [employer]ARRY SUPERVISOR.ROOM SERVICE FOOD SERVICE ATTENDANT Work Phone: [facility] 11-02-2024 10:01-0500 Body mass index (BMI) [Ratio] 31.93 kg/m2 Vandana Edwards APRN.CNM Work Phone: [facility] 11-02-2024 10:01-0500 Body weight 79.83 kg Vandana Plotts D[employer]ENSION [employer]Y SUPERVISOR.CNM Work Phone: [facility] 11-02-2024 10:01-0500 Diastolic blood pressure 62 mm[Hg] Vandana Plotts DIMENSION QUARRY SUPERVISOR.CNM Work Phone: [facility] 11-02-2024 10:01-0500 Systolic blood pressure 104 mm[Hg] Vandana Plotts DIMENSION QUARRY SUPERVISOR.CNM Work Phone: [facility] 10-05-2024 14:19-0500 Body mass index (BMI) [Ratio] 31.21 kg/m2 Rani Parkinson MD Work Phone: [facility] 10-05-2024 14:19-0500 Body weight 78.02 kg Rani Parkinson MD Work Phone: [facility] 10-05-2024 14:19-0500 Diastolic blood pressure 64 mm[Hg] Rani Parkinson MD Work Phone: [facility] 10-05-2024 14:19-0500 Systolic blood pressure 110 mm[Hg] Rani Parkinson MD Work Phone: [facility] 09-07-2024 11:11-0500 Body mass index (BMI) [Ratio] 31.39 kg/m2 Vandana Plotts DIMENSION QUARRY SUPERVISOR.CNM Work Phone: [facility] 09-07-2024 11:11-0500 Body weight 78.47 kg Vandana Plotts DIMENSION QUARRY SUPERVISOR.CNM Work Phone: [facility] 09-07-2024 11:11-0500 Diastolic blood pressure 78 mm[Hg] Vandana Plotts DIMENSION QUARRY SUPERVISOR.CNM Work Phone: [facility] 09-07-2024 11:11-0500 Systolic blood pressure 122 mm[Hg] Vandana Plotts DIMENSION QUARRY SUPERVISOR.CNM Work Phone: [facility] 08-10-2024 11:04-0400 Body mass index (BMI) [Ratio] 31.75 kg/m2 Rani Parkinson MD Work Phone: [facility] 08-10-2024 11:04-0400 Body weight 79.38 kg Rani Parkinson MD Work Phone: [facility] 08-10-2024 11:04-0400 Diastolic blood pressure 58 mm[Hg] Rani Parkinson MD Work Phone: [facility] 08-10-2024 11:04-0400 Systolic blood pressure 100 mm[Hg] Rani Parkinson MD Work Phone: [facility] 07-13-2024 09:35-0400 Body mass index (BMI) [Ratio] 31.93 kg/m2 Rani Parkinson MD Work Phone: [facility] 07-13-2024 09:35-0400 Body weight 79.83 kg Rani Parkinson MD Work Phone: [facility] 07-13-2024 09:35-0400 Diastolic blood pressure 68 mm[Hg] Rani Parkinson MD Work Phone: [facility] 07-13-2024 09:35-0400 Systolic blood pressure 100 mm[Hg] Rani Parkinson MD Work Phone: [facility] 06-27-2024 08:43-0400 Body height 158.1 cm Sandra Briseno APRN.CNM Work Phone: [facility] 06-27-2024 08:43-0400 Body mass index (BMI) [Ratio] 32.04 kg/m2 Sandra Briseno APRN.CNM Work Phone: [facility] 06-27-2024 08:43-0400 Body weight 80.11 kg Sandra Briseno APRN.CNM Work Phone: [facility] 06-27-2024 08:43-0400 Diastolic blood pressure 70 mm[Hg] Sandra Briseno APRN.CNM Work Phone: [facility] 06-27-2024 08:43-0400 Systolic blood pressure 98 mm[Hg] Sandrajessica Briseno DIMENSION QUARRY SUPERVISOR.CN Work Phone: [facility] 2024 08:49-0400 Body height 158.8 cm Pearl Quemiranda [employer]IMENSION [employer] SUPERVISOR.ROOM SERVICE FOOD SERVICE ATTENDANT Work Phone: [facility] 2024 08:49-0400 Body mass index (BMI) [Ratio] 33.46 kg/m2 Pearl Queden [employer] SUPERVISOR.ROOM SERVICE FOOD SERVICE ATTENDANT Work Phone: [facility] 2024 08:49-0400 Body temperature 98.01 [degF] Pearl Queden DIMENSION QUARRY SUPERVISOR.ROOM SERVICE FOOD SERVICE ATTENDANT Work Phone: [facility] 2024 08:49-0400 Body weight 84.37 kg Pearl Quemiranda DIMENSION QUARRY SUPERVISOR.ROOM SERVICE FOOD SERVICE ATTENDANT Work Phone: [facility] 2024 08:49-0400 Diastolic blood pressure 62 mm[Hg] Pearl Queden DIMENSION QUARRY SUPERVISOR.ROOM SERVICE FOOD SERVICE ATTENDANT Work Phone: [facility] 2024 08:49-0400 Heart rate 71 /min Pearl Queden DIMENSION QUARRY SUPERVISOR.ROOM SERVICE FOOD SERVICE ATTENDANT Work Phone: [facility] 2024 08:49-0400 Respiratory rate 16 /min Pearl Queden DIMENSION QUARRY SUPERVISOR.ROOM SERVICE FOOD SERVICE ATTENDANT Work Phone: [facility] 2024 08:49-0400 SaO2% (BldA) [Mass fraction] 99 % Pearl Coronel DIMENSION QUARRY SUPERVISOR.ROOM SERVICE FOOD SERVICE ATTENDANT Work Phone: [facility] 2024 08:49-0400 Systolic blood pressure 116 mm[Hg] Pearl Queden DIMENSION QUARRY SUPERVISOR.CHANTAL Work Phone: [facility] 01-14-2024 14:22-0400 Body height 164 cm Mason Means PA-C Work Phone: [facility] 01-14-2024 14:22-0400 Body mass index (BMI) [Ratio] 30.02 kg/m2 Mason Means PA-C Work Phone: [facility] 01-14-2024 14:22-0400 Body temperature 97.5 [degF] Mason Clary PA-C Work Phone: [facility] 01-14-2024 14:22-0400 Body weight 80.74 kg Mason Clary PA-C Work Phone: [facility] 01-14-2024 14:22-0400 Diastolic blood pressure 69 mm[Hg] Mason Clary PA-C Work Phone: [facility] 01-14-2024 14:22-040 Heart rate 68 /min Mason Clary PA-C Work Phone: [facility] 01-14-2024 14:22-0400 SaO2% (BldA) [Mass fraction] 98 % Mason Clary PA-C Work Phone: [facility] 01-14-2024 14:22-0400 Systolic blood pressure 103 mm[Hg] Mason Clary PA-C Work Phone: [facility] 07-25-2023 10:27-0400 Body weight 96.07 kg Sarah Hinton MD Work Phone: [facility] 07-25-2023 10:27-0400 Diastolic blood pressure 60 mm[Hg] Sarah Hinton MD Work Phone: [facility] 07-25-2023 10:27-0400 Systolic blood pressure 100 mm[Hg] Sarah Hinton MD Work Phone: [facility] Encounters Encounter Date Encounter Type Care Provider Facility Start: 07-18-2025 End: 07-18-2025 ambulatory LUPE GAO Facility:[facility] Start: 07-04-2025 End: 07-04-2025 Patient encounter procedure Annita Figueroasebas DUMONTN.ROOM SERVICE FOOD SERVICE ATTENDANT Work Phone: [facility] Comment on above: Lower respiratory tr act infection (Primary Dx) Start: 07-04-2025 End: 07-04-2025 ambulatory ANNITA PRICE Facility:[facility] Start: 04-11-2025 End: 06-11-2025 Follow-up encounter Giovanni Khan APRN.CNP Work Phone: OB/Gynecology Start: 04-10-2025 End: 04-10-2025 Patient encounter procedure Giovanni Khan APRN.CNP Work Phone: OB/Gynecology Comment on above: IUD check up (Primar y Dx); Intermenstrual spotting due to IUD; Pelvic pain in female Start: 04-10-2025 End: 04-10-2025 ambulatory GIOVANNI KHAN Facility:[facility] Start: 04-02-2025 End: 04-02-2025 Patient encounter procedure Francine Moran APRN-CHANTAL Work Phone: [facility] Comment on above: Bacterial conjunctiv itis (Primary Dx) Start: 04-02-2025 End: 04-02-2025 [facility] Start: 03-07-2025 End: 05-07-2025 Follow-up encounter Giovanni Khan APRN.CNP Work Phone: OB/Gynecology Start: 03-06-2025 End: 03-06-2025 Patient encounter procedure Giovanni Khan APRN.CNP Work Phone: OB/Gynecology Comment on above: Encounter for IUD in sertion (Primary Dx); Screen for STD (sexually transmitted disease) Start: 03-06-2025 End: 03-06-2025 ambulatory LUPE GAO Facility:[facility] Start: 02-28-2025 End: 02-28-2025 Patient encounter procedure Sarah Hinton MD Work Phone: OB/Gynecology Comment on above: care and examination (HCC) (Primary Dx); Encounter for initial prescription of contraceptive pills; Encounter for insertion of Mirena IUD Start: 02-28-2025 End: 02-28-2025 ambulatory LUPE GAO Facility:[facility] Start: 02-18-2025 End: 02-18-2025 Patient Outreach Lupe Gao DO Work Phone: [facility] Comment on above: Transition Of Care ( Hospital Discharge [facility] 02/12-02/15/2025) Start: 02-12-2025 End: 02-15-2025 Evaluation and management of inpatient Adan Jolly MD Work Phone: [facility] Start: 02-12-2025 End: 02-12-2025 Emergency department patient visit Dr. Cuauhtemoc Molina DO Work Phone: -Emergency Department Work Phone: Start: 01-31-2025 End: 01-31-2025 ambulatory LUPE C MURRAY Facility:[facility] Start: 01-14-2025 End: 01-14-2025 ambulatory Rani Parkinson MD Work Phone: OB/Gynecology Comment on above: Ob Delivery Note Start: 01-13-2025 End: 01-15-2025 Evaluation and management of inpatient Dr. Rani Parkinson MD -[facility] Work Phone: Start: 01-11-2025 End: 01-11-2025 [facility] Start: 01-11-2025 End: 01-11-2025 Patient encounter procedure [facility] Comment on above: Population Health Na vigation Outreach (Ob/peds) Start: 01-09-2025 End: 01-09-2025 ambulatory LUPE C MURRAY Facility:[facility] Start: 01-09-2025 End: 01-09-2025 Patient encounter procedure Kike Brannon MD Work Phone: OB/Gynecology Comment on above: 38 weeks gestation o f (Primary Dx); Supervision of high risk in third trimester; Vaginal discharge during in third trimester Start: 01-09-2025 End: 01-09-2025 Telephone encounter Kike Brannon MD Work Phone: OB/Gynecology Start: 01-08-2025 End: 01-08-2025 ambulatory LUPE C MURRAY Facility:[facility] Start: 01-08-2025 End: 01-08-2025 Patient encounter procedure Kike Brannon MD Work Phone: OB/Gynecology Comment on above: Supervision of high risk in third trimester (Primary Dx); 38 weeks gestation of Start: 01-02-2025 End: 01-02-2025 Patient encounter procedure Alisha Sterling MD Work Phone: OB/Gynecology Comment on above: Supervision of high risk in third trimester (Primary Dx); Abnormal genetic test during ; 37 weeks gestation of Start: 01-02-2025 End: 01-02-2025 ambulatory LUPE GAO Facility:[facility] Start: 01-01-2025 End: 03-03-2025 Follow-up encounter Jin Hernandes APRN.ROOM SERVICE FOOD SERVICE ATTENDANT Work Phone: [facility] Start: 12-31-2024 End: 03-02-2025 Follow-up encounter Trena Pedro APRN.ROOM SERVICE FOOD SERVICE ATTENDANT Work Phone: OB/Gynecology Start: 12-31-2024 End: 01-03-2025 Telephone encounter Alisha Sterling MD Work Phone: OB/Gynecology Start: 12-31-2024 End: 12-31-2024 Patient encounter procedure Jin Hernandes APRN.ROOM SERVICE FOOD SERVICE ATTENDANT Work Phone: [facility] Comment on above: Abscessed tooth (Azalia blair Dx); Jaw pain; Upper respiratory tract infection, unspecified type; Thrush Start: 12-31-2024 End: 12-31-2024 ambulatory JIN HERNANDES Facility:[facility] Start: 12-28-2024 End: 12-28-2024 ambulatory LUPE C MURRAY Facility:[facility] Start: 12-28-2024 End: 12-28-2024 Patient encounter procedure Alisha Sterling MD Work Phone: OB/Gynecology Comment on above: Supervision of high risk in third trimester (Primary Dx); Vaping nicotine dependence, tobacco product; Bipolar 2 disorder (HCC); 36 weeks gestation of Start: 12-25-2024 End: 12-25-2024 ambulatory Lupe Sheets Facility:[facility] Start: 12-25-2024 End: 12-25-[address] Karen Hendrix MD -[facility] Work Phone: Start: 12-25-2024 End: 12-25-2024 Telephone encounter Karen Hendrix MD Work Phone: OB/Gynecology Comment on above: Patient Update Start: 12-24-2024 End: 12-24-2024 Telephone encounter Sandra Briseno APRN.CNM Work Phone: OB/Gynecology Comment on above: Question (OB Questio n) Start: 12-19-2024 End: 12-19-2024 ambulatory Lupe Sheets Facility:[facility] Start: 12-19-2024 End: 12-19-2024 Patient encounter procedure Vandana HIGH -[facility] Work Phone: Start: 12-11-2024 End: 12-11-2024 ambulatory LUPE C SHEETS Facility:[facility] Start: 12-11-2024 End: 12-11-2024 Patient encounter procedure Rani Parkinson MD Work Phone: OB/Gynecology Comment on above: 34 weeks gestation o f (Primary Dx); Supervision of high risk in third trimester Start: 12-07-2024 End: 12-07-2024 Patient encounter procedure Guru Graham APRN-ROOM SERVICE FOOD SERVICE ATTENDANT Work Phone: [facility] Comment on above: Oral thrush (Primary Dx); Acute bronchitis, unspecified organism Start: 12-07-2024 End: 12-07-2024 [facility] GURU GRAHAM [facility] Start: 12-03-2024 End: 12-03-2024 Telephone encounter Sarah Hinton MD Work Phone: OB/Gynecology Comment on above: Question (OB Questio n) Start: 12-03-2024 End: 12-03-2024 ambulatory Lupe Sheets Facility:[facility] Start: 12-03-2024 End: 12-03-2024 Patient encounter procedure Vandana Edwards CNM -[facility] Work Phone: Start: 12-02-2024 End: 12-02-2024 Emergency department patient visit Dr. Cuauhtemoc Molina DO -Emergency Department Work Phone: Start: 11-22-2024 End: 11-22-2024 ambulatory Berna Gorman [facility] Work Phone: [facility] Comment on above: Encounter of female for testing for genetic disease carrier status for procreative management (Primary Dx); Supervision of high risk in third trimester; Abnormal genetic test during Start: 11-22-2024 End: 11-22-2024 Telemedicine consultation with patient Berna Gorman [facility] Work Phone: [facility] Start: 11-19-2024 End: 11-19-2024 ambulatory LUPE C MURRAY Facility:[facility] Start: 11-19-2024 End: 11-19-2024 Patient encounter procedure Giovanni Khan APRN.ROOM SERVICE FOOD SERVICE ATTENDANT Work Phone: OB/Gynecology Comment on above: Supervision of high risk in third trimester (Primary Dx); 31 weeks gestation of ; Bipolar 2 disorder (HCC); Vaping nicotine dependence, tobacco product; Abnormal genetic test during Start: 11-12-2024 End: 11-12-2024 Telephone encounter Azael Rutledge Jessica [facility] Work Phone: [facility] Comment on above: NIPT results: Abnorm al Start: 11-02-2024 End: 11-02-2024 ambulatory LUPE C MURRAY Facility:[facility] Start: 11-02-2024 End: 11-02-2024 Patient encounter procedure Vandana Edwards DIMENSION QUARRY SUPERVISOR.CNM Work Phone: OB/Gynecology Comment on above: 28 weeks gestation o f (Primary Dx); Need for vaccination; Supervision of high risk in third trimester; Bipolar 2 disorder (HCC) Start: 10-05-2024 End: 10-05-2024 ambulatory LUPE C SHEETS Facility:[facility] Start: 10-05-2024 End: 10-05-2024 Patient encounter procedure Rani Parkinson MD Work Phone: OB/Gynecology Comment on above: 24 weeks gestation o f (Primary Dx); Nausea and vomiting during ; Supervision of high risk in second trimester; Vaping nicotine dependence, tobacco product; Bipolar 2 disorder (HCC); Accessory placenta, second trimester Accessory placenta, second trimester (Primary Dx) Start: 09-10-2024 End: 09-10-2024 Telephone encounter Sarah Hinton MD Work Phone: OB/Gynecology Comment on above: Patient Question Start: 09-07-2024 End: 09-07-2024 ambulatory RANI PARKINSON Facility:[facility] Start: 09-07-2024 End: 09-07-2024 Patient encounter procedure Vandana Edwards APRN.CNM Work Phone: OB/Gynecology Comment on above: Supervision of high risk in second trimester (Primary Dx); 20 weeks gestation of ; Nausea and vomiting during ; Bipolar 2 disorder (HCC); Vaping nicotine dependence, tobacco product Encounter for anatomic survey (Primary Dx); 20 weeks gestation of Start: 09-06-2024 End: 09-07-2024 Telephone encounter Rani Parkinson MD Work Phone: OB/Gynecology Comment on above: Orders Start: 08-20-2024 End: 08-20-2024 Telephone encounter Azael Lopez [facility] Work Phone: [facility] Comment on above: NIPT: Nonreportable Start: 08-13-2024 End: 08-13-2024 ambulatory Rani Parkinson MD Work Phone: OB/Gynecology Comment on above: Rubella Gender Start: 08-10-2024 End: 08-10-2024 ambulatory SANDRA BRISENO Facility:[facility] Start: 08-10-2024 End: 08-10-2024 Patient encounter procedure Rani Parkinson MD Work Phone: OB/Gynecology Comment on above: 16 weeks gestation o f (Primary Dx); Supervision of high risk in second trimester; Nausea and vomiting during ; Bipolar 2 disorder (HCC) Start: 07-17-2024 End: 07-23-2024 Telephone encounter Rani Parkinson MD Work Phone: OB/Gynecology Comment on above: Outside Testing Start: 07-13-2024 End: 07-13-2024 ambulatory LUPE GAO Facility:[facility] Start: 07-13-2024 End: 07-13-2024 Patient encounter procedure Rani Parkinson MD Work Phone: OB/Gynecology Comment on above: Supervision of other high risk pregnancies, first trimester (Primary Dx); Bipolar 2 disorder (HCC); Mild intermittent asthma without complication; Nausea and vomiting during ; 12 weeks gestation of Start: 07-11-2024 End: 07-11-2024 ambulatory SANDRA BRISENO Facility:[facility] Start: 07-11-2024 End: 07-11-2024 Patient encounter procedure Development Architect [employer] Work Phone: [facility] Comment on above: Encounter for antena nikki screening for malformation using ultrasound (Primary Dx); 12 weeks gestation of Start: 06-27-2024 End: 06-27-2024 Patient encounter procedure Sandra Briseno APRN.CNM Work Phone: OB/Gynecology Comment on above: with uncer tain dates in first trimester (Primary Dx); Screening for cervical cancer; Special screening examination for human papillomavirus (HPV); Supervision of other high risk pregnancies, first trimester; Date of last menstrual period (LMP) unknown; Vaping nicotine dependence, tobacco product; Bipolar 2 disorder (HCC); Mild intermittent asthma without complication; History of abuse of recreational drug (HCC); Recovering alcoholic (HCC); Nausea and vomiting during Start: 2024 Telephone encounter Lupe Gao DO Work Phone: [facility] Comment on above: Medication Problem Start: 2024 End: 2024 Patient encounter procedure Pearl Coronel DIMENSION QUARRY SUPERVISOR.ROOM SERVICE FOOD SERVICE ATTENDANT Work Phone: [facility] Comment on above: Abdominal discomfort (Primary Dx); Heartburn; Premenstrual syndrome Start: 01-14-2024 End: 01-14-2024 Patient encounter procedure Mason Means PA-C Work Phone: [facility] Comment on above: Dysuria (Primary Dx) ; Acute cystitis with hematuria Start: 07-28-2023 Telephone encounter Sarah ochoa MD Work Phone: OB/Gynecology Comment on above: Orders Start: 07-25-2023 End: 07-25-2023 Patient encounter procedure Sarah Hinton MD Work Phone: OB/Gynecology Comment on above: Vaginal odor (Primar y Dx); Vaginal itching; Dysuria Start: 06-09-2023 ambulatory Lupe Simons ets DO Work Phone: [facility] Comment on above: ED OUTREACH ([facility] 06/08/23) Start: 06-08-2023 End: 06-09-2023 Emergency department patient visit LUPE Julee GAO Facility:[facility] Start: 10-06-2022 End: 10-06-2022 Emergency department [id number] Start: 04-15-2020 Patient encounter procedure UNKNOWN PROVIDER Facility:[facility] Start: 03-19-2018 End: 03-20-2018 Emergency department patient visit YANELI DOBSON Facility:B Start: 01-31-2018 Ambulatory Michelle Gordo [facility] Procedures Date Procedure Procedure Detail Performing Clinician Start: 03-06-2025 UA DIP,URINE HCG (POC) Giovanni Khan APRN.CNP Work Phone: Start: 02-13-2025 Urnls dip stick/tabl et reagent auto microscopy Adan Jolly MD Work Phone: Start: 02-13-2025 Comprehensive metabo lic panel Adan Jolly MD Work Phone: Start: 02-13-2025 Lipid panel Adan brewer MD Work Phone: Start: 01-09-2025 Urnls dip stick/tabl et rgnt non-auto w/o micrscp Kike Brannon MD Work Phone: Start: 01-08-2025 Urnls dip stick/tabl et rgnt non-auto w/o micrscp Kike Brannon MD Work Phone: Start: 12-31-2024 COVID & INFLUENZA A/ B & RSV PCR, ROUTINE Jin Hernandes APRN.ROOM SERVICE FOOD SERVICE ATTENDANT Work Phone: Start: 12-28-2024 Urnls dip stick/tabl et rgnt non-auto w/o micrscp Alisha Sterling MD Work Phone: Start: 12-11-2024 Urnls dip stick/tabl et rgnt non-auto w/o micrscp Rani Parkinson MD Work Phone: Start: 12-03-[address] Alicia Molina DO Work Phone: Start: 12-02-2024 X-ray of chest, PA a nd lateral views Dr. Cuauhtemoc Molina DO Work Phone: Start: 12-02-2024 SARS-CoV-2, Influenz a & RSV (PCR) Dr. Cuauhtemoc Molina DO Work Phone: Start: 10-05-2024 Us preg uterus after 1st trimest / gestation Rani Parkinson MD Work Phone: Start: 09-07-2024 Us preg uterus after 1st trimest 10/24 gestation Rani Parkinson MD Work Phone: Start: 08-10-2024 Antibody screen SANDRA BRISENO Comment on above: Order Comment: Speci men Type: BLOOD SPECIMEN Ordering Facility: [facility] Address: [address] [place] [address] Performed By: #### 3 [id number], [id number], [id number] #### [facility] CLIA [id number] [address] [place] [address] [place] [address] [place] Start: 07-11-2024 Us nuchal translucency 1st gestation Sandra Briseno APRN.CNM Work Phone: Start: 06-27-2024 Us uterus l imited 1/> fetuses Sandra Finn SWARTZ.CNM Work Phone: Start: 06-27-2024 Microscopic observat ion [Identifier] in Cervix by Cyto stain Guru Graham D[employer]ENS[employer] QUARRY SUPERVISOR-ROOM SERVICE FOOD SERVICE ATTENDANT Work Phone: Start: 2024 UA DIP,URINE HCG (POC) Pearl Coronel APRN.ROOM SERVICE FOOD SERVICE ATTENDANT Work Phone: Start: 01-14-2024 Urnls dip stick/tabl et rgnt non-auto w/o micrscp Mason Means PA-C Work Phone: Start: 07-25-2023 Urine test visual color cmprsn meths Sarah Hinton MD Work Phone: Start: 07-25-2023 BACTERIAL VAGINOSIS NAAT Sarah Hinton MD Work Phone: Start: 07-25-2023 Iadna chlamydia trac homatis amplified probe tq Sarah Hinton MD Work Phone: Start: 07-25-2023 Urnls dip stick/tabl et rgnt auto w/o microscopy Sarah Hinton MD Work Phone: Plan of Treatment Date Care Activity Detail Author Start: 2043 Zoster Vaccines (1 of 2) Zoster Vaccines (1 of 2) [facility] Start: 11-02-2034 DTaP/Tdap/Td Vaccines (3 - Td or Tdap) DTaP/Tdap/Td Vaccines (3 - Td or Tdap) [facility] Start: 11-02-2034 Urine microalbumin profile DTaP,Tdap,Td Vaccine (3 - Td or Tdap) [facility] Start: 06-27-2029 Screening for malignant neoplasm of cervix Cervical Cancer Screening [facility] Start: 06-27-2027 Screening for malignant neoplasm of cervix [facility] Start: 03-19-2026 PAP TESTING PAP TESTING [facility] Start: 03-19-2026 Screening for malignant neoplasm of cervix Cervical Cancer Screening [facility] Start: 12-31-2025 Annual PCP Team Chronic Disease Visit Annual PCP Team Chronic Disease Visit [facility] Start: 06-24-2025 Influenza vaccination [facility] Start: 2025 Annual PCP Team Chronic Disease Visit Annual PCP Team Chronic Disease Visit [facility] Start: 04-10-2025 End: 04-10-2026 US Pelvis PELVIC US WHI Anc Imaging Routine Intermenstrual spotting due to IUD Pelvic pain in female Expected: 04/10/2025, Expires: 04/10/2026 [facility] Work Phone: Comment on above: Expected: 04/10/2025, Expires: Start: 04-10-2025 End: 04-10-2025 Patient encounter procedure 04/10/2025 8:15 AM EDT Office Visit OB/Gynecology [address] [place] [address] Giovanni Khan APRN.ROOM SERVICE FOOD SERVICE ATTENDANT [address] [place] [address] IUD FOLLOW UP OB/Gynecology Comment on above: IUD FOLLOW UP Start: 03-06-2025 End: 03-06-2025 Patient encounter procedure 03/06/2025 8:15 AM EDT Office Visit OB/Gynecology [address] [place] [address] Giovanni Khan APRN.ROOM SERVICE FOOD SERVICE ATTENDANT [address] [place] [address] iud insertion OB/Gynecology Comment on above: iud insertion Start: 02-28-2025 End: 02-28-2025 Patient encounter procedure 02/28/2025 10:00 AM EDT Office Visit OB/Gynecology [address] [place] [address] Sarah Hinton MD [address] [place] [address] 6 wk PP OB/Gynecology Comment on above: 6 wk PP Start: 02-12-2025 [facility] Start: 02-12-2025 Referral to service [facility] Start: 02-12-2025 Suicide precautions [facility] Start: 01-16-2025 End: 01-16-2025 Patient encounter procedure 01/16/2025 1:40 PM EDT Routine Office Visit OB/Gynecology [address] [place] [address] Alisha Cox MD [address] [place] [address] OB OB/Gynecology Comment on above: OB Start: 01-15-2025 Patient discharge [facility] Start: 01-14-2025 [facility] Start: 01-14-2025 [facility] Start: 01-14-2025 Administration of medication [facility] Start: 01-14-2025 Application of ice collar, cap or bag [facility] Start: 01-14-2025 Catheterization of vein [facility] Start: 01-14-2025 Introduction of urinary catheter [facility] Start: 01-14-2025 Measuring intake and output [facility] Start: 01-14-2025 Notification of physician [facility] Start: 01-14-2025 Procedure discontinued [facility] Start: 01-14-2025 Provision of activity privileges [facility] Start: 01-14-2025 Vital signs measurements [facility] Start: 01-14-2025 End: 01-14-2025 [facility] Start: 01-14-2025 Documentation procedure [facility] Start: 01-13-2025 Admission procedure [facility] Start: 01-13-2025 Consultation [facility] Start: 01-08-2025 End: 01-08-2025 Patient encounter procedure 01/08/2025 10:10 AM EDT Routine Office Visit OB/Gynecology [address] [place] [address] Kike Brannon MD [address] [place] [address] OB OB/Gynecology Comment on above: OB Start: 01-02-2025 End: 01-02-2025 Patient encounter procedure 01/02/2025 10:50 AM EDT Routine Office Visit OB/Gynecology [address] [place] [address] Alisha Cox MD [address] [place] [address] OB Routine OB/Gynecology Comment on above: OB Routine Start: 12-28-2024 End: 12-28-2024 Patient encounter procedure 12/28/2024 11:20 AM EST Routine Office Visit OB/Gynecology [address] [place] [address] Alisha Cox MD [address] [place] [address] OB OB/Gynecology Comment on above: OB Start: 12-25-2024 Nonstress test [facility] Start: 12-25-2024 Obstetric monitoring [facility] Start: 12-25-2024 Vital signs measurements [facility] Start: 12-25-2024 [facility] Start: 12-25-2024 Patient discharge [facility] Start: 12-19-2024 Nonstress test [facility] Start: 12-19-2024 Obstetric monitoring [facility] Start: 12-19-2024 Vital signs measurements [facility] Start: 12-19-2024 [facility] Start: 12-19-2024 Patient discharge [facility] Start: 12-11-2024 End: 12-11-2024 Patient encounter procedure 12/11/2024 2:50 PM EST Routine Office Visit OB/Gynecology [address] [place] [address] Rani Parkinson MD [address] [place] [address] OB OB/Gynecology Comment on above: OB Start: 12-03-2024 End: 12-03-2024 Patient encounter procedure 12/03/2024 8:45 AM EST Routine Office Visit OB/Gynecology [address] [place] [address] Giovanni Khan APRN.ROOM SERVICE FOOD SERVICE ATTENDANT [address] [place] [address] OB OB/Gynecology Comment on above: OB Start: 12-03-2024 Nonstress test [facility] Start: 12-03-2024 Obstetric monitoring [facility] Start: 12-03-2024 Vital signs measurements [facility] Start: 12-03-2024 [facility] Start: 12-03-2024 Patient discharge [facility] Start: 12-02-2024 Respiratory secretion precautions [facility] Start: 11-23-2024 End: 02-22-2025 CARRIER SCREEN, STANDARD CARRIER SCREEN, STANDARD Lab Routine Encounter of female for testing for genetic disease carrier status for procreative management Expected: 11/23/2024, Expires: 02/22/2025 [facility] Work Phone: Comment on above: Expected: 11/23/2024, Expires: Start: 11-22-2024 End: 11-22-2024 ambulatory 11/22/2024 2:00 PM EST [facility] [address] [address] [address] Berna Gorman, [facility] [address] [place] [address] Supervision of high risk in third trimester [O09.93]; Abnormal genetic test during [O28.5] [facility] Comment on above: Supervision of high risk in th ird trimester [O09.93]; Abnormal genetic test during [O28.5] Start: 11-19-2024 End: 11-19-2024 Patient encounter procedure 11/19/2024 8:45 AM EST Routine Office Visit OB/Gynecology [address] [place] [address] Giovanni Khan, [employer] SUPERVISOR.ROOM SERVICE FOOD SERVICE ATTENDANT [address] [place] [address] OB OB/Gynecology Comment on above: OB Start: 11-02-2024 End: 11-02-2024 Patient encounter procedure 11/02/2024 10:00 AM EST Routine Office Visit OB/Gynecology [address] [place] [address] Vandana Edwards, [employer] SUPERVISOR.CNM [address] [place] [address] OB OB/Gynecology Comment on above: OB Start: 10-05-2024 End: 01-04-2025 ANEMIA REFLEX PANEL ANEMIA REFLEX PANEL Lab Routine 24 weeks gestation of Nausea and vomiting during Supervision of high risk in second trimester Vaping nicotine dependence, tobacco product Bipolar 2 disorder (HCC) Accessory placenta, second trimester Expected: 10/05/2024, Expires: 01/04/2025 [facility] Work Phone: Comment on above: Expected: 10/05/2024, Expires: Start: 10-05-2024 End: 01-04-2025 GESTATIONAL GLUCOSE SCREEN, 1-HOUR, 50 GRAM, NON-FASTING GESTATIONAL GLUCOSE SCREEN, 1-HOUR, 50 GRAM, NON-FASTING Lab Routine 24 weeks gestation of Nausea and vomiting during Supervision of high risk in second trimester Vaping nicotine dependence, tobacco product Bipolar 2 disorder (HCC) Accessory placenta, second trimester Expected: 10/05/2024, Expires: 01/04/2025 [facility] Comment on above: Expected: 10/05/2024, Expires: Start: 10-05-2024 End: 01-04-2025 SYPHILIS TREPONEMAL W/REFLEX SYPHILIS TREPONEMAL W/REFLEX Lab Routine 24 weeks gestation of Nausea and vomiting during Supervision of high risk in second trimester Vaping nicotine dependence, tobacco product Bipolar 2 disorder (HCC) Accessory placenta, second trimester Expected: 10/05/2024, Expires: 01/04/2025 [facility] Comment on above: Expected: 10/05/2024, Expires: Start: 10-05-2024 End: 10-05-2024 Patient encounter procedure OB/Gynecology Comment on above: OB 4 week repeat US Start: 09-07-2024 End: 09-06-2025 OBSTETRIC ULTRASOUND WHI OBSTETRIC ULTRASOUND WHI Anc Imaging Routine Encounter for anatomic survey Expected: 09/07/2024, Expires: 09/06/2025 [facility] Work Phone: Comment on above: Expected: 09/07/2024, Expires: Start: 09-07-2024 End: 09-07-2024 Patient encounter procedure [facility] Comment on above: Anatomy OB Start: 08-20-2024 End: 11-19-2024 Chromosome 21 trisomy [Presence] in Blood or Tissue by Cytogenetics [id number] PLUS Lab Routine Encounter for supervision of normal first in second trimester Expected: 08/20/2024, Expires: 11/19/2024 [facility] Work Phone: Comment on above: Expected: 08/20/2024, Expires: Start: 08-10-2024 End: 08-10-2024 Patient encounter procedure 08/10/2024 11:20 AM EDT Routine Office Visit OB/Gynecology [address] [place], [place] [id number] Rani Parkinson MD [address] [place] [id number] OB OB/Gynecology Comment on above: OB Start: 07-13-2024 End: 10-12-2024 Chromosome 21 trisomy [Presence] in Blood or Tissue by Cytogenetics [id number] PLUS Lab Routine Supervision of other high risk pregnancies, first trimester Expected: 07/13/2024, Expires: 10/12/2024 [facility] Work Phone: Comment on above: Expected: 07/13/2024, Expires: Start: 07-13-2024 End: 07-13-2024 Patient encounter procedure 07/13/2024 9:50 AM EDT Routine Office Visit OB/Gynecology [address] [place] [address] Rani Parkinson MD [address] [place] [address] 1st OB OB/Gynecology Comment on above: 1st OB Start: 07-11-2024 End: 07-11-2024 Patient encounter procedure 07/11/2024 11:00 AM EDT Routine Office Visit Maternal Medicine [address] [place] [address] [facility] Comment on above: [facility] Start: 06-27-2024 End: 09-26-2024 CBC panel - Blood by Automated count COMPLETE BLOOD COUNT Lab Routine with uncertain dates in first trimester Expected: 06/27/2024, Expires: 09/26/2024 [facility] Work Phone: Comment on above: Expected: 06/27/2024, Expires: Start: 06-27-2024 End: 09-26-2024 Hemoglobin A1c in Blood HEMOGLOBIN A1C Lab Routine with uncertain dates in first trimester Expected: 06/27/2024, Expires: 09/26/2024 [facility] Comment on above: Expected: 06/27/2024, Expires: Start: 06-27-2024 End: 09-26-2024 HEMOGLOBIN EVALUATION CASCADE HEMOGLOBIN EVALUATION CASCADE Lab Routine with uncertain dates in first trimester Expected: 06/27/2024, Expires: 09/26/2024 [facility] Comment on above: Expected: 06/27/2024, Expires: Start: 06-27-2024 End: 09-26-2024 Hepatitis B virus surface Ag [Presence] in Serum HEPATITIS B SURFACE ANTIGEN Lab Routine with uncertain dates in first trimester Expected: 06/27/2024, Expires: 09/26/2024 [facility] Comment on above: Expected: 06/27/2024, Expires: Start: 06-27-2024 End: 09-26-2024 Hepatitis C virus Ab [Presence] in Serum HEPATITIS C ANTIBODY IA WITH CONFIRMATION Lab Routine with uncertain dates in first trimester Expected: 06/27/2024, Expires: 09/26/2024 [facility] Comment on above: Expected: 06/27/2024, Expires: Start: 06-27-2024 End: 09-26-2024 HIV 1+2 Ab [Presence] in Serum or Plasma by Immunoassay HIV 1/2 COMBO WITH REFLEX TO DIFFERENTIATION Lab Routine with uncertain dates in first trimester Expected: 06/27/2024, Expires: 09/26/2024 [facility] Comment on above: Expected: 06/27/2024, Expires: Start: 06-27-2024 End: 06-27-2025 NUCHAL TRANSLUCENCY WHI NUCHAL TRANSLUCENCY WHI Anc Imaging Routine with uncertain dates in first trimester Expected: 06/27/2024, Expires: 06/27/2025 [facility] Comment on above: Expected: 06/27/2024, Expires: 5 Start: 06-27-2024 End: 09-26-2024 RUBELLA IGG ANTIBODY RUBELLA IGG ANTIBODY Lab Routine with uncertain dates in first trimester Expected: 06/27/2024, Expires: 09/26/2024 [facility] Comment on above: Expected: 06/27/2024, Expires: Start: 06-27-2024 End: 09-26-2024 SYPHILIS TOTAL W/REFLEX SYPHILIS TOTAL W/REFLEX Lab Routine with uncertain dates in first trimester Expected: 06/27/2024, Expires: 09/26/2024 [facility] Comment on above: Expected: 06/27/2024, Expires: Start: 06-27-2024 End: 09-26-2024 TYPE + SCREEN TYPE + SCREEN Blood Bank Routine with uncertain dates in first trimester Expected: 06/27/2024, Expires: 09/26/2024 [facility] Comment on above: Expected: 06/27/2024, Expires: Start: 06-24-2024 COVID-19 Vaccine () COVID-19 Vaccine ( season) [facility] Start: 06-24-2024 Covid-19 Vaccine () Covid-19 Vaccine () [facility] Start: 06-24-2024 Covid-19 Vaccine () Covid-19 Vaccine () [facility] Start: 06-24-2024 Influenza vaccination [facility] Start: 06-19-2024 End: 06-19-2024 Patient encounter procedure 06/19/2024 9:20 AM EDT Office Visit [facility] [address] [place], [place] [id number] Lupe Gao DO [address] [place] [address] follow up for gerd, control [facility] Comment on above: follow up for gerd, control Start: 01-14-2024 End: 01-21-2024 Bacteria identified in Urine by Culture Urine culture Microbiology Routine Dysuria Expected: 01/14/2024 (Approximate), Expires: 01/21/2024 [facility] Service Area Work Phone: Comment on above: Expected: 01/14/2024 (Approximate), Expi res: 01/21/2024 Start: 06-24-2023 COVID-19 Vaccine () COVID-19 Vaccine () [facility] Start: 06-24-2023 Influenza vaccination [facility] Start: 2023 HPV TESTING HPV TESTING [facility] Start: 12-04-2022 ANNUAL PCP TEAM CHRONIC DISEASE VISIT ANNUAL PCP TEAM CHRONIC DISEASE VISIT [facility] Start: 09-01-2021 COVID-19 VACCINE (3 - Pfizer series) COVID-19 VACCINE (3 - Pfizer series) [facility] Start: 01-03-2020 DTaP/Tdap/Td Vaccines (2 - Td or Tdap) DTaP/Tdap/Td Vaccines (2 - Td or Tdap) [facility] Start: 01-03-2020 Urine microalbumin profile [facility] Start: 04-13-2018 HPV VACCINE (3 - 3-dose series) HPV VACCINE (3 - 3-dose series) [facility] Start: 04-13-2018 HPV Vaccines (3 - 3-dose series) HPV Vaccines (3 - 3-dose series) [facility] Start: 03-08-2018 HPV Vaccine (3 - 3-dose series) HPV Vaccine (3 - 3-dose series) [facility] Start: 03-08-2018 HPV Vaccines (3 - 3-dose series) HPV Vaccines (3 - 3-dose series) [facility] Start: 2014 Screening for malignant neoplasm of cervix [facility] Start: 2012 Hepatitis B Vaccine (1 of 3 - 19+ 3-dose series) Hepatitis B Vaccine (1 of 3 - 19+ 3-dose series) [facility] Start: 2012 Hepatitis B Vaccines (1 of 3 - 19+ 3-dose series) Hepatitis B Vaccines (1 of 3 - 19+ 3-dose series) [facility] Start: 2012 Pneumococcal vaccination Pneumococcal Vaccine (1 of 2 - PCV) [facility] Start: 2012 Pneumococcal Vaccine: Pediatrics and At-Risk Adult Patients (1 of 2 - PCV) Pneumococcal Vaccine: Pediatrics and At-Risk Adult Patients (1 of 2 - PCV) [facility] Start: 2011 Hepatitis C screening Hepatitis C Screening [facility] Start: 2011 SPIROMETRY SPIROMETRY [facility] Start: 2006 Varicella vaccination Varicella Vaccines (1 of 2 - 13+ 2-dose series) [facility] Start: 1999 PNEUMOCOCCAL (1 - PCV) PNEUMOCOCCAL (1 - PCV) [facility] Start: 1999 Pneumococcal vaccination Pneumococcal Vaccine (1 - PCV) [facility] Start: 1994 MMR Vaccines (1 of 1 - Standard series) MMR Vaccines (1 of 1 - Standard series) [facility] Start: 1994 Varicella vaccination Varicella Vaccines (1 of 2 - 2-dose childhood series) [facility] Start: 1993 HEPATITIS B (1 of 3 - 3-dose series) HEPATITIS B (1 of 3 - 3-dose series) [facility] Start: 1993 Hepatitis B Vaccine (1 of 3 - 3-dose series) Hepatitis B Vaccine (1 of 3 - 3-dose series) [facility] Start: 1993 Hepatitis B Vaccines (1 of 3 - 3-dose series) Hepatitis B Vaccines (1 of 3 - 3-dose series) [facility] Start: 1993 HIV screening HIV Screening [facility] Start: 1993 Lipid panel Lipid Panel [facility] Start: 1993 Yearly Adult Physical Yearly Adult Physical [facility] Bacteria identified in Urine by Culture URINE CULTURE Microbiology Routine with uncertain dates in first trimester 06/27/2024 9:55 AM EDT [facility] BACTERIAL VAGINOSIS NAAT BACTERI AL VAGINOSIS NAAT Lab Routine with uncertain dates in first trimester 06/27/2024 9:55 AM EDT [facility] BACTERIAL VAGINOSIS NAAT BACTERI AL VAGINOSIS NAAT Lab Routine Intermenstrual spotting due to IUD Pelvic pain in female 04/10/2025 8:36 AM EDT [facility] MAGGI/TRICHOMONAS NAAT MAGGI /TRICHOMONAS NAAT Lab Routine with uncertain dates in first trimester 06/27/2024 9:55 AM EDT [facility] MAGGI/TRICHOMONAS NAAT MAGGI /TRICHOMONAS NAAT Lab Routine Intermenstrual spotting due to IUD Pelvic pain in female 04/10/2025 8:36 AM EDT [facility] Chlamydia trachomatis+Neisseria gonorrhoeae DNA [Presence] in Unspecified specimen by JALEN with probe detection GONORRHEA/CHLAMYDIA NAAT Lab Routine with uncertain dates in first trimester 06/27/2024 9:55 AM T [facility] Chlamydia trachomatis+Neisseria gonorrhoeae DNA [Presence] in Unspecified specimen by JALEN with probe detection GONORRHEA/CHLAMYDIA NAAT Lab Routine Screen for STD (sexually transmitted disease) 03/06/2025 8:41 AM EDT [facility] GROUP B STREPTOCOCCU S BY PCR, ROUTINE SCREENING GROUP B STREPTOCOCCUS BY PCR, ROUTINE SCREENING Microbiology Routine Supervision of high risk in third trimester 12/28/2024 11:37 AM EST [facility] Work Phone: Insertion intrauteri ne device iud INSERT INTRAUTERINE DEVICE Procedures Routine Encounter for insertion of Mirena IUD Ordered: 02/28/2025 [facility] Work Phone: Comment on above: Ordered: 02/28/2025 Insertion intrauteri ne device iud INSERT INTRAUTERINE DEVICE Procedures Routine Encounter for IUD insertion Ordered: 03/06/2025 [facility] Work Phone: Comment on above: Ordered: 03/06/2025 End: 08-28-2024 OBSTETRIC ULTRASOUND WHI OBSTETRIC ULTRASOUND WHI Anc Imaging Routine with uncertain dates in first trimester Once per month for 2 Occurrences starting 06/27/2024 until 08/28/2024 [facility] Comment on above: Once per month for 2 Occurrences startin g 06/27/2024 until 08/28/2024 PAP TEST PAP TEST Lab Rou jud with uncertain dates in first trimester Screening for cervical cancer Special screening examination for human papillomavirus (HPV) 06/27/2024 9:55 AM EDT [facility] Patient Education [facility] Work Phone: Patient referral [facility] Work Phone: TRICHOMONAS VAGINALI S NAAT TRICHOMONAS VAGINALIS NAAT Lab Routine Screen for STD (sexually transmitted disease) 03/06/2025 8:41 AM EDT [facility] URINE OB DIP B/O URINE OB DIP B/ O Lab Routine Supervision of high risk in third trimester 37 weeks gestation of Ordered: 01/02/2025 [facility] Work Phone: Comment on above: Ordered: 01/02/2025 Urine test visual color cmprsn meths HCG QUAL UR B/O Lab Routine Premenstrual syndrome Ordered: 2024 [facility] Work Phone: Comment on above: Ordered: [address] [facility] Work Phone: Immunizations Immunization Date Immunization Notes Care Provider Teresa hurd 11-02-2024 tetanus toxoid, redu sailaja diphtheria toxoid, and acellular pertussis vaccine, adsorbed Vandana Edwards APRN.[employer] Work Phone: [facility] 12-16-2021 tuberculin skin test ; purified protein derivative solution, intradermal Sandra Briseno D[employer] SUPERVISOR.CNM Work Phone: [facility] 11-12-2021 tuberculin skin test ; purified protein derivative solution, intradermal Sandra Briseno APRN.CNM Work Phone: [facility] 12-14-2017 Human Papillomavirus 9-valent vaccine Lupe Sheets DO Work Phone: [facility] 12-14-2017 HPV, unspecified formulation Mason Means PA-C Work Phone: [facility] Work Phone: 01-02-2010 human papilloma viru s vaccine, quadrivalent Lupe Sheets DO Work Phone: [facility] Work Phone: 01-02-2010 Meningococcal, MCV4, unspecified conjugate formulation(groups A, C, Y and W-135) Lupe Sheets DO Work Phone: [facility] Work Phone: 01-02-2010 tetanus toxoid, redu sailaja diphtheria toxoid, and acellular pertussis vaccine, adsorbed Lupe Sheets DO Work Phone: [facility] Work Phone: Payers Date Payer Category Payer Medicaid MEDICAID PRESUMP TIVE Member Subscriber Plan / Payer (Effective 2025-Present) Name: Navya Mcnulty Relation to Subscriber: Self Name: Navya Mcnulty Payer ID: Not on file Group ID: Not on file Type: Not on file Address: [address] [id number] 2025 Medicaid [id number] 2024 Self-pay 2023 Managed Care ([facility]) [facility] [id number] 2023 Managed Care PPO (unspecified) [employer] SU[employer] PPO [id number] 2023 Private Health Insurance [employer] SUPER[employer] PPO [id number] 2023 Unknown [id number] 2020 Unknown 2018 Medicaid [id number] 1993 Unknown [id number] 1993 Unknown [id number] 1993 Unknown [id number] 1993 Unknown [id number] 1993 Unknown [id number] Private Health Insurance [id number] Unknown [id number] Unknown [id number] Unknown [id number] Unknown [id number] Unknown [id number] Unknown [id number] 462 Social History Date Type Detail Facility Start: 08-25-2021 End: 02-12-2025 Tobacco smoking status NHIS Smokes tobacco daily [facility] History of tobacco use Cigarette Smoker [facility] Start: 08-25-2021 End: 11-08-2023 Cigarettes smoked current (pack per day) - Reported 1 [facility] Start: 08-25-2021 End: 06-27-2024 Tobacco use and exposure Smokeless tobacco non-user [facility] Start: 06-08-2023 End: 2024 Alcohol intake Current drinker of alcohol (finding) [facility] Start: 06-08-2023 End: 11-08-2023 Tobacco use panel [facility] Start: 09-24-2012 Adult Depression Screening Assessment 2 [facility] Start: 08-25-2021 End: 07-25-2023 Tobacco Comment trying to quit [facility] Start: 09-10-2017 Alcohol Comment occ [facility] Start: 1995 Sex Assigned At Not on file C [facility] Start: 1995 Sex Assigned At Female C [facility] Start: 07-25-2023 Gender identity Identifies as female gender (finding) [facility] Start: 07-25-2023 Sexual orientation Bisexual (finding ) [facility] Start: 01-14-2024 End: 02-12-2025 Tobacco smoking status NHIS Never smoked tobacco [facility] Work Phone: Start: 01-14-2024 End: 12-07-2024 Alcohol intake Lifetime non-drinker (finding) [facility] Work Phone: Start: 01-04-2024 End: 04-02-2025 Exposure to SARS-CoV-2 (event) Not sure [facility] Start: 2024 End: 06-27-2024 Tobacco smoking status NHIS Ex-smoker [facility] History of tobacco use Current smoker [facility] Start: 2024 Tobacco [facility] Start: 06-27-2024 End: 07-04-2025 Alcoholic beverage intake Ex-drinker (finding) [facility] The thought of ken stevenson myself has occurred to me Never [facility] Start: 04-28-2024 [facility] Start: 05-12-2017 Occasional Occasional [facility] Start: 05-12-2017 None None [facility] Start: 05-12-2017 Cigarettes Cigarettes [facility] Start: 01-15-2025 End: 02-12-2025 Sex Female (finding) [facility] Has the [employer], [employer], [employer], or water [employer] threatened to shut off services in your home in past 12Mo No [facility] (I/We) worried wheth er (my/our) food would run out before (I/we) got money to buy more. Never true [facility] The food that (I/we) bought just didn't last, and (I/we) didn't have money to get more. Sometimes true [facility] The thought of tonnyi ng myself has occurred to me Hardly ever [facility] NEGATED: Highlighted rowStart: CHARISSA History of tobacco use Passive smoker [facility] Goals Date Patient Goal Desired Activity /State Personal health goal Functional Status Date Assessment Result Facility 01-14-2025 Functional status Activity Abili ty With Assist of 2 [facility] Work Phone: 05-20-2019 Are you deaf, or do you have serious difficulty hearing No 05/20/2019 2:07 PM LORELEIT Guru Zapata, MARTHA No [facility] 05-20-2019 Are you blind, or do you have serious difficulty seeing, even when wearing glasses No 05/20/2019 2:07 PM EDT Guru Zapata, MARTHA No [facility] 05-20-2019 Do you have serious difficulty walking or climbing stairs No 05/20/2019 2:07 PM LORELEIT Guru Zapata, MARTHA No [facility] 05-20-2019 Do you have difficul ty dressing or bathing No 05/20/2019 2:07 PM LORELEIT Guru Zapata, MARTHA [facility] 05-20-2019 Because of a physica l, mental, or emotional condition, do you have difficulty doing errands alone such as visiting a physician's office or shopping No 05/20/2019 2:07 PM LORELEIT Guru Zapata, MARTHA No [facility] Mental Status Date Assessment Result Facility 12-02-2024 Cognitive function Level Of Cons ciousness Awake;Alert;Appropriate;Fol lows Commands [facility] Work Phone: 05-20-2019 Because of a physica l, mental, or emotional condition, do you have serious difficulty concentrating, remembering, or making decisions No 05/20/2019 2:07 PM EDT Guru Zapata, MARTHA No [facility] Clinical Notes 05-18-2019 to 07-04-2025 Annita Price APRN.ROOM SERVICE FOOD SERVICE ATTENDANT - 07/04/2025 6:24 PM Giovanni Lopez APRN.ROOM SERVICE FOOD SERVICE ATTENDANT - 04/10/2025 8:09 AM Jeremi Moran APRN-ROOM SERVICE FOOD SERVICE ATTENDANT - 04/02/2025 6:10 PM Giovanni Lopez APRN.ROOM SERVICE FOOD SERVICE ATTENDANT - 03/06/2025 8:09 AM EDT Note Date & Type Note Facility 07-04-2025 History of Present illness Narrative [facility] Navya Mcnulty is a 30 year old female. Patient presents with: Cough: Raspy, productive cough, mucus x 1 week HPI Patient presents today complaining of 1 week of increasing raspy cough with sputum production. Denies any specific fevers but notes symptoms do not seem to be improving. Review of Systems As above Objective BP 98/60 Pulse 90 Temp 37.2 C (99 F) Resp 18 Wt 92.6 kg (204 lb 2.3 oz) LMP 06/03/2025 SpO2 98% No BMI 36.72 kg/m Physical Exam Vitals and nursing note reviewed. Constitutional: General: She is not in acute distress. Appearance: Normal appearance. She is not ill-appearing. HENT: Head: Normocephalic. Mouth/Throat: Mouth: Mucous membranes are moist. Eyes: Conjunctiva/sclera: Conjunctivae normal. Cardiovascular: Rate and Rhythm: Normal rate and regular rhythm. Pulmonary: Effort: Pulmonary effort is normal. Breath sounds: Wheezing and rhonchi present. Musculoskeletal: General: Normal range of motion. Cervical back: Normal range of motion. Skin: General: Skin is warm and dry. Neurological: General: No focal deficit present. Mental Status: She is alert. Psychiatric: Mood and Affect: Mood normal. Behavior: Behavior normal. {ASSESSMENT/PLAN: 1. Lower respiratory tract infection - ICD9: 519.8, ICD10: J22 -On evaluation patient had coarse lung sounds throughout. Patient notes worsening of symptoms over the last week. She does have a young but states that she is bottlefeeding and denies any chance of . She does have an albuterol inhaler which she can use as needed at home. Patient given prescriptions as noted below as my suspicion for lower respiratory tract infection is high. She will otherwise follow-up with her PCP to ensure resolution of symptoms - DOXYCYCLINE MONOHYDRATE 100 MG CAPSULE - PREDNISONE 50 MG TABLET Annita Price APRN.CNP Disposition The patient was discharged. Procedures documented in this encounter [facility] 07-04-2025 Note HNO ID: [id number] Author: ANNITA PRICE APRN.CNP Service: ? Author Type: Nurse Practitioner Type: Progress Notes Filed: 07/04/2025 18:25 Note Text: URGENT CARE IAMMEJIA Mcnulty is a 30 year old female. Patient presents with: Cough: Raspy, productive cough, mucus x 1 week HPI Patient presents today complaining of 1 week of increasing raspy cough with sputum production. Denies any specific fevers but notes symptoms do not seem to be improving. Review of Systems As above Objective BP 98/60 Pulse 90 Temp 37.2 ?C (99 ?F) Resp 18 Wt 92.6 kg (204 lb 2.3 oz) LMP 06/03/2025 SpO2 98% No BMI 36.72 kg/m? Physical Exam Vitals and nursing note reviewed. Constitutional: General: She is not in acute distress. Appearance: Normal appearance. She is not ill-appearing. HENT: Head: Normocephalic. Mouth/Throat: Mouth: Mucous membranes are moist. Eyes: Conjunctiva/sclera: Conjunctivae normal. Cardiovascular: Rate and Rhythm: Normal rate and regular rhythm. Pulmonary: Effort: Pulmonary effort is normal. Breath sounds: Wheezing and rhonchi present. Musculoskeletal: General: Normal range of motion. Cervical back: Normal range of motion. Skin: General: Skin is warm and dry. Neurological: General: No focal deficit present. Mental Status: She is alert. Psychiatric: Mood and Affect: Mood normal. Behavior: Behavior normal. {ASSESSMENT/PLAN: 1. Lower respiratory tract infection - ICD9: 519.8, ICD10: J22 -On evaluation patient had coarse lung sounds throughout. Patient notes worsening of symptoms over the last week. She does have a young but states that she is bottlefeeding and denies any chance of . She does have an albuterol inhaler which she can use as needed at home. Patient given prescriptions as noted below as my suspicion for lower respiratory tract infection is high. She will otherwise follow-up with her PCP to ensure resolution of symptoms - DOXYCYCLINE MONOHYDRATE 100 MG CAPSULE - PREDNISONE 50 MG TABLET Annita Price APRN.ROOM SERVICE FOOD SERVICE ATTENDANT Disposition The patient was discharged. Procedures [facility] 04-10-2025 Note HNO ID: [id number] Author: GIOVANNI KHAN APRN.ROOM SERVICE FOOD SERVICE ATTENDANT Service: ? Author Type: Nurse Practitioner Type: Progress Notes Filed: 04/10/2025 08:34 Note Text: Banjo Repair Person offered: Patient declines. Navya Mcnulty is a 29 year old female who presents for IUD follow-up. HPI: Mirena IUD placed 03/06/2025. She has been having spotting since placement. Notes some left sided pelvic pain as well. Partner can feel IUD strings with intercourse. OB History Gravida2 Para2 Term2 Preterm0 AB0 Living2 SAB0 IAB0 Ectopic0 Multiple0 Live Births2 Academic Affairs Assistant History LMP: 05/07/2024, Recent Age at Menarche: Age at First : Age at Menopause: Academic Affairs Assistant History Comments: Sexual Activity: Yes; Male Contraception: Not used PAST MEDICAL HISTORY Diagnosis Date Abnormal genetic test during 11/19/2024 November 30, 2024 Anticipated Complication WS approved by Dr. Alegre 11/28/24 - see scanned doc Giovanni Khan APRN.ROOM SERVICE FOOD SERVICE ATTENDANT November 19, 2024 - [place]ter on NIPT - Opts for genetics consult after discussion - Opts for cord blood karotype Giovanni Khan APRN.CHANTAL Anxiety 05/23/2017 Asthma (HCC) Cellulitis and abscess of toe, unspecified 06/01/2010 Cellulitis of right knee 05/18/2019 Depression 12/22/2011 History of illicit drug use Quit 06/2017, Meth Hyperprolactinemia (HCC) 03/23/2012 MRSA cellulitis 2016 PMH - PAST MEDICAL HISTORY OF 01/02/2010 normal color vision Trichomoniasis 03/06/2019 Unspecified asthma(493.90) PAST SURGICAL HISTORY Procedure Laterality Date INSERTION OF IUD 03/06/2025 Mirena PAST SURGICAL HISTORY OF Left 04/2017 Elbow Surgery PAST SURGICAL HISTORY OF removal of abcess on right knee FAMILY HISTORY Problem Relation Age of Onset Psychiatry Mother depression other (Carpel Tunnel) Mother Alcohol abuse Mother Recovering Diabetes Father Heart Father bypass Hypertension Father Heart Attack Father No Known Problems Brother Osteoporosis Maternal Grandmother other (Breast Cancer age 40s) Maternal Grandmother Cancer Maternal Grandfather of liver cancer Diabetes Paternal Grandmother Dementia Paternal Grandmother Diabetes Paternal Grandfather Heart Paternal Grandfather from [place] Social History Tobacco Use Smoking status: Former Current packs/day: 1.00 Average packs/day: 1 pack/day for 10.0 years (10.0 ttl pk-yrs) Types: Cigarettes Smokeless tobacco: Never Vaping Use Vaping status: current everyday user Substances: Nicotine Devices: Disposable Substance Use Topics Alcohol use: Not Currently Comment: occ Drug use: Not Currently Comment: 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 lurasidone (LATUDA) 60 mg tablet Take 60 mg by mouth once daily. hydrOXYzine HCl (ATARAX) 50 mg tablet Take 50 mg by mouth every 6 hours as needed. LAMICTAL 200 mg tablet Take 200 mg by mouth once daily. (Patient taking differently: Take 180 mg by mouth two times a day.) LACTASE (LACTAID ORAL) Take by mouth w MEALS. No current facility-administered medications for this visit. 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 As applicable, any other physician, advance practice provider, medical student, or other health professional student that will be observing or involved in the sensitive examination for educational or training purposes was discussed with the Patient or Authorized Dynamometer Tuner. The Patient or Authorized Dynamometer Tuner has agreed to proceed with the sensitive examination. (Sensitive examination includes inspection and/or palpation of the breasts, pelvis, prostate and anorectal regions). EXAM: BP 114/68 Wt 195 lb (88.5kg) LMP 05/07/2024 GENERAL: pleasant, female in no apparent distress CHEST: Normal inspiratory effort PELVIC: external genitalia normal, normal Bartholin's glands, urethra, Moreland's glands, no vulvar lesions, no cervical lesions, good vaginal support, physiologic discharge present, normal appearing perineal body and perianal region, IUD strings visible BIMANUAL: uterus normal size, shape and consistency, no adnexal masses, and non-tender NEURO: alert and oriented x3,exam grossly non-focal EXTREMITIES: normal ASSESSMENT AND PLAN: 1. IUD check up - ICD9: V25.42, ICD10: Z30.431 (primary diagnosis) 2. Intermenstrual spotting due to IUD - ICD9: 626.6, V45.51, ICD10: N92.0, Z97.5 3. Pelvic pain in female - ICD (more content not included)... [facility] 04-10-2025 History of Present illness Narrative Banjo Repair Person offered: Patient declines. Navya Mcnulty is a 29 year old female who presents for IUD follow-up. HPI: Mirena IUD placed 03/06/2025. She has been having spotting since placement. Notes some left sided pelvic pain as well. Partner can feel IUD strings with intercourse. OB History Gravida2 Para2 Term2 Preterm0 AB0 Living2 SAB0 IAB0 Ectopic0 Multiple0 Live Births2 Academic Affairs Assistant History LMP: 05/07/2024, Recent Age at Menarche: Age at First : Age at Menopause: Academic Affairs Assistant History Comments: Sexual Activity: Yes; Male Contraception: Not used PAST MEDICAL HISTORY Diagnosis Date Abnormal genetic test during 11/19/2024 November 30, 2024 Anticipated [place] Complication WS approved by Dr. Alegre 11/28/24 - see scanned doc Giovanni Khan APRN.ROOM SERVICE FOOD SERVICE ATTENDANT November 19, 2024 - [place] on NIPT - Opts for genetics consult after discussion - Opts for cord blood karotype Giovanni Khan APRN.CHANTAL Anxiety 05/23/2017 Asthma (HCC) Cellulitis and abscess of toe, unspecified 06/01/2010 Cellulitis of right knee 05/18/2019 Depression 12/22/2011 History of illicit drug use Quit 06/2017, Meth Hyperprolactinemia (HCC) 03/23/2012 MRSA cellulitis 2016 PMH - PAST MEDICAL HISTORY OF 01/02/2010 normal color vision Trichomoniasis 03/06/2019 Unspecified asthma(493.90) PAST SURGICAL HISTORY Procedure Laterality Date INSERTION OF IUD 03/06/2025 Mirena PAST SURGICAL HISTORY OF Left 04/2017 Elbow Surgery PAST SURGICAL HISTORY OF removal of abcess on right knee FAMILY HISTORY Problem Relation Age of Onset Psychiatry Mother depression other (Carpel Tunnel) Mother Alcohol abuse Mother Recovering Diabetes Father Heart Father bypass Hypertension Father Heart Attack Father No Known Problems Brother Osteoporosis Maternal Grandmother other (Breast Cancer age 40s) Maternal Grandmother Cancer Maternal Grandfather of liver cancer Diabetes Paternal Grandmother Dementia Paternal Grandmother Diabetes Paternal Grandfather Heart Paternal Grandfather from [place] Social History Tobacco Use Smoking status: Former Current packs/day: 1.00 Average packs/day: 1 pack/day for 10.0 years (10.0 ttl pk-yrs) Types: Cigarettes Smokeless tobacco: Never Vaping Use Vaping status: current everyday user Substances: Nicotine Devices: Disposable Substance Use Topics Alcohol use: Not Currently Comment: occ Drug use: Not Currently Comment: 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 lurasidone (LATUDA) 60 mg tablet Take 60 mg by mouth once daily. hydrOXYzine HCl (ATARAX) 50 mg tablet Take 50 mg by mouth every 6 hours as needed. LAMICTAL 200 mg tablet Take 200 mg by mouth once daily. (Patient taking differently: Take 180 mg by mouth two times a day.) LACTASE (LACTAID ORAL) Take by mouth w MEALS. No current facility-administered medications for this visit. 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 As applicable, any other physician, advance practice provider, medical student, or other health professional student that will be observing or involved in the sensitive examination for educational or training purposes was discussed with the Patient or Authorized Dynamometer Tuner. The Patient or Authorized Dynamometer Tuner has agreed to proceed with the sensitive examination. (Sensitive examination includes inspection and/or palpation of the breasts, pelvis, prostate and anorectal regions). EXAM: BP 114/68 Wt 195 lb (88.5kg) LMP 05/07/2024 GENERAL: pleasant, female in no apparent distress CHEST: Normal inspiratory effort PELVIC: external genitalia normal, normal Bartholin's glands, urethra, Moreland's glands, no vulvar lesions, no cervical lesions, good vaginal support, physiologic discharge present, normal appearing perineal body and perianal region, IUD strings visible BIMANUAL: uterus normal size, shape and consistency, no adnexal masses, and non-tender NEURO: alert and oriented x3,exam grossly non-focal EXTREMITIES: normal ASSESSMENT AND PLAN: 1. IUD check up - ICD9: V25.42, ICD10: Z30.431 (primary diagnosis) 2. Intermenstrual spotting due to IUD - ICD9: 626.6, V45.51, ICD10: N92.0, Z97.5 3. Pelvic pain in female - ICD9: 625.9, ICD10: R10.2 - IUD strings trimmed to 1 cm due to partner feeling strings - Cultures obtained - denies concern for STD exposure - Ultrasound ordered to confirm placement - Bleeding and pain precautions reviewed Giovanni Khan APRN.CNP Medical Decision Making: Problems: Low: Acute, uncomplicated illness or injury Data: Unique test(s) ordered: 3+ Risk: Low: Low risk from testing/treatment Medical Decision Making Level: 3 - Low documented in this encounter [facility] 04-02-2025 History of Present illness Narrative [facility] NOTE: Name: Navya Mcnulty, 29 y.o. CSN:[id number] ALL: Allergies[1] Chief Complaint: Eye Problem (Bilateral eye irritation X 2 days ) Encounter Date: 04/02/2025 HPI: The history was obtained from the patient. Navya is a 29 y.o. female, who presents with a chief complaint of redness, irritation, and discharge in the right eye. Symptoms began 2 days ago and have progressively worsened. Reports a thick, purulent, yellow/green discharge that crusts the eyelid, especially upon waking. The eye is described as gritty and itchy. Denies significant eye pain or changes in vision. No history of trauma or recent foreign body exposure. Also reports mild photophobia but denies systemic symptoms such as fever or chills. No known contact with exposure. Denies seasonal allergies/upper respiratory symptoms. Does not wear contact lenses. PMHx: Medical History[2] Current Medications[3] PMSx: Surgical History[4] Fam Hx: Family History[5] SOC. Hx: Social History Socioeconomic History Marital status: Single Spouse name: Not on file Number of children: Not on file Years of education: Not on file Highest education level: Not on file Occupational History Not on file Tobacco Use Smoking status: Never Smokeless tobacco: Never Vaping Use Vaping status: Every Day Substance and Sexual Activity Alcohol use: Never Drug use: Yes Types: Marijuana Sexual activity: Not on file Other Topics Concern Not on file Social History Narrative Not on file Social Drivers of Health Financial Resource Strain: Not on file Food Insecurity: Not on file Transportation Needs: Not on file Physical Activity: Not on file Stress: Not on file Social Connections: Not on file Intimate Partner Violence: Not on file Housing Stability: Not on file Vitals: 04/02/25 1812 BP: 109/74 Pulse: 84 Temp: 36.2 C (97.2 F) SpO2: 98% 86.2 kg (190 lb) Physical Exam Vitals and nursing note reviewed. Constitutional: Appearance: Normal appearance. HENT: Head: Normocephalic and atraumatic. Mouth/Throat: Mouth: Mucous membranes are moist. Pharynx: Oropharynx is clear. Eyes: Conjunctiva/sclera: Right eye: Right conjunctiva is injected. Exudate present. Pupils: Pupils are equal, round, and reactive to light. Cardiovascular: Rate and Rhythm: Normal rate and regular rhythm. Pulses: Normal pulses. Heart sounds: Normal heart sounds. Pulmonary: Effort: Pulmonary effort is normal. Breath sounds: Normal breath sounds. Abdominal: General: Abdomen is flat. Bowel sounds are normal. Palpations: Abdomen is soft. Musculoskeletal: General: Normal range of motion. Cervical back: Normal range of motion. Skin: General: Skin is warm and dry. Capillary Refill: Capillary refill takes less than 2 seconds. Neurological: Mental Status: She is alert and oriented to person, place, and time. ____ I did personally review Navya's past medical history, surgical history, social history, as well as family history (when relevant). In this case, I also oversaw the her drug management by reviewing her medication list, allergy list, as well as the medications that I prescribed during the UC course and/or recommended as an out-patient (including possible OTC medications such as acetaminophen, NSAIDs , etc). After reviewing the items above, I did look at previous medical documentation, such as recent hospitalizations, office visits, and/or recent consultations with PCP/specialist. SDOH: Another factor that I considered in Navya's care was her Social Determinants of Health (SDOH). During this UC encounter, she did not have social determinants of health. Those SDOH influencing Navya's care are: none UC COURSE/MEDICAL DECISION MAKING: Navya is a 29 y.o., who presents with a working diagnosis of 1. Bacterial conjunctivitis with a differential to include: viral conjunctivitis, allergic conjunctivitis, keratitis and uveitis. Plan: Moxifloxacin 1 drop to the eye twice daily for 7 days If symptoms do not improve within 24 to 48 hours recommend following up with ophthalmology Return to urgent care, primary care provider, or emergency department with worsening symptoms No red flags on exam. Plan of care reviewed with patient, agreeable to discharge Berta Moran DNP Advanced Practice Provider [facility] Please note: While the patient may or may not have received printed discharge paperwork, all relevant medical findings, test results, and treatment details are accessible through the electronic medical record system. The patient is encouraged to review their chart via the patient portal for comprehensive information and follow-up instructions. [1] Allergies Allergen Reactions Bupropion Hcl Other Egg Hives and Swelling Raw eggs only Lactose Other and Diarrhea [2] Past Medical History: Diagnosis Date Bipolar 2 disorder (Multi) [3] Current Outpatient Medications Medication Sig Dispense Refill lamoTRIgine (LaMICtal) 100 mg tablet Take 1 tablet (100 mg) by mouth once daily. lurasidone (Latuda) 60 mg tablet Take 1 tablet (60 mg) by mouth once daily. OXcarbazepine (Trileptal) 150 mg tablet Take 1 tablet (150 mg) by mouth 2 times a day. aspirin 81 mg EC tablet Take 1 tablet (81 mg) by mouth once daily. (Patient not taking: Reported on 04/02/2025) azithromycin (Zithromax Z-Te) 250 mg tablet Take 2 tablets by mouth at once on day 1, then 1 tablet once a day on days 2-5. Take with a meal. (Patient not taking: Reported on 04/02/2025) 6 tablet 0 busPIRone (Buspar) 10 mg tablet Take 1 tablet (10 mg) by mouth every 12 hours. (Patient not taking: Reported on 04/02/2025) moxifloxacin (Vigamox) 0.5 % ophthalmic solution Administer 1 drop into the right eye 3 times a day for 7 days. 3 mL 0 nystatin (Mycostatin) 100,000 unit/mL suspension 4-6 milliliter(s) orally 4 times a day (after eating) x7-14 days. swish in the mouth and retain for as long as possible (several minutes) before swallowing. (Patient not taking: Reported on 04/02/2025) 336 mL 0 No current facility-administered medications for this visit. [4] No past surgical history on file. [5] No family history on file. documented in this encounter [facility] Work Phone: 03-06-2025 Note HNO ID: [id number] Author: GIOVANNI KHAN APRN.CHANTAL Service: ? Author Type: Nurse Practitioner Type: Progress Notes Filed: 03/06/2025 08:38 Note Text: Banjo Repair Person offered: Patient declines. Navya presents today for IUD insertion for contraception. Patient's last menstrual period was 05/07/2024. GC/chlamydia: Collected today test: negative Side effects including irregular bleeding were discussed with the patient. The patient understands that it should be removed in 8 years or sooner if the patient desires a . IUD source: office provided IUD lot #: [id number] Exp date: 03/23/2027 [facility] [id number] UNIVERSAL PROTOCOL / SAFETY CHECKLIST Procedure to be Performed: Intrauterine Device (IUD) insertion Mirena Sign In: A Moment of CARE was completed. Appropriate PPE (Personal Protective Equipment) worn by all providers involved with the procedure. Special equipment not required. Patient/Surrogate Stated/Verified: Patient name, Date of , Relevant allergies, and The intended procedure Time Out: Relevant labs, photos, and/or imaging studies are not applicable. Intended patient and procedure match the source document(s) (e.g. consent, HANDP, associated studies [imaging, pathology]) match the intended patient and procedure. Consent obtained and matches the intended procedure. Yes. Correct side/site has been marked and visible. Medications required for this procedure are not applicable. Fire risk assessed and is not applicable. Implants: are not applicable. Sign Out: Specimens are all correctly labeled and sent. All instruments, equipment, possible retained foreign bodies are accounted for. Yes. The post-procedure plan of care has been communicated to the patient or surrogate. The cervix was prepped with betadine. The uterus sounded to 8 cm and the uterus is Midposition.. Using sterile technique, the Mirena IUD was inserted without difficulty, but immediately expelled. IUD insertion was attempted again with new IUD. Inserted successfully and string was cut to 3 cm from the external os of the cervix. Patient tolerated procedure well. PLAN: Patient was advised to observe for signs and symptoms of infection including but not limited to fever, malodorous vaginal discharge and/or pain. The patient was told to check the string monthly for accurate placement. Bleeding expectations were reviewed. Follow up in one month. Reports mental health has improved with medication adjustments. Following with psych. Giovanni Khan APRN.[facility] 03-06-2025 History of Present illness Narrative Banjo Repair Person offered: Patient declines. Navya presents today for IUD insertion for contraception. Patient's last menstrual period was 05/07/2024. GC/chlamydia: Collected today test: negative Side effects including irregular bleeding were discussed with the patient. The patient understands that it should be removed in 8 years or sooner if the patient desires a . IUD source: office provided IUD lot #: [id number] Exp date: 03/23/2027 [facility] [id number] UNIVERSAL PROTOCOL / SAFETY CHECKLIST Procedure to be Performed: Intrauterine Device (IUD) insertion Mirena Sign In: A Moment of CARE was completed. Appropriate PPE (Personal Protective Equipment) worn by all providers involved with the procedure. Special equipment not required. Patient/Surrogate Stated/Verified: Patient name, Date of , Relevant allergies, and The intended procedure Time Out: Relevant labs, photos, and/or imaging studies are not applicable. Intended patient and procedure match the source document(s) (e.g. consent, H&P, associated studies [imaging, pathology]) match the intended patient and procedure. Consent obtained and matches the intended procedure. Yes. Correct side/site has been marked and visible. Medications required for this procedure are not applicable. Fire risk assessed and is not applicable. Implants: are not applicable. Sign Out: Specimens are all correctly labeled and sent. All instruments, equipment, possible retained foreign bodies are accounted for. Yes. The post-procedure plan of care has been communicated to the patient or surrogate. The cervix was prepped with betadine. The uterus sounded to 8 cm and the uterus is Midposition.. Using sterile technique, the Mirena IUD was inserted without difficulty, but immediately expelled. IUD insertion was attempted again with new IUD. Inserted successfully and string was cut to 3 cm from the external os of the cervix. Patient tolerated procedure well. PLAN: Patient was advised to observe for signs and symptoms of infection including but not limited to fever, malodorous vaginal discharge and/or pain. The patient was told to check the string monthly for accurate placement. Bleeding expectations were reviewed. Follow up in one month. Reports mental health has improved with medication adjustments. Following with psych. Giovanni Khan APRN.CNP documented in this encounter [facility] 03-06-2025 Instructions Silvina Cooper MA - 03/06/2025 8:09 AM EDT POST IUD INSTRUCTIONS You may have irregular bleeding during the first 3 months of use. You may have mild-severe cramping for the next 48 hours. You may use over the counter medication (Motrin, Tylenol) as needed. Your IUD must be removed or replaced based on the following table: IUD Type Removed or replaced within: Madina 3 years Kyleena 5 years Mirena 8 years Liletta 8 years Paragard 10 years Call the office for signs/symptoms of infection such as severe cramping, fever, or unusual bleeding. Check for string placement as instructed by your doctor. If you have any additional questions, please contact the office. documented in this encounter [facility] 02-28-2025 Note HNO ID: [id number] Author: SARAH HINTON MD Service: ? Author Type: Physician Type: Progress Notes Filed: 03/01/2025 13:24 Note Text: Banjo Repair Person offered: Patient declines. VISIT Navya Mcnulty is a 29 year old here for visit. Was admitted for several days for suicidal ideations and medication adjustments were made. Just had follow up with psych on 02/25/25. Still staying with her friend for assistance. 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 Thinks getting back to work will help with her mental health. Delivery Summary: 01/14/2025 ROS/ Recovery: Feeding: Bottle feeding problems: None Menses since delivery: spotting, has been coming and going, sometimes gets a littler heavier. Menstrual pattern prior to : Irregular periods [place] since delivery: Not resumed Depression: admits to symptoms of depression. Was hospitalized for suicidal ideations 02/12-02/15 at [place]. Was started on new medications at that time, has been improving, has a lot of anxiety with taking the medications because it knocks her out. OB Depression and Anxiety Screening- This Encounter Over the past 2 weeks have you felt down, depressed, or hopeless? Positive - Further Testing Indicated Over the past two weeks, have you felt little interest or pleasure in doing things?? Positive - Further Testing Indicated I have been able to laugh and see the funny side of things. Not quite so much now I have looked forward with enjoyment to things. Definitely less than I used to I have blamed myself unnecessarily when things went wrong. Yes, most of the time I have been anxious or worried for no good reason. Yes, sometimes I have felt scared or panicky for no good reason. Yes, sometimes Things have been getting on top of me. Yes, sometimes I haven't been coping as well as usual I have been so unhappy that I have had difficulty sleeping. Yes, sometimes I have felt sad or miserable. Not very often I have been so unhappy that I have been crying. Only occasionally The thought of harming myself has occurred to me. Hardly ever [place] Depression Scale Total 17 Feeling nervous, anxious or on edge 3-Nearly every day Not being able to stop or control worrying 3-Nearly every day Anxiety Pre-Screening Total (If >/= 3 additional questions will be reviewed) 6 Worrying too much about different things 2-More than half the days Trouble relaxing 1-Several days Being so restless that it is hard to sit still 1-Several days Becoming easily annoyed or irritable 1-Several days Feeling afraid, as if something awful might happen 1-Several days Anxiety (JUDY) Full Screening Total 12 Emotional support: Yes Bowel symptoms: Constipation, Negative for abdominal discomfort, blood in stools or black stools, and change in bowel habits Abdomen: N/A Bladder symptoms: No dysuria, gross hematuria, urinary frequency, urinary urgency, or incontinence Other issues: some abdominal pain on each side of abdomen, usually only when really doing a lot, usually will go away with tylenol and relaxation. Last Pap: 2023 normal HPV: negative PAST MEDICAL HISTORY Diagnosis Date Anxiety 05/23/2017 Asthma (HCC) Cellulitis and abscess of toe, unspecified 06/01/2010 Cellulitis of right knee 05/18/2019 Depression 12/22/2011 History of illicit drug use Quit 06/2017, Meth Hyperprolactinemia (HCC) 03/23/2012 MRSA cellulitis 2016 PMH - PAST MEDICAL HISTORY OF 01/02/10 normal color vision Trichomoniasis 03/06/2019 Unspecified asthma(493.90) PAST SURGICAL HISTORY Procedure Laterality Date PAST SURGICAL HISTORY OF Left 04/2017 Elbow Surgery PAST SURGICAL HISTORY OF removal of abcess on right knee FAMILY HISTORY Problem Relation Age of Onset Psychiatry Mother depression other (Carpel Tunnel) Mother Alcohol abuse Mother Recovering Diabetes Father Heart Father bypass Hypertension Father Heart Attack Father No Known Problems Brother Osteoporosis Maternal Grandmother other (Breast Cancer age 40s) Maternal Grandmother Cancer Maternal Grandfather of liver cancer Diabetes Paternal Grandmother Dementia Paternal Grandmother Diabetes Paternal Grandfather Heart Paternal Grandfather from [place] Social History Tobacco Use Smoking status: Former Current packs/day: 1.00 Average packs/day: 1 pack/day for 10.0 years (10.0 ttl pk-yrs) Types: Cigarettes Smokeless tobacco: Never Vaping Use Vaping status: current everyday user Substances: Nicotine Devices: Disposable Substance Use Topics Alcohol use: Not Currently Comment: occ Drug use: Not Currently Comment: 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 [facility] 02-28-2025 History of Present illness Narrative Banjo Repair Person offered: Patient declines. VISIT Navya Mcnulty is a 29 year old here for visit. Was admitted for several days for suicidal ideations and medication adjustments were made. Just had follow up with psych on 02/25/25. Still staying with her friend for assistance. 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 Thinks getting back to work will help with her mental health. Delivery Summary: 01/14/2025 ROS/ Recovery: Feeding: Bottle feeding problems: None Menses since delivery: spotting, has been coming and going, sometimes gets a littler heavier. Menstrual pattern prior to : Irregular periods [place] since delivery: Not resumed Depression: admits to symptoms of depression. Was hospitalized for suicidal ideations 02/12-02/15 at [place]. Was started on new medications at that time, has been improving, has a lot of anxiety with taking the medications because it knocks her out. OB Depression and Anxiety Screening- This Encounter Over the past 2 weeks have you felt down, depressed, or hopeless? Positive - Further Testing Indicated Over the past two weeks, have you felt little interest or pleasure in doing things? Positive - Further Testing Indicated I have been able to laugh and see the funny side of things. Not quite so much now I have looked forward with enjoyment to things. Definitely less than I used to I have blamed myself unnecessarily when things went wrong. Yes, most of the time I have been anxious or worried for no good reason. Yes, sometimes I have felt scared or panicky for no good reason. Yes, sometimes Things have been getting on top of me. Yes, sometimes I haven't been coping as well as usual I have been so unhappy that I have had difficulty sleeping. Yes, sometimes I have felt sad or miserable. Not very often I have been so unhappy that I have been crying. Only occasionally The thought of harming myself has occurred to me. Hardly ever [place] Depression Scale Total 17 Feeling nervous, anxious or on edge 3-Nearly every day Not being able to stop or control worrying 3-Nearly every day Anxiety Pre-Screening Total (If >/= 3 additional questions will be reviewed) 6 Worrying too much about different things 2-More than half the days Trouble relaxing 1-Several days Being so restless that it is hard to sit still 1-Several days Becoming easily annoyed or irritable 1-Several days Feeling afraid, as if something awful might happen 1-Several days Anxiety (JUDY) Full Screening Total 12 Emotional support: Yes Bowel symptoms: Constipation, Negative for abdominal discomfort, blood in stools or black stools, and change in bowel habits Abdomen: N/A Bladder symptoms: No dysuria, gross hematuria, urinary frequency, urinary urgency, or incontinence Other issues: some abdominal pain on each side of abdomen, usually only when really doing a lot, usually will go away with tylenol and relaxation. Last Pap: 2023 normal HPV: negative PAST MEDICAL HISTORY Diagnosis Date Anxiety 05/23/2017 Asthma (HCC) Cellulitis and abscess of toe, unspecified 06/01/2010 Cellulitis of right knee 05/18/2019 Depression 12/22/2011 History of illicit drug use Quit 06/2017, Meth Hyperprolactinemia (HCC) 03/23/2012 MRSA cellulitis 2016 PMH - PAST MEDICAL HISTORY OF 01/02/10 normal color vision Trichomoniasis 03/06/2019 Unspecified asthma(493.90) PAST SURGICAL HISTORY Procedure Laterality Date PAST SURGICAL HISTORY OF Left 04/2017 Elbow Surgery PAST SURGICAL HISTORY OF removal of abcess on right knee FAMILY HISTORY Problem Relation Age of Onset Psychiatry Mother depression other (Carpel Tunnel) Mother Alcohol abuse Mother Recovering Diabetes Father Heart Father bypass Hypertension Father Heart Attack Father No Known Problems Brother Osteoporosis Maternal Grandmother other (Breast Cancer age 40s) Maternal Grandmother Cancer Maternal Grandfather of liver cancer Diabetes Paternal Grandmother Dementia Paternal Grandmother Diabetes Paternal Grandfather Heart Paternal Grandfather from [place] Social History Tobacco Use Smoking status: Former Current packs/day: 1.00 Average packs/day: 1 pack/day for 10.0 years (10.0 ttl pk-yrs) Types: Cigarettes Smokeless tobacco: Never Vaping Use Vaping status: current everyday user Substances: Nicotine Devices: Disposable Substance Use Topics Alcohol use: Not Currently Comment: occ Drug use: Not Currently Comment: 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 As applicable, any other physician, advance practice provider, medical student, or other health professional student that will be observing or involved in the sensitive examination for educational or training purposes was discussed with the Patient or Authorized Dynamometer Tuner. The Patient or Authorized Dynamometer Tuner has agreed to proceed with the sensitive examination. (Sensitive examination includes inspection and/or palpation of the breasts, pelvis, prostate and anorectal regions). BP 100/60 Wt 184 lb (83.5kg) LMP 05/07/2024 GENERAL: pleasant, female in no apparent distress HEENT: Normocephalic and atraumatic NECK: full range of motion DERMATOLOGY: Normal, without lesions, non-icteric, and non-hirsute BREAST: soft, non-tender, symmetric, no dominant mass, normal nipple-areolar complex, no lymphadenopathy, and no nipple discharge CHEST: Normal inspiratory effort ABDOMEN: soft, non-tender, and no masses. INCISION: N/A PELVIC: external genitalia normal, normal Bartholin's glands, urethra, Moreland's glands, no vulvar lesions, no cervical lesions, good vaginal support, physiologic discharge present, normal appearing perineal body and perianal region BIMANUAL: uterus normal size, shape and consistency, no adnexal masses, and non-tender NEURO: exam grossly non-focal EXTREMITIES: normal ASSESSMENT AND PLAN: 29 year old status post with normal course. Recent suicidal ideations: Doing better with medication adjustments. Continue follow up with psych. Released to go back to work, which she believes will help with her mental health Contraception plan: Mirena IUD Follow up: RTC for insertion of IUD Sarah Hinton DO documented in this encounter [facility] 02-18-2025 Note HNO ID: [id number] Author: ALISA DENNEY LPN Service: ? Author Type: LICENSED NURSE Type: Progress Notes Filed: 02/18/2025 17:12 Note Text: TRANSITIONAL CARE MANAGEMENT (TCM) COMMUNITY MONITORING PROGRAM - [place] Provider Action/FYI: Per pt she is feeling better. Pt is going to keep her follow up with AUTOMATION MACHINE OPERATOR and Psych as scheduled. Pt does not wish to schedule with Dr. Gao at this time. Alisa Denney LPN SUMMARY: Pt discharged from [facility] on 12/18/2024. Admitted for: Bipolar Patient seen Inpatient DIOMEDES Visit? No. Patient seen ICARE Program? No. Contact made with patient: Yes Hi my name is Alisa Denney LPN and I am calling from the [facility] [employer] [facility] on behalf of your PCP, Lupe Gao, DO I understand you were recently in the hospital so I am calling to check in with you to ensure you are feeling well now that you?re home. Do you mind if I ask you a few questions related to your hospital stay and well-being Yes Contact with patient post discharge, spoke to patient. Patient identified by name and . Do you feel your health is BETTER, WORSE, or the SAME since leaving the hospital? Better ACTION TAKEN: Patient indicated symptoms are better or same, no action required. Continue outreach. N/A MEDICATIONS: Many patients have questions or concerns about their medications once they are home. Do you have any questions about taking your medications or which medication you should be on? No Do you need any medication refills at this time, including any of the medications you might take only when needed? No ACTION TAKEN: No action required For RNs or Pharmacy completing outreach ONLY, was a medication review completed? N/A SOCIAL: We would like to make sure you have what you need so that your basics needs are met - including your personal safety. HEALTH LEADS SCREENING TOOL QUESTIONS: Do you often feel you lack companionship? No Do you ever need help reading or understanding hospital materials? No In the last 12 months, have you changed how you take medications to save money? No In the past 12 months, has lack of transportation kept you from medical appointments, work or getting things you need like food, or supplies? No In the last 12 months, did you ever eat less than you felt you should because there wasn't enough money for food? No During the winter, do you anticipate having a problem paying your heating bill? No In the next 2 months, are you worried you might not have stable housing? No Would you like to speak with a social work steam station supervisor to help give you support for any of these needs? N/A It can be normal to feel anxious or down during a time like this. Would you like to talk to a mental health professional about how you have been feeling? No, pt is seeing psych ACTION TAKEN: No action taken DISCHARGE INTRUCTIONS: Your discharge instructions / After Visit Summary (AVS) are important in guiding you through the recovery process. Do you have any questions related to your discharge instructions? No Do you have all the necessary equipment and supplies at home? Yes ACTION TAKEN: No action required WRAP AROUND SERVICES: N/A Patient educated on importance of primary care provider follow up visit as well as specialty provider follow up visits as indicated. Inform the patient that if they have any questions or concerns prior to that appointment, to call their Primary Care Provider 's office right away. Primary care provider first education provided. I would like to help you schedule a hospital follow-up virtual or telephone visit with your PCP. ACTION TAKEN: TCM Primary Care Provider Visit Scheduled: No - Only wants to follow up with specialty. Your doctor would like us to remind you of the recommendations regarding the coronavirus (Covid19) outbreak: Avoid public places as much as possible. Avoid close contact (within 6 feet) with others you don't live with, especially if they are sick. Stay home if you are sick. Wash your hands regularly for at least 20 seconds with soap and water. Wear a cloth mask in public places to help reduce community spread. Do not go to your Doctor's office unless instructed to do so. For any non-emergency symptoms, call your Doctor's office to get instructions on how to manage (we might recommend a telephone or virtual visit). For emergency symptoms, proceed to Emergency Department as usual but inform them of cough and fever symptoms CLAUDY if present (or call on the way if possible). [facility] 02-18-2025 History of Present illness Narrative TRANSITIONAL CARE MANAGEMENT (TCM) COMMUNITY MONITORING PROGRAM - [place] Provider Action/FYI: Per pt she is feeling better. Pt is going to keep her follow up with AUTOMATION MACHINE OPERATOR and Psych as scheduled. Pt does not wish to schedule with Dr. Gao at this time. Alisa Denney LPN SUMMARY: Pt discharged from [facility] on 12/18/2024. Admitted for: Bipolar Patient seen Inpatient DIOMEDES Visit? No. Patient seen ICARE Program? No. Contact made with patient: Yes Hi my name is Alisa Denney LPN and I am calling from the [facility] on behalf of your PCP, Lupe Gao, DO I understand you were recently in the hospital so I am calling to check in with you to ensure you are feeling well now that you re home. Do you mind if I ask you a few questions related to your hospital stay and well-being Yes Contact with patient post discharge, spoke to patient. Patient identified by name and . Do you feel your health is BETTER, WORSE, or the SAME since leaving the hospital? Better ACTION TAKEN: Patient indicated symptoms are better or same, no action required. Continue outreach. N/A MEDICATIONS: Many patients have questions or concerns about their medications once they are home. Do you have any questions about taking your medications or which medication you should be on? No Do you need any medication refills at this time, including any of the medications you might take only when needed? No ACTION TAKEN: No action required For RNs or Pharmacy completing outreach ONLY, was a medication review completed? N/A SOCIAL: We would like to make sure you have what you need so that your basics needs are met - including your personal safety. HEALTH LEADS SCREENING TOOL QUESTIONS: Do you often feel you lack companionship? No Do you ever need help reading or understanding hospital materials? No In the last 12 months, have you changed how you take medications to save money? No In the past 12 months, has lack of transportation kept you from medical appointments, work or getting things you need like food, or supplies? No In the last 12 months, did you ever eat less than you felt you should because there wasn't enough money for food? No During the winter, do you anticipate having a problem paying your heating bill? No In the next 2 months, are you worried you might not have stable housing? No Would you like to speak with a social work steam station supervisor to help give you support for any of these needs? N/A It can be normal to feel anxious or down during a time like this. Would you like to talk to a mental health professional about how you have been feeling? No, pt is seeing psych ACTION TAKEN: No action taken DISCHARGE INTRUCTIONS: Your discharge instructions / After Visit Summary (AVS) are important in guiding you through the recovery process. Do you have any questions related to your discharge instructions? No Do you have all the necessary equipment and supplies at home? Yes ACTION TAKEN: No action required WRAP AROUND SERVICES: N/A Patient educated on importance of primary care provider follow up visit as well as specialty provider follow up visits as indicated. Inform the patient that if they have any questions or concerns prior to that appointment, to call their Primary Care Provider 's office right away. Primary care provider first education provided. I would like to help you schedule a hospital follow-up virtual or telephone visit with your PCP. ACTION TAKEN: TCM Primary Care Provider Visit Scheduled: No - Only wants to follow up with specialty. Your doctor would like us to remind you of the recommendations regarding the coronavirus (Covid19) outbreak: Avoid public places as much as possible. Avoid close contact (within 6 feet) with others you don't live with, especially if they are sick. Stay home if you are sick. Wash your hands regularly for at least 20 seconds with soap and water. Wear a cloth mask in public places to help reduce community spread. Do not go to your Doctor's office unless instructed to do so. For any non-emergency symptoms, call your Doctor's office to get instructions on how to manage (we might recommend a telephone or virtual visit). For emergency symptoms, proceed to Emergency Department as usual but inform them of cough and fever symptoms CLAUDY if present (or call on the way if possible). documented in this encounter [facility] 02-18-2025 Note Patient Outreach (MELONIE FELDMAN) NAVYA MCNULTY ([id number]) 1995 F Date Time Provider Department 02/18/25 LUPE GAO During your visit today, we recorded the following information about you: Alisa Denney LPN 02/18/2025 5:12 PM Signed TRANSITIONAL CARE MANAGEMENT (TCM) COMMUNITY MONITORING PROGRAM - [place] Provider Action/FYI: Per pt she is feeling better. Pt is going to keep her follow up with AUTOMATION MACHINE OPERATOR and Psych as scheduled. Pt does not wish to schedule with Dr. Gao at this time. Alisa Denney LPN SUMMARY: Pt discharged from [facility] on 12/18/2024. Admitted for: Bipolar Patient seen Inpatient DIOMEDES Visit? No. Patient seen ICARE Program? No. Contact made with patient: Yes Hi my name is Alisa Denney LPN and I am calling from the [facility] on behalf of your PCP, Lupe Gao, DO I understand you were recently in the hospital so I am calling to check in with you to ensure you are feeling well now that you?re home. Do you mind if I ask you a few questions related to your hospital stay and well-being Yes Contact with patient post discharge, spoke to patient. Patient identified by name and . Do you feel your health is BETTER, WORSE, or the SAME since leaving the hospital? Better ACTION TAKEN: Patient indicated symptoms are better or same, no action required. Continue outreach. N/A MEDICATIONS: Many patients have questions or concerns about their medications once they are home. Do you have any questions about taking your medications or which medication you should be on? No Do you need any medication refills at this time, including any of the medications you might take only when needed? No ACTION TAKEN: No action required For RNs or Pharmacy completing outreach ONLY, was a medication review completed? N/A SOCIAL: We would like to make sure you have what you need so that your basics needs are met - including your personal safety. HEALTH LEADS SCREENING TOOL QUESTIONS: Do you often feel you lack companionship? No Do you ever need help reading or understanding hospital materials? No In the last 12 months, have you changed how you take medications to save money? No In the past 12 months, has lack of transportation kept you from medical appointments, work or getting things you need like food, or supplies? No In the last 12 months, did you ever eat less than you felt you should because there wasn't enough money for food? No During the winter, do you anticipate having a problem paying your heating bill? No In the next 2 months, are you worried you might not have stable housing? No Would you like to speak with a social work steam station supervisor to help give you support for any of these needs? N/A It can be normal to feel anxious or down during a time like this. Would you like to talk to a mental health professional about how you have been feeling? No, pt is seeing psych ACTION TAKEN: No action taken DISCHARGE INTRUCTIONS: Your discharge instructions / After Visit Summary (AVS) are important in guiding you through the recovery process. Do you have any questions related to your discharge instructions? No Do you have all the necessary equipment and supplies at home? Yes ACTION TAKEN: No action required WRAP AROUND SERVICES: N/A Patient educated on importance of primary care provider follow up visit as well as specialty provider follow up visits as indicated. Inform the patient that if they have any questions or concerns prior to that appointment, to call their Primary Care Provider 's office right away. Primary care provider first education provided. I would like to help you schedule a hospital follow-up virtual or telephone visit with your PCP. ACTION TAKEN: TCM Primary Care Provider Visit Scheduled: No - Only wants to follow up with specialty. Your doctor would like us to remind you of the recommendations regarding the coronavirus (Covid19) outbreak: Avoid public places as much as possible. Avoid close contact (within 6 feet) with others you don't live with, especially if they are sick. Stay home if you are sick. Wash your hands regularly for at least 20 seconds with soap and water. Wear a cloth mask in public places to help reduce community spread. Do not go to your Doctor's office unless instructed to do so. For any non-emergency symptoms, call your Doctor's office to get instructions on how to manage (we might recommend a telephone or virtual visit). For emergency symptoms, proceed to Emergency Department as usual but inform them of cough and fever symptoms CLAUDY if present (or call on the way if possible). Allergies As of Date: 02/18/2025 Noted Allergy Reaction EGG 06/01/2019 4 - Hives 7 - Swelling Comments: Raw eggs only LACTOSE 12/02/2024 6 - Diarrhea POLLEN 10/31/2008 WELLBUTRIN (BUPROPION HCL) (more content not included)... [facility] 02-15-2025 Hospital course Narrative Inpatient Psychiatry Discharge Summary Patient Name: Navya Mcnulty MR #: [id number] : 1995 Admit Date: 4211128 Discharge Date/Time: 02/15/2025 11:15 AM Clinical Summary Reason for Hospitalization: Navya Mcnulty is a , employed 29 y.o. 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 Patient reported she gave of her second child, son on 01/14/2025 and since then her moods have become progressively unstable and over the last 2 weeks her suicidal ideation has worsened. Patient reports she has found herself in a deep dark place and was scared that she is going to follow through with her thoughts. Patient reports worsening feelings of hopelessness, helplessness and worthlessness. Patient reports excessive feelings of guilt, she feels like she is a bad mother and a failure and others will be better off without her. Currently her children are in the care of a friend and her . Patient reports she is struggling to take care of herself and her children because she is of excessive fatigue and tiredness. Patient reports her predominant mood has been severely depressed but she is also getting more irritable and reports increasing racing thoughts and inability to shut her brain down. Patient reports difficulty falling asleep and staying asleep. Appetite is down. Patient reports anhedonia. She is also reporting increased tearfulness and crying episodes patient also reported negative audible thoughts. Patient denies any command hallucinations. Patient denies any thoughts ideas or images of hurting her children. Patient denies any ongoing homicidal ideation.. Patient reports increased anxiety distress and has been feeling more restless and tense. Patient denies any ongoing paranoia or delusions. She denies any ongoing thought insertion or thought broadcasting. She denies any ongoing drug or alcohol abuse Patient reported her first manic episode she recalls occurred when she was about 11 or 12 years old. Patient reports her last manic episode was about a month ago before her delivery and lasted for about a week Treatment options and alternatives reviewed with patient. Risks, benefits, side effects of all psychiatric medications discussed with patient and informed consent obtained. All questions were answered. Physical examination Lab testing as appropriate Precautions -suicide PRN medications for agitation, anxiety Collateral history from family/friends/providers Request/review prior records airfield services officer assessment/linkage/care coordination Group participation/[place] Supportive psychotherapy/structured supportive care Continue Lamictal 200 mg p.o. daily Continue Trileptal 300 mg p.o. daily at bedtime Discontinue BuSpar And start Latuda 40 mg p.o. daily at supper time Aftercare planning once stable Discharge Diagnoses and Associated Hospital Course: [place] I: Bipolar disorder, type I, mixed, severe with anxious distress [place] II: Deferred [place] III: Not significant [place] IV: Moderate [place] V: Global assessment of functioning at discharge: 70 02/14/2025:Patient has tolerated the trial of Latuda well. Denies any side effects. Patient slept 8 hours last night. Rates mild improvement in her mood and this is also feeling somewhat less anxious. Patient also reports feeling less down and depressed and less irritable. She is feeling less hopeless and less worthless. Not feeling as guilty and helpless. She is missing her children and wants to go home as soon as she can. Patient reports reduced racing thoughts and decreased distractibility. Patient denies ongoing suicidal ideation. She denies any ongoing homicidal ideation. Appetite is improving. She is not isolated or withdrawn and has been engaging with staff and peers appropriately. 02/15/2025: Patient requested discharge today and stated that she is feeling significantly better. She is not feeling down and depressed like she was at hospitalization. She does not feel that she is in a dark place anymore. She is not isolating or withdrawn. Reports no ongoing irritability. She is not feeling hopeless, helpless or worthless. Anxiety control has improved. She denies any homicidal ideation. Patient will be discharged today in fair condition Consults placed Procedures Inpatient consult to Hospitalist Allergies Bupropion, Egg, Lactose, and Pollen extracts Procedures performed No orders of the defined types were placed in this encounter. Other tests No orders of the defined types were placed in this encounter. Studies pending at discharge None Laboratory Results: Results from last 7 days Lab Units 02/13/25 0646 SODIUM mmol/L 138 POTASSIUM mmol/L 4.5 CHLORIDE mmol/L 104 BUN mg/dL 17 CREATININE mg/dL 0.89 ALT U/L 10 AST U/L 16 ALK PHOS U/L 95 TOTAL PROTEIN g/dL 5.9* GLUCOSE mg/dL 92 CALCIUM mg/dL 8.8 Results from last 7 days Lab Units 02/13/25 0646 WBC K/mcL 7.09 HGB g/dL 12.8 HCT % 40.9 PLT K/mcL 332 Lab Results Component Value Date CHOL 171 02/13/2025 HDL 54 02/13/2025 LDLCALC 99 02/13/2025 TRIG 89 02/13/2025 No results found for: HGBA1C Lab Results Component Value Date TSH 1.56 02/13/2025 Review of Systems: Constitutional, cardiac, pulmonary, neurologic, musculoskeletal, GI, and systems reveiwed and negative except as noted above Mental Status Evaluation: General Appearance & Behavior: age appropiate, cooperative, and good eye contact Grooming & Hygiene: street clothes Psychomotor Activity: no psychomotor abnormalities or muscle atrophy noted Gait & Station stable gait and ability to rise from bed/chair without assistance Speech: normal rate, rhythym, volume, and spontaneity Flow of Thought: Minimal racing thoughts Thought Associations: Intact Content of Thought: No evidence of suicidal ideations/homicidal ideations/psychosis Mood: Better Affect: Pleasant Insight: Fair Judgment: Fair Orientation: alert and oriented to person, place, time, and circumstances Memory: intact recent and remote Attention: Fair Concentration: Improved Language: fluent Fund of Knowledge: estimated average intelligence Discharge Information PRINCIPAL DIAGNOSIS at Discharge: Bipolar 1 disorder, mixed, severe (HCC) Discharge Medications: Medication List START taking these medications lurasidone 60 mg Tab Commonly known as: LATUDA Take 1 (one) tablet (60 mg total) by mouth daily with dinner . nicotine 21 mg/24 hr Commonly known as: NICODERM CQ Place 1 (one) patch on the skin daily Start: 02/16/25. Start taking on: February 16, 2025 CHANGE how you take these medications hydrOXYzine 50 MG tablet Commonly known as: ATARAX Take 1 (one) tablet (50 mg total) by mouth every 6 (six) hours as needed for anxiety . What changed: when to take this CONTINUE taking these medications lamoTRIgine 200 MG tablet Commonly known as: LAMICTAL Take 1 (one) tablet (200 mg total) by mouth daily . OXcarbazepine 300 MG tablet Commonly known as: TRILEPTAL Take 1 (one) tablet (300 mg total) by mouth at bedtime . STOP taking these medications busPIRone 10 MG tablet Commonly known as: BUSPAR Where to Get Your Medications These medications were sent to [facility] [address] [place] [address] hydrOXYzine 50 MG tablet lamoTRIgine 200 MG tablet lurasidone 60 mg Tab OXcarbazepine 300 MG tablet You can get these medications from any pharmacy Bring a paper prescription for each of these medications nicotine 21 mg/24 hr This patient is being discharged on one antipsychotic. Diagnostic work up including: BMI, blood pressure, hemoglobin A1c or blood glucose, and lipid panel have been completed in the past year performed within [facility] and available in EPIC. Glucose <126mg/dL, no indication of impaired glucose tolerance or insulin resistance in fasting or nonfasting state. Tobacco cessation medication ordered for patient at this time. Disposition: Home Follow Up: [facility] [address] [place], [place] [id number] Go on 02/25/2025 Appt: 02/25/25 at 3:[address] Sepideh LOVE for medication management PLEASE CALL TO RESCHEDULE IF UNABLE TO MAKE APPT Discharge Diet: Resume home diet Additional Information: Provider(s): Primary Care: No, Physician Phone: None Address: [facility] To contact Adan Jolly MD or crayon molding machine operator physician, call [phone] ([place]) for 24 hour/7 day for emergencies related to inpatient stay or to obtain results of studies pending at discharge. Patient instructions, including activity, were given to the patient/family at discharge. Please see the After Visit Summary in the medical record for details. Time spent on discharge: > 30 minutes Completed by: Adan Jolly MD on 02/15/25, 1:15 PM documented in this encounter [facility] 02-15-2025 Note Inpatient Psychiatry Discharge Summary Patient Name: Navya Mcnulty MR #: [id number] : 1995 Admit Date: [id number] Discharge Date/Time: 02/15/2025 11:15 AM Clinical Summary Reason for Hospitalization: Navya Mcnulty is a , employed 29 y.o. 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 Patient reported she gave of her second child, son on 01/14/2025 and since then her moods have become progressively unstable and over the last 2 weeks her suicidal ideation has worsened. Patient reports she has found herself in a deep dark place and was scared that she is going to follow through with her thoughts. Patient reports worsening feelings of hopelessness, helplessness and worthlessness. Patient reports excessive feelings of guilt, she feels like she is a bad mother and a failure and others will be better off without her. Currently her children are in the care of a friend and her . Patient reports she is struggling to take care of herself and her children because she is of excessive fatigue and tiredness. Patient reports her predominant mood has been severely depressed but she is also getting more irritable and reports increasing racing thoughts and inability to shut her brain down. Patient reports difficulty falling asleep and staying asleep. Appetite is down. Patient reports anhedonia. She is also reporting increased tearfulness and crying episodes patient also reported negative audible thoughts. Patient denies any command hallucinations. Patient denies any thoughts ideas or images of hurting her children. Patient denies any ongoing homicidal ideation.. Patient reports increased anxiety distress and has been feeling more restless and tense. Patient denies any ongoing paranoia or delusions. She denies any ongoing thought insertion or thought broadcasting. She denies any ongoing drug or alcohol abuse Patient reported her first manic episode she recalls occurred when she was about 11 or 12 years old. Patient reports her last manic episode was about a month ago before her delivery and lasted for about a week Treatment options and alternatives reviewed with patient. Risks, benefits, side effects of all psychiatric medications discussed with patient and informed consent obtained. All questions were answered. Physical examination Lab testing as appropriate Precautions -suicide PRN medications for agitation, anxiety Collateral history from family/friends/providers Request/review prior records airfield services officer assessment/linkage/care coordination [facility] Supportive psychotherapy/structured supportive care Continue Lamictal 200 mg p.o. daily Continue Trileptal 300 mg p.o. daily at bedtime Discontinue BuSpar And start Latuda 40 mg p.o. daily at supper time Aftercare planning once stable Discharge Diagnoses and Associated Hospital Course: [place] I: Bipolar disorder, type I, mixed, severe with anxious distress [place] II: Deferred [place] III: Not significant [place] IV: Moderate [place] V: Global assessment of functioning at discharge: 70 02/14/2025:Patient has tolerated the trial of Latuda well. Denies any side effects. Patient slept 8 hours last night. Rates mild improvement in her mood and this is also feeling somewhat less anxious. Patient also reports feeling less down and depressed and less irritable. She is feeling less hopeless and less worthless. Not feeling as guilty and helpless. She is missing her children and wants to go home as soon as she can. Patient reports reduced racing thoughts and decreased distractibility. Patient denies ongoing suicidal ideation. She denies any ongoing homicidal ideation. Appetite is improving. She is not isolated or withdrawn and has been engaging with staff and peers appropriately. 02/15/2025: Patient requested discharge today and stated that she is feeling significantly better. She is not feeling down and depressed like she was at hospitalization. She does not feel that she is in a dark place anymore. She is not isolating or withdrawn. Reports no ongoing irritability. She is not feeling hopeless, helpless or worthless. Anxiety control has improved. She denies any homicidal ideation. Patient will be discharged today in fair condition Consults placed Procedures Inpatient consult to Hospitalist Allergies Bupropion, Egg, Lactose, and Pollen extracts Procedures performed No orders of the defined types were placed in this encounter. Other tests No orders of the defined types were placed in this encounter. Studies pending at discharge None Laboratory Results: Results (more content not included)... [facility] 02-15-2025 Plan of care note Problem: Actual or potential alteration in health Goal: Knowledge of Interdisciplinary Plan of Care Outcome: Completed Goal: Knowledge of Enviroment Outcome: Completed Problem: Health Maintenance - Impaired Goal: Improvement or maintenance of mental/physical health, relationships, and responsibilities Outcome: Completed Goal: Able to sleep without medication for appropriate length of time Outcome: Completed Goal: Nutrition intake to meet estimated needs Outcome: Completed Problem: Mood - Altered Goal: Mood stable Outcome: Completed Goal: Knowledge of medication management Outcome: Completed Problem: Self-esteem - Low Goal: Improved self-esteem Outcome: Completed Problem: Thought Process - Altered Goal: Demonstration of organized thought processes Outcome: Completed Problem: Transition Readiness Goal: Able to safely transition to next level of care Outcome: Completed Goal: Knowledge of care transition plan Outcome: Completed Goal: Knowledge of medication management Outcome: Completed Goal: Knowledge of need for follow-up care Outcome: Completed Goal: Participation in care planning Outcome: Completed [facility] 02-15-2025 Miscellaneous Notes Problem: Actual or potential alteration in health Goal: Knowledge of Interdisciplinary Plan of Care Outcome: Completed Goal: Knowledge of Enviroment Outcome: Completed Problem: Health Maintenance - Impaired Goal: Improvement or maintenance of mental/physical health, relationships, and responsibilities Outcome: Completed Goal: Able to sleep without medication for appropriate length of time Outcome: Completed Goal: Nutrition intake to meet estimated needs Outcome: Completed Problem: Mood - Altered Goal: Mood stable Outcome: Completed Goal: Knowledge of medication management Outcome: Completed Problem: Self-esteem - Low Goal: Improved self-esteem Outcome: Completed Problem: Thought Process - Altered Goal: Demonstration of organized thought processes Outcome: Completed Problem: Transition Readiness Goal: Able to safely transition to next level of care Outcome: Completed Goal: Knowledge of care transition plan Outcome: Completed Goal: Knowledge of medication management Outcome: Completed Goal: Knowledge of need for follow-up care Outcome: Completed Goal: Participation in care planning Outcome: Completed Problem: Actual or potential alteration in health Goal: Knowledge of Interdisciplinary Plan of Care Outcome: Partially Met Goal: Knowledge of Enviroment Outcome: Partially Met Problem: Health Maintenance - Impaired Goal: Improvement or maintenance of mental/physical health, relationships, and responsibilities Outcome: Partially Met Goal: Able to sleep without medication for appropriate length of time Outcome: Partially Met Goal: Nutrition intake to meet estimated needs Outcome: Partially Met Problem: Mood - Altered Goal: Mood stable Outcome: Partially Met Goal: Knowledge of medication management Outcome: Partially Met Problem: Self-esteem - Low Goal: Improved self-esteem Outcome: Partially Met Problem: Thought Process - Altered Goal: Demonstration of organized thought processes Outcome: Partially Met Problem: Transition Readiness Goal: Able to safely transition to next level of care Outcome: Not Addressed Goal: Knowledge of care transition plan Outcome: Not Addressed Goal: Knowledge of medication management Outcome: Partially Met Goal: Knowledge of need for follow-up care Outcome: Partially Met Goal: Participation in care planning Outcome: Partially Met Problem: Actual or potential alteration in health Goal: Knowledge of Interdisciplinary Plan of Care Outcome: Partially Met Goal: Knowledge of Enviroment Outcome: Met Problem: Health Maintenance - Impaired Goal: Improvement or maintenance of mental/physical health, relationships, and responsibilities Outcome: Partially Met Goal: Able to sleep without medication for appropriate length of time Outcome: Partially Met Goal: Nutrition intake to meet estimated needs Outcome: Met Problem: Mood - Altered Goal: Mood stable Outcome: Partially Met Goal: Knowledge of medication management Outcome: Partially Met Problem: Self-esteem - Low Goal: Improved self-esteem Outcome: Partially Met Problem: Thought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 1726 <Electronically signed by Rani Parkinson MD> Cosigner Signature (if applicable): CC: Dr. Rani Parkinson MD; Dr. Lupe Gao, DO~ Signed [facility] Work Phone: 1(865) 425-233103-23-2025 Progress note [facility] Medical Records Department [address] [place] [address] Progress Note - OBGYN 01/13/25 1714 MR#: [id number] Acct: [id number] Name: NAVYA MCNULTY Rep #:[id number] : 1995 29 From: Rani Parkinson MD PCP: Dr. Lupe Gao, DO Status:AD M IN Location: [place] [id number] Subjective Subjective Byers placed without difficulty. 1.5/60/-3. medium. Cytotec x 1 then plan Pitocin Objective Data Objective Data Vital Signs: Weight: 88.088 kg Body Mass Index (BMI) 35.5 Lab / Micro Data 01/13/25 16:37 Labs: Laboratory Results - last 24 hr 01/13/25 16:37: WBC 13.3 H, RBC 4.21, Hgb 12.4, Hct 36.5 L, MCV 86.7, MCH 29.5, MCHC 34.0, RDW Std Deviation 42.1, RDW Coeff of Marie 13.4, Plt Count 304, MPV 9.3, Immature Gran % (Auto) 0.500, Neut % (Auto) 73.2 H, Lymph % (Auto) 18.6 L, Duchesne % (Auto) 6.6, Eos % (Auto) 0.8, Baso % (Auto) 0.3, Absolute Neuts (auto) 9.7 H, Absolute Lymphs (auto) 2.47, Nucleated RBC % 0 Assessment & Plan (1) Elective induction of labor planned: (2) 39 weeks gestation of : 01/13/25 1727 Cosigner Signature (if applicable): CC: ~ Signed [facility]03-23-2025 History and physical note [facility] Medical Records Department [address] [place] [address] H&P Exam - DIRECTOR OF DANCE 01/13/25 171 MR#: [id number] Acct: [id number] Name: NAVYA MCNULTY Rep #:[id number] : 1995 29 From: Rani Parkinson MD PCP: Dr. Lupe Gao, DO Status:AD M IN Location: [id number] HPI - General General Date of Admission: 01/13/25 Date of Service: 01/13/25 HPI Narrative NAVYA MCNULTY, is a 29 F who presents for elective IOL. Screen positive for XXY. Accessory love onplacenta Maternal Data Information SASCHA Calculator Estimated Delivery Date Method Current WG Current Estimate 01/19/25 Manual 39w 1d Final SASCHA: 01/19/25 Gestational age: 39+1 PFSH PFSH Medical History Right ankle injury depression Psychiatric disorder Home Medications ?Medication ?Instructions ?Recorded ?Last Taken ?Type buspirone 10 mg PO BID Anxiety 5 01/13/25 History lamotrigine 100 mg tablet 200 mg PO DAILY Bi-Polar 01/13/25 History (Lamictal) vit no.95-ferrous 1 tab PO DAILY 01/13/25 History fumarate 28 mg-folic acid 800 mcg tablet () aspirin 81 mg chewable tablet 1 tab PO DAILY 12/25/24 12/24/24 22:00 History (Aspirin Childrens) nystatin 100,000 unit/mL oral 5 ml PO 4X/DAY Thrush 01/13/25 History suspension Allergy/AdvReac Type Severity Reaction Status Date / Time bupropion (From Wellbutrin) Allergy Severe Other Verified 01/13/25 16:35 pollen extracts (pollens) Allergy Mild Other Verified 01/13/25 16:35 lactose Allergy Abd Verified 01/13/25 16:35 cramps/diarrhea egg AdvReac Hives Verified 01/13/25 16:35 Social History Smoking Status: Current every day smoker tobacco type: e-cigarettes History Elective abortions Hx Para 1 Spontaneous abortions Hx # Term Pregnancies Ectopic pregnancies Hx # Pregnancies Multiple births # of living children NST FHR Rate Baby A Baseline: 140 Variability:: Moderate Accelerations:: 15 x 15 Decelerations:: None NST Reactive:: Yes FHR Category:: Category I ROS Constitutional Constitutional: Denies fatigue, fever(s) or malaise Eyes Eyes: Denies change in vision ENT HEENT: Denies dizziness or headache(s) Cardiovascular Cardiovascular: Denies chest pain, dyspnea or lightheadedness Respiratory/Chest Respiratory/Chest: Denies cough or dyspnea Gastrointestinal Gastrointestinal: Denies change in bowel habits Genitourinary Genitourinary: Denies burning urination or genital lesions Integumentary Integumentary: Denies rash Neurologic Neurologic: Denies confusion, dizziness, headache(s), numbness or weakness Vital Signs Vital Signs Vital Signs: Weight Weight: 88.088 kg Body Mass Index (BMI) 35.5 Physical Exam Const alert and no apparent distress General Appearance: cooperative HEENT normocephalic Resp normal respiratory effort Cardio regular rate GI soft to palpation GI Narrative: gravid, nontender, appropriate for gestational age Extremity no calf tenderness General Extremity: edema Skin no wounds Rashes: No rashes noted Psych activity/motor behavior normal Labs Labs Labs: Blood Type Pending Antibody Screen Pending Hct 36.5 % (37-47) L Hgb 12.4 g/dL (12.0-15.0) Syphilis Total Ab Non-reactive Assessment & Plan (1) 39 weeks gestation of : (2) Elective induction of labor planned: PLAN: Plan byers, cytotec, pitocin Epidural prn 01/13/25 1726 Cosigner Signature (if applicable): CC: Dr. Rani Pariknson MD; Dr. Lupe Gao DO~ Signed [facility]03-21-2025 NoteHNO ID: [id number] Author: DINORA JOHNSON MA Service: ? Author Type: Human Resources Specialist Type: Progress Notes Filed: 01/11/2025 13:15 Note Text: POPULATION HEALTH NAVIGATION OUTREACH Action/I 1st attempt: Called and unable to leave message to call back to discuss state manager. message sent. Reason for Outreach Medicaid OB/Peds Care Gaps due: N/A Patient Contacted: Unable or unnecessary to reach patient: Unable to reach patient Left message MyChart message sent Navigation Signature: Dinora Taylor MA January 11, 2025 1:12 [facility]03-21-2025 History of Present illness Narrative* Dinora Johnson MA - 01/11/2025 1:12 PM EDT POPULATION HEALTH NAVIGATION OUTREACH Action/I 1st attempt: Called and unable to leave message to call back to discuss state manager. MC message sent. Reason for Outreach Medicaid OB/Peds Care Gaps due: N/A Patient Contacted: Unable or unnecessary to reach patient: Unable to reach patient Left message SOA Software message sent Navigation Signature: Dinora Taylor MA January 11, 2025 1:12 PM documented in [facility] encounter[facility] NotePatient Outreach (NETNAV) NAVYA MCNULTY ([id number]) 1995 F Date Time Provider Department 01/11/25 DINORA JOHNSON During your visit today, we recorded the following information about you: Dinora Johnson MA 01/11/2025 1:15 PM Signed POPULATION HEALTH NAVIGATION OUTREACH Action/I 1st attempt: Called and unable to leave message to call back to discuss state manager. MC message sent. Reason for Outreach Medicaid OB/Peds Care Gaps due: N/A Patient Contacted: Unable or unnecessary to reach patient: Unable to reach patient Left message SOA Software message sent Navigation Signature: Dinora Taylor MA January 11, 2025 1:12 PM Dinora Johnson MA 01/14/2025 2:24 PM Signed POPULATION HEALTH NAVIGATION OUTREACH Action/ Pt currently in [facility], no second outreach needed. Reason for Outreach Medicaid OB/Peds Care Gaps due: N/A Patient Contacted: Unable or unnecessary to reach patient: Patient currently in [facility] Navigation Signature: Dinora Taylor MA January 14, 2025 2:24 PM Allergies As of Date: 01/11/2025 Noted Allergy Reaction EGG 06/01/2019 4 - Hives 7 - Swelling Comments: Raw eggs only LACTOSE 12/02/2024 6 - Diarrhea POLLEN 10/31/2008 WELLBUTRIN (BUPROPION HCL) 06/28/2019 5 - Intolerance Date Reviewed: 01/09/2025 Reviewed by: Kike Brannon MD - Fully Assessed Reason for Visit: Population Health Navigation Outreach [3910] Cmt: Ob/peds Prescriptions as of 01/14/2025 - nystatin (MYCOSTATIN) 100,000 unit/mL suspension Take 5 mL by mouth four times daily. Swish and swallow. - busPIRone (BUSPAR) 10 mg tablet Take 10 mg by mouth two times a day as needed. - lamoTRIgine (LAMICTAL) 100 mg tablet Take 1 tablet by mouth every afternoon. - aspirin, enteric coated (ECOTRIN LOW STRENGTH) 81 mg EC tablet Take 1 tablet by mouth once daily. - VITAFUSION GUMMY TChS Take 1 Piece by mouth once daily. - LACTASE (LACTAID ORAL) Take by mouth w MEALS. Meds Comments as of 06/13/2013: pt not taking her medication how she is supposed to Problem List As Of Date 01/11/2025 Noted Resolved Cellulitis and abscess of toe, unspecified [L03*06/01/2010 05/19/2019 Smoker [F17.200] 12/22/2011 06/27/2024 Anxiety and depression [F41.9, F32.A] 12/22/2011 Asthma [J45.909] 12/22/2011 05/19/2019 Oligomenorrhea [N91.5] 03/23/2012 03/01/2019 Hyperprolactinemia (HCC) [E22.1] 03/23/2012 05/19/2019 PROM with onset of labor within 24 hour*05/04/2014 03/01/2019 Active labor [OAQ2112] 05/04/2014 03/01/2019 Anxiety [F41.9] 05/23/2017 05/19/2019 History of methicillin resistant Staphylococcus*05/23/2017 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] 01/17/2018 Trichomoniasis [A59.9] 03/06/2019 05/19/2019 Cellulitis of right knee [L03.115] 05/18/2019 05/19/2019 Oral thrush [B37.0] 05/18/2019 05/19/2019 Hyponatremia [E87.1] 05/18/2019 05/19/2019 Obesity, Class I, BMI 30-34.9 [E66.811] 05/28/2019 Mild intermittent asthma without complication [*06/18/2019 History of abuse of recreational drug (HCC) [F1*06/18/2019 Post-operative state [Z98.890] 09/13/2019 06/27/2024 BMI 33.0-33.9,adult [Z68.33] 12/04/2021 06/27/2024 Supervision of high risk in third tri*06/27/2024 Date of last menstrual period (LMP) unknown [Z7*06/27/2024 Vaping nicotine dependence, tobacco product [F1*06/27/2024 Bipolar 2 disorder (HCC) [F31.81] 06/27/2024 Nausea and vomiting during [O21.9] 06/27/2024 Abnormal genetic test during [O28.5] 11/19/2024 Encounter Status:Closed by DINORA JOHNSON on 01/11/25[facility] 01-09-2025 Progress note* Quick Notes - Kike Brannon MD - 01/09/2025 2:37 PM EDT RR- VB No. LOF maybe, mucous plug this am. Then today dribbling when went to restroom that weren't urine . CTXS some increased cramping and back pain. Movement: present. Other c/o: No. Medication list reviewed. SENSITIVE EXAM: The sensitive examination was discussed with the Patient or Patient's Authorized Dynamometer Tuner. As applicable, any other physician, advance practice provider, medical student, or other health professional student that will be observing or involved in the sensitive examination for educational or training purposes was discussed with the Patient or Authorized Dynamometer Tuner. The Patient or Authorized Dynamometer Tuner has agreed to proceed with the sensitive examination. (Sensitive examination includes inspection and/or palpation of the breasts, pelvis, prostate and anorectal regions). Physical Exam See Flow Sheet Abd: soft, nontender, gravid : external genitalia: normal, no lesions, vagina: pink, ruggated, discharge: clear, yellow, browntinged, and blood: brown tinged, no gross blood, cervix: closed, smooth, and nonfriable, neg pool Ext: edema: Trace A/P 38w4d Estimated Date of Delivery: 01/19/25 Assessment & Plan 38 weeks gestation of Orders: URINE OB DIP B/O Supervision of high risk in third trimester Orders: URINE OB DIP B/O Vaginal discharge during in third trimester no evidence of SROM, head ballots w/ cervical exam kick counts return/call for signs, symptoms of labor Amniotic Fluid Test 01/09/2025 2:53 PM Fern: neg ; Nitrazine: neg (pH less than 7) Fern Reference Range: Negative for amniotic fluid Nitrazine Reference Range: Normal vaginal pH is acidic (below 7.0) with pH above 7.0 (basic) indicating the presence of amniotic fluid. Lab Address: Ob/gynecology [address] [facility] [address] Dept: [phone] Provider: Kike Brannon MD [facility]03-19-2025 Miscellaneous Notes* Quick Notes - Kike Brannon MD - 01/09/2025 2:37 PM EDT RR- VB No. LOF maybe, mucous plug this am. Then today dribbling when went to restroom that weren't urine . CTXS some increased cramping and back pain. Movement: present. Other c/o: No. Medication list reviewed. SENSITIVE EXAM: The sensitive examination was discussed with the Patient or Patient's Authorized Dynamometer Tuner. As applicable, any other physician, advance practice provider, medical student, or other health professional student that will be observing or involved in the sensitive examination for educational or training purposes was discussed with the Patient or Authorized Dynamometer Tuner. The Patient or Authorized Dynamometer Tuner has agreed to proceed with the sensitive examination. (Sensitive examination includes inspection and/or palpation of the breasts, pelvis, prostate and anorectal regions). Physical Exam See Flow Sheet Abd: soft, nontender, gravid : external genitalia: normal, no lesions, vagina: pink, ruggated, discharge: clear, yellow, browntinged, and blood: brown tinged, no gross blood, cervix: closed, smooth, and nonfriable, neg pool Ext: edema: Trace A/P 38w4d Estimated Date of Delivery: 01/19/25 Assessment & Plan 38 weeks gestation of Orders: URINE OB DIP B/O Supervision of high risk in third trimester Orders: URINE OB DIP B/O Vaginal discharge during in third trimester no evidence of SROM, head ballots w/ cervical exam kick counts return/call for signs, symptoms of labor Amniotic Fluid Test 01/09/2025 2:53 PM Fern: neg ; Nitrazine: neg (pH less than 7) Fern Reference Range: Negative for amniotic fluid Nitrazine Reference Range: Normal vaginal pH is acidic (below 7.0) with pH above 7.0 (basic) indicating the presence of amniotic fluid. Lab Address: Ob/gynecology [address] [facility] [address] Dept: [phone] Provider: Kike Brannon MD documented in this encounterOhio[facility]03-19-2025 Instructions* Patient Instructions* Dinora Gomez MA - 01/09/2025 2:16 PM EDT SEQUENTIAL SCREENINGS [facility] offers sequential screenings for women who are interested in screenings for chromosomal abnormalities and certain defects during a . The sequential screen combinesultrasound and blood tests to determine the risk of chromosomal abnormalities, including Down's Syndrome (Trisomy 21) and Trisomy 18, as well as open neural tube defects including spina bifida. Ultrasound examination is performed between 11 weeks and 13 weeks gestational age. Blood tests are drawn after the ultrasound and again later in the between 15 and 21 weeks gestational age. Please let your physician know if you are interested in this testing. It will require an appointment withour surgical instrument technician. This is not an ultrasound performed by a physician in our office during a routine visit. SIGNS AND SYMPTOMS OF LABOR 1. Contractions every 10 minutes or more often 2. Clear, pink, or brownish fluid (water) leaking from vagina 3. Feeling that baby is pushing down, pressure 4. Low, dull backache 5. Cramps that feel like a period 6. Cramps with or without diarrhea If you notice any of the above symptoms, contact our office at [phone] and ask to speak with anurse. After hours, you can call doctors registry at [phone] OR call [facility] at [phone] ask to have the doctor crayon molding machine operator paged. If you consider this an emergency, dial or go to your nearest emergency department. NEED HELP? Are you dealing with a violent or abusive relationship? Are you a victim of rape or sexual assult? Call [facility] ([place]) 24 hour Crisis Hotline: 352.329.5661 or 433-474-7043. MANUAL Your Guide to a Healthy manual is now on-line. Visit [email or web address] to download your free copy documented in this encounterOhiohealth [facility]03-19-2025 Telephone encounter Note * Telephone Encounter - Concepción Beavers RN - 01/09/2025 1:40 PM EDT 38w4d Seen in office. 1cm dilated. Stripped membranes. Lost mucous plug around 5am this morning. States ever since left office has had bloody discharge. Pt states she's not currently wearing underwear, wearing scrub pants, c/o intermittent contractions. Pt states she feels intermittent trickling of fluid. Advised Pt that it is hard to tell without her being assessed in office. Appt made with RR at 2:30pm. Concepción Beavers RN [facility]03-19-2025 Miscellaneous Notes* Telephone Encounter - Concepción Beavers RN - 01/09/2025 1:40 PM EDT 38w4d Seen in office. 1cm dilated. Stripped membranes. Lost mucous plug around 5am this morning. States ever since left office has had bloody discharge. Pt states she's not currently wearing underwear, wearing scrub pants, c/o intermittent contractions. Pt states she feels intermittent trickling of fluid. Advised Pt that it is hard to tell without her being assessed in office. Appt made with RR at 2:30pm. Concepción Beavers, RN documented in this encounterOhio[facility] Hospital03-18-2025 Progress note* Quick Notes - Kike Brannon MD - 01/08/2025 10:23 AM EDT RR- VB No. LOF No. CTXS No. Movement: present. Other c/o: some cincreased edema Medication list reviewed. SENSITIVE EXAM: The sensitive examination was discussed with the Patient or Patient's Authorized Dynamometer Tuner. As applicable, any other physician, advance practice provider, medical student, or other health professional student that will be observing or involved in the sensitive examination for educational or training purposes was discussed with the Patient or Authorized Dynamometer Tuner. The Patient or Authorized Dynamometer Tuner has agreed to proceed with the sensitive examination. (Sensitive examination includes inspection and/or palpation of the breasts, pelvis, prostate and anorectal regions). Physical Exam See Flow Sheet Abd: soft, nontender, gravid Ext: edema: 1+ A/P 38w3d Estimated Date of Delivery: 01/19/25 Assessment & Plan Supervision of high risk in third trimester Orders: URINE OB DIP B/O 38 weeks gestation of Orders: URINE OB DIP B/O kick counts r/b/a to induction at 39+ weeks reviewed, patient would like induction due to maternal discomfort Kike Brannon M.D. [facility]03-18-2025 Miscellaneous Notes* Quick Notes - Kike Brannon MD - 01/08/2025 10:23 AM EDT RR- VB No. LOF No. CTXS No. Movement: present. Other c/o: some cincreased edema Medication list reviewed. SENSITIVE EXAM: The sensitive examination was discussed with the Patient or Patient's Authorized Dynamometer Tuner. As applicable, any other physician, advance practice provider, medical student, or other health professional student that will be observing or involved in the sensitive examination for educational or training purposes was discussed with the Patient or Authorized Dynamometer Tuner. The Patient or Authorized Dynamometer Tuner has agreed to proceed with the sensitive examination. (Sensitive examination includes inspection and/or palpation of the breasts, pelvis, prostate and anorectal regions). Physical Exam See Flow Sheet Abd: soft, nontender, gravid Ext: edema: 1+ A/P 38w3d Estimated Date of Delivery: 01/19/25 Assessment & Plan Supervision of high risk in third trimester Orders: URINE OB DIP B/O 38 weeks gestation of Orders: URINE OB DIP B/O kick counts r/b/a to induction at 39+ weeks reviewed, patient would like induction due to maternal discomfort Kike Brannon M.D. documented in this encounterOhiohealth [facility]03-18-2025 Instructions* Patient Instructions* Linda Varner MA - 01/08/2025 10:00 AM EDT SEQUENTIAL SCREENINGS [facility] offers sequential screenings for women who are interested in screenings for chromosomal abnormalities and certain defects during a . The sequential screen combinesultrasound and blood tests to determine the risk of chromosomal abnormalities, including Down's Syndrome (Trisomy 21) and Trisomy 18, as well as open neural tube defects including spina bifida. Ultrasound examination is performed between 11 weeks and 13 weeks gestational age. Blood tests are drawn after the ultrasound and again later in the between 15 and 21 weeks gestational age. Please let your physician know if you are interested in this testing. It will require an appointment withour surgical instrument technician. This is not an ultrasound performed by a physician in our office during a routine visit. SIGNS AND SYMPTOMS OF LABOR 1. Contractions every 10 minutes or more often 2. Clear, pink, or brownish fluid (water) leaking from vagina 3. Feeling that baby is pushing down, pressure 4. Low, dull backache 5. Cramps that feel like a period 6. Cramps with or without diarrhea If you notice any of the above symptoms, contact our office at [phone] and ask to speak with anurse. After hours, you can call [employer] registry at [phone] OR call [facility] at [phone] ask to have the doctor crayon molding machine operator paged. If you consider this an emergency, dial or go to your nearest emergency department. NEED HELP? Are you dealing with a violent or abusive relationship? Are you a victim of rape or sexual assult? Call [facility] ([place]) 24 hour Crisis Hotline: 764.924.4604 or 043-184-1337. MANUAL Your Guide to a Healthy manual is now on-line. Visit [email or web address] to download your free copy documented in this encounterOhiohealth [facility]03-13-2025 Telephone encounter Note * Telephone Encounter - Ashu Summers MA - 01/03/2025 2:57 PM EDT FMLA paperwork completed and faxed back to employer. Patient notified via [employer]. Ashu Summers MA [facility]03-13-2025 Miscellaneous Notes* Telephone Encounter - Ashu Summers MA - 01/03/2025 2:57 PM EDT FMLA paperwork completed and faxed back to employer. Patient notified via [employer]. Ashu Summers MA * Telephone Encounter - Ashu Summers MA - 01/02/2025 4:28 PM EDT FMLA paperwork on providers desk for signature. Ashu Summers MA * Telephone Encounter - Ashu Summers MA - 12/31/2024 9:15 AM EDT [place] paperwork received. Ashu Summers MA documented in this encounterOhio[facility] Hospital03-12-2025 Telephone encounter Note * Telephone Encounter - Ashu Summers MA - 01/02/2025 4:28 PM EDT [place] paperwork on providers desk for signature. Ashu Summers MA [facility]03-12-2025 Progress note* Quick Notes - Alisha Cox MD - 01/02/2025 12:18 PM EDT DM-Pt doing well. Denies vaginal Bleeding, Leaking fluid, or regular Contractions. Pt reports good movement Physical Exam: Gen: female in no apparent distress Abd: soft, Gravid. Non tender to palpation. See flow sheet @ 37.4 weeks Assessment & Plan Supervision of high risk in third trimester Orders: URINE OB DIP B/O Abnormal genetic test during + kleinfelters 37 weeks gestation of Orders: URINE OB DIP B/O Alisha Galloway MD [facility]03-12-2025 Miscellaneous Notes* Quick Notes - Alisha Cox MD - 01/02/2025 12:18 PM EDT DM-Pt doing well. Denies vaginal Bleeding, Leaking fluid, or regular Contractions. Pt reports good movement Physical Exam: Gen: female in no apparent distress Abd: soft, Gravid. Non tender to palpation. See flow sheet @ 37.4 weeks Assessment & Plan Supervision of high risk in third trimester Orders: URINE OB DIP B/O Abnormal genetic test during + kleinfelters 37 weeks gestation of Orders: URINE OB DIP B/O Alisha Galloway MD documented in this encounterOhiohealth [facility]03-12-2025 Instructions* Patient Instructions* Olya Bills MA - 01/02/2025 10:30 AM EDT SEQUENTIAL SCREENINGS The [facility] offers sequential screenings for women who are interested in screenings for chromosomal abnormalities and certain defects during a . The sequential screen combinesultrasound and blood tests to determine the risk of chromosomal abnormalities, including Down's Syndrome (Trisomy 21) and Trisomy 18, as well as open neural tube defects including spina bifida. Ultrasound examination is performed between 11 weeks and 13 weeks gestational age. Blood tests are drawn after the ultrasound and again later in the between 15 and 21 weeks gestational age. Please let your physician know if you are interested in this testing. It will require an appointment withour surgical instrument technician. This is not an ultrasound performed by a physician in our office during a routine visit. SIGNS AND SYMPTOMS OF LABOR 1. Contractions every 10 minutes or more often 2. Clear, pink, or brownish fluid (water) leaking from vagina 3. Feeling that baby is pushing down, pressure 4. Low, dull backache 5. Cramps that feel like a period 6. Cramps with or without diarrhea If you notice any of the above symptoms, contact our office at [phone] and ask to speak with anurse. After hours, you can call doctors registry at [phone] OR call [facility] at [phone] ask to have the doctor crayon molding machine operator paged. If you consider this an emergency, dial 9-5-5 or go to your nearest emergency department. NEED HELP? Are you dealing with a violent or abusive relationship? Are you a victim of rape or sexual assult? Call [facility] ([place]) 24 hour Crisis Hotline: 715.594.7494 or 319-932-1008. MANUAL Your Guide to a Healthy manual is now on-line. Visit [email or web address] to download your free copy documented in this encounterOhiohealth Shelby Hospital03-11-2025 Progress note* Result Encounter Note - Jin Hernandes APRN.CNP - 01/01/2025 11:17 PM EDT Negative COVID/Flu/RSV. Jin Hernandes APRN.ROOM SERVICE FOOD SERVICE ATTENDANT [facility] Work Phone: [phone] 120-852203-11-2025 Miscellaneous Notes* Result Encounter Note - Jin Hernandes APRN.CNP - 01/01/2025 11:17 PM EDT Negative COVID/Flu/RSV. Jin Hernandes APRN.CNP documented in this encounterOhiohealth Shelby Hospital03-10-2025 [id number] (AGENT OF COVID-19) RNA: Not detected INFLUENZA A RNA: Not detected INFLUENZA B RNA: Not detected RESPIRATORY SYNCYTIAL VIRUS (RSV) RNA: Not detectedNorthern Light Inland HospitalComment on above:Performed By: #### [id number] #### [facility] CLIA [id number] [address] [place] [address] STATES OF [id number] NoteHNO ID: [id number] Author: JIN HERNANDES APRN.CNP Service: ? Author Type: Nurse Practitioner Type: Progress Notes Filed: 01/06/2025 23:00 Note Text: Subjective Navya Mcnulty is a 29 year old female here today for sick visit. I reviewed past medical, surgical, social, and family histories today and updated chart. Allergies, chronic medications, and supplements were also reviewed. HPI Broken tooth left back molar, abscessed tooth - very painful No drainage from the gums The gums are swollen Sinus symptoms - thought it was allergies, started about 2 days ago Runny nose, nasal congestion Cough - feels dry No chills, body aches, or fever Sore throat Had flu/pneumonia 1.5 months ago She is currently - Due date is 01/19/25 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, Meth Hyperprolactinemia (HCC) 03/23/2012 MRSA cellulitis 2016 PMH - PAST MEDICAL HISTORY OF 01/02/10 normal color vision Trichomoniasis 03/06/2019 Unspecified asthma(493.90) PAST SURGICAL HISTORY Procedure Laterality Date PAST SURGICAL HISTORY OF Left 04/2017 Elbow Surgery PAST SURGICAL HISTORY OF removal of abcess on right knee ALLERGIES Egg, Pollen, and Wellbutrin [Bupropion Hcl] MEDICATIONS busPIRone (BUSPAR) 10 mg tablet Take 10 mg by mouth two times a day as needed. lamoTRIgine (LAMICTAL) 100 mg tablet Take 1 tablet by mouth every afternoon. aspirin, enteric coated (ECOTRIN LOW STRENGTH) 81 mg EC tablet Take 1 tablet by mouth once daily. VITAFUSION GUMMY TChS Take 1 Piece by mouth once daily. LACTASE (LACTAID ORAL) Take by mouth w MEALS. diphenhydrAMINE (UNISOM SLEEPGELS) 50 mg capsule Take 50 mg by mouth daily at bedtime. (Patient not taking: Reported on 12/31/2024) FAMILY HISTORY Problem Relation Age of Onset Psychiatry Mother depression other (Carpel [place]unnel) Mother Alcohol abuse Mother Recovering Diabetes Father Heart Father bypass Hypertension Father Heart Attack Father No Known Problems Brother Osteoporosis Maternal Grandmother other (Breast Cancer age 40s) Maternal Grandmother Cancer Maternal Grandfather of liver cancer Diabetes Paternal Grandmother Dementia Paternal Grandmother Diabetes Paternal Grandfather Heart Paternal Grandfather from [place] Social History Tobacco Use Smoking status: Former Current packs/day: 1.00 Average packs/day: 1 pack/day for 10.0 years (10.0 ttl pk-yrs) Types: Cigarettes Smokeless tobacco: Never Vaping Use Vaping status: current everyday user Substances: Nicotine Devices: Disposable Substance Use Topics Alcohol use: Not Currently Comment: occ Drug use: Not Currently Comment: 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 Negative for appetite change, chills, fever and unexpected weight change. HENT: Positive for congestion, ear pain (on and off - left ear), rhinorrhea, sinus pressure, sinus pain and sore throat. Eyes: Positive for pain. Negative for discharge, itching and visual disturbance. Respiratory: Positive for cough. Negative for shortness of breath and wheezing. Cardiovascular: Negative for chest pain, palpitations and leg swelling. Gastrointestinal: Negative for abdominal pain, constipation, diarrhea, nausea and vomiting. Genitourinary: Negative for difficulty urinating. Skin: Negative for rash. Neurological: Positive for headaches. Negative for dizziness, tremors and weakness. Psychiatric/Behavioral: Negative for dysphoric mood and sleep disturbance. The patient is not nervous/anxious. Objective BP 110/72 Pulse 76 Temp 98.1 Ht 5' 2.52 (1.59m) Wt 192 lb (87.1kg) SpO2 99% LMP 05/07/2024 BMI 34.54 kg/(m2). Physical Exam Constitutional: General: She is not in acute distress. Appearance: She is well-developed. She is ill-appearing. She is not toxic-appearing. HENT: Head: Normocephalic and atraumatic. Right Ear: Hearing, tympanic membrane, ear canal and external ear normal. No drainage. Tympanic membrane is not injected or bulging. Left Ear: Hearing, tympanic membrane, ear canal and external ear normal. No drainage. Tympanic membrane is not injected or bulging. Nose: Nose normal. No mucosal edema or rhinorrhea. Mouth/Throat: Lips: [place]. Mouth: Mucous membranes are moist. Oral lesions present. Dentition: Abnormal dentition. Gingival swelling present. Pharynx: Oropharynx is clear. Uvula midline. No oropharyngeal exudate or posterior oropharyngeal erythema. Eyes: General: Lids are normal. Right eye: No discharge. Left eye: No discharge. Conjunctiva/sclera: Conjunctivae normal. Pupils: Pupils are equal, round, and reactive to light. Cardiovascular: Rate and Rhythm: Normal rate and regular rhythm (more content not included)... [facility]03-10-2025 History of Present illness Narrative* Jin Hernandes APRN.ROOM SERVICE FOOD SERVICE ATTENDANT - 12/31/2024 10:07 AM EDT Subjective Navya Mcnulty is a 29 year old female here today for sick visit. I reviewed past medical, surgical, social, and family histories today and updated chart. Allergies, chronic medications, and supplements were also reviewed. HPI Broken tooth left back molar, abscessed tooth - very painful No drainage from the gums The gums are swollen Sinus symptoms - thought it was allergies, started about 2 days ago Runny nose, nasal congestion Cough - feels dry No chills, body aches, or fever Sore throat Had flu/pneumonia 1.5 months ago She is currently - Due date is 01/19/25 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, Meth Hyperprolactinemia (HCC) 03/23/2012 MRSA cellulitis 2016 PMH - PAST MEDICAL HISTORY OF 01/02/10 normal color vision Trichomoniasis 03/06/2019 Unspecified asthma(493.90) PAST SURGICAL HISTORY Procedure Laterality Date PAST SURGICAL HISTORY OF Left 04/2017 Elbow Surgery PAST SURGICAL HISTORY OF removal of abcess on right knee ALLERGIES Egg, Pollen, and Wellbutrin [Bupropion Hcl] MEDICATIONS busPIRone (BUSPAR) 10 mg tablet Take 10 mg by mouth two times a day as needed. lamoTRIgine (LAMICTAL) 100 mg tablet Take 1 tablet by mouth every afternoon. aspirin, enteric coated (ECOTRIN LOW STRENGTH) 81 mg EC tablet Take 1 tablet by mouth once daily. VITAFUSION GUMMY TChS Take 1 Piece by mouth once daily. LACTASE (LACTAID ORAL) Take by mouth w MEALS. diphenhydrAMINE (UNISOM SLEEPGELS) 50 mg capsule Take 50 mg by mouth daily at bedtime. (Patient nottaking: Reported on 12/31/2024) FAMILY HISTORY Problem Relation Age of Onset Psychiatry Mother depression other (Carpel Tunnel) Mother Alcohol abuse Mother Recovering Diabetes Father Heart Father bypass Hypertension Father Heart Attack Father No Known Problems Brother Osteoporosis Maternal Grandmother other (Breast Cancer age 40s) Maternal Grandmother Cancer Maternal Grandfather of liver cancer Diabetes Paternal Grandmother Dementia Paternal Grandmother Diabetes Paternal Grandfather Heart Paternal Grandfather from [place] Social History Tobacco Use Smoking status: Former Current packs/day: 1.00 Average packs/day: 1 pack/day for 10.0 years (10.0 ttl pk-yrs) Types: Cigarettes Smokeless tobacco: Never Vaping Use Vaping status: current everyday user Substances: Nicotine Devices: Disposable Substance Use Topics Alcohol use: Not Currently Comment: occ Drug use: Not Currently Comment: 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 Negative for appetite change, chills, fever and unexpected weight change. HENT: Positive for congestion, ear pain (on and off - left ear), rhinorrhea, sinus pressure, sinus pain and sore throat. Eyes: Positive for pain. Negative for discharge, itching and visual disturbance. Respiratory: Positive for cough. Negative for shortness of breath and wheezing. Cardiovascular: Negative for chest pain, palpitations and leg swelling. Gastrointestinal: Negative for abdominal pain, constipation, diarrhea, nausea and vomiting. Genitourinary: Negative for difficulty urinating. Skin: Negative for rash. Neurological: Positive for headaches. Negative for dizziness, tremors and weakness. Psychiatric/Behavioral: Negative for dysphoric mood and sleep disturbance. The patient is not nervous/anxious. Objective BP 110/72 Pulse 76 Temp 98.1 Ht 5' 2.52 (1.59m) Wt 192 lb (87.1kg) SpO2 99% LMP 05/07/2024 BMI 34.54 kg/(m^2). Physical Exam Constitutional: General: She is not in acute distress. Appearance: She is well-developed. She is ill-appearing. She is not toxic-appearing. HENT: Head: Normocephalic and atraumatic. Right Ear: Hearing, tympanic membrane, ear canal and external ear normal. No drainage. Tympanic membrane is not injected or bulging. Left Ear: Hearing, tympanic membrane, ear canal and external ear normal. No drainage. Tympanic membrane is not injected or bulging. Nose: Nose normal. No mucosal edema or rhinorrhea. Mouth/Throat: Lips: [place]. Mouth: Mucous membranes are moist. Oral lesions present. Dentition: Abnormal dentition. Gingival swelling present. Pharynx: Oropharynx is clear. Uvula midline. No oropharyngeal exudate or posterior oropharyngeal erythema. Eyes: General: Lids are normal. Right eye: No discharge. Left eye: No discharge. Conjunctiva/sclera: Conjunctivae normal. Pupils: Pupils are equal, round, and reactive to light. Cardiovascular: Rate and Rhythm: Normal rate and regular rhythm. Heart sounds: Normal heart sounds. No murmur heard. Pulmonary: Effort: Pulmonary effort is normal. Breath sounds: Normal breath sounds. No wheezing, rhonchi or rales. Musculoskeletal: Cervical back: Normal range of motion and neck supple. Lymphadenopathy: Head: Right side of head: No tonsillar, preauricular or posterior auricular adenopathy. Left side of head: No tonsillar, preauricular or posterior auricular adenopathy. Cervical: No cervical adenopathy. Upper Body: Right upper body: No supraclavicular adenopathy. Left upper body: No supraclavicular adenopathy. Skin: General: Skin is warm and dry. Findings: No bruising or rash. Neurological: General: No focal deficit present. Mental Status: She is alert and oriented to person, place, and time. Cranial Nerves: No cranial nerve deficit. Psychiatric: Mood and Affect: Mood and affect normal. Speech: Speech normal. Behavior: Behavior normal. Behavior is cooperative. ASSESSMENT/PLAN: 1. Abscessed tooth - ICD9: 522.5, ICD10: K04.7 (primary diagnosis) Amoxicillin 500 mg TID x 10 days 2. Jaw pain - ICD9: 784.92, ICD10: R68.84 Tylenol as needed 3. Upper respiratory tract infection, unspecified type - ICD9: 465.9, ICD10: J06.9 - Discussed viral etiology and rationale for treatment. - Symptomatic treatment with prn analgesia - Supportive care with fluids and rest - COVID & INFLUENZA A/B & RSV PCR, ROUTINE 4. Thrush - ICD9: 112.0, ICD10: B37.0 Nystatin mouthwash Jin Hernandes APRN.ROOM SERVICE FOOD SERVICE ATTENDANT documented in this encounterOhiohealth Shelby Hospital03-10-2025 Telephone encounter Note * Telephone Encounter - Ashu Summers MA - 12/31/2024 9:15 AM EDT [place] paperwork received. Ashu Summers MA [facility]03-07-2025 Progress note* Quick Notes - Alisha Cox MD - 12/28/2024 11:30 AM EST DM-Pt doing well. Denies vaginal Bleeding, Leaking fluid, or regular Contractions. Pt reports good movement- feels baby is pushing on bladder. Physical Exam: Gen: female in no apparent distress Abd: soft, Gravid. Non tender to palpation. See flow sheet @ 36.6 weeks Assessment & Plan Supervision of high risk in third trimester Orders: URINE OB DIP B/O GROUP B STREPTOCOCCUS BY PCR, ROUTINE SCREENING Vaping nicotine dependence, tobacco product Bipolar 2 disorder (HCC) 36 weeks gestation of GBS today RTO weekly Kick counts and labor reviewed Vertex confirmed on ultrasound Alisha Galloway MD [facility]03-07-2025 Miscellaneous Notes* Quick Notes - Alisha Cox MD - 12/28/2024 11:30 AM EST DM-Pt doing well. Denies vaginal Bleeding, Leaking fluid, or regular Contractions. Pt reports good movement- feels baby is pushing on bladder. Physical Exam: Gen: female in no apparent distress Abd: soft, Gravid. Non tender to palpation. See flow sheet @ 36.6 weeks Assessment & Plan Supervision of high risk in third trimester Orders: URINE OB DIP B/O GROUP B STREPTOCOCCUS BY PCR, ROUTINE SCREENING Vaping nicotine dependence, tobacco product Bipolar 2 disorder (HCC) 36 weeks gestation of GBS today RTO weekly Kick counts and labor reviewed Vertex confirmed on ultrasound Alisha Galloway MD documented in this encounterOhiohealth Shelby Hospital03-07-2025 Instructions* Patient Instructions* Olya Bills MA - 12/28/2024 11:09 AM EST SEQUENTIAL SCREENINGS [facility] offers sequential screenings for women who are interested in screenings for chromosomal abnormalities and certain defects during a . The sequential screen combinesultrasound and blood tests to determine the risk of chromosomal abnormalities, including Down's Syndrome (Trisomy 21) and Trisomy 18, as well as open neural tube defects including spina bifida. Ultrasound examination is performed between 11 weeks and 13 weeks gestational age. Blood tests are drawn after the ultrasound and again later in the between 15 and 21 weeks gestational age. Please let your physician know if you are interested in this testing. It will require an appointment withour surgical instrument technician. This is not an ultrasound performed by a physician in our office during a routine visit. SIGNS AND SYMPTOMS OF LABOR 1. Contractions every 10 minutes or more often 2. Clear, pink, or brownish fluid (water) leaking from vagina 3. Feeling that baby is pushing down, pressure 4. Low, dull backache 5. Cramps that feel like a period 6. Cramps with or without diarrhea If you notice any of the above symptoms, contact our office at [phone] and ask to speak with anurse. After hours, you can call doctors registry at [phone] OR call [facility] at [phone] ask to have the doctor crayon molding machine operator paged. If you consider this an emergency, dial 6-3-5 or go to your nearest emergency department. NEED HELP? Are you dealing with a violent or abusive relationship? Are you a victim of rape or sexual assult? Call [facility] ([place]) 24 hour Crisis Hotline: 817.380.6315 or 171-311-8196. MANUAL Your Guide to a Healthy manual is now on-line. Visit [email or web address] to download your free copy documented in this encounterOhiohealth Shelby Hospital03-04-2025 Telephone encounter Note * Telephone Encounter - Karin Flanagan RN - 12/25/2024 4:47 PM EST 36w3d Called into office c/o intermittent spots in her vision. No RUQ pain or headache. Having irregular contractions. Advised to L&D to be evaluated. L&D notified. Karin Flanagan RN [facility]03-04-2025 Miscellaneous Notes* Telephone Encounter - Karin Flanagan RN - 12/25/2024 4:47 PM EST 36w3d Called into office c/o intermittent spots in her vision. No RUQ pain or headache. Having irregular contractions. Advised to L&D to be evaluated. L&D notified. Karin Flanagan RN documented in this encounterOhiohealth Shelby Hospital03-03-2025 Telephone encounter Note * Telephone Encounter - Karin Flanagan RN - 12/24/2024 1:47 PM EST Patient notified. Karin Flanagan RN [facility]03-03-2025 Miscellaneous Notes* Telephone Encounter - Karin Flanagan RN - 12/24/2024 1:47 PM EST Patient notified. Karin Flanagan RN * Telephone Encounter - Sandra Briseno APRN.CNM - 12/24/2024 1:05 PM EST This can be normal. As long as no regular contractions every 10 minutes or less, vaginal bleeding, or fluid leakage ok to monitor. Sandra Briseno APRN.CNM * Telephone Encounter - Rani Scott RN - 12/24/2024 10:52 AM EST 36w2d Patient was having some rodger collins today, but have since subsided. Asking if it's normal to feellike the inside of her vagina in swollen. Labia are not swollen. No recent intercourse. Denies LOF,VB, abnormal discharge or odor. Good FM. Next OB visit is Tuesday. Rani Scott RN documented in this encounterOhiohealth Shelby Hospital03-03-2025 Telephone encounter Note * Telephone Encounter - Sandra Briseno APRN.CNM - 12/24/2024 1:05 PM EST This can be normal. As long as no regular contractions every 10 minutes or less, vaginal bleeding, or fluid leakage ok to monitor. Sandra Briseno APRN.CNM [facility]03-03-2025 Telephone encounter Note* Telephone Encounter - Rani Scott RN - 12/24/2024 10:52 AM EST 36w2d Patient was having some rodger collins today, but have since subsided. Asking if it's normal to feellike the inside of her vagina in swollen. Labia are not swollen. No recent intercourse. Denies LOF,VB, abnormal discharge or odor. Good FM. Next OB visit is Tuesday. Rani Scott RN [facility]02-18-2025 Progress note* Quick Notes - Rani Parkinson MD - 12/11/2024 3:01 PM EST S: Navya Mcnulty is a 29 year old female who presents at 01/19/2025, by Ultrasound for a routine visit. Denies headache, visual changes, chest pain, shortness of breath, vaginal bleeding, leakage of fluid, or dysuria. Feeling well, no complaints. Good movement, No contractions O: See flow sheet Gen: No apparent distress Abd: Gravid, nontender Recovering from RSV. Starting to fell better. Had to restart anxiety medications after missing too many doses ASSESSMENT/PLAN: 1. 34 weeks gestation of - ICD9: V22.2, ICD10: Z3A.34 (primary diagnosis) - URINE OB DIP B/O 2. Supervision of high risk in third trimester - ICD9: V23.9, ICD10: O09.93 - URINE OB DIP B/O Rani Parkinson MD [facility]02-18-2025 Miscellaneous Notes* Quick Notes - Rani Pariknson MD - 12/11/2024 3:01 PM EST S: Navya Mcnulty is a 29 year old female who presents at 01/19/2025, by Ultrasound for a routine visit. Denies headache, visual changes, chest pain, shortness of breath, vaginal bleeding, leakage of fluid, or dysuria. Feeling well, no complaints. Good movement, No contractions O: See flow sheet Gen: No apparent distress Abd: Gravid, nontender Recovering from RSV. Starting to fell better. Had to restart anxiety medications after missing too many doses ASSESSMENT/PLAN: 1. 34 weeks gestation of - ICD9: V22.2, ICD10: Z3A.34 (primary diagnosis) - URINE OB DIP B/O 2. Supervision of high risk in third trimester - ICD9: V23.9, ICD10: O09.93 - URINE OB DIP B/O Rani Parkinson MD documented in this encounterOhiohealth Shelby Hospital02-18-2025 Instructions* Patient Instructions* Dinora Gomez MA - 12/11/2024 2:40 PM EST SEQUENTIAL SCREENINGS [facility] offers sequential screenings for women who are interested in screenings for chromosomal abnormalities and certain defects during a . The sequential screen combinesultrasound and blood tests to determine the risk of chromosomal abnormalities, including Down's Syndrome (Trisomy 21) and Trisomy 18, as well as open neural tube defects including spina bifida. Ultrasound examination is performed between 11 weeks and 13 weeks gestational age. Blood tests are drawn after the ultrasound and again later in the between 15 and 21 weeks gestational age. Please let your physician know if you are interested in this testing. It will require an appointment withour surgical instrument technician. This is not an ultrasound performed by a physician in our office during a routine visit. SIGNS AND SYMPTOMS OF LABOR 1. Contractions every 10 minutes or more often 2. Clear, pink, or brownish fluid (water) leaking from vagina 3. Feeling that baby is pushing down, pressure 4. Low, dull backache 5. Cramps that feel like a period 6. Cramps with or without diarrhea If you notice any of the above symptoms, contact our office at [phone] and ask to speak with anurse. After hours, you can call doctors registry at [phone] OR call [facility] at [phone] ask to have the doctor crayon molding machine operator paged. If you consider this an emergency, dial 91- or go to your nearest emergency department. NEED HELP? Are you dealing with a violent or abusive relationship? Are you a victim of rape or sexual assult? Call [facility] ([place]) 24 hour Crisis Hotline: 581.722.8590 or 955-355-9930. MANUAL Your Guide to a Healthy manual is now on-line. Visit [email or web address] to download your free copy documented in this encounterOhiohealth Shelby Hospital02-14-2025 History of Present illness Narrative* ROSELINE Pham - 12/07/2024 3:35 PM EST [facility] ROSELINE Pham Visit Note - 12/07/2024 4:44 PM This note was generated with voice recognition software and may contain errors including spelling, grammar, syntax, and misrecognization of what was dictated. Patient: Navya Mcnulty, , 29 y.o., female PCP: No primary care provider on file. ALLERGIES: No Known Allergies CURRENT MEDICATIONS: Current Outpatient Medications Medication Instructions aspirin 81 mg, Daily RT azithromycin (Zithromax Z-Te) 250 mg tablet Take 2 tablets by mouth at once on day 1, then 1 tablet once a day on days 2-5. Take with a meal. busPIRone (Buspar) 10 mg tablet 1 tablet, Every 12 hours scheduled (0630,1830) lamoTRIgine (LaMICtal) 100 mg tablet 1 tablet, Daily RT nystatin (Mycostatin) 100,000 unit/mL suspension 4-6 milliliter(s) orally 4 times a day (after eating) x7-14 days. swish in the mouth and retain for as long as possible (several minutes) before swallowing. PAST MEDICAL HX: Is currently 8 months . Has history of bipolar disorder and anxiety/depression. SURGICAL HX: History reviewed. No pertinent surgical history. FAMILY HX: No pertinent history. SOCIAL HX: reports that she has never smoked. She has never used smokeless tobacco. CHIEF COMPLAINT: Chief Complaint Patient presents with Thrush Thrush, white tongue x 6 days 8 months HISTORY OF PRESENT ILLNESS: The history was obtained from patient. Navya is a 29 y.o. female, who presents with a chief complaint of possible thrush- reports she started to develop white patches onher tongue yesterday, and they seem to be getting a little worse since onset. Reports her tongue mckeon but has been able to eat/drink normally. She recently tested positive for RSV, and reports her symptoms have worsened - has a harsh, junky cough and feels like her chest is very congested. Denies any wheezing/shortness of breath. No fevers, sore throat/difficulty swallowing, headaches, nausea/vomiting, constipation/diarrhea, changes in urinary status or frequency, or other symptoms. Has beengargling salt water without much relief; no other OTC medications or conservative measures have been tried. She denies any recent antibiotic or steroid use. Is not a smoker. REVIEW OF SYSTEMS: 10 systems reviewed negative with exception of history of present illness as listed above. TODAY'S VITALS: BP 114/73 Pulse 101 Temp 36.7 C (98.1 F) Resp 18 Ht 1.562 m (5' 1.5) Wt 83.9 kg (185 lb) SpO2 96% BMI 34.39 kg/m PHYSICAL EXAMINATION: General: Mildly ill-appearing, well nourished female; alert and oriented; in no acute distress. Sitting comfortably on exam chair. Non-dyspneic. Eyes: Pupils equal, round and reactive to light. No conjunctival erythema; no scleral icterus. HENT: No frontal or maxillary sinus tenderness; + audible nasal congestion. Airway patent, TMs and ear canals clear/unremarkable bilaterally. Nasal mucosa mildly injected and edematous. Oral mucosa moist- Creamy-white, adherent raised patches (on a mildly erythematous base) noted to dorsal tongue -lesions mildly tender to palpation. Buccal mucosa and posterior pharynx unremarkable. Lips/perioralarea unremarkable. Uvula is midline. Managing oral secretions without difficulty. Neck: Supple. Mildly tender, mobile anterior cervical lymphadenopathy bilat. Trachea is midline. Respiratory: Respirations easy and unlabored, Breath sounds equal. Lungs with few scattered rhonchi; no wheezing or rales. Has good air movement throughout. + harsh, junky but non-productive cough noted. Non-dyspneic with ambulation; able to maintain SpO2. Cardiovascular: Normal rate, Regular rhythm. Normal S1S2. No m/r/g. No peripheral edema. Gastrointestinal: Soft, non-tender; abdomen gravid. Bowel sounds normoactive. Musculoskeletal: Grossly normal; appropriate for age. Integumentary: [place], warm, dry, and intact. No rashes or skin discoloration appreciated. Good skin turgor. Neurologic: Alert and oriented, no gross deficits. Cognition and Speech: Oriented, Speech clear and coherent. Psychiatric: Cooperative, Appropriate mood & affect. Medical Decision Making LABORATORY or RADIOLOGICAL IMAGING ORDERS/RESULTS: None IMPRESSION/PLAN: Course: Worsening; stable 1. Oral thrush (Primary) 2. Acute bronchitis, unspecified organism - nystatin (Mycostatin) 100,000 unit/mL suspension; 4-6 milliliter(s) orally 4 times a day (after eating) x7-14 days. swish in the mouth and retain for as long as possible (several minutes) before swallowing. Dispense: 336 mL; Refill: 0 - azithromycin (Zithromax Z-Te) 250 mg tablet; Take 2 tablets by mouth at once on day 1, then 1 tablet once a day on days 2-5. Take with a meal. Dispense: 6 tablet; Refill: 0 Sxs consistent with oral thrush, as well as acute bronchitis related to RSV, although concern for early pneumonia based on today's exam. Will start oral Nystatin and Zithromax today, and advised should complete full course of medications, for full resolution of infections. Discussed instructions for medication, possible adverse reactions of treatment, as well as s/sxs of worsening problem (fever,decreased energy level or lethargy, decreased appetite/increased pain, worsening patches in mouth, etc), increased wheezing/shortness of breath, persistent fevers, etc, and encouraged to seek care for any problems. Reviewed strategies to help with prevention/resolution of thrush, including sterilizing toothbrush, maintaining good oral hygiene, and following healthy diet. Should follow up with PCPif worsening or if no improvement despite treatment, and also encouraged to follow up with OBGYN to discuss today's visit and for a recheck in 2-3 days, or sooner for problems. Patient stated understanding and agreed with plan of care. ROSELINE Pham Advanced Practice Provider [facility] Work Phone: [phone]) 550-719402-10-2025 Telephone encounter Note* Telephone Encounter - Rani Scott RN - 12/03/2024 4:39 PM EST Patient notified. Appointment given. Rani Scott RN [facility]02-10-2025 Miscellaneous Notes* Telephone Encounter - Rani Scott RN - 12/03/2024 4:39 PM EST Patient notified. Appointment given. Rani Scott RN * Telephone Encounter - Sarah Hinton MD - 12/03/2024 4:30 PM EST This week or next. Recommend waiting to come in until fever free for 24 hours and symptoms improving. If she comes in this week recommend wearing a mask and having visit at end of day if possible * Telephone Encounter - Rani Scott RN - 12/03/2024 2:24 PM EST 33w2d Patient called the office from the hospital parking lot after being discharged asking when does sheneed to f/u in the office. +RSV. Patient was on the schedule today originally. Rani Scott RN [facility] Telephone encounter Note * Telephone Encounter - Sarah Hinton MD - 12/03/2024 4:30 PM EST This week or next. Recommend waiting to come in until fever free for 24 hours and symptoms improving. If she comes in this week recommend wearing a mask and having visit at end of day if possible [facility] Work Phone: 1([phone]) 780-180702-10-2025 Telephone encounter Note* Telephone Encounter - Rani Scott RN - 12/03/2024 2:24 PM EST 33w2d Patient called the office from the hospital parking lot after being discharged asking when does sheneed to f/u in the office. +RSV. Patient was on the schedule today originally. Rani Scott RN [facility]02-10-2025 Evaluation note* Diagnosis Onset Date Resolution Status Admit Date 33 weeks gestation of acute December 03 6:58am Lower abdominal tenderness acute December 03, 2024 6:58am No leakage of amniotic fluid into vagina acute December 03 025 6:58am RSV (respiratory syncytial virus infection) acute December 03, 2024 6:58am 35 weeks gestation of acute December 19 7:05pm Lower abdominal tenderness acute December 19, 2024 7:05pm Pelvic pressure in acute December 19, 2024 7:05pm Vision changes acute December 25, 2024 5:25pm 39 weeks gestation of acute January 13, 2025 4:12pm Anxiety acute January 13 4:12pm Elective induction of labor planned acute January 13, 2025 4:12pm (spontaneous vaginal delivery) acute January 13, 2025 4:12pm Depression chronic January 13 4:12pm [facility] Work Phone: 1(626) 598-543701-30-2025 History of Present illness Narrative* Berna Gorman LGC - 11/22/2024 2:00 PM ESTSummary: Additional Finding on NIPS - Klinefelter Syndrome REPRODUCTIVE GENETIC COUNSELING INITIAL VISIT Navya Mcnulty : 1995 Above identifiers confirmed by Berna Gorman MS, [facility] Consultation requested by: Giovanni Khan APRN, CNP Date of clinic visit: November 22, 2024 Cloud Solutions Architect offered/present: No Ms. Mcnulty is seen via a virtual Distance Health visit today via [employer] platform per patient choice. The visit is conducted synchronously in real-time. I have communicated my name and active licensure. The patient's identity and physical location were verified at the time of this visit. Either the patient or their legal shipping services sales representative has been informed of the risks and benefits of -- and alternatives to -- treatment through a remote evaluation and consents to proceed with the evaluationremotely. PRESENTING PROBLEM: Navya Mcnulty is a 29 year old female referred by Giovanni Khan APRN, CNP for genetic counseling to discuss her additional finding on her noninvasive screen, consistent with Klinefelter syndrome (47,XXY). She was accompanied to the visit today by her mother. REPRODUCTIVE HISTORY: Currently : Yes / 31w5d (by US) SASCHA: 01/19/2025 history: 04/2014: 37 weeks, vaginal delivery, female, 6 pounds 9.3 ounces.This was with a different partner. Her daughter is 61-bdsuw-dlp with anxiety. She is otherwise in good health. 2. Current . Ms. Navya Mcnulty's Carrier Screen Results: Not performed, ordered standard panel today. 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 - Maternal infections or fevers: No - Other known/suspected human teratogens: No Aneuploidy screening: Additional finding detected. - Noninvasive screening is consistent with Klinefelter syndrome (47,XXY). The result for trisomies 13, 18 and 21 was negative. sex is consistent with male. Ultrasounds: - Dating scan at 7w2d gestation by LMP (performed 06/27/2025): 10w4d by scan. New SASCHA of 01/19/2025 established. - First trimester anatomy scan at 12w4d gestation by US (performed 07/11/2024). 12w6d by scan. Crownrump length measurement is consistent with the established gestational age. No malformations visualized on first trimester anatomic assessment. The nuchal translucency measurement is 1.5 mm. - Anatomy scan at 20w6d (performed 09/07/2025): 20w3d by scan. biometry is consistent with the established gestational age. No malformations were visualized on a complete standard anatomic survey. - growth scan at 24w6d (performed 10/05/2024): 24w5d by scan. The biometry is consistent with the assigned gestational dating. The EFW is 796 g, at the 61%. AC is at the 82%. CVS: Not Applicable Amniocentesis: Discussed today and declined. complications: - Maternal diabetes, hypertension, seizures, other illness: No - Vaginal bleeding, labor, other complications: No - Decreased movement: Unknown SIGNIFICANT PAST MEDICAL/SURGICAL HISTORIES: Ms. Mcnulty has a personal medical history of anxiety, depression, bipolar 2 disorder and according to her medical record, a history of cellulitis, hyperprolactinemia (2012) and trichonosis (2019). Her surgical history is notable for a left elbow surgery in 2017 and according to her medical record, removal of a right knee abscess. During today's visit, Ms. Mcnulty states that she is not aware of being diagnosed with cellulitis nor having surgery on her knee. She states that she is concerned about the status of her mental health following . She reportsthat after her daughter's she did bad things (ie: meth) and she does not want to find herself in a similar situation. She states that she has been speaking with her providers regarding this and has recently been given a prescription of what she thinks is Buspar to add to the Lamictal that she is already taking. She also states that she is in counseling and has a psychiatrist. FAMILY HISTORY: A 3-generation pedigree was obtained for the patient and her partner and will be scanned into patient's EMR. Of note: - Genetic and/or Inherited Disease: None - Common Disorders: Mother with anxiety, depression and osteoarthritis, maternal half-brother with history of possible blood clots, half-nephew with autism and aggression and half-niece with bipolar 2 disorder, dyslexia and vertigo. Father at 65 years from a myocardial infarction. - Defects: None - Seizures: None - Recurrent Loss/Infertility: None - MR/DD/Autism: Half-nephew as noted above. - : None - Other:None Ms. Mcnulty's partner, Mr. Samuel Collado, is 41 years old, with a degenerative disc disorder.He has a son and daughter from two prior relationships. He reportedly has no contact with his son; his daughter is in good health. His family history is notable for his father from a self-inflicted injury. - Patient's ethnicity: Setswana, Eritrean - Partner's ethnicity: White - Patient and/or partner did not report -Bruneian, , Mediterranean, Ashkenazi Restorationism and/or Polish-Ugandan/Cajun ancestries unless noted above. - Patient and partner are NOT consanguineous The remainder of the known family history is negative for infertility, recurrent loss, stillbirth, unexplained , defects, malformation syndromes, chromosomal abnormalities, metabolic disorders, developmental delay, intellectual disability, known or suspected genetic disea ses, and consanguinity except as noted above and on the formal pedigree. GENETIC COUNSELING/DISCUSSION: Ms. Mcnulty is referred for genetic counseling secondary to an additional finding detected on her noninvasive screen, consistent with Klinefelter syndrome (47, XXY). KLINEFELTER SYNDROME (XXY) I discussed that the risk for chromosome abnormalities increases with maternal age. I reviewed the specific features of common chromosome abnormalities, including Down syndrome (trisomy 21), trisomy 18 and trisomy 13 and sex chromosome aneuploidy. Ms. Mcnulty's age-related chance to have a baby with a chromosome abnormality at is 1:385 (0.3%). I reviewed the benefits and limitations of screening and diagnostic tests. Screening tests can provide a risk assessment specific to the for certain chromosome abnormalities, but cannot definitively diagnose or exclude a chromosome abnormality. Follow-up genetic counseling and consideration of diagnostic testing is recommended with any abnormal screening test results. Diagnostic testing can be associated with the risk of miscarriage; however, these tests can detect chromosome abnormalities with greater than 99% certainty. It is important to note that there is no screening or diagnostic testing that can detect all forms of defects or intellectual disability. Ms. Mcnulty had noninvasive screening (NIPS) through [employer]. Cell free DNA (cfDNA) otherwise known as noninvasive screening (NIPS) involves measurement of cell free DNA, which is both maternal and placental/ origin. This testing screens for trisomy 21, trisomy 13 and 18, as well as sex chromosome aneuploidy. While this test is thought to be highly specific/sensitive with respect to screening for trisomy 21, it is a screening test and false positives and false negatives do occur. Ms. Mcnutly's test result indicated an increased representation of chromosome X, suggestive of Klinefelter syndrome (XXY) in the presence of a male fetus. fraction was r eported to be 22%. I reviewed that this result does not mean that the baby has Klinefelter syndrome. When reviewing a screening test, it is important to determine the positive predicted value (PPV) and negative predictive value (NPV) of the test. The PPV of a screening test is highly dependent on the prevalence of the condition being studied. A PPV for XXY or Klinefelter syndrome is not reported on the result but previous discussion with the lab suggests a PPV of >75%. 47, XXY or Klinefelter syndrome is a type of sex chromosome aneuploidy, in which a male receives anadditional X-chromosome through the process of nondisjunction. Approximately 1:500-1:660 males are affected with Klinefelter syndrome, with most (65%) remaining undiagnosed during their lifetime. Theclinical characteristics of Klinefelter syndrome can vary greatly with most individuals showing some but not all symptoms. Clinical findings can include speech delay, hypotonia (low muscle tone), developmental delays, and tall stature. Incomplete pubertal development resulting in small testes, hypogonadism and infertility has been reported. Cognitive abilities may be reduced and associated with learning disabilities, mild autism spectrum disorders, ADHD and immaturity/delayed social developmentwith intellectual disability being rare. I discussed that individuals with Klinefelter syndrome do not exhibit facial dysmorphism and do nottypically have structural malformations above the general population risk. As the phenotype can vary wildly and range from near normal to more significantly affected, many males with Klinefelter syndrome remain undiagnosed. I reviewed that diagnostic testing through an amniocentesis would be the only way to determine if the baby has Klinefelter syndrome during the . Amniocentesis is an invasive procedure typically performed at 16 weeks or later, for which amniotic fluid is obtained for the purpose of chromosome analysis, microarray or other genetic conditions. The risk of loss/ delivery associated with amniocentesis is generally estimated to be 0.5-1% in the third trimester. Ms. Mcnulty declined diagnostic testing today. She indicated that she would prefer cord blood collection at for a chromosome analysis. Resources to include the [facility] at the [facility] as well as written resources from [employer] (The Association for X and Y Chromosome Variations) will be sent to Ms. Mcnultyto review via [employer]. CARRIER SCREENING Discussed the options of carrier screening for ACOG recommended conditions, expanded carrier screening for 267 conditions, or more comprehensive carrier screening through a 500+ gene panel, which is recommended for consanguineous couples and couples with a family history of specific conditions, butmay be considered for information-seeking couples. Reviewed autosomal recessive and X- linked inheritance as well as the benefits, risks, and limitations of the screening. Discussed the associated costs and turn around times. Discussed the option of stepwise versus concurrent screening. Ms. Mcnultyopted for the standard carrier screen through [employer]. An order was placed today and results will be communicated via [employer]. SUGGESTIONS/PLAN: 1) Navya Mcnulty is a 29 year old female referred by Giovanni Khan APRN, ROOM SERVICE FOOD SERVICE ATTENDANT for genetic counseling to discuss her additional finding on her noninvasive screen, consistent with Klinefelter syndrome (47,XXY). 2) Screening nature of NIPS was reviewed. PPV is approximately 75-80%. 3) Clinical features and genetics of Klinefelter was reviewed. 4) Amniocentesis was declined. 5) Recommend cord blood collection at with chromosome analysis (karyotype). Please page Medical Genetics for consultation when baby is born. 6) Information on Klinefelter syndrome will be sent via [employer]. 7) Standard carrier screening panel ordered today with results communicated by [employer]. Thank you for allowing me to participate in Ms. Mcnulty's care. Please feel free to contact me if either you or the family has questions, or concerns. The patient was seen for a total of 45 minutes, greater than 50% of which was spent dtbb-no-hkva counseling. This plan is being carried out under the oversight of Dr. Francine Ricardo. This note will also be sent to the referring provider via the electronic medical record. Berna Gorman MS, [facility] Licensed, Certified Genetic Counselor MATERIAL PROVIDED TO FAMILY: [email or web address] SUPPORT GROUP INFORMATION GIVEN TO FAMILY: AXYS: The Association for X and Y Chromosome Variations: [email or web address].org EPIC CC: Giovanni Khan APRN, ROOM SERVICE FOOD SERVICE ATTENDANT Referring Physician Dr. Rani Parkinson, OB Dr. Francine Ricardo (Medical Office Clerk) documented in [facility] NoteHNO ID: [id number] Author: BERNA GORMAN LGC Service: ? Author Type: Genetic Counselor Type: Progress Notes Filed: 11/30/2024 13:29 Note Text: Summary: Additional Finding on NIPS - Klinefelter Syndrome REPRODUCTIVE GENETIC COUNSELING INITIAL VISIT Navya Mcnulty : 1995 Above identifiers confirmed by Berna Gorman MS, [facility] Consultation requested by: Giovanni Khan APRN, CHANTAL Date of clinic visit: November 22, 2024 Cloud Solutions Architect offered/present: No Ms. Mcnulty is seen via a virtual Distance Health visit today via [employer] platform per patient choice. The visit is conducted synchronously in real-time. I have communicated my name and active licensure. The patient's identity and physical location were verified at the time of this visit. Either the patient or their legal shipping services sales representative has been informed of the risks and benefits of -- and alternatives to -- treatment through a remote evaluation and consents to proceed with the evaluation remotely. PRESENTING PROBLEM: Navya Mcnulty is a 29 year old female referred by Giovanni Khan APRN, CHANTAL for genetic counseling to discuss her additional finding on her noninvasive screen, consistent with Klinefelter syndrome (47,XXY). She was accompanied to the visit today by her mother. REPRODUCTIVE HISTORY: Currently : Yes / 5d (by US) SASCHA: 01/19/2025 history: 04/2014: 37 weeks, vaginal delivery, female, 6 pounds 9.3 ounces.This was with a different partner. Her daughter is 25-[id number]-fym with anxiety. She is otherwise in good health. 2. Current . Ms. Navya Mcnulty's Carrier Screen Results: Not performed, ordered standard panel today. 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 - Maternal infections or fevers: No - Other known/suspected human teratogens: No Aneuploidy screening: Additional finding detected. - Noninvasive screening is consistent with Klinefelter syndrome (47,XXY). The result for trisomies 13, 18 and 21 was negative. sex is consistent with male. Ultrasounds: - Dating scan at 7w2d gestation by LMP (performed 06/27/2025): 10w4d by scan. New SASCHA of 01/19/2025 established. - First trimester anatomy scan at 12w4d gestation by US (performed 07/11/2024). 12w6d by scan. Ciales rump length measurement is consistent with the established gestational age. No malformations visualized on first trimester anatomic assessment. The nuchal translucency measurement is 1.5 mm. - Anatomy scan at 20w6d (performed 09/07/2025): 20w3d by scan. biometry is consistent with the established gestational age. No malformations were visualized on a complete standard anatomic survey. - growth scan at 24w6d (performed 10/05/2024): 24w5d by scan. The biometry is consistent with the assigned gestational dating. The EFW is 796 g, at the 61%. AC is at the 82%. CVS: Not Applicable Amniocentesis: Discussed today and declined. complications: - Maternal diabetes, hypertension, seizures, other illness: No - Vaginal bleeding, labor, other complications: No - Decreased movement: Unknown SIGNIFICANT PAST MEDICAL/SURGICAL HISTORIES: Ms. Mcnulty has a personal medical history of anxiety, depression, bipolar 2 disorder and according to her medical record, a history of cellulitis, hyperprolactinemia (2012) and trichonosis (2019). Her surgical history is notable for a left elbow surgery in 2017 and according to her medical record, removal of a right knee abscess. During today's visit, Ms. Mcnulty states that she is not aware of being diagnosed with cellulitis nor having surgery on her knee. She states that she is concerned about the status of her mental health following . She reports that after her daughter's she did bad things (ie: meth) and she does not want to find herself in a similar situation. She states that she has been speaking with her providers regarding this and has recently been given a prescription of what she thinks is Buspar to add to the Lamictal that she is already taking. She also states that she is in counseling and has a psychiatrist. FAMILY HISTORY: A 3-generation pedigree was obtained for the patient and her partner and will be scanned into patient's EMR. Of note: - Genetic and/or Inherited Disease: None - Common Disorders: Mother with anxiety, depression and osteoarthritis, maternal half-brother with history of possible blood clots (more content not included)... [facility]01-27-2025 Progress note* Quick Notes - Giovanni Khan APRN.[facility] - 11/19/2024 8:44 AM EST EH - S: Navya is a 29 year old female who presents at 31w2d for a routine visit. Feeling movement. Denies headache, visual changes, chest pain, shortness of breath, vaginal bleeding, leakage offluid, or dysuria. Feeling well, no complaints. O: See flow sheet Gen: No apparent distress Abd: Gravid, nontender, S=D ASSESSMENT/PLAN: 1. Supervision of high risk in third trimester - ICD9: V23.9, ICD10: O09.93 (primary diagnosis) - Continue LDA and PNV 2. 31 weeks gestation of - ICD9: V22.2, ICD10: Z3A.31 - 28 week labs reviewed 3. Bipolar 2 disorder (HCC) - ICD9: 296.89, ICD10: F31.81 - Managed by counseling center in [place] 4. Vaping nicotine dependence, tobacco product - ICD9: 305.1, ICD10: F17.290 - Encouraged cessation - Trying to decrease - Written risks provided 5. Abnormal genetic test during - ICD9: 796.5, ICD10: O28.5 - Klinefelter on NIPT - Opts for genetics consult after discussion - Opts for cord blood karotype PTL precautions and kick counts reviewed. RTO in 2 weeks or sooner as needed. Giovanni Khan APRN.CNP [facility]01-27-2025 Miscellaneous Notes* Quick Notes - Giovanni Khan APRN.CNP - 11/19/2024 8:44 AM EST EH - S: Navya is a 29 year old female who presents at 31w2d for a routine visit. Feeling movement. Denies headache, visual changes, chest pain, shortness of breath, vaginal bleeding, leakage offluid, or dysuria. Feeling well, no complaints. O: See flow sheet Gen: No apparent distress Abd: Gravid, nontender, S=D ASSESSMENT/PLAN: 1. Supervision of high risk in third trimester - ICD9: V23.9, ICD10: O09.93 (primary diagnosis) - Continue LDA and PNV 2. 31 weeks gestation of - ICD9: V22.2, ICD10: Z3A.31 - 28 week labs reviewed 3. Bipolar 2 disorder (HCC) - ICD9: 296.89, ICD10: F31.81 - Managed by counseling center in [place] 4. Vaping nicotine dependence, tobacco product - ICD9: 305.1, ICD10: F17.290 - Encouraged cessation - Trying to decrease - Written risks provided 5. Abnormal genetic test during - ICD9: 796.5, ICD10: O28.5 - Klinefelter on NIPT - Opts for genetics consult after discussion - Opts for cord blood karotype PTL precautions and kick counts reviewed. RTO in 2 weeks or sooner as needed. Giovanni Khan APRN.CNP documented in this encounterOhio[facility] Hospital01-27-2025 Instructions* Patient Instructions* Giovanni Khan APRN.CNP - 11/19/2024 8:39 AM EST How SMOKING Affects Your and Your Baby During Smoking during affects you and your baby's health before, during and after your baby is born. The nicotine (the addictive substance in cigarettes), carbon monoxide and numerous other poisons you inhale from a cigarette are carried through your bloodstream and go directly to your baby. Smoking while will: Lower the amount of oxygen available to you and your growing baby Increase your baby's heart rate Increase the chances of miscarriage and stillbirth Increase the risk that your baby is born prematurely and/or born with low weight Increase your baby's risk of developing respiratory problems The more cigarettes you smoke per day, the greater your baby's chances of developing these and other health problems. There is no safe level of smoking for your baby's health. How does secondhand smoke affect me and my baby? Second-hand smoke (also called passive smoke or environmental tobacco smoke) is the combination of smoke from a burning cigarette and smoke exhaled by a smoker. The smoke that mckeon off the end of a cigarette or cigar contains more harmful substances ( tar, carbon monoxide, nicotine and others) than the smoke inhaled by the smoker. If you are regularly exposed to second-hand smoke, you increase your and your baby's risk of developing lung cancer, heart disease, emphysema, allergies, asthma and other health problems. Babies exposed to second-hand smoke may also develop reduced lung capacity and are at higher risk for sudden syndrome (SIDS). What happens if I keep smoking after my baby is born? If you continue to smoke after your baby is born, you increase his or her chance of developing certain illnesses and problems, such as: Frequent colds Bronchitis and pneumonia Asthma Chronic coughs Ear infections High blood pressure Learning and behavior problems later in childhood Why should I quit smoking? Smoking is the leading cause of preventable in the [place] By quitting you can: Prolong your life Lower your risk of heart disease Lower your risk of developing lung, throat, mouth, pancreatic and bladder cancer Lower your risk of developing breathing problems such as chronic obstructive pulmonary disease (COPD), asthma and emphysema Lower your risk of developing allergies Raise your energy level Improve your appearance; your skin will wrinkle less and look better, and your fingers and teeth will not be yellow Improve your sense of smell and taste Feel healthier overall, with improved self-esteem Save a lot of money (the average smoker spends $740 a year for cigarettes!) How can I quit smoking? There is no one way to quit smoking that works for everyone, since each person has different smoking habits. Here are some tips: Hide your matches, lighters, and ashtrays. Take a deep breath and hold it for five to ten seconds whenever you get the urge to smoke. Designate your home a non-smoking area. Ask people who smoke not to smoke around you. Drink less caffeinated beverages; caffeine may stimulate your urge to smoke. Also avoid alcohol, asit also may increase your urge to smoke and can be harmful to your baby. Change your habits connected with smoking. If you smoked while driving or when feeling stressed, try other activities to replace smoking. Keep mints or gum (preferably sugarless) on hand for those times when you get the urge to smoke. Stay active to keep your mind off smoking and help relieve tension: take a walk, exercise, read a book or try a new a hobby. Look for support from others. Join a support group or smoking cessation program, such as the [facility] Smoking Cessation Program. For more information, please call . Do not go places where many people are smoking such as bars or clubs, and smoking sections of restaurants. Should I use a nicotine replacement to help me quit? Nicotine gum and patches release nicotine into the bloodstream of the smoker who is trying to quit.Although these products can reduce withdrawal symptoms and decrease cravings in smokers who are trying to quit, nicotine is quite toxic and potentially harmful to the fetus (as well as to the infant who is ). Therefore, these and any other products containing nicotine are not always ecommended for the woman who is trying to quit smoking. They may be prescribed in indivdual cases. How will I feel when I quit? The benefits of not smoking start within days of quitting. After you quit, you and your baby's heart beat will return to normal, and your baby will be less likely to develop breathing problems. You may have symptoms of withdrawal because your body is used to nicotine, the addictive substance in cigarettes. You may crave cigarettes, be irritable, feel very hungry, cough often, get headaches or have difficulty concentrating. The withdrawal symptoms are only temporary. They are strongest when you first quit but will go awaywithin 10 to 14 days. When withdrawal symptoms occur, stay in control. Think about your reasons forquitting. Remind yourself that these are signs that your body is healing and getting used to being without cigarettes. Remember that withdrawal symptoms are easier to treat than the major diseases that smoking can cause. Even after the withdrawal is over, expect periodic urges to smoke. However, these cravings are generally short-lived and will go away whether you smoke or not. Don't Smoke! If you smoke again (called a relapse) do not lose hope. Seventy-five percent of those who quit relapse. Most smokers quit three times before they are successful. If you relapse, don't give up! Plan ahead and think about what you will do next time you get the urge to smoke. (This information is provided by the [facility] and is not intended to replace the medical advice of your doctor or health care provider. Please consult your health care provider for advice about a specific medical condition. For additional written health information, please call the Cancer Answer Line at [facility] Tuesday - Tuesday 8-4:30 for assistance: [phone]. Or [email or web address]/) SEQUENTIAL SCREENINGS The [facility] offers sequential screenings for women who are interested in screenings for chromosomal abnormalities and certain defects during a . The sequential screen combinesultrasound and blood tests to determine the risk of chromosomal abnormalities, including Down's Syndrome (Trisomy 21) and Trisomy 18, as well as open neural tube defects including spina bifida. Ultrasound examination is performed between 11 weeks and 13 weeks gestational age. Blood tests are drawn after the ultrasound and again later in the between 15 and 21 weeks gestational age. Please let your physician know if you are interested in this testing. It will require an appointment withour surgical instrument technician. This is not an ultrasound performed by a physician in our office during a routine visit. SIGNS AND SYMPTOMS OF LABOR 1. Contractions every 10 minutes or more often 2. Clear, pink, or brownish fluid (water) leaking from vagina 3. Feeling that baby is pushing down, pressure 4. Low, dull backache 5. Cramps that feel like a period 6. Cramps with or without diarrhea If you notice any of the above symptoms, contact our office at [phone] and ask to speak with anurse. After hours, you can call doctors registry at [phone] OR call [facility] at [phone] ask to have the doctor crayon molding machine operator paged. If you consider this an emergency, dial 9--1 or go to your nearest emergency department. NEED HELP? Are you dealing with a violent or abusive relationship? Are you a victim of rape or sexual assult? Call [facility] ([place]) 24 hour Crisis Hotline: 121.893.6468 or 094-575-7838. MANUAL Your Guide to a Healthy manual is now on-line. Visit [email or web address] to download your free copy documented in this encounterOhiohealth Shelby Hospital01-20-2025 Telephone encounter Note * Telephone Encounter - Sarah Hinton MD - 11/12/2024 2:36 PM EST Sorry I am just seeing this and it looks like genetics talked to patient on phone already about results and plan of care thanks [facility] Work Phone: 1(646) 958-436901-20-2025 Miscellaneous Notes* Telephone Encounter - Sarah Hinton MD - 11/12/2024 2:36 PM EST Sorry I am just seeing this and it looks like genetics talked to patient on phone already about results and plan of care thanks * Telephone Encounter - Karin Flanagan RN - 11/12/2024 11:23 AM EST Patient called into office tearful on the phone because she saw NIPT result on mychart. Advised genetic counselor will be in contact with her regarding results. Were you planning to contact her too? I'm not sure how long it takes genetics to reach out typically. Karin Flanagan RN * Telephone Encounter - Rani Scott RN - 11/12/2024 8:27 AM EST Please review. Would you like patient seen in office today to discuss or would you like to call her? Rani Scott RN * Telephone Encounter - Rani Scott RN - 11/12/2024 8:26 AM EST ----- Message from Rani Parkinson MD sent at 11/09/2024 5:21 PM EST ----- Abnormal [id number]. I'm not sure how this was ordered and collected at 29 weeks but patient has noscheduled appointments. She needs to be seen to discuss theses results documented in this encounterOhiohealth Shelby Hospital01-20-2025 Telephone encounter Note * Telephone Encounter - Azael Lopez LGC - 11/12/2024 1:03 PM EST Called Navya Mcnulty and we reviewed her SCREEN POSITIVE CFDNA SCREEN FOR KLINEFELTER SYNDROME XXY. Reviewed the clinical features of this condition and the screening nature of cfDNA. Reviewed that the remainder of her cfDNA screen is low risk. Ms. Mcnulty was quite upset when we were talking. She calmed down as we discussed. Offered diagnosis via amniocentesis versus cord blood karyotype. Reviewed recommendation for diagnostic testing. She wishes for the latter after discussion of risks, benefits, limitations and timing. Also recommended a genetic counseling consultation. Ms. Mcnulty wishes to hold off on this for now. Offered to send her some follow-up information via [employer]. She will respond to my [employer] message if she wishes to schedule. Plan agreed upon. SIERRA Davison [facility] Work Phone: [phone] Miscellaneous Notes* Telephone Encounter - Azael Lopez LGC - 11/12/2024 1:03 PM EST Called Navya Mcnulty and we reviewed her SCREEN POSITIVE CFDNA SCREEN FOR KLINEFELTER SYNDROME XXY. Reviewed the clinical features of this condition and the screening nature of cfDNA. Reviewed that the remainder of her cfDNA screen is low risk. Ms. Mcnulty was quite upset when we were talking. She calmed down as we discussed. Offered diagnosis via amniocentesis versus cord blood karyotype. Reviewed recommendation for diagnostic testing. She wishes for the latter after discussion of risks, benefits, limitations and timing. Also recommended a genetic counseling consultation. Ms. Mcnulty wishes to hold off on this for now. Offered to send her some follow-up information via [employer]. She will respond to my [employer] message if she wishes to schedule. Plan agreed upon. SIERRA Davison documented in this encounterOhiohealth Shelby Hospital01-20-2025 Telephone encounter Note * Telephone Encounter - Karin Flanagan RN - 11/12/2024 11:23 AM EST Patient called into office tearful on the phone because she saw NIPT result on [employer]. Advised genetic counselor will be in contact with her regarding results. Were you planning to contact her too? I'm not sure how long it takes genetics to reach out typically. Karin Flanagan RN [facility]01-20-2025 Telephone encounter Note* Telephone Encounter - Rani Scott RN - 11/12/2024 8:27 AM EST Please review. Would you like patient seen in office today to discuss or would you like to call her? Rani Scott RN [facility]01-20-2025 Telephone encounter Note* Telephone Encounter - Rani Scott RN - 11/12/2024 8:26 AM EST ----- Message from Rani Parkinson MD sent at 11/09/2024 5:21 PM EST ----- Abnormal [id number]. I'm not sure how this was ordered and collected at 29 weeks but patient has noscheduled appointments. She needs to be seen to discuss theses results [facility]01-10-2025 Instructions* Patient Instructions* Vandana Edwards APRN.CNM - 11/02/2024 10:38 AM EST Vasectomy is a simple, safe operation that involves interrupting the tubes call the vas deferens that transport sperm. Vasectomy is a one-time procedure that provides permanent sterilization. The procedure is performed in the office under a local anesthetic. Most men are recovered within a few daysof the procedure. To schedule a consultation call [phone] or to learn more about vasectomy, visit [email or web address] documented in this encounterOhiohealth Shelby Hospital01-10-2025 Progress note* Quick Notes - Vandana Edwards APRN.CNM - 11/02/2024 10:29 AM EST S: Navya Mcnulty is a 29 year old female who presents at 28 weeks for a routine visit. Positive movements. Feels like mood is stable. I am maxed out on my mood stabilizer. Stated taking Lamictal 300 mg PO daily. Continues to be managed by the Counseling center in [place]. Stated they will not go up any more on dosage. Patient reports feeling stable for the most part. Continues to vape and cannot even try decreasing. Completed 1 hour GCT today. O: See flow sheet Gen: No apparent distress Abd: Gravid, nontender ASSESSMENT/PLAN: 1. 28 weeks gestation of - ICD9: V22.2, ICD10: Z3A.28 (primary diagnosis) 2. Need for vaccination - ICD9: V05.9, ICD10: Z23 3. Supervision of high risk in third trimester - ICD9: V23.9, ICD10: O09.93 4. Bipolar 2 disorder (HCC) - ICD9: 296.89, ICD10: F31.81 5. Vaping nicotine - Continue Lamictal 300 mg PO DAILY - Cessation discussed but patient declines - 1 hour GCT, CBC, and RPR today - Rh positive- O+ - TDAP today - LARC form reviewed and signed. 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 Patient desires unmedicated - PTL precautions and kick counts reviewed - RTO- 2 weeks or sooner if needed Vandana Edwards APRN.CNM P: 1) PTL precautions reviewed and when to call 2) RTO [facility]01-10-2025 Miscellaneous Notes* Quick Notes - Vandana Edwards APRN.CNM - 11/02/2024 10:29 AM EST S: Navya Mcnulty is a 29 year old female who presents at 28 weeks for a routine visit. Positive movements. Feels like mood is stable. I am maxed out on my mood stabilizer. Stated taking Lamictal 300 mg PO daily. Continues to be managed by the Counseling center in [place]. Stated they will not go up any more on dosage. Patient reports feeling stable for the most part. Continues to vape and cannot even try decreasing. Completed 1 hour GCT today. O: See flow sheet Gen: No apparent distress Abd: Gravid, nontender ASSESSMENT/PLAN: 1. 28 weeks gestation of - ICD9: V22.2, ICD10: Z3A.28 (primary diagnosis) 2. Need for vaccination - ICD9: V05.9, ICD10: Z23 3. Supervision of high risk in third trimester - ICD9: V23.9, ICD10: O09.93 4. Bipolar 2 disorder (HCC) - ICD9: 296.89, ICD10: F31.81 5. Vaping nicotine - Continue Lamictal 300 mg PO DAILY - Cessation discussed but patient declines - 1 hour GCT, CBC, and RPR today - Rh positive- O+ - TDAP today - LARC form reviewed and signed. 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 Patient desires unmedicated - PTL precautions and kick counts reviewed - RTO- 2 weeks or sooner if needed Vandana Edwards APRN.CNM P: 1) PTL precautions reviewed and when to call 2) RTO documented in this encounterOhiohealth Shelby Hospital01-10-2025 NoteHNO ID: [id number] Author: LINDA VARNER MA Service: ? Author Type: Human Resources Specialist Type: Progress Notes Filed: 11/02/2024 11:10 Note Text: Patient identified by name and date of . Navya Mcnulty presents today for a vaccination of Tdap. Patient denies an allergy to latex: yes Patient denies a severe (life-threatening) allergy to a previous dose of Tdap, DTP, DTaP, DT or Td vaccine. Yes Patient denies history of epilepsy or neurological problems: Yes Patient is afebrile and denies being moderately or severely ill: Yes Patient denies history of Guillain-[place] Syndrome (a severe paralytic illness): Yes Tdap Adacel injection was given without incident. See immunizations for details of immunizations administered today. VIS sheet provided: Yes Provider Vandana Edwards APRN, CNM was present in office at time of injection. Linda Varner [facility]01-10-2025 History of Present illness Narrative* Linda Varner MA - 11/02/2024 10:05 AM EST Patient identified by name and date of . Navya Mcnulty presents today for a vaccination of Tdap. Patient denies an allergy to latex: yes Patient denies a severe (life-threatening) allergy to a previous dose of Tdap, DTP, DTaP, DT or Td vaccine. Yes Patient denies history of epilepsy or neurological problems: Yes Patient is afebrile and denies being moderately or severely ill: Yes Patient denies history of Guillain-[place] Syndrome (a severe paralytic illness): Yes Tdap Adacel injection was given without incident. See immunizations for details of immunizations administered today. VIS sheet provided: Yes Provider Vandana Edwards APRN, CNM was present in office at time of injection. Linda Varner MA documented in this encounterOhiohealth Shelby Hospital12-13-2024 Note Indication Evaluation of growth Impression REMOTE READ - Single, live, intrauterine . - The biometry is consistent with the assigned gestational dating. - The EFW is 796 g, at the 61%. AC is at the 82%. - Amniotic fluid volume is normal amount with an MVP of 5 cm and MEDINA of 15.9 cm. - The placenta is posterior, fundal. - No malformations visualized on a limited survey as detailed below. Recommendations Additional follow-up as clinically indicated. Maternal Assessment Height 157 cm Height (ft) 5 ft Height (in) 2 in Physical Exam Initial weight (lb) 176 lb Initial BMI 32.19 kg/m Maternal assessment other: 2 Para 1 Method Transabdominal and transvaginal ultrasound examination. View: Adequate visualization [place] . Number of fetuses: 1 Dating LMP on: 05/07/2024 GA by LMP 21 w + 4 d SASCHA by LMP: 02/11/2025 GA by prior assessment 24 w + 6 d SASCHA by prior assessment: 01/19/2025 Ultrasound examination on: 10/05/2024 GA by U/S based upon: AC, BPD, Femur, HC GA by U/S 24 w + 5 d SASCHA by U/S: 01/20/2025 Assigned: based on stated SASCHA, selected on 10/05/2024 Assigned GA 24 w + 6 d Assigned SASCHA: 01/19/2025 General Evaluation Cardiac activity present. FHR 146 bpm. movements: present. Presentation: breech Placenta: Placental site: posterior, fundal. Accessory lobe, anterior fundal Umbilical cord: Cord vessels: 3 vessel cord Amniotic fluid: Amount of AF: normal amount. MVP 5.0 cm. MEDINA 15.9 cm. Q1 2.6 cm, Q2 4.6 cm, Q3 3.7 cm, Q4 5.0 cm Growth Overview Exam date GA BPD (mm) HC (mm) AC (mm) FL (mm) HL (mm) EFW (g) 09/07/2024 20w 6d 43.5 3% 174.8 25% 170.6 80% 32.5 36% 32 41% 392 52% 10/05/2024 24w 6d 58.2 12% 222 29% 217.8 82% 44.1 55% 796 61% Biometry Standard BPD 58.2 mm 23w 6d 12% Hadlock OFD 80.0 mm 24w 2d 42% Nicolaides HC 222.0 mm 24w 1d 29% Lopez AC 217.8 mm 26w 2d 82% Hadlock Femur 44.1 mm 24w 5d 55% Lopez EFW 796 g 25w 1d 61% Hadlock EFW (lb) 1 lb EFW (oz) 12 oz EFW by: Hadlock (HC-AC-FL) Extended [place] 4.8 mm Extremities / Bony Struc FL / HC 0.20 Other Structures FHR 146 bpm Anatomy Lateral ventricles: normal Cavum septi pellucidi: normal Cerebellum: normal Cisterna magna: normal 4-chamber view: normal RVOT view: normal LVOT view: normal 3-vessel view: normal Heart / Thorax Situs: situs solitus (normal) Diaphragm: normal Stomach: normal Kidneys: normal Bladder: normal Gender: Unspecified Wants to know sex: no Performed By: Anabel Frazier RDMS, RVT Read By: Fahad Dey M.D.MATERNAL [id number] Progress note* Quick Notes - Rani Parkinson MD - 10/05/2024 3:49 PM EST S: Navya Mcnulty is a 29 year old female who presents at 01/19/2025, by Ultrasound for a routine visit. Denies headache, visual changes, chest pain, shortness of breath, vaginal bleeding, leakage of fluid, or dysuria. Feeling well, no complaints. Good movement, No contractions O: See flow sheet Gen: No apparent distress Abd: Gravid, nontender Repeat us for accessory lobe ASSESSMENT/PLAN: 1. 24 weeks gestation of - ICD9: V22.2, ICD10: Z3A.24 (primary diagnosis) - ANEMIA REFLEX PANEL - GESTATIONAL GLUCOSE SCREEN, 1-HOUR, 50 GRAM, NON-FASTING - SYPHILIS TREPONEMAL W/REFLEX 2. Nausea and vomiting during - ICD9: 643.90, ICD10: O21.9 - ANEMIA REFLEX PANEL - GESTATIONAL GLUCOSE SCREEN, 1-HOUR, 50 GRAM, NON-FASTING - SYPHILIS TREPONEMAL W/REFLEX 3. Supervision of high risk in second trimester - ICD9: V23.9, ICD10: O09.92 - ANEMIA REFLEX PANEL - GESTATIONAL GLUCOSE SCREEN, 1-HOUR, 50 GRAM, NON-FASTING - SYPHILIS TREPONEMAL W/REFLEX 4. Vaping nicotine dependence, tobacco product - ICD9: 305.1, ICD10: F17.290 - Cessation encouraged. - ANEMIA REFLEX PANEL - GESTATIONAL GLUCOSE SCREEN, 1-HOUR, 50 GRAM, NON-FASTING - SYPHILIS TREPONEMAL W/REFLEX 5. Bipolar 2 disorder (HCC) - ICD9: 296.89, ICD10: F31.81 Stable currently - ANEMIA REFLEX PANEL - GESTATIONAL GLUCOSE SCREEN, 1-HOUR, 50 GRAM, NON-FASTING - SYPHILIS TREPONEMAL W/REFLEX 6. Accessory placenta, second trimester - ICD9: 656.73, ICD10: O43.192 - ANEMIA REFLEX PANEL - GESTATIONAL GLUCOSE SCREEN, 1-HOUR, 50 GRAM, NON-FASTING - SYPHILIS TREPONEMAL W/REFLEX Rani Parkinson MD [facility]12-13-2024 Miscellaneous Notes* Quick Notes - Rani Parkinson MD - 10/05/2024 3:49 PM EST S: Navya Mcnulty is a 29 year old female who presents at 01/19/2025, by Ultrasound for a routine visit. Denies headache, visual changes, chest pain, shortness of breath, vaginal bleeding, leakage of fluid, or dysuria. Feeling well, no complaints. Good movement, No contractions O: See flow sheet Gen: No apparent distress Abd: Gravid, nontender Repeat us for accessory lobe ASSESSMENT/PLAN: 1. 24 weeks gestation of - ICD9: V22.2, ICD10: Z3A.24 (primary diagnosis) - ANEMIA REFLEX PANEL - GESTATIONAL GLUCOSE SCREEN, 1-HOUR, 50 GRAM, NON-FASTING - SYPHILIS TREPONEMAL W/REFLEX 2. Nausea and vomiting during - ICD9: 643.90, ICD10: O21.9 - ANEMIA REFLEX PANEL - GESTATIONAL GLUCOSE SCREEN, 1-HOUR, 50 GRAM, NON-FASTING - SYPHILIS TREPONEMAL W/REFLEX 3. Supervision of high risk in second trimester - ICD9: V23.9, ICD10: O09.92 - ANEMIA REFLEX PANEL - GESTATIONAL GLUCOSE SCREEN, 1-HOUR, 50 GRAM, NON-FASTING - SYPHILIS TREPONEMAL W/REFLEX 4. Vaping nicotine dependence, tobacco product - ICD9: 305.1, ICD10: F17.290 - Cessation encouraged. - ANEMIA REFLEX PANEL - GESTATIONAL GLUCOSE SCREEN, 1-HOUR, 50 GRAM, NON-FASTING - SYPHILIS TREPONEMAL W/REFLEX 5. Bipolar 2 disorder (HCC) - ICD9: 296.89, ICD10: F31.81 Stable currently - ANEMIA REFLEX PANEL - GESTATIONAL GLUCOSE SCREEN, 1-HOUR, 50 GRAM, NON-FASTING - SYPHILIS TREPONEMAL W/REFLEX 6. Accessory placenta, second trimester - ICD9: 656.73, ICD10: O43.192 - ANEMIA REFLEX PANEL - GESTATIONAL GLUCOSE SCREEN, 1-HOUR, 50 GRAM, NON-FASTING - SYPHILIS TREPONEMAL W/REFLEX Rani Parkinson MD documented in this encounterOhio[facility]12-13-2024 Instructions* Patient Instructions* Silvina Cooper MA - 10/05/2024 2:16 PM EST SEQUENTIAL SCREENINGS [facility] offers sequential screenings for women who are interested in screenings for chromosomal abnormalities and certain defects during a . The sequential screen combinesultrasound and blood tests to determine the risk of chromosomal abnormalities, including Down's Syndrome (Trisomy 21) and Trisomy 18, as well as open neural tube defects including spina bifida. Ultrasound examination is performed between 11 weeks and 13 weeks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 daily. Cetirizine (ZYRTEC) 10 mg cap Take by mouth. (Patient not taking: Reported on 06/27/2024) No current facility-administered medications for this visit. Allergies As of Date: 06/27/2024 Allergen Noted Reaction EGG 06/01/2019 Hives and Swelling POLLEN 10/31/2008 WELLBUTRIN [BUPROPION HCL] 06/28/2019 Intolerance Fully Assessed 06/27/2024 Does patient have penicillin allergy: No REVIEW OF SYSTEMS: GENERAL: Negative for: Fever or Chills HEENT: Negative for: Headache, Impaired Vision, Ringing in Ears, Nosebleeds NECK: Negative for: Swelling, Pain, Stiffness RESPIRATORY: Negative for: Cough, Shortness of breath, Wheezing GASTROINTESTINAL: Negative for: Heartburn, Constipation, Diarrhea, Blood in stool, Vomiting MUSCULOSKELETAL: Negative for: Muscle or joint pain, stiffness, Joint swelling NEUROLOGIC/PSYCHIATRIC: Negative for: Weakness, Paralysis, Numbness, Tingling, Tremor, Anxiety, Depression, Memory loss SKIN: Negative for: Rash, Itching GENITOURINARY: Negative for: vaginal itching, vaginal discharge, hematuria or dysuria PHYSICAL EXAM: BP 98/70 Ht 5' 2.25 (1.58m) Wt 176 lb 9.6 oz (80.1kg) LMP 05/07/2024 BMI 32.05 kg/(m^2). GENERAL: pleasant in no apparent distress DERMATOLOGY: Normal, without lesions, non-icteric, and non-hirsute NECK: Supple, full range of motion, no adenopathy, and thyroid normal CHEST: Clear to auscultation, Normal inspiratory effort, Regular rate and rhythm, and No murmurs, clicks, rubs or gallops BREAST: soft, non-tender, symmetric, no dominant mass, normal nipple-areolar complex, no lymphadenopathy, and no nipple discharge ABDOMEN: soft, non-tender, and no masses NEURO: alert and oriented x3,exam grossly non-focal PELVIS: External genitalia normal without lesions. Perineal body intact. No vaginal or cervical lesions. Cervix closed. Uterus 10 week size. No adnexal masses or tenderness. Clinical Pelvimetry: Pelvimetry clinically assessed as adequate Limited OB ultrasound exam: single intrauterine , positive cardiac activity, crown-rump length 10w4d, and normal bilateral adnexa 10w4d by US=SASCHA:01/19/25 LMP 05/07/24 6w5d US inconsistent with LMP, SASCHA 01/19/25 by US ASSESSMENT: 29 year old at 7w2d wks gestational age PLAN: 1) Patient oriented to practice. Patient given new OB orientation folder. Discussed nutrition, folic acid supplementation, dietary guidelines, exercise, smoking, alcohol, caffeine, and drug use. Discussed gestational weight gain guidelines. Discussed routine OB labs including STD/HIV. Discussed hemoglobin electrophoresis. Patient: Accepts 2) Screening: Hemoglobin A1C: ordered Baby Aspirin: The patient has been counseled about the potential benefits of low dose aspirin in and our recommendation that this be offered to all patients, regardless of whether they meet the high risk criteria specified above. She Accepts Aneuploidy Screening: Discussed aneuploidy screening, nuchal translucency/first trimester early anatomy ultrasound and NIPT. The risks/benefits and limitations of NIPT/aneuploidy screening were reviewed including the potential for false negative and false positive results. The availability of genetic counseling was reviewed. Information on aneuploidy screening was provided. The patient is uncertain. She will call back if she wants to proceed with screening. Pt aware of timing. Myriad Carrier Screening: Discussed myriad carrier screening. We discussed the availability of professional-society guided carrier screening and reviewed the conditions screened and limitations of screening. The availability of genetic counseling was reviewed. Information on carrier screening was provided. The patient will check with insurance 3) Patient offered option of Virtual Visits. Patient prefers in person visits. 4) Obesity (BMI >30), will order early glucose screen or Hemoglobin A1C. 5) SASCHA inconsistent with LMP. SASCHA by US, confirm at NT. Dating updated. 6) Will need anatomy US at 16 and 20 wk Follow up in 4 weeks or sooner prn. Sandra Briseno APRN.CNM documented in this encounter[facility] Instructions* Patient Instructions* Sandra Briseno APRN.LENNOXM - 06/27/2024 8:35 AM EDT Please select the following link to access the [facility] Your Guide to a Healthy . [email or web address] At 12 weeks, start low dose aspirin 81mg by mouth once daily to prevent preeclampsia. Nausea and Vomitin) Vitamin B6 50 mg by mouth twice daily. Take this daily until approximately 14 weeks for prevention. 2) Unisom 1/2 tablet by mouth at bedtime. May increase to full tablet if needed. If no improvement in nausea may up to a full tablet every 8 hours as needed. Ondansetron (Zofran ) May 24, 2020 This sheet talks about exposure to ondansetron in a and while . This information should not take the place of medical care and advice from your healthcare provider. What is ondansetron? Ondansetron is a medication used to treat nausea and vomiting that may be caused by surgery, chemotherapy, or radiation therapy. Ondansetron has also been prescribed during to help with symptoms of nausea and vomiting in (NVP). NVP is also referred to as morning sickness . Ondansetron is taken by mouth, infused into a vein (by IV) or given by injection into a muscle (IM). Ondansetron is sold under the brand name Zofran . What can I do to help control my nausea and vomiting? [employer]To[employer] has a helpful fact sheet on nausea in with recommendations. You can review it here: https://mothertobaby.org/fact-sheets/cmgnwn-arbhqcwy-pjrxwwqyg-nvp/pdf/. Also, eating small meals often, drinking plenty of clear fluids, and avoiding triggers (such as odors, heat, and spicy or high fat foods) can help. Talk to your healthcare provider about which NVP treatments are right for you. I take ondansetron. Can it make it harder for me to become ? There are no studies that have looked to see if ondansetron could make it harder for a person to get . Studies in animals did not find that ondansetron would affect the ability to get . Does taking ondansetron increase the chance for miscarriage? Miscarriage can occur in any . One study did not find that miscarriage happened more oftenfor those who reported that they used ondansetron in the first trimester of . Does taking ondansetron increase the chance of defects? Every starts out with a 3-5% chance of having a defect. This is called the background risk. Most studies have found no increased chance for defects among thousands of people whoused ondansetron in the first trimester of . A few studies reported a very small (less than 1%) increase in the chance for a cleft palate (an opening in the roof of the mouth that may be repaired with surgery) or a heart defect. Because of other factors that could affect the pregnancies exposed to ondansetron, it is not known if ondansetron actually increases the chance of defects. Could taking ondansetron cause other complications? Studies did not find a higher chance of loss, delivery (delivery before 37 weeks of ), or low weight when ondansetron was used during . At higher doses, there have been reports that ondansetron use might cause a heart rhythm problem (called QT interval prolongation) in the person taking ondansetron. In severe cases, this could becomean abnormal heart rhythm known as Torsades de Pointes. If you are taking ondansetron, you can talk to your healthcare provider about how to watch for changes in your heart rhythm. Does taking ondansetron in cause long-term problems in behavior or learning for the baby? One study looked at 78 infants who were exposed to ondansetron at any time during . The infants were looked at between 7 days to 2 months of age and did not show any signs of unusual behaviors. A single follow-up survey for about 25 of these children was sent in by the parents. The children were between 1 to 5 years old. The survey asked about behavior. The surveys did not report behavior differences in these children compared to children who were not exposed ondansetron during . There are no other studies looking at the use of ondansetron in and long-term effects for the baby. Can I breastfeed while taking ondansetron? There have been no studies in humans looking at the use of ondansetron during . Studies in animals suggest that ondansetron enters breast milk, but the effects of ondansetron on a infant are not known. If ondansetron use is necessary, it is not usually a reason to stop . A different drug may be considered, especially while a or preterminfant. Be sure to talk to your healthcare provider about all your questions. I take ondansetron. Can it make it harder for me to get my partner or increase the chance of defects? There are no human studies looking at male use of ondansetron. Animal studies have not shown any effect on male fertility. In general, exposures that fathers and sperm donor have are unlikely to increase risks to a . For more information, please see the MotherTo[employer] fact sheet Paternal Exposures at https://mothertobaby.org/fact-sheets/zilowbqe-ciojqqsme-ncrgbgjco/pdf/. documented in this encounterOhio[facility]06-27-2024 Telephone encounter Note * Telephone Encounter - Francine Polo MA - 2024 4:35 PM EDT Patient and pharmacy is informed Francine Polo MA [facility]06-27-[facility] Miscellaneous Notes* Telephone Encounter - Francine Polo MA - 2024 4:35 PM EDT Patient and pharmacy is informed Francine Polo MA * Telephone Encounter - Pearl Coronel APRN.CNP - 2024 2:08 PM EDT No I don't want her start it. It may be best if she goes to talk to a AUTOMATION MACHINE OPERATOR to see if she would be a candidate for an IUD. * Telephone Encounter - Felipa Gibson MA - 2024 12:05 PM EDT Rosalina Barrera left message stating they received script for patient's Apri and states she is alsoon oxcarbazepine and there is an interaction because the oxcarbazepine decreases effects of contraception and can cause contraception failure. Would like to know if it is okay to still fill. Please advise. Felipa Gibson MA documented in this encounterOhio[facility]06-27-2024 Telephone encounter Note * Telephone Encounter - Pearl Coronel APRN.CNP - 2024 2:08 PM EDT No I don't want her start it. It may be best if she goes to talk to a AUTOMATION MACHINE OPERATOR to see if she would be a candidate for an IUD. [facility] Telephone encounter Note* Telephone Encounter - Felipa Gibson MA - 2024 12:05 PM EDT Rosalina Barrera left message stating they received script for patient's Apri and states she is alsoon oxcarbazepine and there is an interaction because the oxcarbazepine decreases effects of contraception and can cause contraception failure. Would like to know if it is okay to still fill. Please advise. Felipa Gibson MA [facility]06-[facility] Instructions* Patient Instructions* Pearl Coronel APRN.CNP - 2024 9:23 AM EDT Images from the original note were not included. Gastroesophageal Reflux Disease (GERD) Heartburn is a burning sensation in the center of your chest that often occurs after you eat, bend over, exercise, and sometimes at night when you are lying down. Approximately one in 10 adults has heartburn at least once a week and one in three monthly. Some women experience heartburn almost daily as a result of increased pressure on the abdomen and hormonal changes. Despite its name, heartburn has nothing to do with your heart. Heartburn symptoms indicate a condition called gastroesophageal reflux disease, or GERD. This fact sheet offers some tips on how to relieve heartburn caused by this condition. What is GERD? When you swallow, food passes down your throat and through your esophagus to your stomach. A musclecalled the lower esophageal sphincter controls the opening between the esophagus and the stomach. The muscle remains tightly closed except when you swallow food. When this muscle fails to close, the acid-containing contents of the stomach can travel back up into the esophagus. This backward movement is called reflux. When stomach acid enters the lower part ofthe esophagus, it can produce a burning sensation, commonly referred to as heartburn. Several factors might explain why this reflux action occurs and might offer some clues for relief. The most important are: The position of your body after eating (An upright posture helps prevent reflux.) The size of the meal (Smaller meals reduce reflux.) The nature of foods you consume (Certain substances that irritate the esophagus or weaken the sphincter can cause reflux.) How is GERD treated? To treat GERD, we recommend the following: Raise the head of your bed by six inches to allow gravity to help keep the stomach's contents in the stomach. (Do not use piles of pillows because this puts your body into a bent position that actually aggravates the condition by increasing pressure on the abdomen.) Eat meals at least three to four hours before lying down, and avoid bedtime snacks. Eat moderate portions of food and smaller meals. Maintain a healthy weight to eliminate unnecessary intra-abdominal pressure caused by extra pounds. Limit consumption of fatty foods, chocolate, peppermint, coffee, tea, ashley, and alcohol - all of which relax the lower esophageal sphincter. Also, avoid tomatoes and citrus fruits or juices, which contribute additional acid that can irritate the esophagus. Give up smoking, which also relaxes the lower esophageal sphincter. Wear loose belts and clothing. What if my GERD and heartburn persist? Many people will get relief from heartburn, and the pressure that goes with esophageal reflux, by following the tips above. Guzh-oue-rfnmlsf liquid antacids can also help in treating occasional heartburn. If your symptoms persist, do not respond to treatment, or occur often, you need to see a doctor for testing and treatment. A visual examination of the esophagus, known as an endoscopy, might be necessary. Sometimes this test shows that the lining of the esophagus is severely inflamed and irritated by stomach acid. This condition, known as esophagitis, might lead to bleeding and difficulty in swallowing. Medical treatment for this condition might be necessary. This usually involves blocking acid production in the stomach. Mnip-xwk-rbqnmua medicines, such as Tums , Rolaids , Maalox , Zantac , Tagamet , Prilosec, ,Pepcid , and Axid , can generally relieve esophageal reflux symptoms. Patients with more severe symptoms orthose who have been using antacids for more than two weeks should contact their doctors, who can prescribe medicines to control or eliminate acid, such as H2-receptor antagonists and proton pump inhib itors. Only a few people need surgery to correct the disorder. References [employer]. Acid Reflux Accessed 05/17/2016. [employer]. Gastroesophageal Reflux Disease (GERD) Accessed 05/17/2016. [employer] [place] [employer] and [employer]estive and Kidney [employer]. Gastroesophageal Reflux ([place]) andGastroesophageal Reflux Disease (GERD) Accessed 05/17/2016. Copyright 1274-9535 The [facility]. All rights reserved This information is provided by the [facility] and is not intended to replace themedical advice of your doctor or health care provider. Please consult your health care provider for advice abouta specific medical condition. For additional health information, please contact the Center for Consumer Health Information at the [facility] or toll-free [phone]. If you prefer, you may visit [email or web address] or [email or web address]. This document was last reviewed on: 2016 INSTRUCTIONS FOR TAKING CONTROL PILLS TAKE YOUR CONTROL PILLS DIRECTED 1.) The day your period begins is called day one (1) of your menstrual cycle. 2.) The Tuesday after your period starts, take your first pill and continue taking a pill everyday until you have taken all the pills in the package. If your period begins on Tuesday, start taking your pills on Tuesday. 3.) You should take your pill the same time every day; preferably after supper or at bedtime when you brush your teeth. 4.) During the very first month that you take control pills another form of control should be used such as condoms or a diaphragm. 5.) If you are taking a 28 day package of control pills take a pill everyday. Your next period will ordinarily start during the last week of pills. 6.) If you take your pills regularly, you are protected everyday including the week you are on your period. Your chance of becoming is very slim. 7.) If you forget to take your pill, take it as soon as you remember and continue your regular schedule. 8.) If more than one pill has been forgotten, take two (2) pills for the next two days. Then continue taking your daily pill for the remainder of the package. You need to use a temporary form of control if you have missed two (2) pills or more. Start your next package on Tuesday after your next period. You may want to consider another method of control if this occurs. 9.) If you are treated with antibiotics for infection, your control pill may not be effective. use another temporary form of control along with the pill during the month you take antibiotics. 10.) If you have any problems develop while taking control pills, please call the office. IT IS IMPORTANT TO REPORT: Heavy Bleeding Pain in the Legs Headaches Vomiting and Nausea Loss of Hair Nervousness Swelling in Hands and Feet Severe Cramps Spotting or Bleeding Between Periods Office number is [phone]. The office is open Tuesday thru Tuesday 8:30 a.m. to 4:30 p.m. Please note the office is closed everyday from 12:30 p.m. to 1:30 p.m. for lunch. documented in this encounterOhio[facility]06-27-2024 History of Present illness Narrative* Pearl Coronel APRN.CNP - 2024 8:58 AM EDT CHIEF COMPLAINT: Navya Mcnulty is a 29 year old female who presents for symptoms of heartburn, difficulty eating,and weight loss. This started about 2 months ago and could only tolerate eating very small amounts before it would make her sick to her stomach and nauseous. She has also been experiencing heartburn and has been using TUMS frequently. She has not tried any other OTC remedies. She initially lost about 40 pounds but has gained about 20-25 back. She denies abdominal pain after eating and has no history of PUD. She has never been on treatment for GERD. She does not smoke cigarettes but vapes, use NSAIDS frequently, or drinks alcohol on a regular basis. She would also like to discuss starting control to help regulate her mood swings. She followswith psychiatry and is on mood stabilizers but since it has been worse before her cycle and her psychiatrist mentioned about starting control. She is sexually active and is on no other form currently. She has been on the Depo shot in the past. Her LMP just finished. 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, Meth Hyperprolactinemia (HCC) 03/23/2012 MRSA cellulitis 2016 PMH - PAST MEDICAL HISTORY OF 01/02/10 normal color vision Trichomoniasis 03/06/2019 Unspecified asthma(493.90) PAST SURGICAL HISTORY Procedure Laterality Date PAST SURGICAL HISTORY OF Left 04/2017 Elbow Surgery PAST SURGICAL HISTORY OF removal of abcess on right knee Social History Tobacco Use Smoking status: Former Packs/day: 1.00 Years: 10.00 Additional pack years: 0.00 Total pack years: 10.00 Types: Cigarettes Smokeless tobacco: Never Tobacco comments: Vape Vaping Use Vaping Use: current everyday user Substance Use Topics Alcohol use: Yes Comment: occ Drug use: Not Currently Comment: 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 ALLERGIES Allergen Reactions Egg Hives, Swelling Raw eggs only Pollen Wellbutrin [Bupropi* Intolerance Family History Problem Relation Age of Onset Psychiatry Mother depression other ([place]) Mother Diabetes Father Heart Father bypass Hypertension Father Osteoporosis Maternal Grandmother other (Breast Cancer age 40s) Maternal Grandmother Diabetes Paternal Grandmother other ([place]) Paternal Grandmother Diabetes Paternal Grandfather Heart Paternal Grandfather from [place] Cancer Maternal Grandfather of liver cancer Current Outpatient Medications Medication Sig Dispense Refill albuterol HFA (PROVENTIL HFA, VENTOLIN HFA) 90 mcg/actuation inhaler Inhale 2 Puffs as instructed every 4 hours as needed for wheezing/shortness of breath. 1 Each 1 hydrOXYzine HCl (ATARAX) 25 mg tablet Take 25 mg by mouth three times daily as needed. ARIPiprazole (ABILIFY) 20 mg tablet Take 20 mg by mouth once daily. OXcarbazepine (TRILEPTAL) 150 mg tablet Take 900 mg by mouth once daily. Cetirizine (ZYRTEC) 10 mg cap Take by mouth. LACTASE (LACTAID ORAL) Take by mouth w MEALS. pantoprazole DR (PROTONIX) 20 mg tablet Take 1 tablet by mouth two times a day. 60 tablet 1 Desogestrel-Ethinyl Estradiol (APRI) 0.15-0.03 mg per tablet Take 1 tablet by mouth once daily. 84 tablet 0 No current facility-administered medications for this visit. Review of Systems Constitutional: Positive for appetite change and unexpected weight change. Negative for chills, diaphoresis, fatigue and fever. Respiratory: Negative. Cardiovascular: Negative. Gastrointestinal: Positive for nausea. Negative for abdominal pain, blood in stool, constipation, diarrhea and vomiting. Genitourinary: Negative. Neurological: Negative. Psychiatric/Behavioral: Positive for dysphoric mood. The patient is nervous/anxious. Mood swings BP 116/62 Pulse 71 Temp 98 Resp 16 Ht 5' 2.52 (1.59m) Wt 186 lb (84.4kg) SpO2 99% LMP 10/07/2023 BMI 33.46 kg/(m^2). Physical Exam Vitals and nursing note reviewed. Constitutional: Appearance: She is obese. HENT: Mouth/Throat: Mouth: Mucous membranes are moist. Pharynx: Oropharynx is clear. Eyes: Pupils: Pupils are equal, round, and reactive to light. Cardiovascular: Rate and Rhythm: Normal rate and regular rhythm. Heart sounds: Normal heart sounds. Pulmonary: Effort: Pulmonary effort is normal. Breath sounds: Normal breath sounds. Abdominal: General: Bowel sounds are normal. There is no distension. Palpations: Abdomen is soft. There is no hepatomegaly or splenomegaly. Tenderness: There is no abdominal tenderness. Skin: General: Skin is warm and dry. Neurological: Mental Status: She is alert and oriented to person, place, and time. Psychiatric: Mood and Affect: Mood normal. Behavior: Behavior is cooperative. Cognition and Memory: Cognition normal. ASSESSMENT/PLAN: 1. Abdominal discomfort - ICD9: 789.00, ICD10: R10.9 (primary diagnosis) Etiology unclear Differential Diagnosis includes GERD, PUD, Gastritis, Gall bladder colic/cholelithiasis, and Lactose intolerance - Begin treatment with Protonix 20 mg BID - Bladen low residue diet - Follow up in 6-8 weeks or sooner if worsening of symptoms - PANTOPRAZOLE 20 MG TABLET,DELAYED RELEASE 2. Heartburn - ICD9: 787.1, ICD10: R12 - PANTOPRAZOLE 20 MG TABLET,DELAYED RELEASE 3. Premenstrual syndrome - ICD9: 625.4, ICD10: N94.3 - HCG negative - HCG QUAL UR B/O - DESOGESTREL 0.15 MG-ETHINYL ESTRADIOL 0.03 MG TABLET New medication(s) prescribed today: Yes: Protonix and Apri. Discussed new medication dosage, usage,goals of therapy, and side effects. Patient has been apprised of any potential drug interactions rich aware of. Patient expresses understanding. Counseling completed in adopting health behaviors such as avoiding excessive alcohol use, avoid tobacco use, improve nutrition, and engage in physical activities. Copy of written care plan, clinical summary, treatment plan, new medications, goals, and self management requirements were given to patient. Pearl Coronel APRN.CHANTAL documented in this encounterOhio[facility]03-23-[facility]24 History of Present illness Narrative* Mason Means PA-C - 01/14/2024 2:25 PM EDT [facility] [place] NOTE: Name: Navya Mcnulty, 28 y.o. CSN:[id number] PCP: No primary care provider on file. ALL: No Known Allergies History: Chief Complaint: UTI (Urinary frequency and Urgency x 2 days) Encounter Date: 01/14/2024 14:32hrs HPI: The history was obtained from the patient. Navya is a 28 y.o. female, who presents with a chief complaint of UTI (Urinary frequency and Urgency x 2 days) Patient is complaining of frequency urgency and hesitancy, she is had symptoms since , it has been worse today, she has been unable to attend to her job-related duties as she has been in the bathroom more than she has been with her residence. She denies any flank pain, fevers, nausea, vomiting or chills. PMHx: Past Medical History: Diagnosis Date Bipolar 2 disorder ([facility]) Anxiety 05/23/2017 Asthma Cellulitis and abscess of toe, unspecified 06/01/2010 Cellulitis of right knee 05/18/2019 Depression 12/22/2011 History of illicit drug use Quit 06/2017, Meth Hyperprolactinemia ([facility]) 03/23/2012 MRSA cellulitis 2016 PMH - PAST MEDICAL HISTORY OF 01/02/10 normal color vision Trichomoniasis 03/06/2019 Current Outpatient Medications Medication Sig Dispense Refill cefuroxime (Ceftin) 250 mg tablet Take 1 tablet (250 mg) by mouth 2 times a day for 7 days. 14 tablet 0 No current facility-administered medications for this visit. PMSx: Elbow Surgery PAST SURGICAL HISTORY OF removal of abcess on right knee Fam Hx: No family history on file. SOC. Hx: Social History Socioeconomic History Marital status: Single Spouse name: Not on file Number of children: Not on file Years of education: Not on file Highest education level: Not on file Occupational History Not on file Tobacco Use Smoking status: Never Smokeless tobacco: Never Vaping Use Vaping Use: Every day Substance and Sexual Activity Alcohol use: Never Drug use: Yes Types: Marijuana Sexual activity: Not on file Other Topics Concern Not on file Social History Narrative Not on file Social Determinants of Health Financial Resource Strain: Not on file Food Insecurity: Not on file Transportation Needs: Not on file Physical Activity: Not on file Stress: Not on file Social Connections: Not on file Intimate Partner Violence: Not on file Housing Stability: Not on file Vitals: 01/14/24 1422 BP: 103/69 Pulse: 68 Temp: 36.4 C (97.5 F) SpO2: 98% 80.7 kg (178 lb) Physical Exam Constitutional: Appearance: Normal appearance. She is obese. HENT: Head: Normocephalic and atraumatic. Nose: Nose normal. Mouth/Throat: Mouth: Mucous membranes are moist. Dentition: Dental caries present. Eyes: Extraocular Movements: Extraocular movements intact. Cardiovascular: Rate and Rhythm: Normal rate and regular rhythm. Pulmonary: Effort: Pulmonary effort is normal. Breath sounds: Normal breath sounds. Abdominal: General: Abdomen is flat. Tenderness: There is no abdominal tenderness. There is no right CVA tenderness or left CVA tenderness. Musculoskeletal: General: Normal range of motion. Cervical back: Normal range of motion and neck supple. Lumbar back: Normal. Skin: General: Skin is warm. Neurological: Mental Status: She is alert and oriented to person, place, and time. Psychiatric: Behavior: Behavior normal. LABORATORY @ RADIOLOGICAL IMAGING (if done): Results for orders placed or performed in visit on 01/14/24 (from the past 24 hour(s)) POCT UA (nonautomated w/o microscopy) manually resulted Result Value Ref Range POC Color, Urine Yellow Straw, Yellow, Light-Yellow POC Appearance, Urine Clear Clear POC Glucose, Urine 100 (1+) (A) NEGATIVE mg/dl POC Bilirubin, Urine NEGATIVE NEGATIVE POC Ketones, Urine NEGATIVE NEGATIVE mg/dl POC Specific [place], Urine 1.015 1.005 - 1.035 POC Blood, Urine TRACE-Intact (A) NEGATIVE POC PH, Urine 7.5 No Reference Range Established PH POC Protein, Urine NEGATIVE NEGATIVE, 30 (1+) mg/dl POC Urobilinogen, Urine 1.0 0.2, 1.0 EU/DL Poc Nitrite, Urine POSITIVE (A) NEGATIVE POC Leukocytes, Urine NEGATIVE NEGATIVE I did personally review Navya's past medical history, surgical history, social history, as well as family history (when relevant). In this case, I also oversaw the her drug management by reviewing her medication list, allergy list, as well as the medications that I prescribed during the UC course and/or recommended as an out-patient (including possible OTC medications such as acetaminophen, NSAIDs , etc). After reviewing the items above, I did look at previous medical documentation, such as recent hospitalizations, office visits, and/or recent consultations with PCP/specialist. SDOH: Another factor that I considered in Navya's care was her Social Determinants of Health (SDOH). During this encounter, she did not have social determinants of health. Those SDOH influencing Navya's care are: none COURSE/MEDICAL DECISION MAKING: Navya is a 28 y.o., who presents with a working diagnosis of 1. Dysuria 2. Acute cystitis with hematuria Current plan is to provide patient with Ceftin twice daily x 7 days, urine culture has been requested recommend she use can be notified of results when available. She was agreeable plan discharge. 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 Navya Mcnulty is a 28 year old female who presents for problem visit - cramping and pain with urination. HPI: Notices a vaginal odor. Pain and discomfort with urination and urinary urgency. Bilateral lower pelvic cramping. She has had these symptoms for 1 month. No fevers, chills, nausea, vomiting. H/o BV about 1 year ago. Last sexually active 2 months ago with new partner. Using condoms currently. LMP 06/27/23. OB History T1 L1 SAB0 IAB0 Ectopic0 Multiple0 Live Births1 Academic Affairs Assistant History LMP: 06/27/2023, Having periods Age at Menarche: Age at First : Age at Menopause: Academic Affairs Assistant History Comments: Sexual Activity: Yes; Male Contraception: None 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, Meth Hyperprolactinemia (HCC) 03/23/2012 MRSA cellulitis 2016 PMH - PAST MEDICAL HISTORY OF 01/02/10 normal color vision Trichomoniasis 03/06/2019 Unspecified asthma(493.90) PAST SURGICAL HISTORY Procedure Laterality Date PAST SURGICAL HISTORY OF Left 04/2017 Elbow Surgery PAST SURGICAL HISTORY OF removal of abcess on right knee FAMILY HISTORY Problem Relation Age of Onset Psychiatry Mother depression other ([place]) Mother Diabetes Father Heart Father bypass Hypertension Father Osteoporosis Maternal Grandmother other (Breast Cancer age 40s) Maternal Grandmother Diabetes Paternal Grandmother other ([place]) Paternal Grandmother Diabetes Paternal Grandfather Heart Paternal Grandfather from [place] Cancer Maternal Grandfather of liver cancer Social History Tobacco Use Smoking status: Every Day Packs/day: 1.00 Years: 10.00 Additional pack years: 0.00 Total pack years: 10.00 Types: Cigarettes Smokeless tobacco: Never Tobacco comments: trying to quit Vaping Use Vaping Use: Never used Substance Use Topics Alcohol use: Yes Comment: occ Drug use: No Comment: 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 ARIPiprazole (ABILIFY) 20 mg tablet Take 20 mg by mouth once daily. OXcarbazepine (TRILEPTAL) 150 mg tablet Take 900 mg by mouth once daily. Cetirizine (ZYRTEC) 10 mg cap Take by mouth. LACTASE (LACTAID ORAL) Take by mouth w MEALS. No current facility-administered medications for this visit. Allergies As of Date: 07/25/2023 Allergen Noted Reaction EGG 06/01/2019 Hives and Swelling POLLEN 10/31/2008 WELLBUTRIN [BUPROPION HCL] 06/28/2019 Intolerance Fully Assessed 07/25/2023 REVIEW OF SYSTEMS Abdomen: No abdominal pain, nausea, vomiting, diarrhea, or constipation. Bladder: See HPI. Expanded ROS: N/A Allergies and current medication updated:Yes EXAM: BP 100/60 Wt 211 lb 12.8 oz (96.1kg) LMP 06/27/2023 GENERAL: pleasant, female in no apparent distress HEENT: Normocephalic and atraumatic NECK: full range of motion DERMATOLOGY: Normal, without lesions, non-icteric, and non-hirsute CHEST: Normal inspiratory effort ABDOMEN: soft, non-tender, and no masses PELVIC: external genitalia normal, normal Bartholin's glands, urethra, Moreland's glands, no vulvar lesions, no cervical lesions, good vaginal support, physiologic discharge present, normal appearing perineal body and perianal region BIMANUAL: uterus normal size, shape and consistency, no adnexal masses, non- tender, and no cervicalmotion tenderness NEURO: exam grossly non-focal EXTREMITIES: normal ASSESSMENT AND PLAN: Encounter Diagnosis ICD-10-CM 1. Vaginal odor N89.8 BACTERIAL VAGINOSIS NAAT MAGGI/TRICHOMONAS NAAT GONORRHEA/CHLAMYDIA NAAT 2. Vaginal itching N89.8 BACTERIAL VAGINOSIS NAAT MAGGI/TRICHOMONAS NAAT GONORRHEA/CHLAMYDIA NAAT 3. Dysuria R30.0 URINE CULTURE GONORRHEA/CHLAMYDIA NAAT Check vaginal cx and urine cx Reviewed vulvar care and hygiene measures Reviewed safe sex practices Sarah Hinton DO Medical Decision Making: Problems: Low: 2+ self-limited or minor problems Data: Unique test(s) ordered: 3+ Medical Decision Making Level: 3 - Low documented in this encounterOhiohealth Shelby Hospital08-17-2023 History of Present illness Narrative* Francine Polo MA - 06/09/2023 12:01 PM EDT ED Follow Up: BRENDA vasquez Patient discharged from [facility] ED on 06/08/23. 1. How are you feeling since your ED visit? na Have your symptoms improved or resolved? Not applicable 2. Were you prescribed any medications while in the ED or advised to stop any medication? Not applicable - If yes, were you able to fill your prescriptions? Not applicable -if stopped medication, what was the medication? na 3. Were you advised to schedule a follow up appointment with your provider? Not applicable - If no, Do you feel like you need an appointment scheduled? Not applicable - If yes, Do you need this scheduled now or has this already been scheduled? Not applicable 4. Were you able to contact the office or crayon molding machine operator provider prior to your ED visit? Not applicable 5. Is there anything else I can do for you today? Not applicable Francine Polo MA documented in this encounterOhiohealth Shelby Hospital07-26-2019 History of Past illness Narrative* Problem Noted Date Diagnosed Date Resolved Date Cellulitis of right knee 05/18/2019 Last Assessment & Plan: Assessment: - Started as ingrown hair on anterior R knee. Developed cellulitis, was started on Bactrim and Cipro (took two days worth of abx) - XR of knee 05/16: Significant soft tissue swelling anterior to the right patella and patellar tendon best appreciated on lateral view. This may relate to reported cellulitis. Please note, radiographs are insensitive for the detection of early osteomyelitis and if this is clinically suspected, followup contrasted MRI is recommended. - Erythema, edema, and warmth of R knee with scab and occasional white drainage - Full ROM - Afebrile, negative lactate, no tachycardia, WBC 14.2 - Wound culture and blood cultures obtained in ED, Clindamycin given d/t h/o MRSA PLAN: - MRI of knee to r/o osteo - Tylenol for pain - Vancomycin q 12 - Await wound culture - Recheck CBC in AM Oral thrush 05/18/2019 05/19/2019 Last Assessment & Plan: Assessment: - Woke up this AM with blisters and white exudate on tongue - Has had oral thrush 3 times this year PLAN: - Nystatin Hyponatremia 05/18/2019 05/19/2019 Last Assessment & Plan: Assessment: - Na 135 PLAN: - IVF - Recheck BMP in AM Trichomoniasis 03/06/2019 05/19/2019 Anxiety 05/23/2017 05/19/2019 PROM with onset of l abor within 24 hours of rupture 05/04/2014 03/01/2019 Active labor 05/04/2014 03/01/2019 Oligomenorrhea 03/23/2012 03/01/2019 Hyperprolactinemia 03/23/2012 9 Asthma 12/22/2011 05/19/2019 Cellulitis and abscess of toe, unspecified 06/01/2010 05/19/2019 documented as of this encounter (statuses as of 06/09/2023) [facility] History of Past illness Narrative* Problem Noted Date Diagnosed Date Resolved Date Cellulitis of right knee 05/18/2019 Last Assessment & Plan: Assessment: - Started as ingrown hair on anterior R knee. Developed cellulitis, was started on Bactrim and Cipro (took two days worth of abx) - XR of knee 05/16: Significant soft tissue swelling anterior to the right patella and patellar tendon best appreciated on lateral view. This may relate to reported cellulitis. Please note, radiographs are insensitive for the detection of early osteomyelitis and if this is clinically suspected, followup contrasted MRI is recommended. - Erythema, edema, and warmth of R knee with scab and occasional white drainage - Full ROM - Afebrile, negative lactate, no tachycardia, WBC 14.2 - Wound culture and blood cultures obtained in ED, Clindamycin given d/t h/o MRSA PLAN: - MRI of knee to r/o osteo - Tylenol for pain - Vancomycin q 12 - Await wound culture - Recheck CBC in AM Oral thrush 05/18/2019 05/19/2019 Last Assessment & Plan: Assessment: - Woke up this AM with blisters and white exudate on tongue - Has had oral thrush 3 times this year PLAN: - Nystatin Hyponatremia 05/18/2019 05/19/2019 Last Assessment & Plan: Assessment: - Na 135 PLAN: - IVF - Recheck BMP in AM Trichomoniasis 03/06/2019 05/19/2019 Anxiety 05/23/2017 05/19/2019 PROM with onset of l abor within 24 hours of rupture 05/04/2014 03/01/2019 Active labor 05/04/2014 03/01/2019 Oligomenorrhea 03/23/2012 03/01/2019 Hyperprolactinemia 03/23/2012 9 Asthma 12/22/2011 05/19/2019 Cellulitis and abscess of toe, unspecified 06/01/2010 05/19/2019 documented as of this encounter (statuses as of 07/30/2023) [facility]* Diagnosis BV (bacterial vaginosis)- Primary Vaginitis and vulvovaginitis, unspecified documented in this encounter [facility]* Diagnosis Vaginal odor- Primary Unspecified symptom associated with female genital organs Vaginal itching Pruritus of genital organs Dysuria documented in this encounter [facility]* Diagnosis Dysuria- Primary Acute cystitis with hematuria documented in this encounter [facility] Work Phone: Evaluation note* Diagnosis Premenstrual syndrome- Primary Premenstrual tension syndromes control counseling General counseling for initiation of other contraceptive measures documented [facility] this encounter [facility]* Diagnosis Cellulitis of right knee- Primary Cellulitis and abscess of leg, except foot Abscess Cellulitis and abscess of unspecified site Closed fracture of right ankle with routine healing, subsequent encounter History of methicillin resistant Staphylococcus aureus infection Personal history of Methicillin resistant Staphylococcus aureus Oral thrush Candidiasis of mouth Hyponatremia Hyposmolality and/or hyponatremia Pre-operative examination- Primary Preoperative examination, unspecified Closed displaced fracture of right talus, unspecified fracture morphology, initial encounter Mild intermittent asthma without complication Unspecified asthma Smoker Tobacco use disorder Anxiety and depression Dysthymic disorder History of abuse of recreational drug (HCC) Obesity, Class I, BMI 30-34.9 Obesity, unspecified with uncertain dates in first trimester- Primary Screening for cervical cancer Screening for malignant neoplasm of the cervix Special screening examination for human papillomavirus (HPV) Supervision of other high risk pregnancies, first trimester Date of last menstrual period (LMP) unknown Vaping nicotine dependence, tobacco product Bipolar 2 disorder (HCC) Other bipolar disorders Mild intermittent asthma without complication Unspecified asthma History of abuse of recreational drug (HCC) Recovering alcoholic (HCC) Other and unspecified alcohol dependence, unspecified drinking behavior Nausea and vomiting during documented in this encounter [facility]* Diagnosis Cellulitis of right knee- Primary Cellulitis and abscess of leg, except foot Abscess Cellulitis and abscess of unspecified site Closed fracture of right ankle with routine healing, subsequent encounter History of methicillin resistant Staphylococcus aureus infection Personal history of Methicillin resistant Staphylococcus aureus Oral thrush Candidiasis of mouth Hyponatremia Hyposmolality and/or hyponatremia Pre-operative examination- Primary Preoperative examination, unspecified Closed displaced fracture of right talus, unspecified fracture morphology, initial encounter Mild intermittent asthma without complication Unspecified asthma Smoker Tobacco use disorder Anxiety and depression Dysthymic disorder History of abuse of recreational drug (HCC) Obesity, Class I, BMI 30-34.9 Obesity, unspecified Encounter for screening for malformation using ultrasound- Primary 12 weeks gestation of state, incidental documented [facility] this encounter [facility]* Diagnosis Cellulitis of right knee- Primary Cellulitis and abscess of leg, except foot Abscess Cellulitis and abscess of unspecified site Closed fracture of right ankle with routine healing, subsequent encounter History of methicillin resistant Staphylococcus aureus infection Personal history of Methicillin resistant Staphylococcus aureus Oral thrush Candidiasis of mouth Hyponatremia Hyposmolality and/or hyponatremia Pre-operative examination- Primary Preoperative examination, unspecified Closed displaced fracture of right talus, unspecified fracture morphology, initial encounter Mild intermittent asthma without complication Unspecified asthma Smoker Tobacco use disorder Anxiety and depression Dysthymic disorder History of abuse of recreational drug (HCC) Obesity, Class I, BMI 30-34.9 Obesity, unspecified Supervision of other high risk pregnancies, first trimester- Primary Bipolar 2 disorder (HCC) Other bipolar disorders Mild intermittent asthma without complication Unspecified asthma Nausea and vomiting during 12 weeks gestation of state, incidental [facility] Diagnosis Abdominal discomfort- Primary Abdominal pain, unspecified site Heartburn Premenstrual syndrome Premenstrual tension syndromes documented in this encounter [facility]* Diagnosis Cellulitis of right knee- Primary Cellulitis and abscess of leg, except foot Abscess Cellulitis and abscess of unspecified site Closed fracture of right ankle with routine healing, subsequent encounter History of methicillin resistant Staphylococcus aureus infection Personal history of Methicillin resistant Staphylococcus aureus Oral thrush Candidiasis of mouth Hyponatremia Hyposmolality and/or hyponatremia Pre-operative examination- Primary Preoperative examination, unspecified Closed displaced fracture of right talus, unspecified fracture morphology, initial encounter Mild intermittent asthma without complication Unspecified asthma Smoker Tobacco use disorder Anxiety and depression Dysthymic disorder History of abuse of recreational drug (HCC) Obesity, Class I, BMI 30-34.9 Obesity, unspecified 16 weeks gestation of - Primary state, incidental Supervision of high risk in second trimester Unspecified high-risk Nausea and vomiting during Bipolar 2 disorder (HCC) Other bipolar disorders documented in this encounter [facility]* Diagnosis Cellulitis of right knee- Primary Cellulitis and abscess of leg, except foot Abscess Cellulitis and abscess of unspecified site Closed fracture of right ankle with routine healing, subsequent encounter History of methicillin resistant Staphylococcus aureus infection Personal history of Methicillin resistant Staphylococcus aureus Oral thrush Candidiasis of mouth Hyponatremia Hyposmolality and/or hyponatremia Pre-operative examination- Primary Preoperative examination, unspecified Closed displaced fracture of right talus, unspecified fracture morphology, initial encounter Mild intermittent asthma without complication Unspecified asthma Smoker Tobacco use disorder Anxiety and depression Dysthymic disorder History of abuse of recreational drug (HCC) Obesity, Class I, BMI 30-34.9 Obesity, unspecified Encounter for supervision of normal first in second trimester- Primary Supervision of normal first [facility] Diagnosis Cellulitis of right knee- Primary Cellulitis and abscess of leg, except foot Abscess Cellulitis and abscess of unspecified site Closed fracture of right ankle with routine healing, subsequent encounter History of methicillin resistant Staphylococcus aureus infection Personal history of Methicillin resistant Staphylococcus aureus Oral thrush Candidiasis of mouth Hyponatremia Hyposmolality and/or hyponatremia Pre-operative examination- Primary Preoperative examination, unspecified Closed displaced fracture of right talus, unspecified fracture morphology, initial encounter Mild intermittent asthma without complication Unspecified asthma Smoker Tobacco use disorder Anxiety and depression Dysthymic disorder History of abuse of recreational drug (HCC) Obesity, Class I, BMI 30-34.9 Obesity, unspecified Encounter for anatomic survey- Primary documented in this encounter [facility]* Diagnosis Cellulitis of right knee- Primary Cellulitis and abscess of leg, except foot Abscess Cellulitis and abscess of unspecified site Closed fracture of right ankle with routine healing, subsequent encounter History of methicillin resistant Staphylococcus aureus infection Personal history of Methicillin resistant Staphylococcus aureus Oral thrush Candidiasis of mouth Hyponatremia Hyposmolality and/or hyponatremia Pre-operative examination- Primary Preoperative examination, unspecified Closed displaced fracture of right talus, unspecified fracture morphology, initial encounter Mild intermittent asthma without complication Unspecified asthma Smoker Tobacco use disorder Anxiety and depression Dysthymic disorder History of abuse of recreational drug (HCC) Obesity, Class I, BMI 30-34.9 Obesity, unspecified Supervision of high risk in second trimester- Primary Unspecified high-risk 20 weeks gestation of state, incidental Nausea and vomiting during Bipolar 2 disorder (HCC) Other bipolar disorders Vaping nicotine dependence, tobacco product [facility] Diagnosis Cellulitis of right knee- Primary Cellulitis and abscess of leg, except foot Abscess Cellulitis and abscess of unspecified site Closed fracture of right ankle with routine healing, subsequent encounter History of methicillin resistant Staphylococcus aureus infection Personal history of Methicillin resistant Staphylococcus aureus Oral thrush Candidiasis of mouth Hyponatremia Hyposmolality and/or hyponatremia Pre-operative examination- Primary Preoperative examination, unspecified Closed displaced fracture of right talus, unspecified fracture morphology, initial encounter Mild intermittent asthma without complication Unspecified asthma Smoker Tobacco use disorder Anxiety and depression Dysthymic disorder History of abuse of recreational drug (HCC) Obesity, Class I, BMI 30-34.9 Obesity, unspecified Encounter for anatomic survey- Primary 20 weeks gestation of state, incidental documented in this encounter [facility] note* Diagnosis Cellulitis of right knee- Primary Cellulitis and abscess of leg, except foot Abscess Cellulitis and abscess of unspecified site Closed fracture of right ankle with routine healing, subsequent encounter History of methicillin resistant Staphylococcus aureus infection Personal history of Methicillin resistant Staphylococcus aureus Oral thrush Candidiasis of mouth Hyponatremia Hyposmolality and/or hyponatremia Pre-operative examination- Primary Preoperative examination, unspecified Closed displaced fracture of right talus, unspecified fracture morphology, initial encounter Mild intermittent asthma without complication Unspecified asthma Smoker Tobacco use disorder Anxiety and depression Dysthymic disorder History of abuse of recreational drug (HCC) Obesity, Class I, BMI 30-34.9 Obesity, unspecified 24 weeks gestation of - Primary state, incidental Nausea and vomiting during Supervision of high risk in second trimester Unspecified high-risk Vaping nicotine dependence, tobacco product Bipolar 2 disorder (HCC) Other bipolar disorders Accessory placenta, second trimester [facility] Diagnosis Cellulitis of right knee- Primary Cellulitis and abscess of leg, except foot Abscess Cellulitis and abscess of unspecified site Closed fracture of right ankle with routine healing, subsequent encounter History of methicillin resistant Staphylococcus aureus infection Personal history of Methicillin resistant Staphylococcus aureus Oral thrush Candidiasis of mouth Hyponatremia Hyposmolality and/or hyponatremia Pre-operative examination- Primary Preoperative examination, unspecified Closed displaced fracture of right talus, unspecified fracture morphology, initial encounter Mild intermittent asthma without complication Unspecified asthma Smoker Tobacco use disorder Anxiety and depression Dysthymic disorder History of abuse of recreational drug (HCC) Obesity, Class I, BMI 30-34.9 Obesity, unspecified Accessory placenta, second trimester- Primary documented in this encounter [facility] note* Diagnosis Cellulitis of right knee- Primary Cellulitis and abscess of leg, except foot Abscess Cellulitis and abscess of unspecified site Closed fracture of right ankle with routine healing, subsequent encounter History of methicillin resistant Staphylococcus aureus infection Personal history of Methicillin resistant Staphylococcus aureus Oral thrush Candidiasis of mouth Hyponatremia Hyposmolality and/or hyponatremia Pre-operative examination- Primary Preoperative examination, unspecified Closed displaced fracture of right talus, unspecified fracture morphology, initial encounter Mild intermittent asthma without complication Unspecified asthma Smoker Tobacco use disorder Anxiety and depression Dysthymic disorder History of abuse of recreational drug (HCC) Obesity, Class I, BMI 30-34.9 Obesity, unspecified 28 weeks gestation of - Primary state, incidental Need for vaccination Need for prophylactic vaccination and inoculation against unspecified single disease Supervision of high risk in third trimester Unspecified high-risk Bipolar 2 disorder (HCC) Other bipolar disorders documented in this encounter [facility] note* Diagnosis Cellulitis of right knee- Primary Cellulitis and abscess of leg, except foot Abscess Cellulitis and abscess of unspecified site Closed fracture of right ankle with routine healing, subsequent encounter History of methicillin resistant Staphylococcus aureus infection Personal history of Methicillin resistant Staphylococcus aureus Oral thrush Candidiasis of mouth Hyponatremia Hyposmolality and/or hyponatremia Pre-operative examination- Primary Preoperative examination, unspecified Closed displaced fracture of right talus, unspecified fracture morphology, initial encounter Mild intermittent asthma without complication Unspecified asthma Smoker Tobacco use disorder Anxiety and depression Dysthymic disorder History of abuse of recreational drug (HCC) Obesity, Class I, BMI 30-34.9 Obesity, unspecified Supervision of high risk in third trimester- Primary Unspecified high-risk 31 weeks gestation of state, incidental Bipolar 2 disorder (HCC) Other bipolar disorders Vaping nicotine dependence, tobacco product Abnormal genetic test during [facility] Diagnosis Cellulitis of right knee- Primary Cellulitis and abscess of leg, except foot Abscess Cellulitis and abscess of unspecified site Closed fracture of right ankle with routine healing, subsequent encounter History of methicillin resistant Staphylococcus aureus infection Personal history of Methicillin resistant Staphylococcus aureus Oral thrush Candidiasis of mouth Hyponatremia Hyposmolality and/or hyponatremia Pre-operative examination- Primary Preoperative examination, unspecified Closed displaced fracture of right talus, unspecified fracture morphology, initial encounter Mild intermittent asthma without complication Unspecified asthma Smoker Tobacco use disorder Anxiety and depression Dysthymic disorder History of abuse of recreational drug (HCC) Obesity, Class I, BMI 30-34.9 Obesity, unspecified Encounter of female for testing for genetic disease carrier status for procreative management- Primary Testing of female for genetic disease carrier status Supervision of high risk in third trimester Unspecified high-risk Abnormal genetic test during [facility] Diagnosis Oral thrush- Primary Candidiasis of mouth Acute bronchitis, unspecified organism documented in this encounter [facility] Work Phone: Evaluation note* Diagnosis Cellulitis of right knee- Primary Cellulitis and abscess of leg, except foot Abscess Cellulitis and abscess of unspecified site Closed fracture of right ankle with routine healing, subsequent encounter History of methicillin resistant Staphylococcus aureus infection Personal history of Methicillin resistant Staphylococcus aureus Oral thrush Candidiasis of mouth Hyponatremia Hyposmolality and/or hyponatremia Pre-operative examination- Primary Preoperative examination, unspecified Closed displaced fracture of right talus, unspecified fracture morphology, initial encounter Mild intermittent asthma without complication Unspecified asthma Smoker Tobacco use disorder Anxiety and depression Dysthymic disorder History of abuse of recreational drug (HCC) Obesity, Class I, BMI 30-34.9 Obesity, unspecified 34 weeks gestation of - Primary state, incidental Supervision of high risk in third trimester Unspecified high-risk [facility] Diagnosis Cellulitis of right knee- Primary Cellulitis and abscess of leg, except foot Abscess Cellulitis and abscess of unspecified site Closed fracture of right ankle with routine healing, subsequent encounter History of methicillin resistant Staphylococcus aureus infection Personal history of Methicillin resistant Staphylococcus aureus Oral thrush Candidiasis of mouth Hyponatremia Hyposmolality and/or hyponatremia Pre-operative examination- Primary Preoperative examination, unspecified Closed displaced fracture of right talus, unspecified fracture morphology, initial encounter Mild intermittent asthma without complication Unspecified asthma Smoker Tobacco use disorder Anxiety and depression Dysthymic disorder History of abuse of recreational drug (HCC) Obesity, Class I, BMI 30-34.9 Obesity, unspecified Supervision of high risk in third trimester- Primary Unspecified high-risk Vaping nicotine dependence, tobacco product Bipolar 2 disorder (HCC) Other bipolar disorders 36 weeks gestation of state, incidental * Assessment & Plan Note - Alisha Cox MD - 12/28/2024 11:36 AM ESTAssociated Problem(s): Vaping nicotine dependence, tobacco product * Assessment & Plan Note - Alisha Cox MD - 12/28/2024 11:36 AM ESTAssociated Problem(s): Bipolar 2 disorder (HCC) * Assessment & Plan Note - Alisha Cox MD - 12/28/2024 11:36 AM ESTAssociated Problem(s): Supervision of high risk in third trimester Orders: URINE OB DIP B/O GROUP B STREPTOCOCCUS BY PCR, ROUTINE SCREENING documented in this encounter [facility] note* Diagnosis Cellulitis of right knee- Primary Cellulitis and abscess of leg, except foot Abscess Cellulitis and abscess of unspecified site Closed fracture of right ankle with routine healing, subsequent encounter History of methicillin resistant Staphylococcus aureus infection Personal history of Methicillin resistant Staphylococcus aureus Oral thrush Candidiasis of mouth Hyponatremia Hyposmolality and/or hyponatremia Pre-operative examination- Primary Preoperative examination, unspecified Closed displaced fracture of right talus, unspecified fracture morphology, initial encounter Mild intermittent asthma without complication Unspecified asthma Smoker Tobacco use disorder Anxiety and depression Dysthymic disorder History of abuse of recreational drug (HCC) Obesity, Class I, BMI 30-34.9 Obesity, unspecified Supervision of high risk in third trimester- Primary Unspecified high-risk Vaping nicotine dependence, tobacco product Bipolar 2 disorder (HCC) Other bipolar disorders 36 weeks gestation of state, incidental Supervision of high risk in third trimester- Primary Unspecified high-risk Abnormal genetic test during 37 weeks gestation of state, incidental * Assessment & Plan Note - Alisha Cox MD - 01/02/2025 12:27 PM EDTAssociated Problem(s): Supervision of high risk in third trimester Orders: URINE OB DIP B/O * Assessment & Plan Note - Alisha Cox MD - 01/02/2025 12:27 PM EDTAssociated Problem(s): Abnormal genetic test during + kleinfelters [facility] Diagnosis Cellulitis of right knee- Primary Cellulitis and abscess of leg, except foot Abscess Cellulitis and abscess of unspecified site Closed fracture of right ankle with routine healing, subsequent encounter History of methicillin resistant Staphylococcus aureus infection Personal history of Methicillin resistant Staphylococcus aureus Oral thrush Candidiasis of mouth Hyponatremia Hyposmolality and/or hyponatremia Pre-operative examination- Primary Preoperative examination, unspecified Closed displaced fracture of right talus, unspecified fracture morphology, initial encounter Mild intermittent asthma without complication Unspecified asthma Smoker Tobacco use disorder Anxiety and depression Dysthymic disorder History of abuse of recreational drug (HCC) Obesity, Class I, BMI 30-34.9 Obesity, unspecified Supervision of high risk in third trimester- Primary Unspecified high-risk Vaping nicotine dependence, tobacco product Bipolar 2 disorder (HCC) Other bipolar disorders 36 weeks gestation of state, incidental Abscessed tooth- Primary Periapical abscess without sinus Jaw pain Upper respiratory tract infection, unspecified type Thrush Candidiasis of mouth Supervision of high risk in third trimester- Primary Unspecified high-risk Abnormal genetic test during 37 weeks gestation of state, incidental documented in this encounter [facility] note* Diagnosis Cellulitis of right knee- Primary Cellulitis and abscess of leg, except foot Abscess Cellulitis and abscess of unspecified site Closed fracture of right ankle with routine healing, subsequent encounter History of methicillin resistant Staphylococcus aureus infection Personal history of Methicillin resistant Staphylococcus aureus Oral thrush Candidiasis of mouth Hyponatremia Hyposmolality and/or hyponatremia Pre-operative examination- Primary Preoperative examination, unspecified Closed displaced fracture of right talus, unspecified fracture morphology, initial encounter Mild intermittent asthma without complication Unspecified asthma Smoker Tobacco use disorder Anxiety and depression Dysthymic disorder History of abuse of recreational drug (HCC) Obesity, Class I, BMI 30-34.9 Obesity, unspecified Supervision of high risk in third trimester- Primary Unspecified high-risk Vaping nicotine dependence, tobacco product Bipolar 2 disorder (HCC) Other bipolar disorders 36 weeks gestation of state, incidental Supervision of high risk in third trimester- Primary Unspecified high-risk Abnormal genetic test during 37 weeks gestation of state, incidental Supervision of high risk in third trimester- Primary Unspecified high-risk 38 weeks gestation of state, incidental * Assessment & Plan Note - Kike Brannon MD - 01/08/2025 10:28 AM EDT Associated Problem(s): Supervision of high risk in third trimester Orders: URINE OB DIP B/O documented in this encounter [facility] note* Diagnosis Cellulitis of right knee- Primary Cellulitis and abscess of leg, except foot Abscess Cellulitis and abscess of unspecified site Closed fracture of right ankle with routine healing, subsequent encounter History of methicillin resistant Staphylococcus aureus infection Personal history of Methicillin resistant Staphylococcus aureus Oral thrush Candidiasis of mouth Hyponatremia Hyposmolality and/or hyponatremia Pre-operative examination- Primary Preoperative examination, unspecified Closed displaced fracture of right talus, unspecified fracture morphology, initial encounter Mild intermittent asthma without complication Unspecified asthma Smoker Tobacco use disorder Anxiety and depression Dysthymic disorder History of abuse of recreational drug (HCC) Obesity, Class I, BMI 30-34.9 Obesity, unspecified Supervision of high risk in third trimester- Primary Unspecified high-risk Vaping nicotine dependence, tobacco product Bipolar 2 disorder (HCC) Other bipolar disorders 36 weeks gestation of state, incidental Supervision of high risk in third trimester- Primary Unspecified high-risk Abnormal genetic test during 37 weeks gestation of state, incidental Supervision of high risk in third trimester- Primary Unspecified high-risk 38 weeks gestation of state, incidental 38 weeks gestation of - Primary state, incidental Supervision of high risk in third trimester Unspecified high-risk Vaginal discharge during in third trimester * Assessment & Plan Note - Kike Brannon MD - 01/09/2025 2:47 PM EDT Associated Problem(s): Supervision of high risk in third trimester Orders: URINE OB DIP B/O [facility] Diagnosis Bipolar 1 disorder, mixed, severe (HCC)- Primary documented in this encounter [facility] note* Diagnosis Cellulitis of right knee- Primary Cellulitis and abscess of leg, except foot Abscess Cellulitis and abscess of unspecified site Closed fracture of right ankle with routine healing, subsequent encounter History of methicillin resistant Staphylococcus aureus infection Personal history of Methicillin resistant Staphylococcus aureus Oral thrush Candidiasis of mouth Hyponatremia Hyposmolality and/or hyponatremia Pre-operative examination- Primary Preoperative examination, unspecified Closed displaced fracture of right talus, unspecified fracture morphology, initial encounter Mild intermittent asthma without complication (HCC) Unspecified asthma Smoker Tobacco use disorder Anxiety and depression Dysthymic disorder History of abuse of recreational drug (HCC) Obesity, Class I, BMI 30-34.9 Obesity, unspecified Supervision of high risk in third trimester (HCC)- Primary Unspecified high-risk Vaping nicotine dependence, tobacco product Bipolar 2 disorder (HCC) Other bipolar disorders 36 weeks gestation of (HCC) state, incidental Supervision of high risk in third trimester ([facility])- Primary Unspecified high-risk Abnormal genetic test during 37 weeks gestation of ([facility]) state, incidental Supervision of high risk in third trimester ([facility])- Primary Unspecified high-risk 38 weeks gestation of ([facility]) state, incidental 38 weeks gestation of ([facility])- Primary state, incidental Supervision of high risk in third trimester ([facility]) Unspecified high-risk Vaginal discharge during in third trimester ([facility]) care and examination ([facility])- Primary Routine follow-up Encounter for initial prescription of contraceptive pills General counseling for prescription of oral contraceptives Encounter for insertion of Mirena IUD Encounter for insertion of intrauterine contraceptive device [facility] Diagnosis Cellulitis of right knee- Primary Cellulitis and abscess of leg, except foot Abscess Cellulitis and abscess of unspecified site Closed fracture of right ankle with routine healing, subsequent encounter History of methicillin resistant Staphylococcus aureus infection Personal history of Methicillin resistant Staphylococcus aureus Oral thrush Candidiasis of mouth Hyponatremia Hyposmolality and/or hyponatremia Pre-operative examination- Primary Preoperative examination, unspecified Closed displaced fracture of right talus, unspecified fracture morphology, initial encounter Mild intermittent asthma without complication ([facility]) Unspecified asthma Smoker Tobacco use disorder Anxiety and depression Dysthymic disorder History of abuse of recreational drug ([facility]) Obesity, Class I, BMI 30-34.9 Obesity, unspecified Supervision of high risk in third trimester ([facility])- Primary Unspecified high-risk Vaping nicotine dependence, tobacco product Bipolar 2 disorder ([facility]) Other bipolar disorders 36 weeks gestation of ([facility]) state, incidental Encounter for IUD insertion- Primary Encounter for insertion of intrauterine contraceptive device Screen for STD (sexually transmitted disease) Screening examination for venereal disease [facility] Diagnosis Bacterial conjunctivitis- Primary Other mucopurulent conjunctivitis documented in this encounter [facility] Work Phone: Evaluation note* Diagnosis Cellulitis of right knee- Primary Cellulitis and abscess of leg, except foot Abscess Cellulitis and abscess of unspecified site Closed fracture of right ankle with routine healing, subsequent encounter History of methicillin resistant Staphylococcus aureus infection Personal history of Methicillin resistant Staphylococcus aureus Oral thrush Candidiasis of mouth Hyponatremia Hyposmolality and/or hyponatremia Pre-operative examination- Primary Preoperative examination, unspecified Closed displaced fracture of right talus, unspecified fracture morphology, initial encounter Mild intermittent asthma without complication (HCC) Unspecified asthma Smoker Tobacco use disorder Anxiety and depression Dysthymic disorder History of abuse of recreational drug (HCC) Obesity, Class I, BMI 30-34.9 Obesity, unspecified Supervision of high risk in third trimester (HCC)- Primary Unspecified high-risk Vaping nicotine dependence, tobacco product Bipolar 2 disorder (HCC) Other bipolar disorders 36 weeks gestation of (HCC) state, incidental IUD check up- Primary Surveillance of previously prescribed intrauterine contraceptive device Intermenstrual spotting due to IUD Other complications due to genitourinary device, implant, and graft Pelvic pain in female Unspecified symptom associated with female genital organs [facility] Diagnosis Cellulitis of right knee- Primary Cellulitis and abscess of leg, except foot Abscess Cellulitis and abscess of unspecified site Closed fracture of right ankle with routine healing, subsequent encounter History of methicillin resistant Staphylococcus aureus infection Personal history of Methicillin resistant Staphylococcus aureus Oral thrush Candidiasis of mouth Hyponatremia Hyposmolality and/or hyponatremia Pre-operative examination- Primary Preoperative examination, unspecified Closed displaced fracture of right talus, unspecified fracture morphology, initial encounter Mild intermittent asthma without complication (HCC) Unspecified asthma Smoker Tobacco use disorder Anxiety and depression Dysthymic disorder History of abuse of recreational drug (HCC) Obesity, Class I, BMI 30-34.9 Obesity, unspecified Supervision of high risk in third trimester (HCC)- Primary Unspecified high-risk Vaping nicotine dependence, tobacco product Bipolar 2 disorder (HCC) Other bipolar disorders 36 weeks gestation of (HCC) state, incidental Lower respiratory tract infection- Primary Other diseases of respiratory system, not elsewhere classified [facility] Diagnostic Procedure Only (Routine) - Authorized Specialty Diagnoses / Procedures Referred By Shay mendoza Referred To Contact [facility] Diagnoses with uncertain dates in first trimester Procedures NUCHAL TRANSLUCENCY WHI US NUCHAL TRANSLUCENCY 1ST GESTATION Sandra Briseno APRN.CNM [address] [place] [address] [address] Referral ID Status Reason Start Date Expiration Date Visits Requested Visits Authorized [id number] Authorized Auto-Generat ed Referral 06/27/2024 06/27/2025 1 1 * Diagnostic Procedure Only (Routine) - New Request Specialty Diagnoses / Procedures Referred By Contac t Referred To Contact [facility] Diagnoses with uncertain dates in first trimester Procedures OBSTETRIC ULTRASOUND WHI US PREG UTERUS AFTER 1ST TRIMEST GESTATION Sandra Briseno APRN.CNM [address] [place] [address] [address] Referral ID Status Reason Start Date Expiration Date Visits Requested Visits Authorized [id number] New Request Auto-Generat ed Referral 06/27/2024 06/27/2025 2 1 [facility] Diagnostic Procedure Only (Routine) - Closed Specialty Diagnoses / Procedures Referred By Contac t Referred To Contact [facility] Diagnoses Encounter for anatomic survey Procedures OBSTETRIC ULTRASOUND WHI US PREG UTERUS AFTER 1ST TRIMEST GESTATION Rani Parkinson MD [address] [place] [address] [address] [address] Referral ID Status Reason Start Date Expiration Date V isits Requested Visits Authorized [id number] Closed Auto-Generate d Referral 09/07/2024 09/06/2025 1 1 [facility]No reason for referral information availableWSalem [facility] Work Phone: Reason for visit Narrative* Auth/Cert (Routine) Specialty Diagnoses / Procedures Referred By Contac t Referred To Contact Diagnoses Bipolar 1 disorder, depressed (HCC) Post depression Bipolar 1 disorder, mixed, severe (HCC) Referral ID Status Reason Start Date Expiration Date Visits Re quested Visits Authorized [id number] 1 1 [facility] Summary Purpose Family History No Family History Records Found Relationship Condition Age at Onset Recorded Date/T des Unknown Family History?- Unknown May 12, 2017 8:17pm Family History?Diabe lucina, Heart Disease Unknown May 12, 2017 8:17pm Advance Directives No Advanced Directives Records Found Advance Directive Response Recorded Date/ Time Living Will No December 02 2:13pm Do you have a Healthcare Power of Manager Sales? No December 02, 2024 2:13pm Living Will No January 13, 2025 5:09pm Do you have a Healthcare Power of Manager Sales? No January 13, 2025 5:09pm Advance Directive Response Recorded Date/ Time Do you have a Healthcare Power of Manager Sales? No February 12, 2025 11:42am Living Will No December 02 2:13pm Do you have a Healthcare Power of Manager Sales? No December 02, 2024 2:13pm Living Will No January 13, 2025 5:09pm Do you have a Healthcare Power of Manager Sales? No January 13, 2025 5:09pm Date Activated Date Inactivated Comments 02/12/2025 10:05 PM 02/15/2025 2:34 PM Reason for Referral Specialty Diagnoses / Procedures Referred By Shay t Referred To Contact Gynecology / [facility] DEPARTMENT Diagnoses Premenstrual syndrome control counseling Procedures CONSULT TO GYNECOLOGY OFFICE/OUTPATIENT [facility] 60 MINUTES Pearl Coronel, DIMENSION QUARRY SUPERVISOR.ROOM SERVICE FOOD SERVICE ATTENDANT [address] [place] [address] Agustín Durand MD [address] [address] Referral ID Status Reason Start Date Expiration Date Visits Requested Visits Authorized [id number] Authorized PCP Requested Referral Auto-Generate d Referral 2024 07/18/2024 1 1 Specialty Diagnoses / Procedures Referred By Shay t Referred To Contact Diagnoses Supervision of high risk in third trimester Abnormal genetic test during Procedures CONSULT TO MEDICAL GENETICS - MEDICAL GENETICS COUNSELING EACH 30 MINUTES Giovanni Khan, DIMENSION QUARRY SUPERVISOR.ROOM SERVICE FOOD SERVICE ATTENDANT [address] [place] [address] [facility] [place] [address] Referral ID Status Reason Start Date Expiration Date Visits Requested Visits Authorized [id number] Authorized PCP Requested Referral Auto-Generate d Referral 11/19/2024 11/19/2025 1 1 Chief Complaint and Reason for Visit Chief Complaint Admit Date cold symptoms December 02, 2024 1 2:46pm R/O LABOR December 03, 2024 6:58am R/O LABOR December 19, 2024 7:05pm R/O PRE E December 25, 2024 5:25 pm VAG January 13, 2025 4:1 2pm Reason for Visit Admit Date 33 weeks gestation of December 03, 2024 6:58am Lower abdominal tenderness November 6:58am No leakage of amniotic fluid into vagina December 03, 2024 6:58am RSV (respiratory syncytial virus infecti on) December 03, 2024 6:58am 35 weeks gestation of December 19, 2024 7:05pm Lower abdominal tenderness November 7:05pm Pelvic pressure in December 192024 7:05pm Vision changes December 25, 2024 5:25 pm 39 weeks gestation of January 132024 4:12pm Anxiety January 13, 2025 4:1 2pm Elective induction of labor planned Claude 2024 4:12pm (spontaneous vaginal delivery) January 13, 2025 4:12pm Depression January 13, 2025 4:1 2pm Chief Complaint Admit Date cold symptoms December 02, 2024 1 2:46pm R/O LABOR December 03, 2024 6:58am R/O LABOR December 19, 2024 7:05pm R/O PRE E December 25, 2024 5:25 pm VAG January 13, 2025 4:1 2pm si February 12, 2025 11: 41am Additional Source Comments INFORMATION SOURCE (unrecogn ized section and content) DATE CREATED AUTHOR 04/12/2018 [facility] ([place]) DATE CREATED AUTHOR AUTHOR'S ORGANIZ ATION 04/13/2018 [facility] DATE CREATED AUTHOR AUTHOR'S ORGANIZ ATION 05/23/2019 [facility] DATE CREATED AUTHOR AUTHOR'S ORGANIZ ATION 06/23/2019 [facility] DATE CREATED AUTHOR AUTHOR'S ORGANIZ ATION 05/12/2020 [facility] DATE CREATED AUTHOR AUTHOR'S ORGANIZ ATION 10/12/2020 [facility] DATE CREATED AUTHOR AUTHOR'S ORGANIZ ATION 11/29/2020 [facility] DATE CREATED AUTHOR AUTHOR'S ORGANIZ ATION 10/14/20[facility] DATE CREATED AUTHOR AUTHOR'S ORGANIZ ATION 12/08/2022 [facility] DATE CREATED AUTHOR AUTHOR'S ORGANIZ ATION 06/09/2023 [facility] DATE CREATED AUTHOR AUTHOR[facility]S [facility]GANIZ ATION [facility] DATE CREATED AUTHOR AUTHOR'S ORGANIZ ATION 04/04/2025 [facility] DATE CREATED AUTHOR AUTHOR'S ORGANIZ ATION 07/07/2025 [facility] DATE CREATED AUTHOR AUTHOR'S ORGANIZ ATION 07/11/2025 [facility] DATE CREATED AUTHOR AUTHOR'S ORGANIZ ATION 07/19/2025 [facility] Source Comments (unrecognize d section and content) In the event this informatio n is protected by the Federal Confidentiality of Alcohol and Drug Abuse Patient Records regulations: The Federal rules restrict any use of the information to criminally investigate or prosecute any alcohol or drug abuse patient.[facility] HospitalIn the event this information is protected by the Federal Confidentiality of Alcohol and Drug Abuse Patient Records regulations: The Federal rules restrict any use of the information to criminally investigate or prosecute any alcohol or drug abuse patient.[facility] HospitalIn the event this information is protected by the Federal Confidentiality of Alcohol and Drug Abuse Patient Records regulations: The Federal rules restrict any use of the information to criminally investigate or prosecute any alcohol or drug abuse patient.[facility] HospitalIn the event this information is protected by the Federal Confidentiality of Alcohol and Drug Abuse Patient Records regulations: The Federal rules restrict any use of the information to criminally investigate or prosecute any alcohol or drug abuse patient.[facility] HospitalIn the event this information is protected by the Federal Confidentiality of Alcohol and Drug Abuse Patient Records regulations: The Federal rules restrict any use of the information to criminally investigate or prosecute any alcohol or drug abuse patient.[facility] HospitalIn the event this information is protected by the Federal Confidentiality of Alcohol and Drug Abuse Patient Records regulations: The Federal rules restrict any use of the information to criminally investigate or prosecute any alcohol or drug abuse patient.[facility] HospitalIn the event this information is protected by the Federal Confidentiality of Alcohol and Drug Abuse Patient Records regulations: The Federal rules restrict any use of the information to criminally investigate or prosecute any alcohol or drug abuse patient.[facility] HospitalIn the event this information is protected by the Federal Confidentiality of Alcohol and Drug Abuse Patient Records regulations: The Federal rules restrict any use of the information to criminally investigate or prosecute any alcohol or drug abuse patient.[facility] HospitalIn the event this information is protected by the Federal Confidentiality of Alcohol and Drug Abuse Patient Records regulations: The Federal rules restrict any use of the information to criminally investigate or prosecute any alcohol or drug abuse patient.[facility] HospitalIn the event this information is protected by the Federal Confidentiality of Alcohol and Drug Abuse Patient Records regulations: The Federal rules restrict any use of the information to criminally investigate or prosecute any alcohol or drug abuse patient.[facility] HospitalIn the event this information is protected by the Federal Confidentiality of Alcohol and Drug Abuse Patient Records regulations: The Federal rules restrict any use of the information to criminally investigate or prosecute any alcohol or drug abuse patient.[facility] HospitalIn the event this information is protected by the Federal Confidentiality of Alcohol and Drug Abuse Patient Records regulations: The Federal rules restrict any use of the information to criminally investigate or prosecute any alcohol or drug abuse patient.[facility] HospitalIn the event this information is protected by the Federal Confidentiality of Alcohol and Drug Abuse Patient Records regulations: The Federal rules restrict any use of the information to criminally investigate or prosecute any alcohol or drug abuse patient.[facility] HospitalIn the event this information is protected by the Federal Confidentiality of Alcohol and Drug Abuse Patient Records regulations: The Federal rules restrict any use of the information to criminally investigate or prosecute any alcohol or drug abuse patient.[facility] HospitalIn the event this information is protected by the Federal Confidentiality of Alcohol and Drug Abuse Patient Records regulations: The Federal rules restrict any use of the information to criminally investigate or prosecute any alcohol or drug abuse patient.[facility] HospitalIn the event this information is protected by the Federal Confidentiality of Alcohol and Drug Abuse Patient Records regulations: The Federal rules restrict any use of the information to criminally investigate or prosecute any alcohol or drug abuse patient.[facility] HospitalIn the event this information is protected by the Federal Confidentiality of Alcohol and Drug Abuse Patient Records regulations: The Federal rules restrict any use of the information to criminally investigate or prosecute any alcohol or drug abuse patient.[facility] HospitalIn the event this information is protected by the Federal Confidentiality of Alcohol and Drug Abuse Patient Records regulations: The Federal rules restrict any use of the information to criminally investigate or prosecute any alcohol or drug abuse patient.[facility] HospitalIn the event this information is protected by the Federal Confidentiality of Alcohol and Drug Abuse Patient Records regulations: The Federal rules restrict any use of the information to criminally investigate or prosecute any alcohol or drug abuse patient.[facility] HospitalIn the event this information is protected by the Federal Confidentiality of Alcohol and Drug Abuse Patient Records regulations: The Federal rules restrict any use of the information to criminally investigate or prosecute any alcohol or drug abuse patient.[facility] HospitalIn the event this information is protected by the Federal Confidentiality of Alcohol and Drug Abuse Patient Records regulations: The Federal rules restrict any use of the information to criminally investigate or prosecute any alcohol or drug abuse patient.[facility] HospitalIn the event this information is protected by the Federal Confidentiality of Alcohol and Drug Abuse Patient Records regulations: The Federal rules restrict any use of the information to criminally investigate or prosecute any alcohol or drug abuse patient.[facility] HospitalIn the event this information is protected by the Federal Confidentiality of Alcohol and Drug Abuse Patient Records regulations: The Federal rules restrict any use of the information to criminally investigate or prosecute any alcohol or drug abuse patient.[facility] HospitalIn the event this information is protected by the Federal Confidentiality of Alcohol and Drug Abuse Patient Records regulations: The Federal rules restrict any use of the information to criminally investigate or prosecute any alcohol or drug abuse patient.[facility] HospitalIn the event this information is protected by the Federal Confidentiality of Alcohol and Drug Abuse Patient Records regulations: The Federal rules restrict any use of the information to criminally investigate or prosecute any alcohol or drug abuse patient.[facility] HospitalIn the event this information is protected by the Federal Confidentiality of Alcohol and Drug Abuse Patient Records regulations: The Federal rules restrict any use of the information to criminally investigate or prosecute any alcohol or drug abuse patient.[facility] HospitalIn the event this information is protected by the Federal Confidentiality of Alcohol and Drug Abuse Patient Records regulations: The Federal rules restrict any use of the information to criminally investigate or prosecute any alcohol or drug abuse patient.[facility] HospitalIn the event this information is protected by the Federal Confidentiality of Alcohol and Drug Abuse Patient Records regulations: The Federal rules restrict any use of the information to criminally investigate or prosecute any alcohol or drug abuse patient.[facility] HospitalIn the event this information is protected by the Federal Confidentiality of Alcohol and Drug Abuse Patient Records regulations: The Federal rules restrict any use of the information to criminally investigate or prosecute any alcohol or drug abuse patient.[facility] HospitalIn the event this information is protected by the Federal Confidentiality of Alcohol and Drug Abuse Patient Records regulations: The Federal rules restrict any use of the information to criminally investigate or prosecute any alcohol or drug abuse patient.[facility] HospitalIn the event this information is protected by the Federal Confidentiality of Alcohol and Drug Abuse Patient Records regulations: The Federal rules restrict any use of the information to criminally investigate or prosecute any alcohol or drug abuse patient.[facility] HospitalIn the event this information is protected by the Federal Confidentiality of Alcohol and Drug Abuse Patient Records regulations: The Federal rules restrict any use of the information to criminally investigate or prosecute any alcohol or drug abuse patient.[facility] HospitalIn the event this information is protected by the Federal Confidentiality of Alcohol and Drug Abuse Patient Records regulations: The Federal rules restrict any use of the information to criminally investigate or prosecute any alcohol or drug abuse patient.[facility] HospitalIn the event this information is protected by the Federal Confidentiality of Alcohol and Drug Abuse Patient Records regulations: The Federal rules restrict any use of the information to criminally investigate or prosecute any alcohol or drug abuse patient.[facility] HospitalIn the event this information is protected by the Federal Confidentiality of Alcohol and Drug Abuse Patient Records regulations: The Federal rules restrict any use of the information to criminally investigate or prosecute any alcohol or drug abuse patient.[facility] HospitalIn the event this information is protected by the Federal Confidentiality of Alcohol and Drug Abuse Patient Records regulations: The Federal rules restrict any use of the information to criminally investigate or prosecute any alcohol or drug abuse patient.[facility] HospitalIn the event this information is protected by the Federal Confidentiality of Alcohol and Drug Abuse Patient Records regulations: The Federal rules restrict any use of the information to criminally investigate or prosecute any alcohol or drug abuse patient.[facility] HospitalIn the event this information is protected by the Federal Confidentiality of Alcohol and Drug Abuse Patient Records regulations: The Federal rules restrict any use of the information to criminally investigate or prosecute any alcohol or drug abuse patient.[facility] HospitalIn the event this information is protected by the Federal Confidentiality of Alcohol and Drug Abuse Patient Records regulations: The Federal rules restrict any use of the information to criminally investigate or prosecute any alcohol or drug abuse patient.[facility] HospitalIn the event this information is protected by the Federal Confidentiality of Alcohol and Drug Abuse Patient Records regulations: The Federal rules restrict any use of the information to criminally investigate or prosecute any alcohol or drug abuse patient.[facility] HospitalIn the event this information is protected by the Federal Confidentiality of Alcohol and Drug Abuse Patient Records regulations: The Federal rules restrict any use of the information to criminally investigate or prosecute any alcohol or drug abuse patient.[facility] HospitalIn the event this information is protected by the Federal Confidentiality of Alcohol and Drug Abuse Patient Records regulations: The Federal rules restrict any use of the information to criminally investigate or prosecute any alcohol or drug abuse patient.[facility] HospitalIn the event this information is protected by the Federal Confidentiality of Alcohol and Drug Abuse Patient Records regulations: The Federal rules restrict any use of the information to criminally investigate or prosecute any alcohol or drug abuse patient.[facility] HospitalIn the event this information is protected by the Federal Confidentiality of Alcohol and Drug Abuse Patient Records regulations: The Federal rules restrict any use of the information to criminally investigate or prosecute any alcohol or drug abuse patient.[facility] HospitalIn the event this information is protected by the Federal Confidentiality of Alcohol and Drug Abuse Patient Records regulations: The Federal rules restrict any use of the information to criminally investigate or prosecute any alcohol or drug abuse patient.[facility] HospitalIn the event this information is protected by the Federal Confidentiality of Alcohol and Drug Abuse Patient Records regulations: The Federal rules restrict any use of the information to criminally investigate or prosecute any alcohol or drug abuse patient.[facility] Reason for Visit (unrecogniz ed section and content) Reason Onset Date Comments ED OUTREACH 06/09/2023 [facility] Reason Comments Orders Reason Comments Menstrual Problem Reason Comments UTI Urinary frequency an d Urgency x 2 days Reason Comments Medication Problem Reason Comments Initial OB Visit Reason Comments US Specialty Diagnoses / Procedures Referred By Shay t Referred To Contact [facility] Diagnoses with uncertain dates in first trimester Procedures NUCHAL TRANSLUCENCY WHI US NUCHAL TRANSLUCENCY 1ST GESTATION Sandra Briseno APRN.TAHIR [address] [place] [address] [facility] [address] [place] [address] Referral ID Status Reason Start Date Expiration Date V isits Requested Visits Authorized [id number] Closed Auto-Generate d Referral 06/27/2024 06/27/2025 1 1 Reason Onset Date Comments Care 07/13/2024 Reason Comments Outside Testing Reason Comments Abdominal issue Patient states that after she eats she has so much acid and feels so sick she feels like she needs vomit. She has been eating smaller portion Medication Request Patient is wanting t o start control for hormone imbalance Reason Onset Date Comments Care 08/10/2024 Reason Comments NIPT: Nonreportable Reason Comments Orders Reason Onset Date Comments Care 09/07/2024 Specialty Diagnoses / Procedures Referred By Contac t Referred To Contact [facility] Diagnoses Encounter for anatomic survey Procedures OBSTETRIC ULTRASOUND WHI US PREG UTERUS AFTER 1ST TRIMEST GESTATION Rani Parkinson MD [address] [place] [address] [address] Referral ID Status Reason Start Date Expiration Date V isits Requested Visits Authorized [id number] Closed Auto-Generate d Referral 09/07/2024 09/06/2025 1 1 Reason Comments Patient Question Reason Onset Date Comments Care 10/05/2024 Specialty Diagnoses / Procedures Referred By Contac t Referred To Contact [facility] Diagnoses Accessory placenta, second trimester Procedures OBSTETRIC ULTRASOUND WHI US PREG UTERUS AFTER 1ST TRIMEST GESTATION Rani Parkinson MD [address] [place] [address] [place] [id number] [place] [address] Referral ID Status Reason Start Date Expiration Date V isits Requested Visits Authorized [id number] Closed Auto-Generate d Referral 09/07/2024 09/07/2025 1 1 Reason Comments NIPT results: Abnormal Reason Onset Date Comments Care 11/19/2024 Reason Comments Genetics Care Specialty Diagnoses / Procedures Referred By Contac t Referred To Contact Diagnoses Supervision of high risk in third trimester Abnormal genetic test during Procedures CONSULT TO MEDICAL GENETICS - MEDICAL GENETICS COUNSELING EACH 30 MINUTES Giovanni Khan APRN.ROOM SERVICE FOOD SERVICE ATTENDANT [address] [place] [address] [facility] [address] [address] Referral ID Status Reason Start Date Expiration Date V isits Requested Visits Authorized [id number] Closed PCP Requested Referral Auto-Generated Referral 11/19/2024 11/19/2025 1 1 Reason Comments Question (OB Question) Reason Comments Thrush Thrush, white tongue x 6 days8 months Reason Onset Date Comments Care 12/11/2024 Reason Comments Patient Update Reason Onset Date Comments Care 12/28/2024 Reason Onset Date Comments Care 01/02/2025 Reason Comments Headache Facial pain headache s. Has abscess tooth. Requesting antibiotic. Her broke off this weekend. 9 month . Reason Onset Date Comments Care 01/08/2025 Reason Onset Date Comments Care 01/09/2025 Reason Onset Date Comments Population Health Navigation Outreach 01/11/2025 Ob/peds Reason Comments Ob Delivery Note Reason Onset Date Comments Transition Of Care 02/12/2025 Hospital [facility] 02/12-02/15/2025 Reason Comments Routine Reason Onset Date Comments Insertion Of IUD 03/06/2025 Specialty Diagnoses / Procedures Referred By Sahy mendoza Referred To Contact [facility] Diagnoses Encounter for insertion of Mirena IUD Procedures INSERT INTRAUTERINE DEVICE LEVONORGESTREL IU 52MG 5 YR INSERT INTRAUTERINE DEVICE Sarah Hinton MD [address] [place] [address] Phone: tel: fax: [address] [address] Referral ID Status Reason Start Date Expiration Date V isits Requested Visits Authorized [id number] Closed Auto-Generate d Referral 02/28/2025 02/28/2026 1 1 Reason Comments Eye Problem Bilateral eye irrita tion X 2 days Reason Comments Follow Up Reason Comments Cough Raspy, productive co ugh, mucus x 1 week Care Teams (unrecognized sec tion and content) Aeronautical Products Sales Engineer Relationship Specialty Start Date End Date Lupe Gao DO [address] [place] [id number] PCP - General Family Medicine 05/07/19 [employer]eronautical Products Sales Engineer Relationship Specialty Start Date End Date Lupe Gao DO [address] [place] [address] PCP - General Family Medicine 05/07/19 Aeronautical Products Sales Engineer Relationship Specialty Start Date End Date Lupe Gao DO [address] [place] [address] PCP - General Family Medicine 05/07/19 Aeronautical Products Sales Engineer Relationship Specialty Start Date End Date Lupe Gao DO [address] [place] [address] PCP - General Family Medicine 05/07/19 Aeronautical Products Sales Engineer Relationship Specialty Start Date End Date Lupe Gao DO [address] [place] [address] PCP - General Family Medicine 05/07/19 Aeronautical Products Sales Engineer Relationship Specialty Start Date End Date Lupe Gao DO [address] [place] [address] PCP - General Family Medicine 05/07/19 [employer] Sales Engineer Relationship Specialty Start Date End Date Lupe Gao DO [address] [place] [address] PCP - General Family Medicine 05/07/19 [employer] Sales Engineer Relationship Specialty Start Date End Date Lupe Gao DO [address] [place] [address] PCP - General Family Medicine 05/07/19 [employer] Sales Engineer Relationship Specialty Start Date End Date Lupe Gao DO [address] [place] [address] PCP - General Family Medicine 05/07/19 [employer] Sales Engineer Relationship Specialty Start Date End Date SheetsLupe DO [address] [place] [address] PCP - General Family Medicine 05/07/19 [employer] Sales Engineer Relationship Specialty Start Date End Date SheetsLupe DO [address] [place] [address] PCP - General Family Medicine 05/07/19 [employer] Sales Engineer Relationship Specialty Start Date End Date SheetsLupe DO [address] [place] [address] PCP - General Family Medicine 05/07/19 [employer] Sales Engineer Relationship Specialty Start Date End Date Lupe Gao DO [address] [place] [address] PCP - General Family Medicine 05/07/19 [employer] Sales Engineer Relationship Specialty Start Date End Date SheetsLupe DO [address] [place] [address] PCP - General Family Medicine 05/07/19 [employer] Sales Engineer Relationship Specialty Start Date End Date SheetsLupe DO [address] [place] [address] PCP - General Family Medicine 05/07/19 [employer] Sales Engineer Relationship Specialty Start Date End Date SheetsLupe DO [address] [place] [address] PCP - General Family Medicine 05/07/19 [employer] Sales Engineer Relationship Specialty Start Date End Date SheetsLupe DO [address] [place] [address] PCP - General Family Medicine 05/07/19 [employer] Sales Engineer Relationship Specialty Start Date End Date Lupe Gao DO [address] [place] [address] PCP - General Family Medicine 05/07/19 [employer] Sales Engineer Relationship Specialty Start Date End Date Lupe Gao DO [address] [place] [address] PCP - General Family Medicine 05/07/19 [employer] Sales Engineer Relationship Specialty Start Date End Date Lupe Gao DO [address] [place] [address] PCP - General Family Medicine 05/07/19 [employer] Sales Engineer Relationship Specialty Start Date End Date Lupe Gao DO [address] [place] [address] PCP - General Family Medicine 05/07/19 [employer] Sales Engineer Relationship Specialty Start Date End Date Lupe Gao DO [address] [place] [address] PCP - General Family Medicine 05/07/19 [employer] Sales Engineer Relationship Specialty Start Date End Date Lupe Gao DO [address] [place] [address] PCP - General Family Medicine 05/07/19 [employer] Sales Engineer Relationship Specialty Start Date End Date Lupe Gao DO [address] [place] [address] PCP - General Family Medicine 05/07/19 [employer] Sales Engineer Relationship Specialty Start Date End Date Lupe Gao DO [address] [facility] [place] [id number] PCP - General Family Medicine 05/07/19 [employer] Sales Engineer Relationship Specialty Start Date End Date MurrayLupe DO [address] [place] [address] PCP - General Family Medicine 05/07/19 [employer] Sales Engineer Relationship Specialty Start Date End Date MurrayLupe DO [address] [place], [place] [id number] PCP - General [facility] Medicine 05/07/19 [employer] Sales Engineer Relationship Specialty Start Date End Date Lupe Gao DO [address] [facility] [place] [id number] PCP - General Family Medicine 05/07/19 Team Status: Active Member Role Status Dates Dr. Lupe Gao DO Primary Care Provider Active Team Status: Inactive Member Role Status Dates Dr. Cuauhtemoc Molina DO Attending Provider Active Start: December 02, 2024 End: December 02, 2024 Dr. Cuauhtemoc Molina DO Emergency Provider Active Start: December 02, 2024 End: December 02, 2024 Dr. Lupe Gao DO Primary Care Provider Active Start: December 02, 2024 End: December 02, 2024 Team Status: Inactive Member Role Status Dates Dr. Lupe Gao DO Primary Care Provider Active Start: December 03, 2024 End: December 03, 2024 Vandana Edwards CNM Attending Provider Active Start: December 03, 2024 End: December 03, 2024 Vandana Edwards CNM Referring Provider Active Start: December 03, 2024 End: December 03, 2024 Team Status: Inactive Member Role Status Dates Dr. Lupe Gao DO Primary Care Provider Active Start: December 19, 2024 End: December 19, 2024 Vandana Edwards CNM Attending Provider Active Start: December 19, 2024 End: December 19, 2024 Vandana Edwards CNM Referring Provider Active Start: December 19, 2024 End: December 19, 2024 Team Status: Inactive Member Role Status Dates Dr. Lupe Gao DO Primary Care Provider Active Start: December 25, 2024 End: December 25, 2024 Dr. Karen Hendrix MD Attending Provider Active Start: December 25, 2024 End: December 25, 2024 Dr. Karen Hendrix MD Referring Provider Active Start: December 25, 2024 End: December 25, 2024 Team Status: Inactive Member Role Status Dates Dr. Lupe Gao DO Primary Care Provider Active Start: January 13, 2025 End: January 15, 2025 Dr. Rani Parkinson MD Admit Provider Active S tart: January 13, 2025 End: January 15, 2025 Dr. Rani Parkinson MD Attending Provider Active Start: January 13, 2025 End: January 15, 2025 Team Status: Inactive Member Role Status Dates Dr. Lupe Gao DO Primary Care Provider Active Start: February 12, 2025 End: February 12, 2025 Dr. Markel Albert DO Emergency Provider Active Start : February 12, 2025 End: February 12, 2025 [employer] Sales Engineer Relationship Specialty Start Date End Date No, Physician [facility] PCP General 02/12/25 [employer] Sales Engineer Relationship Specialty Start Date End Date Lupe Gao DO [address] [place] [address] PCP - General Family Medicine 05/07/19 [employer] Sales Engineer Relationship Specialty Start Date End Date Lupe Gao DO [address] [place] [address] PCP - General Family Medicine 05/07/19 [employer] Sales Engineer Relationship Specialty Start Date End Date Lupe Gao DO [address] [place] [address] PCP - General Family Medicine 05/07/19 [employer] Sales Engineer Relationship Specialty Start Date End Date Lupe Gao DO [address] [place] [address] PCP - General Family Medicine 05/07/19 [employer] Sales Engineer Relationship Specialty Start Date End Date Sheets, Lupe Santos DO [address] [place] [address] PCP - General Family Medicine 04/02/25 [employer] Sales Engineer Relationship Specialty Start Date End Date Sheets, Lupe Ladd DO [address] [place] [address] PCP - General Family Medicine 05/07/19 Scheduled Active and Recently Administ ered Medications (unrecognized section and content) Medication Order 02/13/2025 02/14/2025 02/15/2025 clonazePAM (KLONOPIN) tablet 1 mg (COMPLETED) 1 mg, Oral, Once, On Tue02/13/25 at 1545, For 1 dose, CATEGORY D HAZARDOUS DRUG use safe handling precautions. Use reference link to view PPE guidelines. Minimize crushing/splitting only to situations where clinically necessary. 1542 (Given - Provider: Rosaura Gage RN) lamoTRIgine (LAMICTAL) tablet 200 mg 200 mg, Oral, Daily, First dose on Tue02/13/25 at 1545 1541 (Given - Provider: Rosaura Gage RN) 0830 (Given - Provider: Rosaura Gage RN) 0839 (Given - Provider: Morris Houston LPN) lurasidone (LATUDA) tablet 40 mg 40 mg, Oral, Daily with dinner, First dose on Tue02/13/25 at 1700, Take with food. Administer with a meal containing at least 350 calories. 1631 (Given - Provider: Rosaura Gage RN) 1636 (Given - Provider: Mavis Galvez RN) nicotine (NICODERM CQ) 21 mg/24 hr 1 patch 1 patch, Transdermal, Administer over 24 Hours, Daily, First dose on Tue02/13/25 at 0900, U/P Listed Hazardous Drug. Waste Must Be Disposed in [employer] Waste [employer] 0846 (Patch Applied - Provider: Rosaura Gage RN) 0830 (Patch Removed - Provider: Rosaura Gage RN)0831 (Patch Applied - Provider: Rosaura Gage RN) 0831 (Patch Removed - Provider: Morris Houston LPN)0839 (Patch Applied - Provider: Morris Houston LPN)1115 (Due: Patch Removed - Provider: Discharge Provider, Automatic - Comment: Time automatically adjusted from order being discontinued) OXcarbazepine (TRILEPTAL) tablet 300 mg 300 mg, Oral, At bedtime, First dose on Tue02/13/25 at 2100, CATEGORY C HAZARDOUS DRUG use safe handling precautions. Use reference link to view PPE guidelines. Minimize crushing/splitting only to situations where clinically necessary. 2108 (Given - Provider: Alphonso Hartman RN) 2112 (Given - Provider: Lyn Yancey, MARTHA) PRN Medication Order 02/13/2025 02/14/2025 02/15/2025 aluminum-magnesium hydroxide-simethicone (MAALOX PLUS) 200-200-20 mg/5 mL suspension 30 mL 30 mL, Oral, Every 4 hours PRN, indigestion, Starting on Tue02/12/25 at 2200 1200 (Given - Provider: Octaviano Shay, RN)1636 (Given - Provider: Mavis Galvez RN) benztropine (COGENTIN) injection 2 mg 2 mg, Intramuscular, Once as needed, acute dystonia, Starting on Tue02/12/25 at 2200, For 1 dose, [] and notify the physician. haloperidoL (HALDOL) tablet 5 mg(Linked Group 1) 5 mg, Oral, Every 4 hours PRN, agitation, ORAL FIRST LINE agent for agitation, Starting on Tue02/12/25 at 2203, If oral route is available, use oral first line agent. Use linked IM agent (IF ordered) if oral route unavailable. If additional agitation medication is necessary within 30 minutes (prior to second line agent-IF ordered), contact provider. May cause QT interval prolongation. haloperidol lactate (HALDOL) injection 5 mg(Linked Group 1) 5 mg, Intramuscular, Every 4 hours PRN, agitation, alternate IM FIRST LINE agent for agitation, Starting on Tue02/12/25 at 2203, If oral route is available, use oral first line agent. Use linked IM agent (IF ordered) if oral route unavailable. If additional agitation medication is necessary within 30 minutes (prior to second line agent-IF ordered), contact provider. May cause QT interval prolongation. hydrOXYzine (ATARAX) tablet 50 mg 50 mg, Oral, Every 6 hours PRN, anxiety, Starting on Tue02/12/25 at 2200 1403 (Given - Provider: Jennifer Caputo LPN) 0401 (Given - Provider: Lyn Yancey, MARTHA) ibuprofen (ADVIL,MOTRIN) tablet 600 mg 600 mg, Oral, Every 6 hours PRN, mild pain, Starting on Tue02/12/25 at 2200, Give with Food Do Not Crush or Chew if administering orally due to bitter taste. May be crushed if given via tube. LORazepam (ATIVAN) injection 2 mg 2 mg, Intramuscular, Every 4 hours PRN, agitation, SECOND LINE agent for agitation, Starting on Tue02/12/25 at 2204, May give 30 minutes after first line agent if needed for agitation management. Contact provider if additional agitation management is necessary. Do not give IM lorazepam within 2 hours of IM olanzapine. VESICANT magnesium hydroxide (MOM) 400 mg/5 mL suspension 2,400 mg 2,400 mg (30 mL), Oral, Daily PRN, constipation, constipation, Starting on Tue02/12/25 at 2200 traZODone (DESYREL) tablet 50 mg 50 mg, Oral, Nightly PRN, sleep, Starting on Tue02/12/25 at 2323, May repeat in 30 minutes once if not sleeping. 2151 (Given - Provider: Clemencia Andrade RN) 2121 (Given - Provider: Lyn Yancey, MARTHA) Linked Groups Order Group 1: haloperidoL (HALDOL) tablet 5 mgJump to med 5 mg, Oral, Every 4 hours PRN, agitation, ORAL FIRST LINE agent for agitation, Starting on Tue02/12/25 at 2203, If oral route is available, use oral first line agent. Use linked IM agent (IF ordered) if oral route unavailable. If additional agitation medication is necessary within 30 minutes (prior to second line agent- IF ordered), contact provider. May cause QT interval prolongation. Or haloperidol lactate (HALDOL) injection 5 mgJump to med 5 mg, Intramuscular, Every 4 hours PRN, agitation, alternate IM FIRST LINE agent for agitation, Starting on Tue02/12/25 at 2203, If oral route is available, use oral first line agent. Use linked IM agent (IF ordered) if oral route unavailable. If additional agitation medication is necessary within 30 minutes (prior to second line agent-IF ordered), contact provider. May cause QT interval prolongation. FOR RECORDS PERTAINING TO PATIENTS WHO ARE OR HAVE BEEN ENROLLED IN A CHEMICAL DEPENDENCY/SUBSTANCEABUSE PROGRAM, SOME INFORMATION MAY BE OMITTED. This clinical summary was aggregated from multiple sources. Caution should be exercised in using it in the provision of clinical care. This summary normalizes information from multiple sources, and as a consequence, information in this document may materially change the coding, format and clinical context of patient data. In addition, data may be omitted in some cases. CLINICAL DECISIONS SHOULD BE BASED ON THE PRIMARY CLINICAL RECORDS. [employer] provides no warranty or guarantee of the accuracy or completeness of information in this document.
[2025-08-31 19:00] VITALS: BP 144/94; RESP 16
[2025-08-31 20:00] VITALS: BP 96/77; PULSE 97; RESP 16; O2SAT 98
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
[2025-08-31 20:49] LABS: Hematocrit 44.1 % (37-47); Hemoglobin 14.3 g/dL (12.0-15.0); Immature Granulocytes Count 0.030 X10^3/uL (0.0-0.0); Mean Corp Hgb Conc 32.4 g/dL (32-36); Mean Corpuscular Volume 85.5 fL (81-99); Mean Platelet Vol. 8.4 fl (6.2-12.0); NRBC Flagged by Analyzer 0 % (0-5); Platelet Count 389 K/mm3 (150-450); RBC Distribution Width CV 13.3 % (11.6-14.6); RBC Distribution Width SD 42.0 fl (35.1-43.9); Red Blood Count 5.16 M/mm3 (4.2-5.4); White Blood Count 12.1 K/mm3 (4.4-11.0)
[2025-08-31] MEDS: Nicotine (PBKC) 7 MG Patch TD (20:50)
[2025-08-31 20:55] VITALS: BMI 39.3
[2025-08-31 21:08] LABS: Internal QC Validated? YES +Cl - CLEAR BKGD; Pregnancy, Serum, hCG Quali. NEGATIVE Negative; Record Kit Lot#, Serum Preg. 980607
[2025-08-31 21:23] LABS: Alcohol, Blood (Medical)-Serum < 10.1 mg/dL (<=10.0)
[2025-08-31 21:28] LABS: Anion Gap 10 (5-15); BUN 21 mg/dL (4-19); BUN/Creat Ratio 27.1 RATIO (10-20); Calcium,Total 9.6 mg/dL (7.6-11.0); Carbon Dioxide 28.3 mmol/L (21.0-32.0); Chloride 102 mmol/L (98-108); Estimated Creatinine Clearance 112.89 ml/min (50-250); Glucose 91 mg/dL (70-99); Potassium 4.0 mmol/L (3.3-5.1)
[2025-08-31 21:33] LABS: Barbiturate Urine NEGATIVE (< 200 ng/mL); Benzodiazepine Urine NEGATIVE (< 200 ng/mL); PCP Urine PRESUMPTIVE POSITIVE (< 25 ng/mL); THC Urine NEGATIVE (< 50 ng/mL)
--- NOTE | 2025-08-31 21:36 | PCA ---
CALLED AND FAXED CHART TO [facility]IS[facility]
[2025-08-31] MEDS: LURASIDONE HCL 40 MG TABLET PO (21:49)
[2025-08-31 21:53] VITALS: BP 120/77; PULSE 88; RESP 16; O2SAT 98
--- NOTE | 2025-09-01 02:28 | PCA ---
REFERRED TO [facility], DECLINED THOUGH DUE TO NO BEDS. REFERRED TO CHRISTINA MORALEZ.
[2025-09-01 06:02] VITALS: BP 121/87; PULSE 88; RESP 16; TEMP 36.7; O2SAT 98
== END 2025-09-01 07:13 ==
LOC: ED 18:37
PROVIDERS: Emergency Provider Surgery; PCP Family Medicine; Visit Provider Surgery
DX: R44.0 Auditory hallucinations (principal); F31.9 Bipolar disorder, unspecified; F41.9 Anxiety disorder, unspecified; Z86.59 Personal history of other mental and behavioral disorders; F17.290 Nicotine dependence, other tobacco product, uncomplicated
CPT/HCPCS: 80048; 80307; 82077; 84703; 85025; 99285